=== PATIENT | female | born 1990 ===

== ENCOUNTER 2020-07-20 16:01 | Emergency (ER) | payer MEDICAID, SELFPAY ==
--- NOTE | 2020-07-20 | US_ITS ---
EXAMINATION: US PELVIS, COMPLETE CLINICAL INFORMATION: PCOS and ectopic and pain. COMPARISON: None TECHNIQUE: Transabdominal and endovaginal imaging was performed. FINDINGS: The anteverted uterus is of normal size and echogenicity measuring 7.7 x 3.5 x 3.1 cm. A regular homogeneous endometrium is identified measuring 0.7 cm. cm. Nabothian cysts are present. Both ovaries are of normal size and echogenicity. The right measures 1.7 x 1.4 x 1.8 cm for volume of 2 mL and appears normal. . The left measures 2.4 x 2.5 x 2.0 cm for a volume of 6 mL and contains a 1.5 x 1.6 x 1.7 cm cyst. There is no pelvic free fluid. IMPRESSION: Negative study with the exception of a benign-appearing left ovarian cyst which should need no further follow-up.
[2020-07-20] MEDS: Acetaminophen 325 MG TABLET 650 MG PO (18:19)
--- NOTE | 2020-07-20 19:21 | ED_ITS ---
HPI - Abdominal Pain General Chief Complaint: Abdominal Pain <Ryan Ortega MD - Last Filed: 07/21/20 08:47> Stated Complaint: abd pain <Ryan Ortega MD - Last Filed: 07/21/20 08:47> Time Seen by Provider: 07/20/20 19:21 <Ryan Ortega MD - Last Filed: 07/21/20 08:47> Source: patient <Ryan Ortega MD - Last Filed: 07/21/20 08:47> Mode of arrival: ambulatory <Ryan Ortega MD - Last Filed: 07/21/20 08:47> History of Present Illness HPI narrative: patient states that she has a history of polycystic ovarian syndrom and e ctopic <Ryan Ortega MD - Last Filed: 07/21/20 08:47> MD elicited complaint: abdominal pain <Ryan Ortega MD - Last Filed: 07/21/20 08:47> Pertinent past history: other (POCS, ectopic ) <Ryan Ortega MD - Last Filed: 07/21/20 08:47> Onset (ago): hour(s) (48) <Ryan Ortega MD - Last Filed: 07/21/20 08:47> Pain Consistency: intermittent <Ryan Ortega MD - Last Filed: 07/21/20 08:47> Location: diffuse <Ryan Ortega MD - Last Filed: 07/21/20 08:47> Severity: moderate <Ryan Ortega MD - Last Filed: 07/21/20 08:47> Quality: stabbing <Ryan Otrega MD - Last Filed: 07/21/20 08:47> Radiation: none <Ryan Ortega MD - Last Filed: 07/21/20 08:47> Associated symptoms: vomiting <Ryan Ortega MD - Last Filed: 07/21/20 08:47> Related Data Date of Last Menstrual Period: 07/08/20 <Ryan Ortega MD - Last Filed: 07/21/20 08:47> Home Medications: Previous Rx's Medication Instructions Recorded oxycodone-acetaminophen 1 tab PO Q6H PRN 3 Days #12 tab 07/20/20 <Ryan Ortega MD - Last Filed: 07/21/20 08:47> Allergies/Adverse Reactions: Allergies Allergy/AdvReac Type Severity Reaction Status Date / Time No Known Allergies Allergy Verified 07/20/20 18:14 <Ryan Ortega MD - Last Filed: 07/21/20 08:47> Review of Systems Constitutional: Reports no additional constitutional complaints <Ryan Ortega MD - Last Filed: 07/21/20 08:47> Eyes: Reports no additional eye complaints <Ryan Ortega MD - Last Filed: 07/21/20 08:47> Denies dizziness <Ryan Ortega MD - Last Filed: 07/21/20 08:47> Cardiovascular: Reports no additional cardiovascular complaints <Ryan Ortega MD - Last Filed: 07/21/20 08:47> Respiratory: Reports as per HPI <Ryan Ortega MD - Last Filed: 07/21/20 08:47> Comments: lower abdominal pain and pelvic pain <Ryan Ortega MD - Last Filed: 07/21/20 08:47> Genitourinary: Reports no additional female genitourinary complaints <Ryan Ortega MD - Last Filed: 07/21/20 08:47> Musculoskeletal: Reports no additional musculoskeletal complaints <Ryan Ortega MD - Last Filed: 07/21/20 08:47> Skin/Breast: Denies rash <Ryan Ortega MD - Last Filed: 07/21/20 08:47> Reports system reviewed and no additional complaints, except as documented, Denies dizziness and Denies Sensory deficit (Neuro) <Ryan Ortega MD - Last Filed: 07/21/20 08:47> Denies Sensory deficit (Neuro) <Sharif Ortiz MD - Last Filed: 07/20/20 23:18> Psychiatric: Denies anxiety <Ryan Ortega MD - Last Filed: 07/21/20 08:47> Physical Exam Vital Signs and I&O and Narrative: Vital Signs and I&O: Vital Signs Temp 98.6 F 07/20/20 20:19 Pulse 85 07/20/20 23:06 Resp 16 07/20/20 23:06 BP 146/103 H 07/20/20 23:06 Pulse Ox 99 07/20/20 20:19 Intake & Output 07/20/20 07/21/20 07/21/20 18:59 06:59 18:59 Weight 117.48 kg Body Mass Index 40.5 <Ryan Ortega MD - Last Filed: 07/21/20 08:47> Vital Signs and I&O: Vital Signs Temp 98.6 F 07/20/20 20:19 Pulse 85 07/20/20 23:06 Resp 16 07/20/20 23:06 BP 146/103 H 07/20/20 23:06 Pulse Ox 99 07/20/20 20:19 Intake & Output 07/20/20 07/21/20 07/21/20 18:59 06:59 18:59 Weight 117.48 kg Body Mass Index 40.5 <Sharif Ortiz MD - Last Filed: 07/20/20 23:18> Const: General: cooperative <Ryan Ortega MD - Last Filed: 07/21/20 08:47> General: cooperative <Sharif Ortiz MD - Last Filed: 07/20/20 23:18> Nutritional Appearance: obese <Ryan Ortega MD - Last Filed: 07/21/20 08:47> Nutritional Appearance: obese <Sharif Ortiz MD - Last Filed: 07/20/20 23:18> Orientation/consciousness: oriented to person <Ryan Ortega MD - Last Filed: 07/21/20 08:47> Orientation/consciousness: oriented to person <Sharif Ortiz MD - Last Filed: 07/20/20 23:18> HENMT: Head: Yes normal to inspection <Ryan Ortega MD - Last Filed: 07/21/20 08:47> Head: Yes normal to inspection <Sharif Ortiz MD - Last Filed: 07/20/20 23:18> Ears: hearing grossly normal bilaterally <Ryan Ortega MD - Last Filed: 07/21/20 08:47> Ears: hearing grossly normal bilaterally <Sharif Ortiz MD - Last Filed: 07/20/20 23:18> Mouth: Normal oral and palatal mucosa present <Ryan Ortega MD - Last Filed: 07/21/20 08:47> Mouth: Normal oral and palatal mucosa present <Sharif Ortiz MD - Last Filed: 07/20/20 23:18> Throat: Yes posterior oropharynx normal <Ryan Ortega MD - Last Filed: 07/21/20 08:47> Throat: Yes posterior oropharynx normal <Sharif Ortiz MD - Last Filed: 07/20/20 23:18> Eyes: General: appearance normal, both eyes and all related structures <Ryan Ortega MD - Last Filed: 07/21/20 08:47> General: appearance normal, both eyes and all related structures <Sharif Ortiz MD - Last Filed: 07/20/20 23:18> Neck: Neck: Yes normal visual inspection <Ryan Ortega MD - Last Filed: 07/21/20 08:47> Neck: Yes normal visual inspection <Sharif Ortzi MD - Last Filed: 07/20/20 23:18> Chest: Chest palpation & inspection: normal inspection of the chest <Ryan Ortega MD - Last Filed: 07/21/20 08:47> Chest palpation & inspection: normal inspection of the chest <Sharif Ortiz MD - Last Filed: 07/20/20 23:18> Resp: Effort & Inspection: normal respiratory effort <Ryan Ortega MD - Last Filed: 07/21/20 08:47> Effort & Inspection: normal respiratory effort <Sharif Ortiz MD - Last Filed: 07/20/20 23:18> Auscultation: clear to auscultation bilaterally <Ryan Ortega MD - Last Filed: 07/21/20 08:47> Auscultation: clear to auscultation bilaterally <Sharif Ortiz MD - Last Filed: 07/20/20 23:18> Cardio: Rate: regular rate <Ryan Ortega MD - Last Filed: 07/21/20 08:47> Rate: regular rate <Sharif Ortiz MD - Last Filed: 07/20/20 23:18> Rhythm: regular rhythm <MD Jagdeep Krishna Last Filed: 07/21/20 08:47> Rhythm: regular rhythm <Sharif Ortiz MD - Last Filed: 07/20/20 23:18> Heart sounds: S1 normal heart sound present and S2 normal heart sound present <Ryan Ortega MD - Last Filed: 07/21/20 08:47> Heart sounds: S1 normal heart sound present and S2 normal heart sound present <Sharif Ortiz MD - Last Filed: 07/20/20 23:18> GI: Other: obese, soft abdomen, diffusely tender <Ryan Ortega MD - Last Filed: 07/21/20 08:47> Other: obese, soft abdomen, diffusely tender <Sharif Ortiz MD - Last Filed: 07/20/20 23:18> : General: Yes no CVA tenderness <Ryan Ortega MD - Last Filed: 07/21/20 08:47> General: Yes no CVA tenderness <Sharif Ortiz MD - Last Filed: 07/20/20 23:18> Back/Spine/Pelvis: Back: no CVA tenderness <Ryan Ortega MD - Last Filed: 07/21/20 08:47> Back: no CVA tenderness <Sharif Ortiz MD - Last Filed: 07/20/20 23:18> Skin: General skin exam: no rashes or lesions noted <Ryan Ortega MD - Last Filed: 07/21/20 08:47> General skin exam: no rashes or lesions noted <Sharif Ortiz MD - Last Filed: 07/20/20 23:18> Neuro: General: oriented to person <Ryan Ortega MD - Last Filed: 12/09 08:47> General: oriented to person <Sharif Ortiz MD - Last Filed: 07/20/20 23:18> Motor exam (neuro): 5/5 motor strength present throughout <Ryan Ortega MD - Last Filed: 07/21/20 08:47> Motor exam (neuro): 5/5 motor strength present throughout <Sharif Ortiz MD - Last Filed: 07/20/20 23:18> Sensory Exam: No Sensory deficit (Neuro) <Ryan Ortega MD - Last Filed: 07/21/20 08:47> Sensory Exam: No Sensory deficit (Neuro) <Sharif Ortiz MD - Last Filed: 07/20/20 23:18> Extrem: General: Yes normal to inspection <Ryan Ortega MD - Last Filed: 07/21/20 08:47> General: Yes normal to inspection <Sharif Ortiz MD - Last Filed: 07/20/20 23:18> Psych: Appearance: grossly normal <Ryan Ortega MD - Last Filed: 07/21/20 08:47> Appearance: grossly normal <Sharif Ortiz MD - Last Filed: 07/20/20 23:18> Course Reevaluation(s) Reevaluation #1: signed out to Dr. Ortiz expect work up to be negative and patient to go home <Ryan Ortega MD - Last Filed: 07/21/20 08:47> Time: 21:03 <Ryan Ortega MD - Last Filed: 07/21/20 08:47> 21:00 <Sharif Ortiz MD - Last Filed: 07/20/20 23:18> Reevaluation #2: I received signout from Dr. Ortega. <Sharif Ortiz MD - Last Filed: 07/20/20 23:18> Time: 23:00 <Sharif Ortiz MD - Last Filed: 07/20/20 23:18> Reevaluation #3: I had previously met with patient, and she received some Toradol with moderate relief of her symptoms. I reviewed her ultrasound as well as lab work. Lab work were remarkable for a mild elevation in her white blood cell count. , transvaginal ultrasound demonstrated a 1.5 x 1.6 x 1 point cm ovarian cyst. The patient tells me that she does not have a crap game box person in this area yet. She was provided with discharge instructions, return precautions which were acknowledged. She was provided with a crap game box person in the area to see for follow-up. she was made aware of the lab work as well as ultrasound findings. <Sharif Ortiz MD - Last Filed: 07/20/20 23:18> MDM - Abdominal Pain Lab Data Result diagrams: : 07/20/20 20:03 07/20/20 20:03 <Ryan Ortega MD - Last Filed: 07/21/20 08:47> Labs: Lab Results 10/01/20 10/01/20 10/01/20 Range/Units 20:03 20:03 20:09 WBC 13.7 H (4.8-10.8) X10*3/uL RBC 5.23 (4.20-5.50) X10*6/uL Hgb 14.8 (12.0-16.0) g/dl Hct 45.2 (37-47) % MCV 86.4 (80-98) fL MCH 28.3 (27.0-33.0) pg MCHC 32.7 (31.0-35.0) g/dl RDW 12.1 (11.0-16.0) % Plt Count 240 (160-400) X10*3/uL MPV 12.5 H (9.4-12.3) fL Immature Gran % (Auto) 0.3 (0.0-0.4) % Neut % (Auto) 67.2 (45-73) % Lymph % (Auto) 25.9 (20-40) % [place] % (Auto) 5.0 (2-11) % Eos % (Auto) 0.9 (0-4) % Baso % (Auto) 0.7 (0-2) % Neut # (Auto) 9.2 H (2.0-8.3) X10*3/uL Lymph # (Auto) 3.6 (1.2-4.9) X10*3/uL [place] # (Auto) 0.7 (0.1-1.2) X10*3/uL Eos # (Auto) 0.1 (0.0-0.4) X10*3/uL Baso # (Auto) 0.1 (0.0-0.2) X10*3/uL Abs Immat Gran (auto) 0.04 H (0.00-0.03) X10*3/uL Absolute Nucleated RBC 0.000 (0.0-0.012) X10*3/uL Nucleated RBC % (auto) 0.0 (0.0-0.2) /100WBC Sodium 139 (135-145) mmol/L Potassium 4.0 (3.3-5.1) mmol/l Chloride 105 (96-108) mmol/L Carbon Dioxide 24 (22-29) mmol/L Anion Gap 14 (12-20) BUN 10 (9-16) mg/dL Creatinine 0.81 (0.5-1.4) mg/dL Estim Creat Clear Calc 134.6 Estimated GFR > 60 POC Glucose 90 (60-115) mg/dL Random Glucose 97 (60-115) mg/dL Calcium 9.5 (8.4-10.2) mg/dL Beta HCG, Quant < 2 mIU/mL Urine Color Urine Appearance Urine pH (5.0-8.0) Ur Specific [place] (1.005-1.025) Urine Protein (NEG-TRACE) MG/DL Urine Glucose (UA) (NEG) MG/DL Urine Ketones (NEG) MG/DL Urine Blood (NEG) Urine Nitrite (NEG) Ur Leukocyte Esterase (NEG) Urine RBC (0) /HPF Urine WBC (0-4) /HPF Ur Squamous Epith Cells /LPF Urine Bacteria /LPF Urine Mucus /LPF 07/20/20 Range/Units 21:39 WBC (4.8-10.8) X10*3/uL RBC (4.20-5.50) X10*6/uL Hgb (12.0-16.0) g/dl Hct (37-47) % MCV (80-98) fL MCH (27.0-33.0) pg MCHC (31.0-35.0) g/dl RDW (11.0-16.0) % Plt Count (160-400) X10*3/uL MPV (9.4-12.3) fL Immature Gran % (Auto) (0.0-0.4) % Neut % (Auto) (45-73) % Lymph % (Auto) (20-40) % [place] % (Auto) (2-11) % Eos % (Auto) (0-4) % Baso % (Auto) (0-2) % Neut # (Auto) (2.0-8.3) X10*3/uL Lymph # (Auto) (1.2-4.9) X10*3/uL [place] # (Auto) (0.1-1.2) X10*3/uL Eos # (Auto) (0.0-0.4) X10*3/uL Baso # (Auto) (0.0-0.2) X10*3/uL Abs Immat Gran (auto) (0.00-0.03) X10*3/uL Absolute Nucleated RBC (0.0-0.012) X10*3/uL Nucleated RBC % (auto) (0.0-0.2) /100WBC Sodium (135-145) mmol/L Potassium (3.3-5.1) mmol/l Chloride (96-108) mmol/L Carbon Dioxide (22-29) mmol/L Anion Gap (12-20) BUN (9-16) mg/dL Creatinine (0.5-1.4) mg/dL Estim Creat Clear Calc Estimated GFR POC Glucose (60-115) mg/dL Random Glucose (60-115) mg/dL Calcium (8.4-10.2) mg/dL Beta HCG, Quant mIU/mL Urine Color YELLOW Urine Appearance CLEAR Urine pH 6.0 (5.0-8.0) Ur Specific [place] 1.025 (1.005-1.025) Urine Protein NEG (NEG-TRACE) MG/DL Urine Glucose (UA) NEG (NEG) MG/DL Urine Ketones NEG (NEG) MG/DL Urine Blood NEG (NEG) Urine Nitrite POS H (NEG) Ur Leukocyte Esterase NEG (NEG) Urine RBC 1-4 (0) /HPF Urine WBC 5-9 H (0-4) /HPF Ur Squamous Epith Cells 2+ /LPF Urine Bacteria 3+ /LPF Urine Mucus 2+ /LPF <Ryan Ortega MD - Last Filed: 07/21/20 08:47> Lab Results 07/20/20 07/20/20 07/20/20 Range/Units 20:03 20:03 20:09 WBC 13.7 H (4.8-10.8) X10*3/uL RBC 5.23 (4.20-5.50) X10*6/uL Hgb 14.8 (12.0-16.0) g/dl Hct 45.2 (37-47) % MCV 86.4 (80-98) fL MCH 28.3 (27.0-33.0) pg MCHC 32.7 (31.0-35.0) g/dl RDW 12.1 (11.0-16.0) % Plt Count 240 (160-400) X10*3/uL MPV 12.5 H (9.4-12.3) fL Immature Gran % (Auto) 0.3 (0.0-0.4) % Neut % (Auto) 67.2 (45-73) % Lymph % (Auto) 25.9 (20-40) % [place] % (Auto) 5.0 (2-11) % Eos % (Auto) 0.9 (0-4) % Baso % (Auto) 0.7 (0-2) % Neut # (Auto) 9.2 H (2.0-8.3) X10*3/uL Lymph # (Auto) 3.6 (1.2-4.9) X10*3/uL [place] # (Auto) 0.7 (0.1-1.2) X10*3/uL Eos # (Auto) 0.1 (0.0-0.4) X10*3/uL Baso # (Auto) 0.1 (0.0-0.2) X10*3/uL Abs Immat Gran (auto) 0.04 H (0.00-0.03) X10*3/uL Absolute Nucleated RBC 0.000 (0.0-0.012) X10*3/uL Nucleated RBC % (auto) 0.0 (0.0-0.2) /100WBC Sodium 139 (135-145) mmol/L Potassium 4.0 (3.3-5.1) mmol/l Chloride 105 (96-108) mmol/L Carbon Dioxide 24 (22-29) mmol/L Anion Gap 14 (12-20) BUN 10 (9-16) mg/dL Creatinine 0.81 (0.5-1.4) mg/dL Estim Creat Clear Calc 134.6 Estimated GFR > 60 POC Glucose 90 (60-115) mg/dL Random Glucose 97 (60-115) mg/dL Calcium 9.5 (8.4-10.2) mg/dL Beta HCG, Quant < 2 mIU/mL Urine Color Urine Appearance Urine pH (5.0-8.0) Ur Specific [place] (1.005-1.025) Urine Protein (NEG-TRACE) MG/DL Urine Glucose (UA) (NEG) MG/DL Urine Ketones (NEG) MG/DL Urine Blood (NEG) Urine Nitrite (NEG) Ur Leukocyte Esterase (NEG) Urine RBC (0) /HPF Urine WBC (0-4) /HPF Ur Squamous Epith Cells /LPF Urine Bacteria /LPF Urine Mucus /LPF 07/20/20 Range/Units 21:39 WBC (4.8-10.8) X10*3/uL RBC (4.20-5.50) X10*6/uL Hgb (12.0-16.0) g/dl Hct (37-47) % MCV (80-98) fL MCH (27.0-33.0) pg MCHC (31.0-35.0) g/dl RDW (11.0-16.0) % Plt Count (160-400) X10*3/uL MPV (9.4-12.3) fL Immature Gran % (Auto) (0.0-0.4) % Neut % (Auto) (45-73) % Lymph % (Auto) (20-40) % [place] % (Auto) (2-11) % Eos % (Auto) (0-4) % Baso % (Auto) (0-2) % Neut # (Auto) (2.0-8.3) X10*3/uL Lymph # (Auto) (1.2-4.9) X10*3/uL [place] # (Auto) (0.1-1.2) X10*3/uL Eos # (Auto) (0.0-0.4) X10*3/uL Baso # (Auto) (0.0-0.2) X10*3/uL Abs Immat Gran (auto) (0.00-0.03) X10*3/uL Absolute Nucleated RBC (0.0-0.012) X10*3/uL Nucleated RBC % (auto) (0.0-0.2) /100WBC Sodium (135-145) mmol/L Potassium (3.3-5.1) mmol/l Chloride (96-108) mmol/L Carbon Dioxide (22-29) mmol/L Anion Gap (12-20) BUN (9-16) mg/dL Creatinine (0.5-1.4) mg/dL Estim Creat Clear Calc Estimated GFR POC Glucose (60-115) mg/dL Random Glucose (60-115) mg/dL Calcium (8.4-10.2) mg/dL Beta HCG, Quant mIU/mL Urine Color YELLOW Urine Appearance CLEAR Urine pH 6.0 (5.0-8.0) Ur Specific [place] 1.025 (1.005-1.025) Urine Protein NEG (NEG-TRACE) MG/DL Urine Glucose (UA) NEG (NEG) MG/DL Urine Ketones NEG (NEG) MG/DL Urine Blood NEG (NEG) Urine Nitrite POS H (NEG) Ur Leukocyte Esterase NEG (NEG) Urine RBC 1-4 (0) /HPF Urine WBC 5-9 H (0-4) /HPF Ur Squamous Epith Cells 2+ /LPF Urine Bacteria 3+ /LPF Urine Mucus 2+ /LPF <Sharif Ortiz MD - Last Filed: 07/20/20 23:18> Imaging Data US - abdomen: Radiologist's impression: US PELVIS, COMPLETE IMPRESSION: Negative study with the exception of a benign-appearing left ovarian cyst which should need no further follow-up. <Sharif Ortiz MD - Last Filed: 07/20/20 23:18> Discharge Plan Discharge Clinical Impression: Left lower quadrant abdominal pain, Ovarian cyst <Ryan Ortega MD - Last Filed: 07/21/20 08:47> Patient Disposition: Home, Self-Care <Ryan Ortega MD - Last Filed: 07/21/20 08:47> Instructions: Ovarian Cyst (ED) <Ryan Ortega MD - Last Filed: 07/21/20 08:47> Additional Instructions: Your lab work was reassuring. Your have a 1.5x1.6.1.7 cm ovarain cyst on the left. Please use 600 mg of ibuprofen every 8 hours for your pain and the oxycodone-acetaminophen for breakthrough pain. Do not drive if taking the oxycodone-acetaminophen. Please call the crap game box person provided tomorrow for the next available appointment. If you develop any new or concerning symptoms please return to the emergency department. <Ryan Ortega MD - Last Filed: 07/21/20 08:47> Prescriptions: New oxycodone-acetaminophen 5-325 mg tablet 1 tab PO Q6H PRN (Reason: pain) 3 Days Qty: 12 RF: 0 <Ryan Ortega MD - Last Filed: 07/21/20 08:47> Referrals: Dante Taveras MD [Physician] - 2 days <Ryan Ortega MD - Last Filed: 07/21/20 08:47> Interventions: ED Discharge Assessment Last Done: 07/20/20 23:20 <Ryan Ortega MD - Last Filed: 07/21/20 08:47> Discharge Date/Time: 07/20/20 23:40 <Ryan Ortega MD - Last Filed: 07/21/20 08:47> [facility] Past Medical History Medical History: Medical History (Updated 07/21/20 @ 00:01 by Background Jonnathan) Asthma Diabetes mellitus, type 2 Hypercholesteremia Hypertension Ovarian cyst <Ryan Ortega MD - Last Filed: 07/21/20 08:47> Date of Last Menstrual Period: 07/08/20 <Ryan Ortega MD - Last Filed: 07/21/20 08:47> Social History Social History: Social History Alcohol intake: never Smoking Status: Current every day smoker Use of substances other than those prescribed or required for medical reasons: No Advance Directives: No Advance Directives Information Provided: Yes <Ryan Ortega MD - Last Filed: 07/21/20 08:47>
[2020-07-20 20:07] LABS: MANUAL DIFF FLAG NO
[2020-07-20 20:10] LABS: Basophils Absolute Auto 0.1 X10*3/uL (0.0-0.2); Basophils Percent Auto 0.7 % (0-2); Eosinophils Absolute Auto 0.1 X10*3/uL (0.0-0.4); Eosinophils Percent Auto 0.9 % (0-4); Hematocrit 45.2 % (37-47); Hemoglobin 14.8 g/dl (12.0-16.0); Imm Gran Abs Auto 0.04 X10*3/uL (0.00-0.03); Imm Gran Pct Auto 0.3 % (0.0-0.4); Lymphocytes Absolute Auto 3.6 X10*3/uL (1.2-4.9); Lymphocytes Percent Auto 25.9 % (20-40); Mean Corpuscular HGB Conc 32.7 g/dl (31.0-35.0); Mean Corpuscular Hemoglobin 28.3 pg (27.0-33.0); Mean Corpuscular Volume 86.4 fL (80-98); Mean Platelet Volume 12.5 fL (9.4-12.3); Monocytes Absolute Auto 0.7 X10*3/uL (0.1-1.2); Neutrophils Absolute Auto 9.2 X10*3/uL (2.0-8.3); Neutrophils Percent Auto 67.2 % (45-73); Platelet Count 240 X10*3/uL (160-400); Red Blood Count 5.23 X10*6/uL (4.20-5.50); Red Cell Distribution Width 12.1 % (11.0-16.0); White Blood Count 13.7 X10*3/uL (4.8-10.8)
[2020-07-20 20:12] LABS: Glucose, Whole Blood 90 mg/dL (60-115)
[2020-07-20 20:19] VITALS: BP 125/72; PULSE 66; PULSE 75; RESP 16; TEMP 37; O2SAT 98; O2SAT 99; BMI 40.5
[2020-07-20 20:36] LABS: Anion Gap 14 (12-20); Blood Urea Nitrogen 10 mg/dL (9-16); Calcium 9.5 mg/dL (8.4-10.2); Carbon Dioxide 24 mmol/L (22-29); Chloride 105 mmol/L (96-108); Creatinine Clr Calc Pharmacy 134.6; Estimated Glomerular Filt Rate > 60; Glucose Random 97 mg/dL (60-115); Sodium 139 mmol/L (135-145)
[2020-07-20 20:43] LABS: HCG Quantitative < 2 mIU/mL
[2020-07-20] MEDS: Ketorolac Tromethamine 15 MG/ML VIAL IV (21:52)
[2020-07-20 21:58] LABS: Glucose Urine UA NEG (NEG); Leukocyte Esterase Urine NEG (NEG); Nitrite Urine POS (NEG); Specific Gravity - Urine 1.025 (1.005-1.025); Urine Blood NEG (NEG); Urine Ketones NEG (NEG); Urine Protein NEG (NEG-TRACE)
--- NOTE | 2020-07-20 22:01 | PC.NURSE ---
Pt worried about her poc of 90, requesting juice. Pt given apple juice. pt also requested pain medication, IV established and pt administered 15 mg toradol IV.
[2020-07-20 22:09] LABS: Appearance Urine CLEAR; Color Urine YELLOW
[2020-07-20 22:17] LABS: Bacteria Urine 3+ /LPF; Mucus Urine 2+ /LPF; Squamous Epithelial Cell Urine 2+ /LPF
[2020-07-20 23:06] VITALS: BP 146/103; PULSE 85; RESP 16
[2020-07-20] MEDS: oxyCODONE HCl Immed Release 5 MG TABLET PO (23:08)
--- NOTE | 2020-07-20 23:17 | PC.NURSE ---
pT ON PHONE, SEATED UPRIGHT AND REPORTS IMPROVED PAIN IN LLQ. PAIN NOW /10.
== END 2020-07-20 23:40 | disposition home or self-care (01) ==
PROVIDERS: Emergency Medicine; Emergency Provider Emergency Medicine
DX: R10.32 Left lower quadrant pain (principal); N83.202 Unspecified ovarian cyst, left side; E11.9 Type 2 diabetes mellitus without complications
CPT/HCPCS: 36415; 76830; 76856; 80048; 81001; 81003; 82947; 84702; 85025; 87086; 87088; 87186; 99284; J1885

== ENCOUNTER 2020-09-26 12:25 | Outpatient (REF) | payer MEDICAID, SELFPAY | END 2020-09-26 12:26 | disposition home or self-care (01) | LOC: HO.LAB 12:25 | PROVIDERS: PCP Registered Nurse; Visit Provider Registered Nurse | DX: Z20.828 Contact with and (suspected) exposure to other viral communicable diseases (principal) | CPT/HCPCS: C9803; U0003 ==

== ENCOUNTER → 2020-11-07 13:10 | Outpatient (BNVA) | payer MEDICAID, SELFPAY | PROVIDERS: PCP Registered Nurse; Visit Provider Obstetrics & Gynecology | DX: Z31.69 Encounter for other general counseling and advice on procreation (principal); R10.2 Pelvic and perineal pain | CPT/HCPCS: 99202 ==

== ENCOUNTER 2020-12-28 15:31 | Outpatient (REF) | payer MEDICAID, SELFPAY ==
--- NOTE | ~2020-12-28 | US_ITS ---
EXAMINATION: US PELVIS, COMPLETE CLINICAL INFORMATION: Pelvic and perineal pain; history of left ovarian cyst. COMPARISON: Pelvic ultrasound dated 07/20/2020. TECHNIQUE: Transabdominal and transvaginal imaging was performed. FINDINGS: The uterus is of normal size and echogenicity measuring 8.3 x 3.7 x 4.4 cm. The uterus is anteverted and anteflexed. A regular homogeneous endometrium is identified measuring 0.6 cm. Nabothian cysts are seen within the cervix Both ovaries are of normal size and echogenicity. The right ovary measures 2.8 x 2.9 x 2.1 cm for a volume of 8.9 mL. The right ovary contains 2.1 cm and 2.4 cm in maximal diameter simple cyst. The left ovary measures 6.5 x 1.5 x 2.0 cm for a volume of 6.3 mL. The left ovary contains a 1.5 cm in maximal diameter simple cyst. As well, the left ovary contains a 2.6 x 2.1 x 1.6 cm heterogeneous echotexture corpus luteum cyst. There is no pelvic free fluid. No adnexal mass is seen. US/US transvaginal IMPRESSION: 1. There are bilateral ovarian simple cysts incidentally noted, with dimensions as detailed above. As well, a left ovary corpus luteum cyst is seen. 2. Nabothian cysts are seen within the cervix.
--- NOTE | ~2020-12-28 | US_ITS ---
EXAMINATION: US PELVIS, COMPLETE CLINICAL INFORMATION: Pelvic and perineal pain; history of left ovarian cyst. COMPARISON: Pelvic ultrasound dated 07/20/2020. TECHNIQUE: Transabdominal and transvaginal imaging was performed. FINDINGS: The uterus is of normal size and echogenicity measuring 8.3 x 3.7 x 4.4 cm. The uterus is anteverted and anteflexed. A regular homogeneous endometrium is identified measuring 0.6 cm. Nabothian cysts are seen within the cervix Both ovaries are of normal size and echogenicity. The right ovary measures 2.8 x 2.9 x 2.1 cm for a volume of 8.9 mL. The right ovary contains 2.1 cm and 2.4 cm in maximal diameter simple cyst. The left ovary measures 6.5 x 1.5 x 2.0 cm for a volume of 6.3 mL. The left ovary contains a 1.5 cm in maximal diameter simple cyst. As well, the left ovary contains a 2.6 x 2.1 x 1.6 cm heterogeneous echotexture corpus luteum cyst. There is no pelvic free fluid. No adnexal mass is seen. US/US pelvic complete IMPRESSION: 1. There are bilateral ovarian simple cysts incidentally noted, with dimensions as detailed above. As well, a left ovary corpus luteum cyst is seen. 2. Nabothian cysts are seen within the cervix.
== END 2020-12-28 15:32 | disposition home or self-care (01) ==
LOC: HO.US 15:31
PROVIDERS: Visit Provider Obstetrics & Gynecology
DX: R10.2 Pelvic and perineal pain (principal)
CPT/HCPCS: 76830; 76856

== ENCOUNTER 2022-01-17 16:39 | Emergency (ER) | payer MEDICAID, SELFPAY ==
--- NOTE | ~2022-01-17 | CT_ITS ---
EXAMINATION: CT ABDOMEN AND PELVIS WITHOUT AND WITH CONTRAST CLINICAL INFORMATION: Lower abdominal pain radiating to the back and right lower quadrant pain. COMPARISON: Pelvic ultrasound dated from 12/28/2020. TECHNIQUE: Multidetector volumetric imaging was performed of the abdomen and pelvis before and after the IV administration of 85 mL of Omnipaque 350 intravenous contrast. Sagittal and coronal reformatted images were obtained on the technologist's workstation. This CT examination was performed using dose optimization techniques as appropriate, variously including the following: *Automated exposure control *Adjustment of mA and/or kV according to patient size (this includes techniques or standardized protocols for targeted exams where dose is matched to indication/reason for exam; i.e. extremities or head) *Use of iterative reconstruction technique DLP: 1123 mGy-cm FINDINGS: LUNG BASES: The visualized lung bases are unremarkable. LIVER, GALLBLADDER, AND BILIARY TREE: The liver is enlarged measuring 26.6 cm craniocaudally with decreased parenchymal attenuation most consistent with hepatic steatosis. Otherwise, the liver is normal in shape without discrete focal abnormalities. Prior cholecystectomy. No biliary ductal dilatation. PANCREAS: Unremarkable SPLEEN: Unremarkable ADRENAL GLANDS: Unremarkable KIDNEYS AND URETERS: The kidneys are normal in size, shape, and attenuation. There is a small approximately 0.8 cm peripheral angiomyolipoma in the left kidney (8:40). No hydronephrosis, hydroureter, or calculi seen. No perinephric stranding. BLADDER: Unremarkable GASTROINTESTINAL TRACT: The stomach and the small bowel are nondilated. Normal appendix. Mild diverticulosis. No pericolonic inflammatory changes or evidence of bowel obstruction. ABDOMINAL WALL: No significant hernia is appreciated. LYMPH NODES: No lymphadenopathy by size criteria. VASCULAR: Unremarkable PELVIC VISCERA: The uterus and adnexa are unremarkable. Trace amount of free fluid is likely physiologic. OSSEOUS STRUCTURES: No acute or aggressive appearing osseous abnormalities. CT/CT abdomen pelvis wo/w con IMPRESSION: Hepatomegaly and hepatic steatosis. Mild diverticulosis but no evidence of acute diverticulitis. Small left renal angiomyolipoma.
[2022-01-17 17:36] VITALS: BP 138/92; PULSE 100; RESP 18; TEMP 36.8; O2SAT 98; BMI 43.9
[2022-01-17 17:47] LABS: Glucose, Whole Blood 302 mg/dL (60-115)
--- NOTE | 2022-01-17 20:13 | ED.ABDPAIN ---
HPI - Abdominal Pain General Chief Complaint: Abdominal Pain Stated Complaint: Abd pain Time Seen by Provider: 01/17/22 19:34 Source: patient Mode of arrival: ambulatory Limitations: no limitations History of Present Illness HPI narrative: 31-year-old female past medical history significant for diabetes mellitus type 2, high triglycerides presenting to the emergency department with multiple complaints including abnormal labs, abdominal pain, nausea, vomiting, diarrhea X2 days. According to patient she decided to come in today he she was seen by her primary care provider that tells her that her pancreatic enzymes were elevated and she had very high triglycerides. Patient tells me that she has had about 6 episodes of vomiting and she feels extremely nauseous at this time. She also reports multiple episodes of loose stool. She tells me there has not been any blood in her stool or vomit. She reports lower abdominal pain that radiates the back she tells me that the abdominal pain is worse in the right lower quadrant intermittent severe in nature and stabbing. Patient tells me none of the symptoms of ever happened to her before. She has a newly diagnosed type 2 diabetic she is currently taking Lantus and Trulicity. She does started insulin on Friday. She denies chest pain, shortness of breath, fevers, chills, weakness, leg swelling, pain, increased urination, increased thirst. MD elicited complaint: abdominal pain Onset (ago): day(s) (2) Pain Consistency: constant Location: RLQ and LLQ Severity: moderate Quality: stabbing Radiation: none Migration to: no migration Exacerbating factors: nothing Relieving factors: nothing Associated symptoms: denies other symptoms Related Data Previous Rx's Medication Instructions Recorded oxycodone-acetaminophen 5 mg-325 1 tab PO Q6H PRN 3 Days #12 tab 07/20/20 mg tablet cefuroxime axetil 250 mg tablet 250 mg PO BID 7 Days #14 tab 01/17/22 ondansetron 4 mg disintegrating 4 mg PO ONCE PRN #10 tab 01/17/22 tablet Allergies Allergy/AdvReac Type Severity Reaction Status Date / Time ciprofloxacin [From Cipro] Allergy Intermediate Hives Verified 01/17/22 17:36 sulfamethoxazole Allergy Intermediate Hives Verified 01/17/22 17:36 [From Septra] trimethoprim [From Septra] Allergy Intermediate Hives Verified 01/17/22 17:36 Review of Systems Review of Systems Constitutional : No Weight loss, No Fever, No Chills, No Fatigue, + Malaise ENT/Mouth : No sore throat, No Rhinorrhea Eyes: No Eye Pain, No Swelling, No Redness Cardiovascular : No Chest Pain, No SOB, No Dyspnea on Exertion, No Orthopnea, No Edema, No Palpitations Respiratory : No Cough, No Sputum, No Wheezing Gastrointestinal : + Nausea, + Vomiting, + Diarrhea, No Constipation, + abdominal Pain, No Hematochezia, No Melena Genitourinary : No Dysuria, No Urinary Frequency, No Hematuria, Musculoskeletal : No joint pain, No Myalgias, No Joint Swelling Skin : No Skin Lesions, No rash Neuro : No Weakness, No Numbness, No Dizziness, No Headache Psych : No Anxiety/Panic, No Depression All other systems reviewed and are negative Yes all other systems are reviewed and are negative [facility]LY [facility] Past Medical History Attestation statement: The following information was validated with the patient. Source: old records reviewed and nursing notes reviewed Medical History Asthma Diabetes mellitus, type 2 History of ectopic Hypercholesteremia Hypertension Ovarian cyst Surgical History History of ovarian cystectomy Social History Social History Alcohol intake: never Patient Tobacco Use Status: Never used Tobacco Use of substances other than those prescribed or required for medical reasons: Yes Substance Use Type: Marijuana Substance Use Frequency: Chronic Longstanding Advance Directives: No Advance Directives Information Provided: No Patient : No Sexual orientation: Straight/Heterosexual Gender identity: Female Physical Exam ED Vital Signs: Vital Signs - 24 hr 01/17/22 17:36 01/17/22 20:21 01/17/22 22:00 Temperature 98.3 F 98.3 F Pulse Rate 100 93 96 Respiratory Rate 18 15 18 Blood Pressure 138/92 H 145/99 H 108/69 Pulse Oximetry 98 99 99 BMI result Body Mass Index 43.9 Vital signs stable Appearance: Alert.? Oriented X3.? No acute distress.? Head: Normocephalic, atraumatic, no step-offs or deformities Eyes: Pupils equal, round and reactive to light.? ENT: Pharynx normal.? Neck: Normal inspection.? Neck supple.? CVS: Normal heart rate and rhythm.? Pulses normal.? Respiratory: No respiratory distress.? Breath sounds normal.? Abdomen: Soft and + pain to palpation to lower quadrant right greater than left. Negative psoas and obturator. Skin: Skin warm and dry.? Normal skin color.? Normal skin turgor.? Extremities: No lower extremity edema.? No calf ttp. 5/5 strength to bilateral upper and lower extremities Back: No midline tenderness, no C-spine tenderness, full range of motion, no CVA tenderness bilaterally Neuro: Oriented X 3.? No motor deficit.? No sensory deficit. CN 2-12 intact Course Reevaluation(s) Reevaluation #1: Patient's sugar was noted to be elevated therefore she was given 5 units of insulin. Patient noted to have a slight leukocytosis. No anemia. Chemistry with no acute electrolyte abnormalities. Transaminases slightly elevated. Lipase within normal limits. Beta-hCG negative. UA positive for nitrates. Will treat patient for UTI Ceftin 250 mg p.o. b.i.d. x7 days. Acetone negative, no anion gap, grossly normal VBG. Unlikely that this is DKA. CT of the abdomen and pelvis with hepatomegaly and hepatic steatosis mild diverticulosis but no evidence of diverticulitis. Small left renal angiomyolipoma. Lipase WNL unlikley pancreatitis. Patient tells me she is feeling much better after Toradol and Zofran. No longer having abdominal pain or nausea. Repeated my abdominal exam patient does not have pain with palpation anywhere. Normoactive bowel sounds. She now tells me that she is having a little bit of burning with urination. No concerns for STDs/STIs. Patient tolerating p.o. fluids, has not vomited since. Patient's sugar improved after insulin. One hundred eighty-eight. At this time patient will be discharged home. Discussed laboratory studies and imaging with her. Will discharge her with PCP follow-up. Outlined worrisome signs and symptoms advised her to return if any of these arise. Comfortable discharge home Time: 23:09 MDM - Abdominal Pain MDM Narrative Medical decision making narrative: 2010 31 yo f pmhx DM, high triglycerides presents to the ED w/ abnormal labs from PCP ( increased pancreatic enzymes), nausea, vomiting, diarrhea and abdominal pain times 2-3 days. Newly diagnosed type better ache. Recently started insulin on Friday. Physical exam significant for pain with palpation to lower abdomen, right worse than left. Negative psoas and obturator. Negative Valenzuela sign. Lungs clear. Regular rate and rhythm. Negative CVA tenderness. Negative Dalton sign bilaterally. Plan at this time is to obtain basic labs, VBG, acetone, urine, point of care, lipase, and CT of the abdomen and pelvis with and without contrast to rule out appendicitis, kidney stones. Will also rule out DKA. Medical Records Attestation: I reviewed the patient's medical records. Lab Data Attestation: I reviewed the patient's lab results. Result diagrams: 01/17/22 20:02 01/17/22 20:02 Labs: Lab Results 01/17/22 01/17/22 01/17/22 Range/Units 17:42 20:02 20:02 WBC 12.2 H (4.8-10.8) X10*3/uL RBC 4.91 (4.20-5.50) X10*6/uL Hgb 14.0 (12.0-16.0) g/dl Hct 41.6 (37.0-47.0) % MCV 84.7 (80.0-98.0) fL MCH 28.5 (27.0-33.0) pg MCHC 33.7 (31.0-35.0) g/dl RDW 12.1 (11.0-16.0) % Plt Count Not Reportable MPV Not Reportable Immature Gran % (Auto) Cancelled Neut % (Auto) Cancelled Lymph % (Auto) Cancelled [place] % (Auto) Cancelled Eos % (Auto) Cancelled Baso % (Auto) Cancelled Lymph # (Auto) Cancelled [place] # (Auto) Cancelled Eos # (Auto) Cancelled Baso # (Auto) Cancelled Abs Immat Gran (auto) Cancelled Absolute Neuts (auto) Cancelled Absolute Nucleated RBC 0.000 (0.0-0.012) X10*3/uL Nucleated RBC % (auto) 0.0 (0.0-0.2) /100WBC Neutrophils % (Manual) 68 (45-73) % Band Neutrophils % 0 L (3-5) % Lymphocytes % (Manual) 26 (20-40) % Monocytes % (Manual) 4 (2-11) % Basophils % (Manual) 2 (0-2) % Abs Neuts (Manual) 8.3 (2.0-8.3) X10*3/uL Lymphocytes # (Manual) 3.2 (1.2-4.9) X10*3/uL Monocytes # (Manual) 0.5 (0.1-1.2) X10*3/uL Basophils # (Manual) 0.2 (0.0-0.2) X10*3/uL Platelet Estimate NORMAL (NORMAL) Plt Morphology Comment NORMAL RBC Morphology NORMAL Tear Drop Cells 1+ (0-2) /OIF VBG pH (7.32-7.43) VBG pCO2 mmHg VBG pO2 mmHg VBG HCO3 (22-26) mmol/L VBG O2 Saturation % VBG Base Excess mmol/L Sodium 134 L (135-145) mmol/L Potassium 4.3 (3.3-5.1) mmol/L Chloride 101 (96-108) mmol/L Carbon Dioxide 22 (22-29) mmol/L Anion Gap 15 (12-20) BUN 10 (9-16) mg/dL Creatinine 0.92 (0.5-1.4) mg/dL Estim Creat Clear Calc 121.8 Estimated GFR > 60 POC Glucose 302 H (60-115) mg/dL Random Glucose 260 H (60-115) mg/dL Calcium 9.6 (8.4-10.2) mg/dL Total Bilirubin 0.3 (0.0-1.0) mg/dL AST 37 H (5-31) U/L ALT 48 H (0-31) U/L Alkaline Phosphatase 80 (39-117) U/L Total Protein 6.9 (6.5-8.0) g/dL Albumin 4.0 (3.5-5.0) g/dL Lipase 38 (8-78) U/L Beta HCG, Quant < 2 mIU/mL Urine Color Urine Appearance Urine pH (5.0-8.0) Ur Specific [place] (1.005-1.025) Urine Protein (NEG-TRACE) MG/DL Urine Glucose (UA) (NEG) MG/DL Urine Ketones (NEG) MG/DL Urine Blood (NEG) Urine Nitrite (NEG) Ur Leukocyte Esterase (NEG) Urine RBC (0) /HPF Urine WBC (0-4) /HPF Ur Squamous Epith Cells /LPF Urine Bacteria /LPF Acetone, Qual (Negative) 01/17/22 01/17/22 01/17/22 Range/Units 20:02 20:02 20:13 WBC (4.8-10.8) X10*3/uL RBC (4.20-5.50) X10*6/uL Hgb (12.0-16.0) g/dl Hct (37.0-47.0) % MCV (80.0-98.0) fL MCH (27.0-33.0) pg MCHC (31.0-35.0) g/dl RDW (11.0-16.0) % Plt Count MPV Immature Gran % (Auto) Neut % (Auto) Lymph % (Auto) [place] % (Auto) Eos % (Auto) Baso % (Auto) Lymph # (Auto) [place] # (Auto) Eos # (Auto) Baso # (Auto) Abs Immat Gran (auto) Absolute Neuts (auto) Absolute Nucleated RBC (0.0-0.012) X10*3/uL Nucleated RBC % (auto) (0.0-0.2) /100WBC Neutrophils % (Manual) (45-73) % Band Neutrophils % (3-5) % Lymphocytes % (Manual) (20-40) % Monocytes % (Manual) (2-11) % Basophils % (Manual) (0-2) % Abs Neuts (Manual) (2.0-8.3) X10*3/uL Lymphocytes # (Manual) (1.2-4.9) X10*3/uL Monocytes # (Manual) (0.1-1.2) X10*3/uL Basophils # (Manual) (0.0-0.2) X10*3/uL Platelet Estimate (NORMAL) Plt Morphology Comment RBC Morphology Tear Drop Cells /OIF VBG pH 7.45 H (7.32-7.43) VBG pCO2 32 mmHg VBG pO2 87 mmHg VBG HCO3 22 (22-26) mmol/L VBG O2 Saturation 98.0 % VBG Base Excess -0.1 mmol/L Sodium (135-145) mmol/L Potassium (3.3-5.1) mmol/L Chloride (96-108) mmol/L Carbon Dioxide (22-29) mmol/L Anion Gap (12-20) BUN (9-16) mg/dL Creatinine (0.5-1.4) mg/dL Estim Creat Clear Calc Estimated GFR POC Glucose (60-115) mg/dL Random Glucose (60-115) mg/dL Calcium (8.4-10.2) mg/dL Total Bilirubin (0.0-1.0) mg/dL AST (5-31) U/L ALT (0-31) U/L Alkaline Phosphatase (39-117) U/L Total Protein (6.5-8.0) g/dL Albumin (3.5-5.0) g/dL Lipase (8-78) U/L Beta HCG, Quant Cancelled mIU/mL Urine Color YELLOW Urine Appearance CLEAR Urine pH 6.0 (5.0-8.0) Ur Specific [place] 1.020 (1.005-1.025) Urine Protein NEG (NEG-TRACE) MG/DL Urine Glucose (UA) 100 H (NEG) MG/DL Urine Ketones NEG (NEG) MG/DL Urine Blood NEG (NEG) Urine Nitrite POS H (NEG) Ur Leukocyte Esterase NEG (NEG) Urine RBC 0 (0) /HPF Urine WBC 0 (0-4) /HPF Ur Squamous Epith Cells NONE /LPF Urine Bacteria NONE /LPF Acetone, Qual Negative (Negative) 01/17/22 01/17/22 Range/Units 20:18 22:06 WBC (4.8-10.8) X10*3/uL RBC (4.20-5.50) X10*6/uL Hgb (12.0-16.0) g/dl Hct (37.0-47.0) % MCV (80.0-98.0) fL MCH (27.0-33.0) pg MCHC (31.0-35.0) g/dl RDW (11.0-16.0) % Plt Count MPV Immature Gran % (Auto) Neut % (Auto) Lymph % (Auto) [place] % (Auto) Eos % (Auto) Baso % (Auto) Lymph # (Auto) [place] # (Auto) Eos # (Auto) Baso # (Auto) Abs Immat Gran (auto) Absolute Neuts (auto) Absolute Nucleated RBC (0.0-0.012) X10*3/uL Nucleated RBC % (auto) (0.0-0.2) /100WBC Neutrophils % (Manual) (45-73) % Band Neutrophils % (3-5) % Lymphocytes % (Manual) (20-40) % Monocytes % (Manual) (2-11) % Basophils % (Manual) (0-2) % Abs Neuts (Manual) (2.0-8.3) X10*3/uL Lymphocytes # (Manual) (1.2-4.9) X10*3/uL Monocytes # (Manual) (0.1-1.2) X10*3/uL Basophils # (Manual) (0.0-0.2) X10*3/uL Platelet Estimate (NORMAL) Plt Morphology Comment RBC Morphology Tear Drop Cells /OIF VBG pH (7.32-7.43) VBG pCO2 mmHg VBG pO2 mmHg VBG HCO3 (22-26) mmol/L VBG O2 Saturation % VBG Base Excess mmol/L Sodium (135-145) mmol/L Potassium (3.3-5.1) mmol/L Chloride (96-108) mmol/L Carbon Dioxide (22-29) mmol/L Anion Gap (12-20) BUN (9-16) mg/dL Creatinine (0.5-1.4) mg/dL Estim Creat Clear Calc Estimated GFR POC Glucose 312 H 188 H (60-115) mg/dL Random Glucose (60-115) mg/dL Calcium (8.4-10.2) mg/dL Total Bilirubin (0.0-1.0) mg/dL AST (5-31) U/L ALT (0-31) U/L Alkaline Phosphatase (39-117) U/L Total Protein (6.5-8.0) g/dL Albumin (3.5-5.0) g/dL Lipase (8-78) U/L Beta HCG, Quant mIU/mL Urine Color Urine Appearance Urine pH (5.0-8.0) Ur Specific [place] (1.005-1.025) Urine Protein (NEG-TRACE) MG/DL Urine Glucose (UA) (NEG) MG/DL Urine Ketones (NEG) MG/DL Urine Blood (NEG) Urine Nitrite (NEG) Ur Leukocyte Esterase (NEG) Urine RBC (0) /HPF Urine WBC (0-4) /HPF Ur Squamous Epith Cells /LPF Urine Bacteria /LPF Acetone, Qual (Negative) Critical Care Time Critical Care Time Critical Care Time: No Discharge Plan Discharge Clinical Impression: UTI (urinary tract infection), Diverticulosis, Hepatomegaly Patient Disposition: Home, Self-Care Instructions: Diverticulosis (ED), Urinary Tract Infection in Women (DC) Additional Instructions: Take your medications as prescribed. If you were prescribed antibiotics today, it is important that you take your medication to their entirety, do not skip any doses, do not finish them early. Follow-up with your primary care provider this week. Return to the emergency department with new or worsening symptoms. Such as fevers, chills, chest pain, shortness of breath, nausea, vomiting, dizziness, headache, vision changes, lethargy In case of emergency call 911 Prescriptions: New cefuroxime axetil 250 mg tablet 250 mg PO BID 7 Days Qty: 14 0RF ondansetron 4 mg tablet,disintegrating 4 mg PO ONCE PRN (Reason: nausea and vomiting) Qty: 10 0RF No Action oxycodone-acetaminophen 5-325 mg tablet 1 tab PO Q6H PRN (Reason: pain) 3 Days Qty: 12 0RF Referrals: Stephanie Layton FNP [Primary Care Provider] - 2 days Stand Alone Forms: Work/School Release
[2022-01-17 20:18] LABS: Venous Blood Gas Refer to POC result
[2022-01-17 20:19] LABS: VBG Base Excess -0.1 mmol/L; VBG HCO3 22 mmol/L (22-26); VBG pCO2 32 mmHg; VBG pH 7.45 (7.32-7.43); VBG pO2 87 mmHg
[2022-01-17 20:21] VITALS: BP 145/99; PULSE 93; RESP 15; O2SAT 99
[2022-01-17 20:22] LABS: Glucose, Whole Blood 312 mg/dL (60-115)
[2022-01-17 20:23] LABS: Appearance Urine CLEAR; Color Urine YELLOW; Glucose Urine UA 100 MG/DL (NEG); Leukocyte Esterase Urine NEG (NEG); Nitrite Urine POS (NEG); UACC Culture Trigger YES; Urine Blood NEG (NEG); Urine Ketones NEG (NEG); Urine Protein NEG (NEG-TRACE)
[2022-01-17 20:27] LABS: PLT CLUMP 1
[2022-01-17 20:29] LABS: Hematocrit 41.6 % (37.0-47.0); Mean Corpuscular HGB Conc 33.7 g/dl (31.0-35.0); Mean Corpuscular Hemoglobin 28.5 pg (27.0-33.0); Mean Corpuscular Volume 84.7 fL (80.0-98.0); PLT ABN DIST 1; Red Blood Count 4.91 X10*6/uL (4.20-5.50); Red Cell Distribution Width 12.1 % (11.0-16.0); WBC ABN SCTR FOR CBC 1
[2022-01-17 20:30] LABS: White Blood Count 12.2 X10*3/uL (4.8-10.8)
[2022-01-17 20:34] LABS: Acetone, serum QL Negative (Negative)
[2022-01-17 20:36] LABS: RBC Urine 0 /HPF (0); WBC Urine 0 /HPF (0-4)
[2022-01-17] MEDS: 0.9 % Sodium Chloride 1,000 ML 999 ML IV (20:40)
[2022-01-17 20:44] LABS: Band Neutrophils Percent 0 % (3-5); Basophils Abs Manual 0.2 X10*3/uL (0.0-0.2); Basophils Percent Manual 2 % (0-2); Lymphocytes Absolute Manual 3.2 X10*3/uL (1.2-4.9); Lymphocytes Percent Manual 26 % (20-40); Monocytes Absolute Manual 0.5 X10*3/uL (0.1-1.2); Monocytes Percent Manual 4 % (2-11); Neutrophils Absolute Manual 8.3 X10*3/uL (2.0-8.3); Neutrophils Percent Manual 68 % (45-73)
[2022-01-17 20:45] LABS: Platelet Estimate NORMAL (NORMAL); Platelet Morphology Comment NORMAL; RBC Morphology NORMAL; Tear Drop Cells 1+ (0-2) /OIF
[2022-01-17 20:53] LABS: Alanine Aminotransferase 48 U/L (0-31); Alkaline Phosphatase 80 U/L (39-117); Anion Gap 15 (12-20); Aspartate Amino Transferase 37 U/L (5-31); Bilirubin Total 0.3 mg/dL (0.0-1.0); Blood Urea Nitrogen 10 mg/dL (9-16); Calcium 9.6 mg/dL (8.4-10.2); Carbon Dioxide 22 mmol/L (22-29); Chloride 101 mmol/L (96-108); Creatinine Clr Calc Pharmacy 121.8; Estimated Glomerular Filt Rate > 60; Glucose Random 260 mg/dL (60-115); Lipase 38 U/L (8-78); Potassium 4.3 mmol/L (3.3-5.1); Sodium 134 mmol/L (135-145); Total Protein 6.9 g/dL (6.5-8.0)
[2022-01-17] MEDS: Ketorolac Tromethamine 15 MG/ML VIAL IVPUSH (20:57)
[2022-01-17] MEDS: ondansetron HCL 4 MG/2 ML VIAL IVPUSH (20:57)
[2022-01-17 21:26] LABS: HCG Quantitative < 2 mIU/mL
[2022-01-17] MEDS: Insulin Lispro 100 UNIT/ML 3 ML VIAL SUBCUT (21:38)
[2022-01-17 22:00] VITALS: BP 108/69; PULSE 96; RESP 18; TEMP 36.8; O2SAT 99
[2022-01-17] MEDS: iohexoL 350 MG/ML 100 ML INFUS..BTL IV (22:01)
[2022-01-17 22:10] LABS: Glucose, Whole Blood 188 mg/dL (60-115)
== END 2022-01-17 23:56 | disposition home or self-care (01) ==
PROVIDERS: Physician Assistant; Emergency Provider Internal Medicine; PCP Registered Nurse
DX: N39.0 Urinary tract infection, site not specified (principal); K57.90 Diverticulosis of intestine, part unspecified, without perforation or abscess without bleeding; R16.0 Hepatomegaly, not elsewhere classified; R11.2 Nausea with vomiting, unspecified; E11.9 Type 2 diabetes mellitus without complications; I10 Essential (primary) hypertension; E78.00 Pure hypercholesterolemia, unspecified; F12.90 Cannabis use, unspecified, uncomplicated
CPT/HCPCS: 36415; 74178; 80053; 81001; 82009; 82803; 82947; 83690; 84702; 85007; 85027; 87086; 87088; 87186; 96361; 96374; 96375; 99285; J1885; J2405; Q9967

== ENCOUNTER 2022-01-31 08:35 | Outpatient (REF) | payer MEDICAID, SELFPAY ==
--- NOTE | ~2022-01-31 | CT_ITS ---
EXAMINATION: CT ABDOMEN WITH CONTRAST CLINICAL INFORMATION: Pancreatitis COMPARISON: Previous CT scans most recent December 2021 TECHNIQUE: Contiguous axial thin section helical images of the abdomen were performed following the administration of oral contrast and 85 mL of Omnipaque 350 intravenous contrast. The data set was reformatted in the coronal and sagittal planes and reviewed on an independent workstation. This CT examination was performed using dose optimization techniques as appropriate, variously including the following: *Automated exposure control *Adjustment of mA and/or kV according to patient size (this includes techniques or standardized protocols for targeted exams where dose is matched to indication/reason for exam; i.e. extremities or head) *Use of iterative reconstruction technique DLP: 582 mGy-cm FINDINGS: LUNG BASES: The lung bases are clear. LIVER, GALLBLADDER, AND BILIARY TREE: The liver is low in attenuation suggestive of fatty infiltration. The liver is enlarged. No focal liver lesion or biliary ductal dilatation is seen. The gallbladder is been removed. PANCREAS: Normal SPLEEN: Normal ADRENAL GLANDS AND KIDNEYS: The adrenal glands are normal. There is a 4 x 8 mm low-attenuation fatty lesion in the posterior upper pole of the left kidney probably representing an angiomyolipoma that is stable. BOWEL LOOPS: Normal LYMPH NODES: Normal. VASCULAR: Unremarkable. BONES: Unremarkable. CT/CT abdomen w con IMPRESSION: Enlarged fatty liver. Normal-appearing pancreas. Stable fatty lesion in the left kidney probably representing a benign angiomyolipoma. Fleischner guidelines were followed.
[2022-01-31] MEDS: iohexoL 350 MG/ML 100 ML INFUS..BTL 85 ML IV (10:08)
== END 2022-01-31 08:36 | disposition home or self-care (01) ==
LOC: HO.CT 08:35
PROVIDERS: Visit Provider Registered Nurse
DX: K85.90 Acute pancreatitis without necrosis or infection, unspecified (principal)
CPT/HCPCS: 74160; Q9967

== ENCOUNTER → 2022-02-14 08:54 | Outpatient (BNVA) | payer MEDICAID, SELFPAY | PROVIDERS: PCP Registered Nurse; Visit Provider Physician Assistant Surgical | DX: Z13.89 Encounter for screening for other disorder (principal) ==

== ENCOUNTER → 2022-02-15 08:05 | Outpatient (BNVA) | payer MEDICAID, SELFPAY | PROVIDERS: PCP Registered Nurse; Visit Provider Physician Assistant Surgical | DX: Z13.89 Encounter for screening for other disorder (principal) ==

== ENCOUNTER → 2022-02-21 08:21 | Outpatient (BNVA) | payer MEDICAID, SELFPAY | PROVIDERS: PCP Registered Nurse; Referring Provider Registered Nurse; Visit Provider Physician Assistant | DX: Z13.89 Encounter for screening for other disorder (principal) ==

== ENCOUNTER 2022-02-26 13:19 | Outpatient (REF) | payer MEDICAID, SELFPAY ==
[2022-02-27 12:42] LABS: H Pylori Breath Test Positive (Negative)
== END 2022-02-26 13:20 | disposition home or self-care (01) ==
LOC: HO.LNP 13:19
PROVIDERS: PCP Registered Nurse; Referring Provider Registered Nurse; Visit Provider Physician Assistant Surgical
DX: E66.01 Morbid (severe) obesity due to excess calories (principal); Z11.0 Encounter for screening for intestinal infectious diseases
CPT/HCPCS: 83013; 99211

== ENCOUNTER → 2022-02-28 13:35 | Outpatient (BNVA) | payer OTHER, SELFPAY | PROVIDERS: PCP Registered Nurse; Visit Provider Counselor Mental Health | DX: F31.30 Bipolar disorder, current episode depressed, mild or moderate severity, unspecified (principal); E66.01 Morbid (severe) obesity due to excess calories | CPT/HCPCS: 90791 ==

== ENCOUNTER 2022-03-01 10:22 | Outpatient (REF) | payer MEDICAID, SELFPAY ==
--- NOTE | ~2022-03-01 | XR_ITS ---
EXAMINATION: XR CHEST CLINICAL INFORMATION: Obesity COMPARISON: None TECHNIQUE: 2 views of the chest were obtained. FINDINGS: No significant abnormality is noted involving the heart, lungs, mediastinum, bony thorax or soft tissues. XR/XR chest 2V IMPRESSION: Unremarkable examination.
--- NOTE | 2022-03-01 10:29 | ECG_ITS ---
Test Reason : E66.01 Blood Pressure : / mmHG Vent. Rate : 074 BPM Atrial Rate : 074 BPM P-R Int : 154 ms QRS Dur : 092 ms QT Int : 368 ms P-R-T Axes : 049 054 034 degrees QTc Int : 408 ms Normal sinus rhythm Normal ECG No previous ECGs available Referred By: Mainor Faarh Electronically Signed By:LUCERO STORM MD
[2022-03-01 11:00] LABS: MANUAL DIFF FLAG NO
[2022-03-01 11:15] LABS: Basophils Absolute Auto 0.1 X10*3/uL (0.0-0.2); Basophils Percent Auto 0.7 % (0-2); Eosinophils Absolute Auto 0.1 X10*3/uL (0.0-0.4); Eosinophils Percent Auto 0.8 % (0-4); Hematocrit 39.7 % (37.0-47.0); Hemoglobin 13.3 g/dl (12.0-16.0); Imm Gran Abs Auto 0.02 X10*3/uL (0.00-0.03); Imm Gran Pct Auto 0.2 % (0.0-0.4); Lymphocytes Absolute Auto 2.5 X10*3/uL (1.2-4.9); Lymphocytes Percent Auto 27.9 % (20-40); Mean Corpuscular HGB Conc 33.5 g/dl (31.0-35.0); Mean Corpuscular Hemoglobin 27.8 pg (27.0-33.0); Mean Corpuscular Volume 82.9 fL (80.0-98.0); Mean Platelet Volume 12.5 fL (9.4-12.3); Monocytes Absolute Auto 0.6 X10*3/uL (0.1-1.2); Monocytes Percent Auto 6.7 % (2-11); Neutrophils Absolute Auto 5.6 x10*3/uL (2.0-8.3); Neutrophils Percent Auto 63.7 % (45-73); Platelet Count 215 X10*3/uL (160-400); Red Blood Count 4.79 X10*6/uL (4.20-5.50); Red Cell Distribution Width 12.1 % (11.0-16.0); White Blood Count 8.8 X10*3/uL (4.8-10.8)
[2022-03-01 11:31] LABS: Estimated Average Glucose 212 mg/dL
[2022-03-01 11:58] LABS: Anion Gap 13 (12-20); Blood Urea Nitrogen 10 mg/dL (9-16); C Reactive Protein 0.75 mg/dL (< or = 0.50); Calcium 9.6 mg/dL (8.4-10.2); Carbon Dioxide 20 mmol/L (22-29); Chloride 109 mmol/L (96-108); Cholesterol 113 mg/dL; Estimated Glomerular Filt Rate > 60; Glucose Random 166 mg/dL (60-115); HDL Cholesterol 25 mg/dL; Iron 62 mcg/dL (30-160); LDL Cholesterol Calculated 66 mg/dl; Percent Iron Saturation 16 % (15-50); Sodium 138 mmol/L (135-145); Total Iron Binding Capacity 379 mcg/dL (228-428); Triglycerides 110 mg/dL; Unsaturated Iron Binding 317 ug/dL
[2022-03-01 12:04] LABS: Ferritin 73 ng/mL (10-122); Insulin 26 uU/mL (2-29); TSH reflex Free T4 0.92 uIU/mL (0.32-4.0); Vitamin D 25-OH Total 16.5 ng/mL (>30)
[2022-03-01 12:18] LABS: Folate 15.9 ng/mL (> or = 4.0); Vitamin B12 422 pg/mL (200-900)
[2022-03-05 18:01] LABS: Calcium (PTHI) 9.5 mg/dL (8.6-10.2); PTHI 41 pg/mL (16-77)
[2022-03-06 00:36] LABS: Zinc 83 mcg/dL (60-130)
[2022-03-06 19:35] LABS: Vitamin A 47 mcg/dL (38-98)
[2022-03-07 12:45] LABS: Vitamin B1 <6 nmol/L (8-30)
== END 2022-03-01 10:23 | disposition home or self-care (01) ==
LOC: HO.XRAY 10:22
PROVIDERS: PCP Registered Nurse; Visit Provider Physician Assistant Surgical
DX: Z01.818 Encounter for other preprocedural examination (principal); E66.01 Morbid (severe) obesity due to excess calories
CPT/HCPCS: 36415; 71046; 80048; 80061; 82306; 82607; 82728; 82746; 83036; 83525; 83540; 83970; 84425; 84443; 84590; 84630; 85025; 86140; 93005

== ENCOUNTER → 2022-03-14 10:48 | Outpatient (BNVA) | payer MEDICAID, SELFPAY | PROVIDERS: PCP Registered Nurse; Visit Provider Dietitian, Registered | DX: E66.01 Morbid (severe) obesity due to excess calories (principal); E11.9 Type 2 diabetes mellitus without complications; Z71.3 Dietary counseling and surveillance | CPT/HCPCS: 97802 ==

== ENCOUNTER → 2022-03-15 08:23 | Outpatient (BNVA) | payer MEDICAID, SELFPAY | PROVIDERS: PCP Registered Nurse; Visit Provider Surgery | DX: Z13.89 Encounter for screening for other disorder (principal) ==

== ENCOUNTER → 2022-03-20 12:30 | Outpatient (BNVA) | payer MEDICAID, SELFPAY | PROVIDERS: PCP Registered Nurse; Visit Provider Counselor Mental Health | DX: F31.30 Bipolar disorder, current episode depressed, mild or moderate severity, unspecified (principal); E66.01 Morbid (severe) obesity due to excess calories | CPT/HCPCS: 90832 ==

== ENCOUNTER → 2022-03-29 09:03 | Outpatient (BNVA) | payer MEDICAID, SELFPAY | PROVIDERS: PCP Registered Nurse; Visit Provider Physician Assistant Surgical | DX: Z11.0 Encounter for screening for intestinal infectious diseases (principal) | CPT/HCPCS: 99211 ==

== ENCOUNTER 2022-03-29 09:36 | Outpatient (REF) | payer MEDICAID, SELFPAY ==
[2022-03-29 10:49] LABS: Alanine Aminotransferase 28 U/L (0-31); Aspartate Amino Transferase 15 U/L (5-31); Blood Urea Nitrogen 9 mg/dL (9-16); Estimated Glomerular Filt Rate > 60
[2022-03-30 13:55] LABS: H Pylori Breath Test Negative (Negative)
== END 2022-03-29 09:37 | disposition home or self-care (01) ==
LOC: HO.LAB 09:36
PROVIDERS: Physician Assistant Surgical; PCP Registered Nurse; Visit Provider Surgery
DX: Z01.818 Encounter for other preprocedural examination (principal); E66.01 Morbid (severe) obesity due to excess calories
CPT/HCPCS: 36415; 82565; 83013; 84450; 84460; 84520

== ENCOUNTER 2022-04-03 09:10 | Outpatient (REF) | payer MEDICAID, SELFPAY ==
--- NOTE | ~2022-04-03 | US_ITS ---
EXAMINATION: US COMPLETE ABDOMEN WITH LIVER ELASTOGRAPHY CLINICAL INFORMATION: Morbid/severe obesity due to excess calories. COMPARISON: None. TECHNIQUE: Real-time imaging of the abdominal viscera. Noninvasive ultrasound liver fibrosis assessment is performed using Dee ElastPQ point quantification shear wave elastography (2D-SWE) with a C5-2 MHz transducer. Multiple elastography samples are obtained. FINDINGS: PANCREAS: The visualized pancreatic head and body are normal in appearance. The tail of the pancreas is obscured from visualization by the overlying bowel gas. ABDOMINAL AORTA: The proximal, middle, and distal aortic segments are normal in caliber. INFERIOR VENA CAVA: Visualized portions are normal. LIVER: Normal. The liver demonstrates normal size, contour and diffuse increased echogenicity. No focal lesion or intrahepatic biliary duct dilatation. The right lobe measures 19.3 cm in length. The left lobe measures 10.5 cm in length. Portal flow is hepatopedal Shear wave liver elastography median stiffness is 7.21 m/s (reference: normal median stiffness is 1.3 m/s or less). IQR/median stiffness to assess sampling precision is 0.07 (reference: good quality data set is IQR/median stiffness of 0.15 or less). GALLBLADDER: Normal. The gallbladder is physiologically distended without evidence of stones, sludge, polyps, wall thickening or pericholecystic fluid. COMMON BILE DUCT: Normal in caliber measuring 0.2 cm in diameter. RIGHT KIDNEY: Normal. No hydronephrosis. No renal calculi or focal parenchymal lesions. The kidney measures 12.0 cm in maximum dimension. LEFT KIDNEY: There is an echogenic mass measuring 1.3 x 0.8 x 1.5 cm interpolar region, question angiomyolipoma versus calcification. This was visualized on previous CT abdomen exam 02/04/2022. There is suspicion for a second echogenic foci upper midpole. There is no evidence of hydronephrosis. No renal calculi or focal parenchymal lesions. The kidney measures 11.5 cm in maximum dimension. SPLEEN: Normal. The spleen measures 11.6 cm in maximum dimension. FREE FLUID: None. US/US abdomen comp w elastography IMPRESSION: 1. Echogenic lesion upper midpole left kidney likely angiomyolipoma. This was seen on previous CT exam. A second similar lesion is suspected on ultrasound but not seen on CT. 2. Hepatic steatosis without focal lesion. 3. Liver elastography: Median liver stiffness measures 1.21 m/s suggestive of high probability normal. REFERENCE: Society of Radiologists in Ultrasound Liver Stiffness Thresholds (2020): LIVER STIFFNESS THRESHOLDS: *Liver Stiffness equal or less than 1.3 m/s: High probability of being normal. *Liver Stiffness less than 1.7 m/s: In the absence of other known clinical signs, rules out compensated advanced chronic liver disease. *Liver Stiffness 1.7-2.1 m/s: Suggestive of compensated advanced chronic liver disease but need further test for confirmation. *Liver Stiffness over 2.1 m/s: Rules in compensated advanced chronic liver disease. *Liver Stiffness over 2.4 m/s: Suggestive of clinically significant portal hypertension. QUALITY OF DATA SET: *IQR/Median value equal or less than 0.15 implies a quality data set. *IQR/Median value over 0.15 implies a poor quality data set. SIGNIFICANT CHANGE FROM PRIOR EXAM: Significant change if liver stiffness measurement is 10% or greater from prior exam. OTHER CONSIDERATIONS: The stage of liver fibrosis may be overestimated in the setting of acute hepatitis, liver inflammation, elevated liver function tests, hepatic vascular congestion, obstructive cholestasis, non-fasting state, and infiltrative diseases such as amyloidosis and lymphoma. In some patients with NAFLD, the liver stiffness thresholds for compensated advanced chronic liver disease may be lower. In causes other than viral hepatitis and NAFLD, liver stiffness thresholds are not well established.
--- NOTE | ~2022-04-03 | FL_ITS ---
EXAMINATION: XR FL UPPER GI WITH AIR CLINICAL INFORMATION: Morbid/severe obesity due to excess calories. COMPARISON: None TECHNIQUE: Routine upper GI air-contrast study was performed. FINDINGS: Following oral administration of thick barium and effervescent granules, there is normal propagation bolus from the oral cavity through the pharynx, from esophagus into stomach without any evidence of obstruction, narrowing or stricture. On placing patient supine and prone, there is moderate gastroesophageal reflux without hiatal hernia. The course, caliber and peristalsis of stomach and the duodenum is normal. There is a small diverticulum in the second segment of the duodenum. The mucosal pattern of the stomach and duodenum is normal. FLUOROSCOPY TIME: 2.4 minutes. DOSE AREA PRODUCT: 55 uGy-m2 (microgray-meter squared). FL/FL upper GI w air IMPRESSION: 1. Moderate gastroesophageal reflux without hiatal hernia. 2. Small duodenal diverticulum. Otherwise, the rest of the upper GI exam appears unremarkable.
== END 2022-04-03 09:11 | disposition home or self-care (01) ==
LOC: HO.US 09:10
PROVIDERS: PCP Registered Nurse; Visit Provider Surgery
DX: E66.01 Morbid (severe) obesity due to excess calories (principal)
CPT/HCPCS: 74246; 76705; 76981

== ENCOUNTER 2022-06-25 16:19 | Inpatient (IN) | payer MEDICAID, SELFPAY ==
[2022-06-18 10:43] LABS: Basophils Absolute Auto 0.1 X10*3/uL (0.0-0.2); Basophils Percent Auto 0.9 % (0-2); Eosinophils Absolute Auto 0.1 X10*3/uL (0.0-0.4); Eosinophils Percent Auto 1.3 % (0-4); Hematocrit 42.3 % (37.0-47.0); Hemoglobin 13.7 g/dl (12.0-16.0); Imm Gran Abs Auto 0.03 X10*3/uL (0.00-0.03); Imm Gran Pct Auto 0.3 % (0.0-0.4); Lymphocytes Absolute Auto 2.7 X10*3/uL (1.2-4.9); Lymphocytes Percent Auto 28.9 % (20-40); MANUAL DIFF FLAG SCAN; Mean Corpuscular HGB Conc 32.4 g/dl (31.0-35.0); Mean Corpuscular Hemoglobin 27.4 pg (27.0-33.0); Mean Corpuscular Volume 84.6 fL (80.0-98.0); Monocytes Absolute Auto 0.6 X10*3/uL (0.1-1.2); Monocytes Percent Auto 6.6 % (2-11); Neutrophils Absolute Auto 5.8 x10*3/uL (2.0-8.3); PLT CLUMP 1; Red Cell Distribution Width 12.8 % (11.0-16.0); SCAN SMEAR FLAG 1
[2022-06-18 10:44] LABS: Prothrombin Time 11.2 SEC (10.0-13.1)
[2022-06-18 11:09] LABS: Platelet Count 206 X10*3/uL (160-400); White Blood Count 9.3 X10*3/uL (4.8-10.8)
[2022-06-18 11:10] LABS: SLIDE REVIEW VERIFIED
[2022-06-18 13:28] LABS: Alanine Aminotransferase 25 U/L (0-31); Alkaline Phosphatase 66 U/L (39-117); Anion Gap 15 (12-20); Aspartate Amino Transferase 16 U/L (5-31); Bilirubin Total 0.4 mg/dL (0.0-1.0); Blood Urea Nitrogen 7 mg/dL (9-16); Calcium 9.5 mg/dL (8.4-10.2); Carbon Dioxide 26 mmol/L (22-29); Chloride 105 mmol/L (96-108); Cholesterol 169 mg/dL; Estimated Average Glucose 163 mg/dL; Estimated Glomerular Filt Rate > 60; Glucose Random 177 mg/dL (60-115); HDL Cholesterol 31 mg/dL; Hemoglobin A1c % 7.3 %; LDL Cholesterol Calculated 89 mg/dl; Potassium 4.2 mmol/L (3.3-5.1); Sodium 142 mmol/L (135-145); Total Protein 6.3 g/dL (6.5-8.0); Triglycerides 246 mg/dL
[2022-06-18 13:48] LABS: Insulin 8 uU/mL (2-29); TSH reflex Free T4 1.57 uIU/mL (0.32-4.0)
[2022-06-20 10:34] VITALS: BMI 38.9
--- NOTE | 2022-06-21 09:28 | P.CONAN_ITS ---
Documented by User: Meka Balbuena NP 06/21/22 09:29 HPI - Anesthesia Eval Consult details Narrative: 31yo F for Gastrectomy Sleeve,EGD,poss diaphragmatic hernia,poss ventral hernia,poss open, PMFSH Active Problems Active Problems: All Active Problems (Updated 06/20/22 @ 10:34 by Jessica De La Torre RN) Morbid obesity (Acute) Vitamin B1 deficiency (Acute) Vitamin D deficiency (Acute) Vitamin B12 deficiency (Acute) Bipolar disorder current episode depressed (Acute) Obesity (BMI 30-39.9) (Acute) BMI 38.0-38.9,adult (Acute) GERD (gastroesophageal reflux disease) (Acute) Neuropathy (Acute) Bipolar 1 disorder (Acute) Depression (Acute) Anxiety (Acute) Asthma (Acute) Hypertension (Acute) Insulin dependent type 1 diabetes mellitus (Acute) Hypercholesteremia (Acute) Past Medical History Medical History (Updated 06/20/22 @ 10:34 by Jessica De La Torre RN) Anxiety Asthma Bipolar 1 disorder COVID-19 vaccination declined Depression Family history of anesthesia complication History of ectopic Hypercholesteremia Hypertension Insulin dependent type 1 diabetes mellitus Neuropathy Ovarian cyst Seizures Family History Family History Mother Hypertension Father Diabetes Hypertension Heart problem Depression Brother No problems noted. Sister Hypertension High cholesterol Mental health disorder Sister Hypertension Bipolar 1 disorder Mental health disorder Surgical History Surgical History (Updated 06/20/22 @ 10:33 by Jessica De La Torre RN) H/O unilateral salpingectomy History of laparoscopic cholecystectomy History of oophorectomy, unilateral History of ovarian cystectomy Hx of tonsillectomy Social History Social History Are you a primary patient care director to a significant other at home: No Do you presently have visiting nurse or other home services: No Alcohol intake: never Patient Tobacco Use Status: Former Tobacco user Quit Date: 2019 Tobacco use type: Cigarette Substance Use Type: Marijuana Sexual orientation: Straight/Heterosexual Gender identity: Female Meds Allergies Allergy/AdvReac Type Severity Reaction Status Date / Time ciprofloxacin [From Cipro] Allergy Intermediate Hives Verified 03/15/22 09:43 latex Allergy Intermediate Hives Verified 03/15/22 09:43 sulfamethoxazole Allergy Intermediate Hives Verified 03/15/22 09:43 [From Septra] trimethoprim [From ] Allergy Intermediate Hives Verified 03/15/22 09:43 Home Medications Medication Instructions Recorded Confirmed Last Taken Type bupropion HCl 150 mg tablet,12 hr 150 mg PO BID 02/14/22 06/20/22 06/23/22 History sustained-release gabapentin 100 mg capsule 100 mg PO TID 02/14/22 06/20/22 06/11/22 History lorazepam 1 mg tablet 0.5 - 1 mg PO DAILY PRN Anxiety 02/14/22 06/20/22 06/23/22 History zolpidem 10 mg tablet 10 mg PO BEDTIME 02/14/22 06/20/22 06/23/22 History insulin glargine 100 unit/mL (3 15 unit subcut QPM 05/06/22 06/25/22 06/24/22 History mL) subcutaneous pen (Lantus Solostar U-100 Insulin) atorvastatin 40 mg tablet 40 mg PO DAILY 06/20/22 06/20/22 06/23/22 History budesonide-formoterol HFA 80 2 puff inhalation DAILY PRN 06/20/22 06/20/22 06/25/22 History mcg-4.5 mcg/actuation aerosol Wheezing inhaler (Symbicort) empagliflozin 10 mg tablet 1 tab PO QAM 06/20/22 06/20/22 06/23/22 History (Jardiance) Exam Exam Date and Time: June 21, 2022927 Height,Weight and Vital Signs: Height 5 ft 6.5 in Weight 111.13 kg Pertinent Lab Results Pertinent Lab Results: Laboratory Tests 06/18/22 06/18/22 06/18/22 09:41 09:41 09:52 WBC 9.3 RBC 5.00 Hgb 13.7 Hct 42.3 MCV 84.6 MCH 27.4 MCHC 32.4 RDW 12.8 Plt Count 206 Immature Gran % (Auto) 0.3 Neut % (Auto) 62.0 Lymph % (Auto) 28.9 Callahan % (Auto) 6.6 Eos % (Auto) 1.3 Baso % (Auto) 0.9 Lymph # (Auto) 2.7 Callahan # (Auto) 0.6 Eos # (Auto) 0.1 Baso # (Auto) 0.1 Abs Immat Gran (auto) 0.03 Absolute Neuts (auto) 5.8 Absolute Nucleated RBC 0.000 Nucleated RBC % (auto) 0.0 Smear Tech's Comments VERIFIED PT 11.2 INR 1.0 APTT 33.0 Sodium Potassium Chloride Carbon Dioxide Anion Gap BUN Creatinine Estim Creat Clear Calc Estimated GFR Random Glucose Estimat Average Glucose Hemoglobin A1c % Insulin Level Calcium Total Bilirubin AST ALT Alkaline Phosphatase C-Reactive Protein Total Protein Albumin Triglycerides Cholesterol LDL Cholesterol, Calc HDL Cholesterol TSH Blood Type O Positive Antibody Screen NEGATIVE 06/18/22 06/18/22 Unknown Unknown WBC RBC Hgb Hct MCV MCH MCHC RDW Plt Count Immature Gran % (Auto) Neut % (Auto) Lymph % (Auto) Callahan % (Auto) Eos % (Auto) Baso % (Auto) Lymph # (Auto) Callahan # (Auto) Eos # (Auto) Baso # (Auto) Abs Immat Gran (auto) Absolute Neuts (auto) Absolute Nucleated RBC Nucleated RBC % (auto) Smear Tech's Comments PT INR APTT Sodium 142 Potassium 4.2 Chloride 105 Carbon Dioxide 26 Anion Gap 15 BUN 7 L Creatinine 0.92 Estim Creat Clear Calc TNP Estimated GFR > 60 Random Glucose 177 H Estimat Average Glucose 163 Hemoglobin A1c % 7.3 Insulin Level 8 Calcium 9.5 Total Bilirubin 0.4 AST 16 ALT 25 Alkaline Phosphatase 66 C-Reactive Protein 0.50 Total Protein 6.3 L Albumin 4.0 Triglycerides 246 Cholesterol 169 D LDL Cholesterol, Calc 89 HDL Cholesterol 31 D TSH 1.57 Blood Type Antibody Screen Narrative Narrative: EKG 02/2022 Vent. Rate : 074 BPM ? ? Atrial Rate : 074 BPM ?? P-R Int : 154 ms? QRS Dur : 092 ms ? ? QT Int : 368 ms ? ? ? P-R-T Axes : 049 054 034 degrees ?? QTc Int : 408 ms ? Normal sinus rhythm Normal ECG No previous ECGs available Assessment and Plan Assessment Anesthesia Assessment: Chart Reviewed Documented by User: Rosalia Armstrong MD 06/25/22 13:28 PMFSH Active Problems Active Problems: All Active Problems (Updated 06/20/22 @ 10:34 by Jessica De La Torre RN) Morbid obesity (Acute) Vitamin B1 deficiency (Acute) Vitamin D deficiency (Acute) Vitamin B12 deficiency (Acute) Bipolar disorder current episode depressed (Acute) Obesity (BMI 30-39.9) (Acute) BMI 38.0-38.9,adult (Acute) GERD (gastroesophageal reflux disease) (Acute) Neuropathy (Acute) Bipolar 1 disorder (Acute) Depression (Acute) Anxiety (Acute) Asthma (Acute) Hypertension (Acute) Insulin dependent type 1 diabetes mellitus (Acute) Hypercholesteremia (Acute) Denies NICOLE Past Medical History Medical History (Updated 06/20/22 @ 10:34 by Jessica De La Torre RN) Anxiety Asthma Bipolar 1 disorder COVID-19 vaccination declined Depression Family history of anesthesia complication History of ectopic Hypercholesteremia Hypertension Insulin dependent type 1 diabetes mellitus Neuropathy Ovarian cyst Seizures Family History Family History Mother Hypertension Father Diabetes Hypertension Heart problem Depression Brother No problems noted. Sister Hypertension High cholesterol Mental health disorder Sister Hypertension Bipolar 1 disorder Mental health disorder Family history of problems with anesthesia: Yes (Sister- slow awakening with GA) Surgical History Surgical History (Updated 06/20/22 @ 10:33 by Jessica De La Torre RN) H/O unilateral salpingectomy History of laparoscopic cholecystectomy History of oophorectomy, unilateral History of ovarian cystectomy Hx of tonsillectomy History of Problems with Anesthesia: No Social History Social History Are you a primary patient care director to a significant other at home: No Do you presently have visiting nurse or other home services: No Alcohol intake: never Patient Tobacco Use Status: Former Tobacco user Quit Date: 2019 Tobacco use type: Cigarette Substance Use Type: Marijuana Sexual orientation: Straight/Heterosexual Gender identity: Female Meds Allergies Allergy/AdvReac Type Severity Reaction Status Date / Time ciprofloxacin [From Cipro] Allergy Intermediate Hives Verified 03/15/22 09:43 latex Allergy Intermediate Hives Verified 03/15/22 09:43 sulfamethoxazole Allergy Intermediate Hives Verified 03/15/22 09:43 [From Septra] trimethoprim [From Septra] Allergy Intermediate Hives Verified 03/15/22 09:43 Home Medications Medication Instructions Recorded Confirmed Last Taken Type bupropion HCl 150 mg tablet,12 hr 150 mg PO BID 02/14/22 06/20/22 06/23/22 History sustained-release gabapentin 100 mg capsule 100 mg PO TID 02/14/22 06/20/22 06/11/22 History lorazepam 1 mg tablet 0.5 - 1 mg PO DAILY PRN Anxiety 02/14/22 06/20/22 06/23/22 History zolpidem 10 mg tablet 10 mg PO BEDTIME 02/14/22 06/20/22 06/23/22 History insulin glargine 100 unit/mL (3 15 unit subcut QPM 05/06/22 06/25/22 06/24/22 History mL) subcutaneous pen (Lantus Solostar U-100 Insulin) atorvastatin 40 mg tablet 40 mg PO DAILY 06/20/22 06/20/22 06/23/22 History budesonide-formoterol HFA 80 2 puff inhalation DAILY PRN 06/20/22 06/20/22 06/25/22 History mcg-4.5 mcg/actuation aerosol Wheezing inhaler (Symbicort) empagliflozin 10 mg tablet 1 tab PO QAM 06/20/22 06/20/22 06/23/22 History (Jardiance) Exam Height,Weight and Vital Signs: Height 5 ft 6.5 in Weight 111.13 kg Vital Signs Temp Pulse Resp BP Pulse Ox O2 Del Method 06/25/22 12:58 97 F 68 18 153/78 H 98 Room Air Pertinent Lab Results Pertinent Lab Results: Laboratory Tests 06/18/22 06/18/22 06/18/22 09:41 09:41 09:52 WBC 9.3 RBC 5.00 Hgb 13.7 Hct 42.3 MCV 84.6 MCH 27.4 MCHC 32.4 RDW 12.8 Plt Count 206 Immature Gran % (Auto) 0.3 Neut % (Auto) 62.0 Lymph % (Auto) 28.9 Callahan % (Auto) 6.6 Eos % (Auto) 1.3 Baso % (Auto) 0.9 Lymph # (Auto) 2.7 Callahan # (Auto) 0.6 Eos # (Auto) 0.1 Baso # (Auto) 0.1 Abs Immat Gran (auto) 0.03 Absolute Neuts (auto) 5.8 Absolute Nucleated RBC 0.000 Nucleated RBC % (auto) 0.0 Smear Tech's Comments VERIFIED PT 11.2 INR 1.0 APTT 33.0 Sodium Potassium Chloride Carbon Dioxide Anion Gap BUN Creatinine Estim Creat Clear Calc Estimated GFR Random Glucose Estimat Average Glucose Hemoglobin A1c % Insulin Level Calcium Total Bilirubin AST ALT Alkaline Phosphatase C-Reactive Protein Total Protein Albumin Triglycerides Cholesterol LDL Cholesterol, Calc HDL Cholesterol TSH Blood Type O Positive Antibody Screen NEGATIVE 06/18/22 06/18/22 Unknown Unknown WBC RBC Hgb Hct MCV MCH MCHC RDW Plt Count Immature Gran % (Auto) Neut % (Auto) Lymph % (Auto) Callahan % (Auto) Eos % (Auto) Baso % (Auto) Lymph # (Auto) Callahan # (Auto) Eos # (Auto) Baso # (Auto) Abs Immat Gran (auto) Absolute Neuts (auto) Absolute Nucleated RBC Nucleated RBC % (auto) Smear Tech's Comments PT INR APTT Sodium 142 Potassium 4.2 Chloride 105 Carbon Dioxide 26 Anion Gap 15 BUN 7 L Creatinine 0.92 Estim Creat Clear Calc TNP Estimated GFR > 60 Random Glucose 177 H Estimat Average Glucose 163 Hemoglobin A1c % 7.3 Insulin Level 8 Calcium 9.5 Total Bilirubin 0.4 AST 16 ALT 25 Alkaline Phosphatase 66 C-Reactive Protein 0.50 Total Protein 6.3 L Albumin 4.0 Triglycerides 246 Cholesterol 169 D LDL Cholesterol, Calc 89 HDL Cholesterol 31 D TSH 1.57 Blood Type Antibody Screen Laboratory Results - last 24 hr 06/25/22 06/25/22 12:17 12:17 Urine Test NEGATIVE COVID-19 (ERNESTO) Negative COVID-19 Clin Com See Note Airway Mallampati Class: II TM Dist: >3cm Neck ROM: Full Loose/Missing/Broken Teeth: No (Denies loose,missing or broken teeth) Heart: RRR Lungs: CTAB Assessment and Plan Final Anesthetic Review Family History of Problems with Anesthesia: Yes (Sister- slow awakening with GA) History of Problems with Anesthesia: No NPO: Yes ASA Class: III Final Preanesthetic Review: No Changes in Pt Med Stat, Meds/Allgs Chart Reviewed, Consent Obtained/Reviewed and Anes Risks/Benef Reviewed Patient Risk: Intermediate Procedure Risk: Intermediate Assessment/Block/Sedation in : Assess/Block/Sedation- Anesthetic Plan Anesthetic Plan: GA Disposition: Standard PACU and Inp. Admit - Standard Bed
--- NOTE | 2022-06-21 22:36 | MHC.SHP ---
Pre-Procedural Eval Section A Date of Service: 06/21/22 The patient is an INPATIENT: Yes The History & Physical has been completed within 30 days and I have reviewed it.: Yes Section B Chief Complaint: obesity Relevant Family History (Specify if Yes): No Relevant Social History: None Present Medications: None Medical History: No relevant PMH History of Previous Operations: No relevant previous surgery Allergies: Allergies Allergy/AdvReac Type Severity Reaction Status Date / Time ciprofloxacin [From Cipro] Allergy Intermediate Hives Verified 03/15/22 09:43 latex Allergy Intermediate Hives Verified 03/15/22 09:43 sulfamethoxazole Allergy Intermediate Hives Verified 03/15/22 09:43 [From Septra] trimethoprim [From Septra] Allergy Intermediate Hives Verified 03/15/22 09:43 Review of Systems Sugical H&P ROS: Negative: Constitution, Cardiovascular, Respiratory, Neurological, Psychiatric, Hem-Onc, Allergic/Immunologic, Gastrointestinal, Genitourinary, Musculoskeletal, Integumentary, Endocrine and Eyes/Ears/Nose/Throat Exam Surgical H&P Exam: Normal: HEENT, Normal: Heart, Normal: Lungs, Normal: Extremities, Normal: Abdomen, Normal: Skin and Normal: Neurological Plan Diagnosis/Plan: Unchanged I have reviewed the history and physical and performed a pertinent physical examination on my patient. No changes have occurred unless specified.
[2022-06-25] VITALS (16 sets, daily range): BP systolic 111–178; BP diastolic 56–104; PULSE 68–100; RESP 15–18; TEMP 36.1–36.6; O2SAT 95–100
[2022-06-25 13:12] LABS: UPreg QC Valid YES
[2022-06-25 13:13] LABS: Urine Pregnancy NEGATIVE (NEGATIVE)
[2022-06-25 13:24] LABS: COVID-19 Test Negative (Negative); IDNOW Serial# 16C4AD1C
--- NOTE | 2022-06-25 13:29 | P.BOP_ITS ---
Brief Operative Note Date of Service: 06/25/22 Pre-op diagnosis: Severe obesity with comorbidities (see below) Post-op diagnosis: same Procedure: INITIAL PATIENT BMI ON PRESENTATION AT OUR OFFICE: 42.5 kg/m2 LAST BMI BEFORE SURGERY: 37.8 kg/m2 COMORBIDITIES: GERD, liver steatosis ?The patient presented to the Weight Management Program with significant obesity that was negatively impacting the patient's comorbidities as listed above.? The program is a phased program with a special focus on preoperative medical weight management to promote substantial weight loss and prepare the patients for the second phase of the program: bariatric surgery. The patient participated in an intensive weekly lifestyle ?intervention and exercise program during which the patient ?has lost between the initial office visit and the last preoperative visit 45lbs, or 15.73% of initial actual body weight. It was deemed appropriate for the patient to now have bariatric surgery. In light of the current Covid-19 pandemic and the well documented strong association of obesity and increased risk of worse outcomes if infected with Covid-19 (REFERENCES: https://pubmed.ncbi.nlm.nih.gov/60657744/ ,? https://pubmed.ncbi.nlm.nih. gov/13802000/ ), any delay in undergoing bariatric surgery may lead to the patient's worsening health condition and increased?risk of more severe Covid-19 disease if infected. In addition a recent?study from [facility] published in [facility] on 10/15/2021 ([email or web address]) found that, among patients with obesity, substantial weight loss achieved with surgery was associated with improved outcomes of COVID-19 infection. The findings suggest that obesity can be a modifiable risk factor for the severity of COVID-19 infection. In addition, the patient met the BMI-criteria for bariatric surgery based on the BMI on initial presentation. The patient should not be penalized for achieving such weight loss because ?it is not sustainable long-term without surgical intervention and it was achieved in preparation for bariatric surgery ?under my direction and based on my published research ([email or web address]).[email or web address] and? https://www.soard.org/article/S3629-4010(01)83547-X/pdf ) ?that a 10% preoperative weight loss improves long-term weight loss after surgery and reduces perioperative complications.? Insurance carriers such as [facility] have endorsed my recommendations ?and have included in their policies criteria to include a 10% preoperative weight loss requirement. PROCEDURE: Esophago-gastroscopy, laparoscopic sleeve gastrectomy and laparoscopic gastropexy INDICATIONS: This is a 31 year-old female who was electively scheduled for laparoscopic, possibly open sleeve gastrectomy. The risks and complications of the procedure were discussed with the patient in advance, particularly the possibility of ; pulmonary embolism; staple line leak; bleeding; GERD; cardiac, pulmonary, or renal complications; as well as long-term problems such as insufficient weight loss, vitamin deficiency, strictures, or ulcers. The patient understood all the risks, and was in agreement to proceed with surgery. DESCRIPTION OF PROCEDURE: After informed consent was obtained from the patient, the patient was given preoperative antibiotics, and was transferred to the operating room. After successful induction of general anesthesia, pneumatic compression devices were placed on both lower extremities. An upper endoscopy was performed next. The oropharynx and esophagus appeared to be within normal limits. There was no diaphragmatic hernia present consistent with the findings of the preoperative upper GI. The stomach was entered. Then after all fluid and air were suctioned and the stomach was fully decompressed, the scope was withdrawn and secured in the mid esophagus. The patient was then prepped and draped in the usual sterile manner, and abdomi nal access was established at the right upper quadrant with the Juan R technique. A 12 mm blunt port was inserted, and the abdomen was insufflated with CO2 to a pressure of 15 mmHg. Under direct visualization, additional ports were placed, specifically two 5 mm Versi-step ports to the left upper quadrant, and a 5 mm Versi-Step port to the right upper quadrant. 1% lidocaine plain was used to infiltrate all port sites as well as all fascia defects. There were adhesions in the abdomen from previous [employer] procedures involving the omentum and the anterior abdominal wall. Those were lysed completely with the ultrasonic device. Following that, the patient was placed in a steep reverse Trendelenburg position. An additional 5 mm port was placed to the right flank for the Mediflex retractor that was used to retract the left lobe of the liver. The gastro-esophageal fat pad was opened with the ultrasonic device (Thunderbeat, Olympus) and the anterior esophagus and hiatus were exposed. The angle of His was opened with the ultrasonic device the fundus of the stomach from any diaphragmatic and splenic attachments. I then opened the gastrocolic ligament between the transverse colon and the greater curvature of the stomach with the ultrasonic device to enter the lesser sac and facilitate the ligation of the short gastric vessels. I started at a mid-point along the greater curvature and using the Thunderbeat, all short gastric vessels were divided all the way to the angle of His until the left yared was completely dissected at its entirety. I then divided the gastro-colic ligament distally to a distance of about 3-4 cm proximal to the pylorus. The stomach was then divided transversely with one Endo AAKASH-45 purple, one AAKASH- 45 orange loads and four AAKASH-60 articulating orange loads using the AEON stapler and loads. Every effort was made that the gastric sleeve had a tubular shape and an even caliber throughout. Once the sleeve resection was completed, the staple line of the gastric sleeve was reinforced with Hemoclips. The resected stomach was retrieved without difficulty from the Juan R port. A gastropexy was then performed in order to prevent postoperative GERD and p artial gastric volvulus. Several interrupted 2.0 Surgidac sutures were placed between the sleeve's staple line and the previously divided greater omentum and gastro-colic ligament using the Endo-Stitch device. ?An upper endoscopy was performed. There was no narrowing at the GE junction. The scope was easily advanced all the way to the pylorus which was clearly visualized. There was no narrowing anywhere and the sleeve's caliber was even throughout. The sleeve's staple line was inspected and there was no evidence of ischemia, bleeding or dehiscence. At that point the gastroscope was withdrawn from the patient?s mouth while we were decompressing the bowel and the stomach from any remaining air. I looked into the lesser sac to see how the sleeve was situating and it was situating well. There was no bleeding from the staple line, spleen, or short gastric vessels. The Mediflex retractor was removed, and the undersurface of the liver was inspected and there was no bleeding. The patient was placed in supine position. I closed the fascial defect of the 12 mm port site with a figure of eight #1 Polysorb suture. Then 30cc Ropivacaine plain with 10 mg of Dexamethasone were used to infiltrate the fascial closure as well as all skin incisions. A total of 7ml of Zynrelef was applied in the Juan R wound. At this point, the abdomen was deflated, all ports were removed under direct vision, and no bleeding was noted from any of the port sites. The skin incisions were irrigated with saline and were closed with 4-0 absorbable monofilament sutures. Steri-Strips and OpSites were used to cover all incisions. The patient was extubated and was transferred in stable condition to the recovery room for further care. I was present and performed all frias parts of the procedure. Ms. Macias was the kindergarten instructional assistant. There were no residents to assist with this case. Aleksey Lozada MD, PhD, FACS Surgeon: Nithin Lozada MD Anesthesia: GETA, local and other (TAP block and 7ml Zynrelef) Was an Bulb Filler used for this Procedure?: No Bulb Filler: Jessica Macias Estimated blood loss (mL): 10 IV fluids (mL): 2,000 Urine output (mL): 0 (No Mathias to record) Pathology: other (Stomach) Condition: stable Disposition: PACU
--- NOTE | 2022-06-25 13:32 | PM.PNGS ---
Subjective Subjective Date of Service: 06/26/22 Interval history: Feels well. Mild incisional pain. She is tolerating phase 1 bariatric diet Physical Exam Vital Signs: Vital Signs: Last Vital Signs Temp 97 F 06/25/22 12:58 Pulse 68 06/25/22 12:58 Resp 18 06/25/22 12:58 BP 153/78 H 06/25/22 12:58 Pulse Ox 98 06/25/22 12:58 O2 Del Method 06/25/22 12:58 BMI result Body Mass Index 38.9 GI: Inspection: Yes normal to inspection and Yes incision (clen, dry and intact) Extrem: Right lower extremity: normal to inspection (no calf tenderness) Left lower extremity: normal to inspection (no calf tenderness) Objective Data Active Medications Albuterol Sulfate (Albuterol Sulfate (0.083%) 2.5 Mg/3 Ml Vial.Neb) 2.5 mg INHALE ONCE PRN PRN Reason: Shortness of Breath/Wheezing Lactated Ringer's (Lr) 1,000 mls @ 100 mls/hr IVCONT .Q10H MARICRUZ Labs CBC & Chem 7: 06/26/22 05:41 06/26/22 05:41 Labs: Laboratory Results - last 24 hr 06/25/22 06/25/22 12:17 12:17 Urine Test NEGATIVE COVID-19 ([facility]) Negative COVID-19 Clin Com See Note Procedures Date of Service Date of Service: 06/26/22 Progress Note: A&P Assessment and plan (1) Obesity (BMI 30-39.9): Status: Acute Assessment and Plan: s/p laparoscopic sleeve gastrectomy, lysis of adhesions and gastropexy Doing well Will check am labs and if OK the patient will be discharged home (2) BMI 37.0-37.9, adult: Status: Acute (3) GERD (gastroesophageal reflux disease): Status: Acute (4) Steatosis, liver: Status: Acute (5) S/P laparoscopic sleeve gastrectomy: Status: Acute Time Spent With Patient Time: Total time spent is greater than 50% in coordination of care (as documented) at patient's floor/unit and/or counseling patient: Quality Stroke Does the patient have a stroke diagnosis?: No VTE Prior VTE?: No VTE Risk Level:: Surgical - moderate VTE Device Contraindication: N/A - Device Ordered VTE Drug Contraindication: Treatment Not Indicated
[2022-06-25] MEDS: Lactated Ringers 1,000 ML 100 ML IVCONT ×2 (13:35→20:07)
--- NOTE | 2022-06-25 16:21 | PM.DS ---
DS: Providers Provider Date of Service: 06/26/22 Date of admission: 06/25/22 16:19 Primary care physician: MADHU Mata DS: Diagnosis Discharge Diagnosis (1) Obesity (BMI 30-39.9): Status: Acute (2) BMI 37.0-37.9, adult: Status: Acute (3) GERD (gastroesophageal reflux disease): Status: Acute (4) Steatosis, liver: Status: Acute DS: Summary Hospital Course Hospital Course: ADMITTING DIAGNOSIS: morbid obesity, IDDM, GERD, hyperlipidemia, HTN DISCHARGE DIAGNOSIS: same, s/p laparoscopic sleeve gastrectomy PAST SURGICAL HISTORY: cholecystectomy, salpingo oophorectomy PROCEDURE: upper endoscopy, laparoscopic sleeve gastrectomy DISCHARGE SUMMARY: History of Present Illness: The patient is a 31year-old woman with a BMI of 42.5 kg/m2 and associated co-morbidities as described above. The patient had extensive work-up,lost 40.6 lbs preoperatively and was electively scheduled for laparoscopic, possible open sleeve gastrectomy and gastropexy. Risks and complications of the surgery were discussed with the patient in advance, particularly the possibility of , pulmonary embolism, anastomotic leak, bleeding, bowel injury, GERD, cardiac, renal or pulmonary complications. The patient understood all the risks and was in agreement with the surgical plan. Hospital Course: The patient underwent an uneventful laparoscopic sleeve gastrectomy on the day of admission. Postoperatively, the patient was transferred to the surgical floor. The patient received IV Acetaminophen and IV dilaudid for pain control. Patient was started on bariatric phase 1 diet POD #0. On postoperative day one, the patient was feeling well without nausea, vomiting, fevers, or tachycardia. The patient had some mild incisional pain and the abdomen was soft. On the morning of postoperative day one, the patient was continued on 1 ounce of water or ice every half hour. During the day, the patient did fairly well, having some incisional pain, but able to ambulate adequately and to tolerate liquids well. Since the patient is doing well, we decided that the patient was ready to be discharged. The patient was given instructions to follow-up with me next week and to call my office for any fever over 101, persistent abdominal pain, nausea, vomiting, GERD, symptoms of DVT such as calf tenderness, or leg swelling, or pulmonary embolism such as chest pain or shortness of breath. The patient was also instructed to drink 40-60 ounces of liquids per day using the 1-ounce cups. The patient had been given prescriptions for Tylenol for pain, Zofran prn for nausea, and pantoprazole and carafate previously. The patient was encouraged to ambulate and use the incentive spirometer. The patient was allowed to shower, but no baths, and encouraged to stay active at home. All of these instructions were given to the patient personally. All questions were answered and the patient understood all instructions, the instructions were also given to the patient in print. Time Spent with Patient Time attestation: Total time spent providing and/or coordinating discharge services: Discharge coordination time: Less than 30 minutes Quality: Safe Use of Opioids Does Pt have an Active Cancer Diagnosis on the Problem List?: No Quality: Stroke Does the patient have a stroke diagnosis?: No Physical Exam Vital Signs: Vital Signs: Last Vital Signs Temp 97.6 F 06/25/22 16:14 Pulse 89 06/25/22 16:14 Resp 16 06/25/22 16:14 BP 176/103 H 06/25/22 16:14 Pulse Ox 99 06/25/22 16:14 O2 Del Method 06/25/22 16:14 O2 Flow Rate 8 06/25/22 16:14 BMI result Body Mass Index 38.9 DS: Data Data Completed and Pending Pending studies at discharge: Pending at discharge 06/25/22 15:43 Surgical [PTH] Routine Labs on day of discharge: Laboratory Results - last 24 hr 06/25/22 06/25/22 12:17 12:17 Urine Test NEGATIVE COVID-19 ([facility]) Negative COVID-19 Clin Com See Note Discharge Plan Discharge Anticipated Discharge Date/Time: 06/26/22 10:19 Patient Disposition: Home, Self-Care Discharge Diagnosis: s/p sleeve gastrectomy Referrals: Stephanie Layton, BEHAVIORIST [Primary Care Provider] - 1 Week Discharge Medications: Continued atorvastatin 40 mg tablet 40 mg PO BEDTIME budesonide-formoterol [Symbicort] 80-4.5 mcg/actuation HFA aerosol inhaler 2 puff INHALATION DAILY PRN (Reason: Wheezing) perphenazine 4 mg tablet 1 tab PO BID norethindrone (contraceptive) 0.35 mg tablet 1 tab PO DAILY gabapentin 100 mg capsule 100 mg PO TID zolpidem 10 mg tablet 10 mg PO BEDTIME lorazepam 1 mg tablet 1 mg PO BID PRN (Reason: Anxiety) bupropion HCl 150 mg tablet sustained-release 12 hr 150 mg PO BID pantoprazole 40 mg tablet,delayed release (DR/EC) 40 mg PO DAILY Qty: 30 2RF sucralfate 100 mg/mL suspension 10 ml PO BID Qty: 400 2RF Rx Instructions: post op meds ondansetron HCl 4 mg tablet 4 mg PO Q12H Qty: 20 0RF Rx Instructions: post op meds Held insulin glargine [Lantus Solostar U-100 Insulin] 100 unit/mL (3 mL) insulin pen 15 unit subcut BEDTIME Hold Instructions: Resume on 06/27/22. Check your blood sugars 4 times per day and send them to Dr. Lozada every evening. Do not take Lantus before he gets back to you. Don't take any Lantus if blood sugars are below 150. Rx Instructions: 10 units on 06/24 Discontinued Jardiance 10 mg tablet 1 tab PO QAM cetirizine 10 mg tablet 1 tab PO DAILY PRN (Reason: congestion) thiamine HCl (vitamin B1) 100 mg tablet 1 tab PO DAILY Discharge Orders: Discharge Order (Routine); Ordered 06/26/22 Ordered By: Nithin Lozada Activity on Discharge: No heavy lifting Stand Alone Forms: Patient Portal Discharge page Care Plan Goals: weight loss Health Concerns: morbid obesity Plan of Treatment: No tub baths, sex or returning to work until discussed at first post op appointment. No exercise, alcohol, tobacco or illegal drug use. Continue to use incentive spirometer hourly while awake. Walk in home for 5- 10 minutes every 2 hours during the first week. Continue phase 1 diet today and start phase 2 diet tomorrow morning. Follow all instructions in the bariatric handbook and call with any questions. 1. Please call your doctor or come back to the emergency room should any new symptoms arise. 2. You will receive a courtesy call from [facility] 24-48 hours after discharge. 3. Activity: abstain from alcohol, practice limited stair climbing, no bending, no driving, no exercise, no illicit substances, no lifting, no sex, no tub bath, no work. 4. Diet: continue as discussed with bariatric team.. 5. Dressing Change/Wound Care: Do not change or remove surgical dressings unless they are wet or soiled. 6. Call your doctor if: - Your temperature exceeds 101.5 F - You experience excessive pain or swelling - You have an unexpected reaction to medication - You have excessive bleeding - You experience continued vomiting/nausea - Your incision begins to separate - Your incision shows signs of infection such as increased redness, swelling, excessive pain, heat, or drainage (light blood or clear fluid is normal) 7. General instructions: No lifting greater than 5 lbs for the next 4 weeks[address] driving within 24 hours of taking narcotic pain medications. If you do not move your bowels in the next 2 days, please take milk of magnesia over the counter. Please follow the post op diet and do not advance your diet until you are seen in the office in about 2 weeks. Please walk around your home every hour or two to prevent blood clots from forming in your legs. You do not need to wake from sleeping to walk. Please sleep in a bed or couch to prevent kinking at the hips and knees. Please take your incentive spirometer (your lung ship yard electrical person) home with you and use it for the next few days to prevent pneumonias. You may shower, no hot tubs, baths or swimming pools. Please call the office with any questions or concerns such as increasing abdominal pain, fever, chills, shortness of breath, chest pain, leg pain or swelling, or redness or drainage from your incisions. Do not hesitate to contact the office with any questions at . The patient's medical history has been reviewed and they are considered low risk for post op DVT and therefore DVT prophylaxis is not considered necessary. Travel after surgery was reviewed. The patient has not disclosed any travel plans during the first 30 days after surgery and they have been advised that within the first 30 days after surgery any bus, plane, train or car travel over 2 hours in duration is contraindicated due to the possibility of developing blood clots from immobility. Any travel, needs to include periods of ambulation of 10 minutes in duration every 2 hours. The patient was instructed to discuss any plans for travel during this period with their bariatric surgeon. Assessment: stable, post op sleeve gastrectomy Discharge Date/Time: 06/26/22 09:40
[2022-06-25] MEDS: Metoclopramide HCl 10 MG/2 ML VIAL IVPUSH ×2 (16:33→21:47)
[2022-06-25] MEDS: Famotidine/PF 20 MG/2 ML VIAL IVPUSH ×2 (16:45→20:15)
[2022-06-25] MEDS: Insulin Lispro 100 UNIT/ML 3 ML VIAL SUBCUT ×2 (17:57→23:57)
[2022-06-25 18:01] LABS: Glucose, Whole Blood 245 mg/dL (60-115)
[2022-06-25] MEDS: ceFAZolin Sodium/Dextrose,Iso 2 GM/50 ML PIGGYBACK IV (19:14)
[2022-06-25 19:28] LABS: Hematocrit 48.7 % (37.0-47.0); Hemoglobin 15.6 g/dl (12.0-16.0)
[2022-06-25 19:45] LABS: Anion Gap 23 (12-20); Blood Urea Nitrogen 7 mg/dL (9-16); Calcium 9.4 mg/dL (8.4-10.2); Carbon Dioxide 18 mmol/L (22-29); Chloride 101 mmol/L (96-108); Estimated Glomerular Filt Rate > 60; Glucose Random 241 mg/dL (60-115); Potassium 3.8 mmol/L (3.3-5.1); Sodium 138 mmol/L (135-145)
[2022-06-25] MEDS: 0.9 % Sodium Chloride Flush 3 ML SYRINGE IVFLUSH (20:07)
[2022-06-25 20:30] LABS: Glucose, Whole Blood 222 mg/dL (60-115)
--- NOTE | 2022-06-25 20:37 | PHA.MEDREC ---
Pharmacy Consult ? Medication Reconciliation Pharmacy has completed the medication reconciliation. Spoke with patient in [phone] post op. patient knew all medications she was taking. med rec updated
[2022-06-25] MEDS: Zolpidem Tartrate 5 MG TABLET PO (21:31)
[2022-06-25 23:45] LABS: Glucose, Whole Blood 195 mg/dL (60-115)
[2022-06-25] MEDS: ondansetron HCL 4 MG/2 ML VIAL IVPUSH (23:56)
[2022-06-26] MEDS: LORazepam 1 MG TABLET PO (02:54)
[2022-06-26 03:29] VITALS: PULSE 73; RESP 18; TEMP 36.3; O2SAT 100
[2022-06-26] MEDS: Metoclopramide HCl 10 MG/2 ML VIAL IVPUSH (03:30)
[2022-06-26 05:19] LABS: Glucose, Whole Blood 181 mg/dL (60-115)
[2022-06-26] MEDS: Insulin Lispro 100 UNIT/ML 3 ML VIAL SUBCUT (05:30)
[2022-06-26] MEDS: Lactated Ringers 1,000 ML 100 ML IVCONT (05:30)
[2022-06-26 06:21] LABS: MANUAL DIFF FLAG NO
[2022-06-26] MEDS: ondansetron HCL 4 MG/2 ML VIAL IVPUSH (06:29)
[2022-06-26 06:35] LABS: Basophils Percent Auto 0.1 % (0-2); Hematocrit 43.3 % (37.0-47.0); Hemoglobin 14.3 g/dl (12.0-16.0); Imm Gran Abs Auto 0.09 X10*3/uL (0.00-0.03); Imm Gran Pct Auto 0.6 % (0.0-0.4); Lymphocytes Percent Auto 7.2 % (20-40); Mean Corpuscular Hemoglobin 27.4 pg (27.0-33.0); Mean Platelet Volume 12.9 fL (9.4-12.3); Monocytes Absolute Auto 0.7 X10*3/uL (0.1-1.2); Monocytes Percent Auto 4.8 % (2-11); Neutrophils Absolute Auto 12.7 x10*3/uL (2.0-8.3); Neutrophils Percent Auto 87.3 % (45-73); Platelet Count 272 X10*3/uL (160-400); Red Blood Count 5.22 X10*6/uL (4.20-5.50); Red Cell Distribution Width 12.4 % (11.0-16.0); White Blood Count 14.5 X10*3/uL (4.8-10.8)
[2022-06-26 07:07] LABS: Anion Gap 19 (12-20); Blood Urea Nitrogen 6 mg/dL (9-16); Calcium 9.3 mg/dL (8.4-10.2); Carbon Dioxide 20 mmol/L (22-29); Chloride 103 mmol/L (96-108); Creatinine Clr Calc Pharmacy 129.1; Estimated Glomerular Filt Rate > 60; Glucose Random 168 mg/dL (60-115); Potassium 4.5 mmol/L (3.3-5.1); Sodium 137 mmol/L (135-145)
[2022-06-26 07:21] VITALS: BP 145/82; PULSE 72; RESP 18; TEMP 37.1; O2SAT 100
[2022-06-26] MEDS: Fluticasone/Vilanterol 100/25 BLST.W.DEV 1 PUFF INHALE (07:37)
[2022-06-26 07:39] VITALS: PULSE 86; RESP 16; O2SAT 92
[2022-06-26] MEDS: buPROPion HCl XL 300 MG TAB.ER.24H PO (07:39)
[2022-06-26] MEDS: Famotidine/PF 20 MG/2 ML VIAL IVPUSH (07:39)
[2022-06-26 07:47] LABS: Glucose, Whole Blood 166 mg/dL (60-115)
--- NOTE | 2022-06-26 08:19 | HO.POSTANES ---
Post Anesthesia Evaluation Post Anesthesia Evaluation Vital Signs: Vital Signs Temp Pulse Resp BP Pulse Ox O2 Del Method O2 Flow Rate 06/26/22 07:39 86 16 06/26/22 07:21 98.7 F 72 18 145/82 H 100 Nasal Cannula 2 06/26/22 03:29 97.4 F 73 18 100 Room Air 06/25/22 23:37 97.8 F 80 18 155/76 H 98 Nasal Cannula 2 Anesthesia: General Endotracheal-GETA Mental Status: Awake Pain Control: Satisfactory Nausea/Vomiting: None Hydration: Adequate Anesthesia-Related Issues: No Anes. Related Issues
--- NOTE | 2022-06-26 09:14 | MHC.CM.PN ---
PATIENT IS FULLY INDEPENDENT WITH HER ADLS. NO DME OR VNA SERVICES. SHE IS NOT VACCINATED AGAINST COVID-19. HCP IS AT HOME AND LISTS MOM PRIMARY AGENT. FAMILY IS IN ROOM TO TRANSPORT PATIENT HOME NO SERVICES NEEDED. RN AWARE OF PLAN
[2022-06-26 11:51] LABS: Glucose, Whole Blood 134 mg/dL (60-115)
== END 2022-06-26 09:40 | disposition home or self-care (01) | DRG 403 ==
LOC: HO.SSSA 16:21 → HO.S3 17:44
PROVIDERS: Nurse Practitioner; Physician Assistant; Admitting Provider Surgery; PCP Registered Nurse; Visit Provider Surgery
PROC: 0DB64Z3 Excision of Stomach, Percutaneous Endoscopic Approach, Vertical (ICD-10-PCS; CPT 43845; principal; 2022-06-25 14:20)
DX: E66.01 Morbid (severe) obesity due to excess calories (principal); E10.40 Type 1 diabetes mellitus with diabetic neuropathy, unspecified; K76.0 Fatty (change of) liver, not elsewhere classified; F32.A Depression, unspecified; I10 Essential (primary) hypertension; J45.909 Unspecified asthma, uncomplicated; Z28.310 Unvaccinated for COVID-19; Z68.37 Body mass index [BMI] 37.0-37.9, adult; K66.0 Peritoneal adhesions (postprocedural) (postinfection); K21.9 Gastro-esophageal reflux disease without esophagitis; Z90.49 Acquired absence of other specified parts of digestive tract; Z91.040 Latex allergy status; Z88.1 Allergy status to other antibiotic agents; Z88.2 Allergy status to sulfonamides; Z79.3 Long term (current) use of hormonal contraceptives; Z79.899 Other long term (current) drug therapy
CPT/HCPCS: 36415; 80048; 80053; 80061; 81025; 82947; 83036; 83525; 84443; 85014; 85018; 85025; 85610; 85730; 86140; 86850; 86900; 86901; 87635; 88307; 88342; 94640; A4649; C9088; J0131; J0690; J1100; J1170; J1790; J2250; J2405; J2550; J2765; J2795; J3010

== ENCOUNTER → 2022-09-30 08:24 | Outpatient (BNVA) | payer MEDICAID, SELFPAY | PROVIDERS: PCP Registered Nurse; Visit Provider Physician Assistant Surgical | DX: Z98.84 Bariatric surgery status (principal) | CPT/HCPCS: 99212 ==

== ENCOUNTER 2022-10-11 12:51 | Emergency (ER) | payer MEDICAID, SELFPAY ==
[2022-10-11 13:07] VITALS: BP 112/75; PULSE 83; RESP 18; TEMP 36.8; O2SAT 95; BMI 31.1
--- NOTE | 2022-10-11 13:08 | ED.GENADULT ---
HPI - General Adult General Chief complaint: Nausea/Vomiting/Diarrhea <HANK Quijano - Last Filed: 10/11/22 13:11> Stated complaint: vomiting x3 days <HANK Quijano - Last Filed: 10/11/22 13:11> Time Seen by Provider: 10/11/22 14:41 <HANK Quijano - Last Filed: 10/11/22 13:11> Source: patient <Estela Sifuentes MD - Last Filed: 10/11/22 17:23> Mode of arrival: ambulatory <Estela Sifuentes MD - Last Filed: 10/11/22 17:23> History of Present Illness HPI narrative: 31-year-old female who is status post gastric sleeve presents with 3 days of nausea and vomiting without fever, chills, sore throat, cough and states that she is continued to have bowel movements and is passing flatus. She denies any urinary symptoms. <Estela Sifuentes MD - Last Filed: 10/11/22 17:23> Related Data Home medications: Home Medications Medication Instructions Recorded Confirmed bupropion HCl 150 mg tablet,12 hr 150 mg PO BID 02/14/22 09/30/22 sustained-release lorazepam 1 mg tablet 1 mg PO BID PRN Anxiety 02/14/22 09/30/22 zolpidem 10 mg tablet 10 mg PO BEDTIME 02/14/22 09/30/22 atorvastatin 40 mg tablet 40 mg PO BEDTIME 06/20/22 09/30/22 budesonide-formoterol HFA 80 2 puff inhalation DAILY PRN 06/20/22 09/30/22 mcg-4.5 mcg/actuation aerosol Wheezing inhaler (Symbicort) fluoxetine 20 mg capsule (Prozac) 20 mg PO DAILY 08/06/22 09/30/22 perphenazine 4 mg tablet 8 mg PO BEDTIME 08/06/22 09/30/22 amitriptyline 25 mg tablet 25 mg PO BEDTIME 09/30/22 09/30/22 melatonin 3 mg tablet 3 mg PO BEDTIME PRN 09/30/22 09/30/22 Previous Rx's Medication Instructions Recorded pantoprazole 40 mg tablet,delayed 40 mg PO DAILY #30 tabs 06/10/22 release sucralfate 100 mg/mL oral 10 ml PO BID #400 mL 06/10/22 suspension sennosides 8.6 mg-docusate sodium 2 tab-cap PO BEDTIME #60 caps 07/15/22 50 mg capsule (Senna Plus) <HANK Quijano - Last Filed: 10/11/22 13:11> Allergies/adverse reactions: Allergies Allergy/AdvReac Type Severity Reaction Status Date / Time ciprofloxacin [From Cipro] Allergy Intermediate Hives Verified 09/30/22 08:35 latex Allergy Intermediate Hives Verified 09/30/22 08:35 sulfamethoxazole Allergy Intermediate Hives Verified 09/30/22 08:35 [From Septra] trimethoprim [From Septra] Allergy Intermediate Hives Verified 09/30/22 08:35 <HANK Quijano - Last Filed: 10/11/22 13:11> Review of Systems Review of Systems: Pertinent positives and negatives as stated in HPI 10 point review of systems is otherwise negative. <Estela Sifuentes MD - Last Filed: 10/11/22 17:23> [facility] Past Medical History Source: nursing notes reviewed <Estela Sifuentes MD - Last Filed: 10/11/22 17:23> Medical History: Medical History Anxiety Asthma Bipolar 1 disorder Bipolar disorder current episode depressed BMI 37.0-37.9, adult BMI 38.0-38.9,adult COVID-19 vaccination declined Depression Family history of anesthesia complication History of ectopic Hypercholesteremia Hypertension Insulin dependent type 1 diabetes mellitus Neuropathy Obesity (BMI 30-39.9) Ovarian cyst Seizures Vitamin B1 deficiency Vitamin B12 deficiency Vitamin D deficiency <HANK Quijano - Last Filed: 10/11/22 13:11> Surgical History: Surgical History H/O unilateral salpingectomy History of laparoscopic cholecystectomy History of oophorectomy, unilateral History of ovarian cystectomy Hx of tonsillectomy <HANK Quijano - Last Filed: 10/11/22 13:11> Family History Family History: Family History Mother Hypertension Father Diabetes Hypertension Heart problem Depression Brother No problems noted. Sister Hypertension High cholesterol Mental health disorder Sister Hypertension Bipolar 1 disorder Mental health disorder <HANK Quijano - Last Filed: 10/11/22 13:11> Social History Social History: Social History Are you a primary career transition specialist to a significant other at home: No Do you presently have visiting nurse or other home services: No Alcohol intake: never Patient Tobacco Use Status: Former Tobacco user Quit Date: 2019 Tobacco use type: Cigarette Substance Use Type: Marijuana Advance Directives: No Advance Directives Information Provided: No service: No Current occupational status: employed Sexual orientation: Straight/Heterosexual Gender identity: Female <HANK Quijano - Last Filed: 10/11/22 13:11> Physical Exam ED Vital Signs: Vital Signs - 24 hr 10/11/22 13:07 10/11/22 16:55 Temperature 98.3 F 98.6 F Pulse Rate 83 85 Respiratory Rate 18 16 Blood Pressure 112/75 123/78 Pulse Oximetry 95 100 Oxygen Delivery Method Room Air Room Air BMI result Body Mass Index 31.1 <HANK Quijano - Last Filed: 10/11/22 13:11> Vital Signs - 24 hr 10/11/22 13:07 10/11/22 16:55 Temperature 98.3 F 98.6 F Pulse Rate 83 85 Respiratory Rate 18 16 Blood Pressure 112/75 123/78 Pulse Oximetry 95 100 Oxygen Delivery Method Room Air Room Air BMI result Body Mass Index 31.1 VITAL SIGNS: Reviewed. GENERAL: Well developed, well nourished, in no acute distress. HEAD: Normocephalic/atraumatic EYES: PERRLA, EOMI EARS: Ext canals without abnormality OROPHARYNX: no oral lesions noted, posterior pharynx clear LUNGS: Normal breath sounds. No adventitious sounds or accessory muscle use. SpO2<95> CARDIOVASCULAR: Regular rate and rhythm without noted murmurs ABDOMEN: Soft, non-tender, non-distended with bowel sounds. MUSCULOSKELETAL: No tenderness, deformities, or effusions noted on gross inspection. EXTREMITIES: No cyanosis, clubbing or edema. SKIN: Inspection of the skin reveals no rashes NEUROLOGIC: Alert and oriented x 4. Strength and sensation to light touch were grossly intact x 4. <Estela Sifuentes MD - Last Filed: 10/11/22 17:23> Course Course Course Narrative: RME - 31 y/o female with history of morbid obesity s/p gastric sleeve by Dr. Hutchinson who presents to the ER with 3 days of bilious vomiting and inability to tolerate PO. She started solids 3 weeks ago and was intermittently having N/V but it has significantly worsened in the last 3 days. Also has a cough and sore throat. Called bariatric office who told her to come to the ER and the MALINI Zenia from the office could come see her in the ED. Will get basic labs. Stable to go back to the waiting room until able to be seen in the main ER. <HANK Quijano - Last Filed: 10/11/22 13:11> RME - 31 y/o female with history of morbid obesity s/p gastric sleeve by Dr. Hutchinson who presents to the ER with 3 days of bilious vomiting and inability to tolerate PO. She started solids 3 weeks ago and was intermittently having N/V but it has significantly worsened in the last 3 days. Also has a cough and sore throat. Called bariatric office who told her to come to the ER and the MALINI Zenia from the office could come see her in the ED. Will get basic labs. Stable to go back to the waiting room until able to be seen in the main ER. I reviewed all laboratory investigations to include urinalysis and there is no evidence to suggest viral infection, UTI and based on clinical exam and symptoms reported by the patient there is no evidence of SBO or infection. Patient is noted to be a cannabis smoker when she was cautioned regarding the use of this substance as that you may lead to higher incidence of nausea and vomiting. Patient received IV fluids, Zofran and then was p.o. challenged. <Estela Sifuentes MD - Last Filed: 10/11/22 17:23> Reevaluation(s) Reevaluation #1: Patient is tolerating p.o. and otherwise hemodynamically stable for discharge. <Estela Sifuentes MD - Last Filed: 10/11/22 17:23> Time: 17:18 <Estela Sifuentes MD - Last Filed: 10/11/22 17:23> Medications Administered Discontinued Medications Generic Name Dose Route Start Last Admin Trade Name Freq PRN Reason Stop Dose Admin Sodium Chloride 1,000 mls @ 999 mls/hr 10/11/22 15:30 10/11/22 17:05 Ns IV 10/11/22 16:30 Infused .Q1H1M MARICRUZ Infusion Ondansetron HCl 4 mg 10/11/22 15:20 10/11/22 16:07 Ondansetron Hcl 4 Mg/2 Ml Vial IVPUSH 10/11/22 15:21 4 mg ONCE ONE Administration <HANK Quijano - Last Filed: 10/11/22 13:11> Medications Administered Discontinued Medications Generic Name Dose Route Start Last Admin Trade Name Freq PRN Reason Stop Dose Admin Sodium Chloride 1,000 mls @ 999 mls/hr 10/11/22 15:30 10/11/22 17:05 Ns IV 10/11/22 16:30 Infused .Q1H1M MARICRUZ Infusion Ondansetron HCl 4 mg 10/11/22 15:20 10/11/22 16:07 Ondansetron Hcl 4 Mg/2 Ml Vial IVPUSH 10/11/22 15:21 4 mg ONCE ONE Administration <Estela Sifuentes MD - Last Filed: 10/11/22 17:23> Medical Decision Making Medical Decision Making MDM Narrative: 31-year-old female with history and clinical presentation suggestive of nausea and vomiting without diarrhea and patient continues to pass flatus and there is no evidence of fever or chills. <Estela Sifuentes MD - Last Filed: 10/11/22 17:23> Differential Diagnosis Differential Diagnoses: The differential diagnosis associated with the presentation includes <Estela Sifuentes MD - Last Filed: 10/11/22 17:23> Marijuana use, gastroenteritis, viral infection and lower clinical suspicion for SBO. <Estela Sifuentes MD - Last Filed: 10/11/22 17:23> Lab Data MDM Lab Attestation statement: I reviewed the patient's lab results. <Estela Sifuentes MD - Last Filed: 10/11/22 17:23> Leukocytosis is reactive/stress and response as there is no fever. <Estela Sifuentes MD - Last Filed: 10/11/22 17:23> Result Diagrams: : 10/11/22 13:23 10/11/22 13:23 <HANK Quijano - Last Filed: 10/11/22 13:11> Labs: Lab Results 10/11/22 10/11/22 10/11/22 Range/Units 13:23 13:23 13:23 WBC 14.6 H (4.8-10.8) X10*3/uL RBC 5.26 (4.20-5.50) X10*6/uL Hgb 14.8 (12.0-16.0) g/dl Hct 44.6 (37.0-47.0) % MCV 84.8 (80.0-98.0) fL MCH 28.1 (27.0-33.0) pg MCHC 33.2 (31.0-35.0) g/dl RDW 12.4 (11.0-16.0) % Plt Count 234 (160-400) X10*3/uL MPV 12.3 (9.4-12.3) fL Immature Gran % (Auto) 0.4 (0.0-0.4) % Neut % (Auto) 83.5 H (45-73) % Lymph % (Auto) 8.5 L (20-40) % [place] % (Auto) 6.7 (2-11) % Eos % (Auto) 0.5 (0-4) % Baso % (Auto) 0.4 (0-2) % Lymph # (Auto) 1.2 (1.2-4.9) X10*3/uL [place] # (Auto) 1.0 (0.1-1.2) X10*3/uL Eos # (Auto) 0.1 (0.0-0.4) X10*3/uL Baso # (Auto) 0.1 (0.0-0.2) X10*3/uL Abs Immat Gran (auto) 0.06 H (0.00-0.03) X10*3/uL Absolute Neuts (auto) 12.2 H (2.0-8.3) x10*3/uL Absolute Nucleated RBC 0.000 (0.0-0.012) X10*3/uL Nucleated RBC % (auto) 0.0 (0.0-0.2) /100WBC Sodium 139 (135-145) mmol/L Potassium 4.0 (3.3-5.1) mmol/L Chloride 104 (96-108) mmol/L Carbon Dioxide 24 (22-29) mmol/L Anion Gap 15 (12-20) BUN 14 (9-16) mg/dL Creatinine 0.78 (0.5-1.4) mg/dL Estim Creat Clear Calc 119.4 Estimated GFR > 60 Random Glucose 149 H (60-115) mg/dL Calcium 9.7 (8.4-10.2) mg/dL Magnesium 1.9 (1.6-2.6) mg/dL Total Bilirubin 0.8 (0.0-1.0) mg/dL Direct Bilirubin 0.3 (0.0-0.5) mg/dL AST 15 (5-31) U/L ALT 16 (0-31) U/L Alkaline Phosphatase 106 (39-117) U/L Total Protein 6.9 (6.5-8.0) g/dL Albumin 4.4 (3.5-5.0) g/dL Urine Color Urine Appearance Urine pH (5.0-9.0) Ur Specific [place] (1.005-1.025) Urine Protein (Neg-Trace) mg/dL Urine Glucose (UA) (Negative) mg/dL Urine Ketones (Negative) mg/dL Urine Blood (Negative) Urine Nitrite (Negative) Ur Leukocyte Esterase (Negative) Urine Test (NEGATIVE) Influenza Type A (PCR) NEGATIVE (Negative) Influenza Type B (PCR) NEGATIVE (Negative) RSV RNA Qual (PCR) NEGATIVE (Negative) SARS-CoV-2 RNA (RT-PCR) NEGATIVE (Negative) 10/11/22 10/11/22 Range/Units 13:28 13:28 WBC (4.8-10.8) X10*3/uL RBC (4.20-5.50) X10*6/uL Hgb (12.0-16.0) g/dl Hct (37.0-47.0) % MCV (80.0-98.0) fL MCH (27.0-33.0) pg MCHC (31.0-35.0) g/dl RDW (11.0-16.0) % Plt Count (160-400) X10*3/uL MPV (9.4-12.3) fL Immature Gran % (Auto) (0.0-0.4) % Neut % (Auto) (45-73) % Lymph % (Auto) (20-40) % [place] % (Auto) (2-11) % Eos % (Auto) (0-4) % Baso % (Auto) (0-2) % Lymph # (Auto) (1.2-4.9) X10*3/uL [place] # (Auto) (0.1-1.2) X10*3/uL Eos # (Auto) (0.0-0.4) X10*3/uL Baso # (Auto) (0.0-0.2) X10*3/uL Abs Immat Gran (auto) (0.00-0.03) X10*3/uL Absolute Neuts (auto) (2.0-8.3) x10*3/uL Absolute Nucleated RBC (0.0-0.012) X10*3/uL Nucleated RBC % (auto) (0.0-0.2) /100WBC Sodium (135-145) mmol/L Potassium (3.3-5.1) mmol/L Chloride (96-108) mmol/L Carbon Dioxide (22-29) mmol/L Anion Gap (12-20) BUN (9-16) mg/dL Creatinine (0.5-1.4) mg/dL Estim Creat Clear Calc Estimated GFR Random Glucose (60-115) mg/dL Calcium (8.4-10.2) mg/dL Magnesium (1.6-2.6) mg/dL Total Bilirubin (0.0-1.0) mg/dL Direct Bilirubin (0.0-0.5) mg/dL AST (5-31) U/L ALT (0-31) U/L Alkaline Phosphatase (39-117) U/L Total Protein (6.5-8.0) g/dL Albumin (3.5-5.0) g/dL Urine Color Dark Yellow Urine Appearance Cloudy Urine pH 5.5 (5.0-9.0) Ur Specific [place] >= 1.030 H (1.005-1.025) Urine Protein Trace (Neg-Trace) mg/dL Urine Glucose (UA) Negative (Negative) mg/dL Urine Ketones 15 (Negative) mg/dL Urine Blood Negative (Negative) Urine Nitrite Negative (Negative) Ur Leukocyte Esterase Negative (Negative) Urine Test NEGATIVE (NEGATIVE) Influenza Type A (PCR) (Negative) Influenza Type B (PCR) (Negative) RSV RNA Qual (PCR) (Negative) SARS-CoV-2 RNA (RT-PCR) (Negative) <HANK Quijano - Last Filed: 10/11/22 13:11> Lab Results 10/11/22 10/11/22 10/11/22 Range/Units 13:23 13:23 13:23 WBC 14.6 H (4.8-10.8) X10*3/uL RBC 5.26 (4.20-5.50) X10*6/uL Hgb 14.8 (12.0-16.0) g/dl Hct 44.6 (37.0-47.0) % MCV 84.8 (80.0-98.0) fL MCH 28.1 (27.0-33.0) pg MCHC 33.2 (31.0-35.0) g/dl RDW 12.4 (11.0-16.0) % Plt Count 234 (160-400) X10*3/uL MPV 12.3 (9.4-12.3) fL Immature Gran % (Auto) 0.4 (0.0-0.4) % Neut % (Auto) 83.5 H (45-73) % Lymph % (Auto) 8.5 L (20-40) % [place] % (Auto) 6.7 (2-11) % Eos % (Auto) 0.5 (0-4) % Baso % (Auto) 0.4 (0-2) % Lymph # (Auto) 1.2 (1.2-4.9) X10*3/uL [place] # (Auto) 1.0 (0.1-1.2) X10*3/uL Eos # (Auto) 0.1 (0.0-0.4) X10*3/uL Baso # (Auto) 0.1 (0.0-0.2) X10*3/uL Abs Immat Gran (auto) 0.06 H (0.00-0.03) X10*3/uL Absolute Neuts (auto) 12.2 H (2.0-8.3) x10*3/uL Absolute Nucleated RBC 0.000 (0.0-0.012) X10*3/uL Nucleated RBC % (auto) 0.0 (0.0-0.2) /100WBC Sodium 139 (135-145) mmol/L Potassium 4.0 (3.3-5.1) mmol/L Chloride 104 (96-108) mmol/L Carbon Dioxide 24 (22-29) mmol/L Anion Gap 15 (12-20) BUN 14 (9-16) mg/dL Creatinine 0.78 (0.5-1.4) mg/dL Estim Creat Clear Calc 119.4 Estimated GFR > 60 Random Glucose 149 H (60-115) mg/dL Calcium 9.7 (8.4-10.2) mg/dL Magnesium 1.9 (1.6-2.6) mg/dL Total Bilirubin 0.8 (0.0-1.0) mg/dL Direct Bilirubin 0.3 (0.0-0.5) mg/dL AST 15 (5-31) U/L ALT 16 (0-31) U/L Alkaline Phosphatase 106 (39-117) U/L Total Protein 6.9 (6.5-8.0) g/dL Albumin 4.4 (3.5-5.0) g/dL Urine Color Urine Appearance Urine pH (5.0-9.0) Ur Specific [place] (1.005-1.025) Urine Protein (Neg-Trace) mg/dL Urine Glucose (UA) (Negative) mg/dL Urine Ketones (Negative) mg/dL Urine Blood (Negative) Urine Nitrite (Negative) Ur Leukocyte Esterase (Negative) Urine Test (NEGATIVE) Influenza Type A (PCR) NEGATIVE (Negative) Influenza Type B (PCR) NEGATIVE (Negative) RSV RNA Qual (PCR) NEGATIVE (Negative) SARS-CoV-2 RNA (RT-PCR) NEGATIVE (Negative) 10/11/22 10/11/22 Range/Units 13:28 13:28 WBC (4.8-10.8) X10*3/uL RBC (4.20-5.50) X10*6/uL Hgb (12.0-16.0) g/dl Hct (37.0-47.0) % MCV (80.0-98.0) fL MCH (27.0-33.0) pg MCHC (31.0-35.0) g/dl RDW (11.0-16.0) % Plt Count (160-400) X10*3/uL MPV (9.4-12.3) fL Immature Gran % (Auto) (0.0-0.4) % Neut % (Auto) (45-73) % Lymph % (Auto) (20-40) % [place] % (Auto) (2-11) % Eos % (Auto) (0-4) % Baso % (Auto) (0-2) % Lymph # (Auto) (1.2-4.9) X10*3/uL [place] # (Auto) (0.1-1.2) X10*3/uL Eos # (Auto) (0.0-0.4) X10*3/uL Baso # (Auto) (0.0-0.2) X10*3/uL Abs Immat Gran (auto) (0.00-0.03) X10*3/uL Absolute Neuts (auto) (2.0-8.3) x10*3/uL Absolute Nucleated RBC (0.0-0.012) X10*3/uL Nucleated RBC % (auto) (0.0-0.2) /100WBC Sodium (135-145) mmol/L Potassium (3.3-5.1) mmol/L Chloride (96-108) mmol/L Carbon Dioxide (22-29) mmol/L Anion Gap (12-20) BUN (9-16) mg/dL Creatinine (0.5-1.4) mg/dL Estim Creat Clear Calc Estimated GFR Random Glucose (60-115) mg/dL Calcium (8.4-10.2) mg/dL Magnesium (1.6-2.6) mg/dL Total Bilirubin (0.0-1.0) mg/dL Direct Bilirubin (0.0-0.5) mg/dL AST (5-31) U/L ALT (0-31) U/L Alkaline Phosphatase (39-117) U/L Total Protein (6.5-8.0) g/dL Albumin (3.5-5.0) g/dL Urine Color Dark Yellow Urine Appearance Cloudy Urine pH 5.5 (5.0-9.0) Ur Specific [place] >= 1.030 H (1.005-1.025) Urine Protein Trace (Neg-Trace) mg/dL Urine Glucose (UA) Negative (Negative) mg/dL Urine Ketones 15 (Negative) mg/dL Urine Blood Negative (Negative) Urine Nitrite Negative (Negative) Ur Leukocyte Esterase Negative (Negative) Urine Test NEGATIVE (NEGATIVE) Influenza Type A (PCR) (Negative) Influenza Type B (PCR) (Negative) RSV RNA Qual (PCR) (Negative) SARS-CoV-2 RNA (RT-PCR) (Negative) <Estela Sifuentes MD - Last Filed: 10/11/22 17:23> External Record Review External record reviewed: Outpatient record and Prior outpatient labs <Estela Sifuentes MD - Last Filed: 10/11/22 17:23> Chronic Conditions Patient?s care impacted by: Other <Estela Sifuentes MD - Last Filed: 10/11/22 17:23> Discharge Plan Discharge Clinical Impression: Nausea and vomiting, Cannabis use disorder <HANK Quijano - Last Filed: 10/11/22 13:11> Patient Disposition: Home, Self-Care <HANK Quijano - Last Filed: 10/11/22 13:11> Instructions: Acute Nausea and Vomiting (ED) <HANK Quijano - Last Filed: 10/11/22 13:11> Additional Instructions: 1. Increase your hydration for the next 3-4 days. 2. Please decreasing amount of cannabis use at this time as it could increase the nausea and vomiting that you are experiencing. Return to the ER for any worsening of your symptoms. <HANK Quijano - Last Filed: 10/11/22 13:11> Prescriptions: No Action Senna Plus 8.6-50 mg capsule 2 tab-cap PO BEDTIME Qty: 60 0RF atorvastatin 40 mg tablet 40 mg PO BEDTIME budesonide-formoterol [Symbicort] 80-4.5 mcg/actuation HFA aerosol inhaler 2 puff INHALATION DAILY PRN (Reason: Wheezing) perphenazine 4 mg tablet 8 mg PO BEDTIME fluoxetine [Prozac] 20 mg capsule 20 mg PO DAILY amitriptyline 25 mg tablet 25 mg PO BEDTIME melatonin 3 mg tablet 3 mg PO BEDTIME PRN zolpidem 10 mg tablet 10 mg PO BEDTIME lorazepam 1 mg tablet 1 mg PO BID PRN (Reason: Anxiety) bupropion HCl 150 mg tablet sustained-release 12 hr 150 mg PO BID pantoprazole 40 mg tablet,delayed release (DR/EC) 40 mg PO DAILY Qty: 30 2RF sucralfate 100 mg/mL suspension 10 ml PO BID Qty: 400 2RF Rx Instructions: post op meds <HANK Quijano - Last Filed: 10/11/22 13:11> Referrals: Stephanie Layton, ASSOCIATE PROFESSOR OF COUNSELING [Primary Care Provider] - <HANK Quijano - Last Filed: 10/11/22 13:11>
[2022-10-11 13:33] LABS: MANUAL DIFF FLAG NO
[2022-10-11 13:36] LABS: Basophils Absolute Auto 0.1 X10*3/uL (0.0-0.2); Basophils Percent Auto 0.4 % (0-2); Eosinophils Absolute Auto 0.1 X10*3/uL (0.0-0.4); Eosinophils Percent Auto 0.5 % (0-4); Hematocrit 44.6 % (37.0-47.0); Hemoglobin 14.8 g/dl (12.0-16.0); Imm Gran Abs Auto 0.06 X10*3/uL (0.00-0.03); Imm Gran Pct Auto 0.4 % (0.0-0.4); Lymphocytes Absolute Auto 1.2 X10*3/uL (1.2-4.9); Lymphocytes Percent Auto 8.5 % (20-40); Mean Corpuscular HGB Conc 33.2 g/dl (31.0-35.0); Mean Corpuscular Hemoglobin 28.1 pg (27.0-33.0); Mean Corpuscular Volume 84.8 fL (80.0-98.0); Mean Platelet Volume 12.3 fL (9.4-12.3); Monocytes Percent Auto 6.7 % (2-11); Neutrophils Absolute Auto 12.2 x10*3/uL (2.0-8.3); Neutrophils Percent Auto 83.5 % (45-73); Platelet Count 234 X10*3/uL (160-400); Red Blood Count 5.26 X10*6/uL (4.20-5.50); Red Cell Distribution Width 12.4 % (11.0-16.0); White Blood Count 14.6 X10*3/uL (4.8-10.8)
[2022-10-11 13:36] LABS: Appearance Urine Cloudy; Color Urine Dark Yellow; Glucose Urine UA Negative (Negative); Leukocyte Esterase Urine Negative (Negative); Nitrite Urine Negative (Negative); PH 5.5 (5.0-9.0); Specific Gravity - Urine >= 1.030 (1.005-1.025); Urine Blood Negative (Negative); Urine Ketones 15 mg/dL (Negative); Urine Protein Trace mg/dL (Neg-Trace)
[2022-10-11 13:38] LABS: UPreg QC Valid YES; Urine Pregnancy NEGATIVE (NEGATIVE)
[2022-10-11 13:58] LABS: Alanine Aminotransferase 16 U/L (0-31); Albumin Level 4.4 g/dL (3.5-5.0); Alkaline Phosphatase 106 U/L (39-117); Anion Gap 15 (12-20); Aspartate Amino Transferase 15 U/L (5-31); Bilirubin Direct 0.3 mg/dL (0.0-0.5); Bilirubin Total 0.8 mg/dL (0.0-1.0); Blood Urea Nitrogen 14 mg/dL (9-16); Calcium 9.7 mg/dL (8.4-10.2); Carbon Dioxide 24 mmol/L (22-29); Chloride 104 mmol/L (96-108); Creatinine Clr Calc Pharmacy 119.4; Estimated Glomerular Filt Rate > 60; Glucose Random 149 mg/dL (60-115); Magnesium 1.9 mg/dL (1.6-2.6); Sodium 139 mmol/L (135-145); Total Protein 6.9 g/dL (6.5-8.0)
[2022-10-11 14:19] LABS: Influenza A PCR NEGATIVE (Negative); Influenza B PCR NEGATIVE (Negative); Resp Syncy Virus RNA Qual PCR NEGATIVE (Negative); SARS COV2 PCR INHOUSE NEGATIVE (Negative)
[2022-10-11] MEDS: ondansetron HCL 4 MG/2 ML VIAL IVPUSH (16:07)
[2022-10-11] MEDS: 0.9 % Sodium Chloride 1,000 ML 999 ML IV (16:08)
[2022-10-11 16:55] VITALS: BP 123/78; PULSE 85; RESP 16; TEMP 37; O2SAT 100
== END 2022-10-11 18:06 | disposition home or self-care (01) ==
PROVIDERS: Physician Assistant; Emergency Provider Student in an Organized Health Care Education/Training Program; PCP Registered Nurse
DX: F12.188 Cannabis abuse with other cannabis-induced disorder (principal); R11.2 Nausea with vomiting, unspecified; Z20.822 Contact with and (suspected) exposure to COVID-19; Z98.84 Bariatric surgery status; Z79.899 Other long term (current) drug therapy; Z87.891 Personal history of nicotine dependence
CPT/HCPCS: 0241U; 36415; 80048; 80076; 81003; 81025; 83735; 85025; 96361; 96374; 99283; 99284; J2405

== ENCOUNTER → 2022-11-11 10:03 | Outpatient (BNVA) | payer MEDICAID, SELFPAY | PROVIDERS: PCP Registered Nurse; Visit Provider Physician Assistant Surgical | DX: Z13.89 Encounter for screening for other disorder (principal) ==

== ENCOUNTER 2023-02-04 16:23 | Inpatient (IN) | payer OTHER, SELFPAY ==
[2023-02-04 16:36] VITALS: BP 119/86; BP 132/80; PULSE 72; PULSE 80; RESP 18; TEMP 36.4; O2SAT 97; O2SAT 98; BMI 29.0
[2023-02-04] MEDS: LORazepam 1 MG TABLET 2 MG PO (17:00)
--- NOTE | 2023-02-04 17:07 | ED_ITS ---
HPI - General Adult General Chief complaint: Psychiatric Symptoms Stated complaint: DEPRESSION, ANXIETY Time Seen by Provider: 02/04/23 16:45 Source: patient, RN notes reviewed and old records reviewed Mode of arrival: EMS Limitations: no limitations History of Present Illness HPI narrative: 32-year-old female with past medical history significant for bipolar 1 disorder, depression, diabetes, hypertension, presents for evaluation of increasing depression Patient states that she has been off her psych meds which include Wellbutrin, amitriptyline, Prozac lorazepam, Ambien for least the last 5 days because ?I ran out of them. ? She does state that she has been trying to wean herself off of amitriptyline for the last 2 weeks She denies any inciting incident but states that she has had worsening depression with suicidal thoughts over the last 5 days She reports a previous suicide attempt about 10 years ago Denies any somatic complaints at this time. Patient's boyfriend called EMS due to the patient's increasing depression Related Data Home Medications Medication Instructions Recorded Confirmed bupropion HCl 150 mg tablet,12 hr 150 mg PO BID 02/14/22 02/04/23 sustained-release lorazepam 1 mg tablet 1 mg PO BID PRN Anxiety 02/14/22 02/04/23 zolpidem 10 mg tablet 10 mg PO BEDTIME 02/14/22 02/04/23 atorvastatin 40 mg tablet 40 mg PO BEDTIME 06/20/22 02/04/23 budesonide-formoterol HFA 80 2 puff inhalation DAILY PRN 06/20/22 02/04/23 mcg-4.5 mcg/actuation aerosol Wheezing inhaler (Symbicort) fluoxetine 20 mg capsule (Prozac) 20 mg PO DAILY 08/06/22 02/04/23 perphenazine 4 mg tablet 8 mg PO BEDTIME 08/06/22 02/04/23 amitriptyline 25 mg tablet 25 mg PO BEDTIME 09/30/22 02/04/23 melatonin 3 mg tablet 3 mg PO BEDTIME PRN Sleep 09/30/22 02/04/23 Previous Rx's Medication Instructions Recorded sennosides 8.6 mg-docusate sodium 2 tab-cap PO BEDTIME #60 caps 07/15/22 50 mg capsule (Senna Plus) pantoprazole 40 mg tablet,delayed 40 mg PO QAM #90 tabs 11/11/22 release Allergies Allergy/AdvReac Type Severity Reaction Status Date / Time ciprofloxacin [From Cipro] Allergy Intermediate Hives Verified 02/04/23 17:58 latex Allergy Intermediate Hives Verified 02/04/23 17:58 sulfamethoxazole Allergy Intermediate Hives Verified 02/04/23 17:58 [From Septra] trimethoprim [From Septra] Allergy Intermediate Hives Verified 02/04/23 17:58 Review of Systems Constitutional: Constitutional: Reports as per HPI, Denies chills, Denies fatigue, Denies fever(s) and Denies headache(s) ENT: Denies headache(s) Cardiovascular: Cardiovascular: Denies chest pain and Denies dyspnea Respiratory: Respiratory: Denies cough and Denies dyspnea Gastrointestinal: Gastrointestinal: Denies abdominal pain, Denies constipation and Denies vomiting Genitourinary: Genitourinary: Denies dysuria Neurologic: Denies headache(s) and Denies focal weakness Psychiatric: Psychiatric: Reports depression and Reports suicidal ideation Endocrine: Endocrine: Denies fatigue PMF Past Medical History Medical History Anxiety Asthma Bipolar 1 disorder Bipolar disorder current episode depressed BMI 37.0-37.9, adult BMI 38.0-38.9,adult COVID-19 vaccination declined Depression Family history of anesthesia complication History of ectopic Hypercholesteremia Hypertension Insulin dependent type 1 diabetes mellitus Neuropathy Obesity (BMI 30-39.9) Ovarian cyst Seizures Vitamin B1 deficiency Vitamin B12 deficiency Vitamin D deficiency Surgical History H/O unilateral salpingectomy History of laparoscopic cholecystectomy History of oophorectomy, unilateral History of ovarian cystectomy Hx of tonsillectomy Family History Family History Mother Hypertension Father Diabetes Hypertension Heart problem Depression Brother No problems noted. Sister Hypertension High cholesterol Mental health disorder Sister Hypertension Bipolar 1 disorder Mental health disorder Social History Social History Are you a primary home health care worker to a significant other at home: No Do you presently have visiting nurse or other home services: No Alcohol intake: never Patient Tobacco Use Status: Former Tobacco user Quit Date: 2019 Tobacco use type: Cigarette Substance Use Type: Marijuana Advance Directives: No Advance Directives Information Provided: No service: No Current occupational status: employed Sexual orientation: Straight/Heterosexual Gender identity: Female Physical Exam ED Vital Signs: Vital Signs - 24 hr 02/04/23 16:36 Temperature 97.5 F Pulse Rate 80 Respiratory Rate 18 Blood Pressure 119/86 Pulse Oximetry 97 Oxygen Delivery Method Room Air BMI result Body Mass Index 29.0 Const General: healthy appearing, comfortable, no acute distress, alert and awake Nutritional Appearance: well nourished Orientation/consciousness: patient oriented x3 HENMT Head: Yes normocephalic and Yes atraumatic Throat: Yes posterior oropharynx normal Eyes Eyelids: Yes eyelids normal Conjunctivae: conjunctivae normal Sclerae: sclerae normal Corneas: corneas normal Pupils: Equal, round and reactive pupils present EOM: EOMs intact bilaterally Neck Neck: Yes full ROM Resp Effort & Inspection: normal respiratory effort, able to speak in complete sentences, no audible wheezes and not labored Auscultation: clear to auscultation bilaterally Cardio Rate: regular rate Rhythm: regular rhythm GI Inspection: No distended Palpation (GI): Soft to palpation, not firm, nontender, no guarding and not rigid Auscultation: normoactive bowel sounds Skin General skin exam: no rashes or lesions noted and elasticity normal Neuro General: patient oriented x3 Cranial nerves: Yes CN's II-XII intact bilaterally, Yes Equal, round and reactiv e pupils present and Yes Bilaterally intact EOM present Cognition (Neuro): normal cognition Extrem Other: Moving all extremities well without any obvious deformities Psych Appearance: grossly normal Mental Status: mental status grossly normal Speech and movement: Normal speech and movement present Affect: Sad affect present Attitude: cooperative Thought content: Suicidality present Insight: Good insight present (Psych) Judgement: Good judgement present (Psych) Course Reevaluation(s) Reevaluation #1: Patient seen with the care team and will be a voluntary bed search for inpatient psychiatric care. She is not a section 12 Time: 20:35 Medications Administered Discontinued Medications Generic Name Dose Route Start Last Admin Trade Name Freq PRN Reason Stop Dose Admin Acetaminophen 975 mg 02/04/23 18:12 02/04/23 18:19 Acetaminophen 325 Mg Tablet PO 02/04/23 18:13 975 mg ONCE ONE Administration Lorazepam 2 mg 02/04/23 16:55 04/18/23 17:00 Lorazepam 1 Mg Tablet PO 02/04/23 16:56 2 mg ONCE ONE Administration Medical Decision Making Medical Decision Making [facility] Narrative: 32-year-old female past medical history significant for bipolar disorder with depression presents for evaluation of suicidal ideation. She reports that she has been off of her meds for the last 5 days but finally get refills today. She has not yet taken her medications. We will get the patient medically cleared and evaluated by the care team as she is endorsing suicidal ideation Differential Diagnosis Bipolar disorder Major depressive episode Suicidal ideation Medication noncompliance Lab Data 02/04/23 18:16 02/04/23 18:16 Labs: Lab Results 02/04/23 02/04/23 02/04/23 Range/Units 17:26 17:26 18:16 WBC 6.5 (4.8-10.8) X10*3/uL RBC 4.94 (4.20-5.50) X10*6/uL Hgb 14.1 (12.0-16.0) g/dl Hct 43.7 (37.0-47.0) % MCV 88.5 (80.0-98.0) fL MCH 28.5 (27.0-33.0) pg MCHC 32.3 (31.0-35.0) g/dl RDW 12.3 (11.0-16.0) % Plt Count 183 (160-400) X10*3/uL MPV 13.2 H (9.4-12.3) fL Immature Gran % (Auto) 0.2 (0.0-0.4) % Neut % (Auto) 58.8 (45-73) % Lymph % (Auto) 25.8 (20-40) % [place] % (Auto) 13.3 H (2-11) % Eos % (Auto) 0.8 (0-4) % Baso % (Auto) 1.1 (0-2) % Lymph # (Auto) 1.7 (1.2-4.9) X10*3/uL [place] # (Auto) 0.9 (0.1-1.2) X10*3/uL Eos # (Auto) 0.1 (0.0-0.4) X10*3/uL Baso # (Auto) 0.1 (0.0-0.2) X10*3/uL Abs Immat Gran (auto) 0.01 (0.00-0.03) X10*3/uL Absolute Neuts (auto) 3.8 (2.0-8.3) x10*3/uL Absolute Nucleated RBC 0.000 (0.0-0.012) X10*3/uL Nucleated RBC % (auto) 0.0 (0.0-0.2) /100WBC Sodium (135-145) mmol/L Potassium (3.3-5.1) mmol/L Chloride (96-108) mmol/L Carbon Dioxide (22-29) mmol/L Anion Gap (12-20) BUN (9-16) mg/dL Creatinine (0.5-1.4) mg/dL Estim Creat Clear Calc Estimated GFR Random Glucose (60-115) mg/dL Calcium (8.4-10.2) mg/dL Total Bilirubin (0.0-1.0) mg/dL AST (5-31) U/L ALT (0-31) U/L Alkaline Phosphatase (39-117) U/L Total Protein (6.5-8.0) g/dL Albumin (3.5-5.0) g/dL Urine Test NEGATIVE (NEGATIVE) Salicylates (15-30) mg/dL Urine Opiates Screen Not Detected (Not Detect) Urine Fentanyl Screen Not Detected (Not Detect) Acetaminophen (<30) mcg/mL Ur Barbiturates Screen Not Detected (Not Detect) Ur Phencyclidine Scrn Not Detected (Not Detect) Ur Amphetamines Screen Not Detected (Not Detect) U Benzodiazepines Scrn Not Detected (Not Detect) Urine Cocaine Screen Not Detected (Not Detect) U Marijuana (THC) Screen POSITIVE H (Not Detect) Ethyl Alcohol mg/dL COVID-19 ([facility]NESTO) (Negative) COVID-19 Clin Com 02/04/23 02/04/23 Range/Units 18:16 18:39 WBC (4.8-10.8) X10*3/uL RBC (4.20-5.50) X10*6/uL Hgb (12.0-16.0) g/dl Hct (37.0-47.0) % MCV (80.0-98.0) fL MCH (27.0-33.0) pg MCHC (31.0-35.0) g/dl RDW (11.0-16.0) % Plt Count (160-400) X10*3/uL MPV (9.4-12.3) fL Immature Gran % (Auto) (0.0-0.4) % Neut % (Auto) (45-73) % Lymph % (Auto) (20-40) % [place] % (Auto) (2-11) % Eos % (Auto) (0-4) % Baso % (Auto) (0-2) % Lymph # (Auto) (1.2-4.9) X10*3/uL [place] # (Auto) (0.1-1.2) X10*3/uL Eos # (Auto) (0.0-0.4) X10*3/uL Baso # (Auto) (0.0-0.2) X10*3/uL Abs Immat Gran (auto) (0.00-0.03) X10*3/uL Absolute Neuts (auto) (2.0-8.3) x10*3/uL Absolute Nucleated RBC (0.0-0.012) X10*3/uL Nucleated RBC % (auto) (0.0-0.2) /100WBC Sodium 142 (135-145) mmol/L Potassium 4.4 (3.3-5.1) mmol/L Chloride 107 (96-108) mmol/L Carbon Dioxide 26 (22-29) mmol/L Anion Gap 13 (12-20) BUN 8 L (9-16) mg/dL Creatinine 0.77 (0.5-1.4) mg/dL Estim Creat Clear Calc 115.7 Estimated GFR > 60 Random Glucose 108 (60-115) mg/dL Calcium 9.5 (8.4-10.2) mg/dL Total Bilirubin 0.5 (0.0-1.0) mg/dL AST 16 (5-31) U/L ALT 23 (0-31) U/L Alkaline Phosphatase 70 (39-117) U/L Total Protein 6.5 (6.5-8.0) g/dL Albumin 4.3 (3.5-5.0) g/dL Urine Test (NEGATIVE) Salicylates < 5.0 L (15-30) mg/dL Urine Opiates Screen (Not Detect) Urine Fentanyl Screen (Not Detect) Acetaminophen < 17 (<30) mcg/mL Ur Barbiturates Screen (Not Detect) Ur Phencyclidine Scrn (Not Detect) Ur Amphetamines Screen (Not Detect) U Benzodiazepines Scrn (Not Detect) Urine Cocaine Screen (Not Detect) U Marijuana (THC) Screen (Not Detect) Ethyl Alcohol < 10 mg/dL COVID-19 (ERNESTO) Negative (Negative) COVID-19 Clin Com See Note Discharge Plan Discharge Clinical Impression: Depression with suicidal ideation Patient Disposition: Admitted As Inpatient Prescriptions: No Action Senna Plus 8.6-50 mg capsule 2 tab-cap PO BEDTIME Qty: 60 0RF atorvastatin 40 mg tablet 40 mg PO BEDTIME budesonide-formoterol [Symbicort] 80-4.5 mcg/actuation HFA aerosol inhaler 2 puff INHALATION DAILY PRN (Reason: Wheezing) perphenazine 4 mg tablet 8 mg PO BEDTIME fluoxetine [Prozac] 20 mg capsule 20 mg PO DAILY amitriptyline 25 mg tablet 25 mg PO BEDTIME melatonin 3 mg tablet 3 mg PO BEDTIME PRN (Reason: Sleep) pantoprazole 40 mg tablet,delayed release (DR/EC) 40 mg PO QAM Qty: 90 2RF zolpidem 10 mg tablet 10 mg PO BEDTIME lorazepam 1 mg tablet 1 mg PO BID PRN (Reason: Anxiety) bupropion HCl 150 mg tablet sustained-release 12 hr 150 mg PO BID Interventions: [place]-Suicide Risk Severity Scale Last Done: 02/04/23 17:59
[2023-02-04 17:58] LABS: UPreg QC Valid YES; Urine Pregnancy NEGATIVE (NEGATIVE)
[2023-02-04 18:05] LABS: Amphetamine Screen Urine Not Detected (Not Detect); Barbiturates, Urine Not Detected (Not Detect); Benzodiazepines Screen Urine Not Detected (Not Detect); Cannabinoid Screen Urine POSITIVE (Not Detect); Cocaine Screen Urine Not Detected (Not Detect); Fentanyl, urine Not Detected (Not Detect); Opiate Screen Urine Not Detected (Not Detect); Phencyclidine Screen Urine Not Detected (Not Detect)
[2023-02-04] MEDS: Acetaminophen 325 MG TABLET 975 MG PO (18:19)
--- NOTE | 2023-02-04 18:40 | PC.NURSE ---
Pt on the phone in room. Tearful. Medicated for NAVARRO.
[2023-02-04 18:46] LABS: Imm Gran Abs Auto 0.01 X10*3/uL (0.00-0.03); Imm Gran Pct Auto 0.2 % (0.0-0.4); MANUAL DIFF FLAG SCAN; Red Cell Distribution Width 12.3 % (11.0-16.0); SCAN SMEAR FLAG 1
[2023-02-04 18:48] LABS: Basophils Absolute Auto 0.1 X10*3/uL (0.0-0.2); Basophils Percent Auto 1.1 % (0-2); Eosinophils Absolute Auto 0.1 X10*3/uL (0.0-0.4); Eosinophils Percent Auto 0.8 % (0-4); Hematocrit 43.7 % (37.0-47.0); Hemoglobin 14.1 g/dl (12.0-16.0); Lymphocytes Absolute Auto 1.7 X10*3/uL (1.2-4.9); Lymphocytes Percent Auto 25.8 % (20-40); Mean Corpuscular HGB Conc 32.3 g/dl (31.0-35.0); Mean Corpuscular Hemoglobin 28.5 pg (27.0-33.0); Mean Corpuscular Volume 88.5 fL (80.0-98.0); Mean Platelet Volume 13.2 fL (9.4-12.3); Monocytes Absolute Auto 0.9 X10*3/uL (0.1-1.2); Monocytes Percent Auto 13.3 % (2-11); Neutrophils Absolute Auto 3.8 x10*3/uL (2.0-8.3); Neutrophils Percent Auto 58.8 % (45-73); Platelet Count 183 X10*3/uL (160-400); Red Blood Count 4.94 X10*6/uL (4.20-5.50); White Blood Count 6.5 X10*3/uL (4.8-10.8)
[2023-02-04 18:51] LABS: Acetaminophen LAB < 17 mcg/mL (<30); Alanine Aminotransferase 23 U/L (0-31); Albumin Level 4.3 g/dL (3.5-5.0); Alkaline Phosphatase 70 U/L (39-117); Anion Gap 13 (12-20); Aspartate Amino Transferase 16 U/L (5-31); Bilirubin Total 0.5 mg/dL (0.0-1.0); Blood Urea Nitrogen 8 mg/dL (9-16); Calcium 9.5 mg/dL (8.4-10.2); Carbon Dioxide 26 mmol/L (22-29); Chloride 107 mmol/L (96-108); Creatinine Clr Calc Pharmacy 115.7; Estimated Glomerular Filt Rate > 60; Ethanol < 10 mg/dL; Glucose Random 108 mg/dL (60-115); Potassium 4.4 mmol/L (3.3-5.1); Salicylate < 5.0 mg/dL (15-30); Sodium 142 mmol/L (135-145); Total Protein 6.5 g/dL (6.5-8.0)
[2023-02-04 19:03] LABS: PLT ABN DIST 1
[2023-02-04 19:06] LABS: COVID-19 Test Negative (Negative); IDNOW Serial# 08D9AD1C
[2023-02-04 21:15] LABS: SLIDE REVIEW VERIFIED
[2023-02-04] MEDS: Melatonin 3 MG TABLET PO (22:17)
[2023-02-04] MEDS: Perphenazine 8 MG TABLET PO (22:17)
[2023-02-04] MEDS: buPROPion HCl XL 300 MG TAB.ER.24H PO (22:17)
[2023-02-04] MEDS: Zolpidem Tartrate 5 MG TABLET PO (22:17)
[2023-02-04 23:02] VITALS: BP 122/78; PULSE 62; TEMP 36.3; O2SAT 99
--- NOTE | 2023-02-05 02:36 | PC.ADMIT ---
Pt is a 32yoF admitted to [facility] on a CV from [facility] for SI w/plan to overdose on medications. Pt was BIBA to [facility], her boyfriend called 911 after pt endorsed SI with plan to overdose and increased depression. Pt has two prior suicide attempts by overdosing on medication. Pt reported she has been off her psychiatric medication for 5 days due to tapering off to prepare to try and get but has decompensated significantly since then. Pt endorsed poor ADLs, low energy, inability to sleep, overeating, and depressed mood with high anxiety. Pt reported at baseline she is able to balance her job, household, and personal relationships but this has been difficult lately and is fearful of losing her job or housing. Pt has trauma hx significant for loss of her son 10 years ago and loss of her father the same year. She moved to [place] from [place] 3 years ago and currently lives with her boyfriend. She is allergic to latex; no known medical hx. All information obtained from crisis assessment, pt arrived on previous shift and was sleeping at the time of this note.
[2023-02-05 07:45] VITALS: BP 119/82; PULSE 60; RESP 16; TEMP 36.8; O2SAT 99
[2023-02-05] MEDS: buPROPion HCl XL 300 MG TAB.ER.24H PO (07:58)
[2023-02-05] MEDS: FLUoxetine HCl 20 MG CAPSULE PO (07:58)
[2023-02-05] MEDS: Omeprazole 20 MG CAPSULE.DR PO (07:58)
[2023-02-05] MEDS: LORazepam 1 MG TABLET PO ×2 (08:29→20:39)
[2023-02-05 09:29] LABS: Estimated Average Glucose 114 mg/dL; Hemoglobin A1c % 5.6 %
[2023-02-05 09:52] LABS: Cholesterol 175 mg/dL; HDL Cholesterol 29 mg/dL; LDL Cholesterol Calculated 116 mg/dl; Triglycerides 153 mg/dL
[2023-02-05 13:04] LABS: Glucose, Whole Blood 128 mg/dL (60-115)
[2023-02-05] MEDS: Fluticasone/Vilanterol 100/25 BLST.W.DEV 2 PUFF INHALE (13:13)
--- NOTE | 2023-02-05 15:09 | HO.PSYADMNOT ---
HPI Date of Service: 02/05/23 Chief Complaint: depression Sources of Information: patient interviewed, chart reviewed and crisis/core team assessment reviewed HPI Subjective Notes: Natarajan Warning and Conditional Voluntary Healthcare Proxy: No Guardianship: No Medical Problems Affecting Mental Status: No Narrative: 32 yo female, history of PTSD, Bipolar Disorder. Pt to ER after partner called for help-pt expressed SI with plan and increased depressive sx. Pt had been off her medication regime +5 days due to an intense work schedule- working double shifts to help her team with coverage and her pharmacy not being open to miner pick prescriptions. Pt was able to get her prescriptions on day 6, however reports exploding at her boyfriend, crying, pulling her hair, scratching herself which is out of character she reports- I usually am the peacemaker. Pt reports thoughts of self-harm and felt that in pt would help her not to act on her thoughts. She is considering a three day notice. Reports several stressors including being the main financial support for the family-boyfriend has been out of work for four months and she states she needs him to step up and help out. Boyfriends aunt and her eight year old son are staying with the couple-scheduled to leave this week. They are staying in the couples living room and pt's routine has been altered as a result. Reports boyfriend is not too supportive, however, he, like pt has a PTSD history and is not reciprocating as he is learning how to manage feelings and emotions. Identifies feeling like the [place] . Pt reports not liking to act on impulse, making permanent decisions based on temporary feelings, however she is currently reconsidering the relationship and needed to get meds back on track, and time away to recalibrate herself. She describes being alone in [place] with boyfriend, leaving [place] three years ago. Describes no support system, stating both she and boyfriend are in individual and couples therapy-couples treatment she describes as like opening [place] each session. After several bad days, I just popped . Describes having done extensive therapy work and is distressed that this is her second admission, the first being 10 years ago. Past Psychiatric History: IP: Age 22 and currently OP: CC- Maciej for medications, therapist to re-assign as pt had not been attending appointments, couples with [facility] who has covered pt for one to one if needed. Hx of OP in childhood as mom was ordered by [facility]. Med Trials- Since age 9. Currently- Bupropion-dose recently changed to daily from bid, Prozac, Trilafon, Ambien, Amitriptyline recently stopped due to sedation. SI/SA: Hx of gestures Medical Evaluation Reviewed: Yes [facility] Medical History (Updated 02/05/23 @ 20:16 by Serene Dennis, ABBEY) Anxiety Asthma Bipolar 1 disorder Bipolar disorder current episode depressed BMI 37.0-37.9, adult BMI 38.0-38.9,adult COVID-19 vaccination declined Depression Family history of anesthesia complication History of ectopic Hypercholesteremia Hypertension Insulin dependent type 1 diabetes mellitus Neuropathy Obesity (BMI 30-39.9) Ovarian cyst PTSD (post-traumatic stress disorder) Seizures Vitamin B1 deficiency Vitamin B12 deficiency Vitamin D deficiency Surgical History H/O unilateral salpingectomy History of laparoscopic cholecystectomy History of oophorectomy, unilateral History of ovarian cystectomy Hx of tonsillectomy Narrative: s/p gastric sleeve Family History: Paternal grandmother- MDD, opiate use, lives in her room grandfather-addiction father-PTSD, Depressed, addiction Maternal grandfather-paranoid schizophrenia, PTSD (), grandmother-dementia uncle-suicide via hanging-schizophrenia mother-depression, anxiety, PTSD sisters-PTSD Social History: Born and raised in [place]. One half brother, two half sisters Childhood was traumatic High school graduate, some college for teaching, Nigerian major, culinary arts degree from [employer] Works in [employer], [employer], care provider. Enjoys giving back to her community. Feels her work honors her grandmother who has dementia. Substance History: History- cannabis, cocaine addiction-clean 5 years Trauma History: affirms Diagnostics Vital Signs (24Hr): Vital Signs - 24 hr 02/04/23 16:36 02/04/23 23:02 02/05/23 07:45 Temperature 97.5 F 97.3 F 98.2 F Pulse Rate 80 62 60 Respiratory Rate 18 16 Blood Pressure 119/86 122/78 119/82 Pulse Oximetry 97 99 99 Oxygen Delivery Method Room Air Room Air Room Air BMI result Body Mass Index 29.0 Labs 02/04/23 18:16 02/04/23 18:16 Labs: Laboratory Results - last 48 hr 02/04/23 02/04/23 02/04/23 17:26 17:26 18:16 WBC 6.5 RBC 4.94 Hgb 14.1 Hct 43.7 MCV 88.5 MCH 28.5 MCHC 32.3 RDW 12.3 Plt Count 183 MPV 13.2 H Immature Gran % (Auto) 0.2 Neut % (Auto) 58.8 Lymph % (Auto) 25.8 [place] % (Auto) 13.3 H Eos % (Auto) 0.8 Baso % (Auto) 1.1 Lymph # (Auto) 1.7 [place] # (Auto) 0.9 Eos # (Auto) 0.1 Baso # (Auto) 0.1 Abs Immat Gran (auto) 0.01 Absolute Neuts (auto) 3.8 Absolute Nucleated RBC 0.000 Nucleated RBC % (auto) 0.0 Smear Tech's Comments VERIFIED Sodium Potassium Chloride Carbon Dioxide Anion Gap BUN Creatinine Estim Creat Clear Calc Estimated GFR POC Glucose Random Glucose Estimat Average Glucose Hemoglobin A1c % Calcium Total Bilirubin AST ALT Alkaline Phosphatase Total Protein Albumin Triglycerides Cholesterol LDL Cholesterol, Calc HDL Cholesterol Urine Test NEGATIVE Salicylates Urine Opiates Screen Not Detected Urine Fentanyl Screen Not Detected Acetaminophen Ur Barbiturates Screen Not Detected Ur Phencyclidine Scrn Not Detected Ur Amphetamines Screen Not Detected U Benzodiazepines Scrn Not Detected Urine Cocaine Screen Not Detected U Marijuana (THC) Screen POSITIVE H Ethyl Alcohol COVID-19 ([facility]) COVID-19 Clin Com 02/04/23 02/04/23 02/05/23 18:16 18:39 08:34 WBC RBC Hgb Hct MCV MCH MCHC RDW Plt Count MPV Immature Gran % (Auto) Neut % (Auto) Lymph % (Auto) [place] % (Auto) Eos % (Auto) Baso % (Auto) Lymph # (Auto) [place] # (Auto) Eos # (Auto) Baso # (Auto) Abs Immat Gran (auto) Absolute Neuts (auto) Absolute Nucleated RBC Nucleated RBC % (auto) Smear Tech's Comments Sodium 142 Potassium 4.4 Chloride 107 Carbon Dioxide 26 Anion Gap 13 BUN 8 L Creatinine 0.77 Estim Creat Clear Calc 115.7 Estimated GFR > 60 POC Glucose Random Glucose 108 Estimat Average Glucose 114 Hemoglobin A1c % 5.6 Calcium 9.5 Total Bilirubin 0.5 AST 16 ALT 23 Alkaline Phosphatase 70 Total Protein 6.5 Albumin 4.3 Triglycerides Cholesterol LDL Cholesterol, Calc HDL Cholesterol Urine Test Salicylates < 5.0 L Urine Opiates Screen Urine Fentanyl Screen Acetaminophen < 17 Ur Barbiturates Screen Ur Phencyclidine Scrn Ur Amphetamines Screen U Benzodiazepines Scrn Urine Cocaine Screen U Marijuana (THC) Screen Ethyl Alcohol < 10 COVID-19 ([facility]O) Negative COVID-19 Clin Com See Note 02/05/23 02/05/23 08:34 12:55 WBC RBC Hgb Hct MCV MCH MCHC RDW Plt Count MPV Immature Gran % (Auto) Neut % (Auto) Lymph % (Auto) [place] % (Auto) Eos % (Auto) Baso % (Auto) Lymph # (Auto) [place] # (Auto) Eos # (Auto) Baso # (Auto) Abs Immat Gran (auto) Absolute Neuts (auto) Absolute Nucleated RBC Nucleated RBC % (auto) Smear Tech's Comments Sodium Potassium Chloride Carbon Dioxide Anion Gap BUN Creatinine Estim Creat Clear Calc Estimated GFR POC Glucose 128 H Random Glucose Estimat Average Glucose Hemoglobin A1c % Calcium Total Bilirubin AST ALT Alkaline Phosphatase Total Protein Albumin Triglycerides 153 Cholesterol 175 LDL Cholesterol, Calc 116 HDL Cholesterol 29 Urine Test Salicylates Urine Opiates Screen Urine Fentanyl Screen Acetaminophen Ur Barbiturates Screen Ur Phencyclidine Scrn Ur Amphetamines Screen U Benzodiazepines Scrn Urine Cocaine Screen U Marijuana (THC) Screen Ethyl Alcohol COVID-19 ([facility]) COVID-19 Clin Com EKG EKG Comment: ordered Meds/Allergies Meds Home Medications Medication Instructions Recorded Confirmed Type bupropion HCl 150 mg tablet,12 hr 150 mg PO BID 02/14/22 02/04/23 History sustained-release lorazepam 1 mg tablet 1 mg PO BID PRN Anxiety 02/14/22 02/04/23 History zolpidem 10 mg tablet 10 mg PO BEDTIME 02/14/22 02/04/23 History atorvastatin 40 mg tablet 40 mg PO BEDTIME 06/20/22 02/04/23 History budesonide-formoterol HFA 80 2 puff inhalation DAILY PRN 06/20/22 02/04/23 History mcg-4.5 mcg/actuation aerosol Wheezing inhaler (Symbicort) fluoxetine 20 mg capsule (Prozac) 20 mg PO DAILY 08/06/22 02/04/23 History perphenazine 4 mg tablet 8 mg PO BEDTIME 08/06/22 02/04/23 History amitriptyline 25 mg tablet 25 mg PO BEDTIME 09/30/22 02/04/23 History melatonin 3 mg tablet 3 mg PO BEDTIME PRN Sleep 09/30/22 02/04/23 History Allergies Allergies Allergy/AdvReac Type Severity Reaction Status Date / Time ciprofloxacin [From Cipro] Allergy Intermediate Hives Verified 02/04/23 17:58 latex Allergy Intermediate Hives Verified 02/04/23 17:58 sulfamethoxazole Allergy Intermediate Hives Verified 02/04/23 17:58 [From Septra] trimethoprim [From Septra] Allergy Intermediate Hives Verified 02/04/23 17:58 Mental Status Exam Mental Status Exam Patient Appearance: Appropriate Patient Orientation: Person, Place, Time and Situation Level of Consciousness: Alert Patient Behavior: Appropriate, Talkative, Anxious, Distractible and Good Eye Contact Mood Description: Depressed and Anxious Affect Description: Constricted Patient Cognition Impaired: No Ability to Follow Directions: Good Speech Pattern: Spontaneous Speech Memory Description: Intact Hallucinations: None Delusions: Not Present Perceptual Disturbances: Depersonalization and Derealization Thought Process: Rumination Thought Content: positive for Circumstantial, positive for Perseveration, positive for Logical and positive for Suicidal Ideation Depressive Symptoms: Increased Anxiety, Increased Irritability, Unhappiness, Increased Fatigue, Thoughts of /Suicide and Difficulty Concentrating Judgement: Good Assessment & Plan Assessment & Plan (1) Bipolar 1 disorder: Status: Acute Code(s): F31.9 - Bipolar disorder, unspecified (2) PTSD (post-traumatic stress disorder): Status: Acute Code(s): F43.10 - Post-traumatic stress disorder, unspecified Plan 32 yo female, history of bipolar disorder, PTSD, to [facility] with SI. Pt had been off meds for 5 days prior to admission due to a work schedule and pharmacy not being open to miner pick meds. Plan: Continue current med regime-pt reports efficacy and recent changes by OP team. Collateral contact as needed. EKG, TSH Debrox drops for earwax buildup Milieu involvement Aftercare planning. Patient educated on: therapeutic strategies Informed Consent: understands Reason for continued inpatient stay Substantial Risk for: harm to self, inability to function and rapid decompensation Statement Statement: I have reviewed the history and physical and performed a pertinent examination on my patient. No changes have occurred unless specified. If the History and Physical was not performed prior to admission, the Hospitalist's service will be consulted for completing the admission physical. Time Spent With Patient Time: Total time managing care of this patient today ____ minutes.
--- NOTE | 2023-02-05 16:04 | PC.NURSE ---
pt signed a 3 day notice 02/05/23. MD ERLINDA, & UR notified
[2023-02-05 18:00] VITALS: BP 140/86; PULSE 100; RESP 20; TEMP 36.6; O2SAT 99
[2023-02-05] MEDS: Zolpidem Tartrate 5 MG TABLET PO (20:38)
[2023-02-05] MEDS: Perphenazine 8 MG TABLET PO (20:39)
[2023-02-05] MEDS: traZODone HCL 50 MG TABLET PO (20:39)
[2023-02-05] MEDS: Melatonin 3 MG TABLET PO (20:39)
[2023-02-05] MEDS: Carbamide Peroxide 6.5% Otic 15 ML DRPBTL 5 DROP EAR-BOTH (20:42)
[2023-02-06] MEDS: Omeprazole 20 MG CAPSULE.DR PO (06:33)
[2023-02-06] MEDS: Fluticasone/Vilanterol 100/25 BLST.W.DEV 2 PUFF INHALE (06:34)
[2023-02-06 07:00] VITALS: BMI 30.4
[2023-02-06 08:21] VITALS: BP 136/70; PULSE 67; TEMP 36.2; O2SAT 98
[2023-02-06] MEDS: buPROPion HCl XL 300 MG TAB.ER.24H PO (08:25)
[2023-02-06] MEDS: FLUoxetine HCl 20 MG CAPSULE PO (08:25)
[2023-02-06 08:27] LABS: Glucose, Whole Blood 132 mg/dL (60-115)
--- NOTE | 2023-02-06 09:00 | ECG_ITS ---
Test Reason : qtc check Blood Pressure : / mmHG Vent. Rate : 000 BPM Atrial Rate : 000 BPM P-R Int : 000 ms QRS Dur : 000 ms QT Int : 000 ms P-R-T Axes : 000 000 000 degrees QTc Int : 000 ms No QRS complexes found, no ECG analysis possible When compared with ECG of 01-MAR-2022 10:30, Current undetermined rhythm precludes rhythm comparison, needs review Referred By: Serene Dennis Electronically Signed By:
[2023-02-06] MEDS: Carbamide Peroxide 6.5% Otic 15 ML DRPBTL 5 DROP EAR-BOTH ×2 (09:23→19:55)
--- NOTE | 2023-02-06 09:29 | PC.NURSE ---
pt received carbamide peroxide 5 drops per ear 02/06/23 0923am
[2023-02-06 09:41] LABS: Folate 7.8 ng/mL (> or = 4.0); Thyroid Stimulating Hormone 2.64 uIU/mL (0.32-4.0); Vitamin B12 431 pg/mL (200-900)
[2023-02-06 11:26] LABS: Glucose, Whole Blood 114 mg/dL (60-115)
[2023-02-06 16:04] LABS: Glucose, Whole Blood 112 mg/dL (60-115)
[2023-02-06] MEDS: LORazepam 1 MG TABLET PO (16:23)
[2023-02-06] MEDS: Acetaminophen 325 MG TABLET 650 MG PO (16:23)
--- NOTE | 2023-02-06 17:04 | HO.PSYCHPN ---
Subjective Subjective Date of Service: 02/06/23 Reason For Visit: depression Subjective Notes: Conditional Voluntary and 3 Day (02/10/23) Healthcare Proxy: No Guardianship: No Medical Problems Affecting Mental Status: No Interim History: Three day notice expires 02/10. Pt having improved communication with her boyfriend. Discussed her relationships with him and with her family, the difficulties and benefits of living away from family, cultural differences and thinking about how to move forward. Discussed her relationhsip with her mother. Environmental stress is lessened, as a result pt is reviewing her responses to stress and starting to identify things to work on. Medication re-introduction is without adverse effects. Medication Compliance: Yes Side effects from medications: No Attending Groups: Intermittent Review of Systems Acute medical concerns: No Medical Review of Systems: unchanged Mental Status Exam Mental Status Exam Patient Appearance: Appropriate Patient Orientation: Person, Place, Time and Situation Level of Consciousness: Alert Patient Behavior: Appropriate, Talkative, Anxious and Good Eye Contact Mood Description: Depressed and Anxious Affect Description: Constricted Patient Cognition Impaired: No Ability to Follow Directions: Good Speech Pattern: Spontaneous Speech Memory Description: Intact Hallucinations: None Delusions: Not Present Perceptual Disturbances: Depersonalization and Derealization Thought Process: Rumination Thought Content: positive for Circumstantial, positive for Perseveration and positive for Logical Depressive Symptoms: Increased Anxiety, Increased Irritability, Unhappiness, Increased Fatigue and Difficulty Concentrating Judgement: Good Diagnostics Vital Signs (24Hr): Vital Signs - 24 hr 02/05/23 18:00 02/06/23 08:21 Temperature 98 F 97.1 F Pulse Rate 100 67 Respiratory Rate 20 Blood Pressure 140/86 H 136/70 Pulse Oximetry 99 98 Oxygen Delivery Method Room Air Room Air BMI result Body Mass Index 30.4 Labs 02/04/23 18:16 02/04/23 18:16 Labs: Laboratory Results - last 48 hr 02/04/23 02/04/23 02/04/23 17:26 17:26 18:16 WBC 6.5 RBC 4.94 Hgb 14.1 Hct 43.7 MCV 88.5 MCH 28.5 MCHC 32.3 RDW 12.3 Plt Count 183 MPV 13.2 H Immature Gran % (Auto) 0.2 Neut % (Auto) 58.8 Lymph % (Auto) 25.8 [place] % (Auto) 13.3 H Eos % (Auto) 0.8 Baso % (Auto) 1.1 Lymph # (Auto) 1.7 [place] # (Auto) 0.9 Eos # (Auto) 0.1 Baso # (Auto) 0.1 Abs Immat Gran (auto) 0.01 Absolute Neuts (auto) 3.8 Absolute Nucleated RBC 0.000 Nucleated RBC % (auto) 0.0 Smear Tech's Comments VERIFIED Sodium Potassium Chloride Carbon Dioxide Anion Gap BUN Creatinine Estim Creat Clear Calc Estimated GFR POC Glucose Random Glucose Estimat Average Glucose Hemoglobin A1c % Calcium Total Bilirubin AST ALT Alkaline Phosphatase Total Protein Albumin Triglycerides Cholesterol LDL Cholesterol, Calc HDL Cholesterol Vitamin B12 Folate TSH Urine Test NEGATIVE Salicylates Urine Opiates Screen Not Detected Urine Fentanyl Screen Not Detected Acetaminophen Ur Barbiturates Screen Not Detected Ur Phencyclidine Scrn Not Detected Ur Amphetamines Screen Not Detected U Benzodiazepines Scrn Not Detected Urine Cocaine Screen Not Detected U Marijuana (THC) Screen POSITIVE H Ethyl Alcohol COVID-19 ([facility]O) COVID-19 [facility] 02/04/23 02/04/23 02/05/23 18:16 18:39 08:34 WBC RBC Hgb Hct MCV MCH MCHC RDW Plt Count MPV Immature Gran % (Auto) Neut % (Auto) Lymph % (Auto) [place] % (Auto) Eos % (Auto) Baso % (Auto) Lymph # (Auto) [place] # (Auto) Eos # (Auto) Baso # (Auto) Abs Immat Gran (auto) Absolute Neuts (auto) Absolute Nucleated RBC Nucleated RBC % (auto) Smear Tech's Comments Sodium 142 Potassium 4.4 Chloride 107 Carbon Dioxide 26 Anion Gap 13 BUN 8 L Creatinine 0.77 Estim Creat Clear Calc 115.7 Estimated GFR > 60 POC Glucose Random Glucose 108 Estimat Average Glucose 114 Hemoglobin A1c % 5.6 Calcium 9.5 Total Bilirubin 0.5 AST 16 ALT 23 Alkaline Phosphatase 70 Total Protein 6.5 Albumin 4.3 Triglycerides Cholesterol LDL Cholesterol, Calc HDL Cholesterol Vitamin B12 Folate TSH Urine Test Salicylates < 5.0 L Urine Opiates Screen Urine Fentanyl Screen Acetaminophen < 17 Ur Barbiturates Screen Ur Phencyclidine Scrn Ur Amphetamines Screen U Benzodiazepines Scrn Urine Cocaine Screen U Marijuana (THC) Screen Ethyl Alcohol < 10 COVID-19 ([facility]STO) Negative COVID-19 [facility] See Note 02/05/23 02/05/23 02/06/23 08:34 12:55 08:07 WBC RBC Hgb Hct MCV MCH MCHC RDW Plt Count MPV Immature Gran % (Auto) Neut % (Auto) Lymph % (Auto) [place] % (Auto) Eos % (Auto) Baso % (Auto) Lymph # (Auto) [place] # (Auto) Eos # (Auto) Baso # (Auto) Abs Immat Gran (auto) Absolute Neuts (auto) Absolute Nucleated RBC Nucleated RBC % (auto) Smear Tech's Comments Sodium Potassium Chloride Carbon Dioxide Anion Gap BUN Creatinine Estim Creat Clear Calc Estimated GFR POC Glucose 128 H Random Glucose Estimat Average Glucose Hemoglobin A1c % Calcium Total Bilirubin AST ALT Alkaline Phosphatase Total Protein Albumin Triglycerides 153 Cholesterol 175 LDL Cholesterol, Calc 116 HDL Cholesterol 29 Vitamin B12 431 Folate 7.8 TSH 2.64 Urine Test Salicylates Urine Opiates Screen Urine Fentanyl Screen Acetaminophen Ur Barbiturates Screen Ur Phencyclidine Scrn Ur Amphetamines Screen U Benzodiazepines Scrn Urine Cocaine Screen U Marijuana (THC) Screen Ethyl Alcohol COVID-19 ([facility]NESTO) COVIDCompareAway 02/06/23 02/06/23 02/06/23 08:24 11:21 15:58 WBC RBC Hgb Hct MCV MCH MCHC RDW Plt Count MPV Immature Gran % (Auto) Neut % (Auto) Lymph % (Auto) [place] % (Auto) Eos % (Auto) Baso % (Auto) Lymph # (Auto) [place] # (Auto) Eos # (Auto) Baso # (Auto) Abs Immat Gran (auto) Absolute Neuts (auto) Absolute Nucleated RBC Nucleated RBC % (auto) Smear Tech's Comments Sodium Potassium Chloride Carbon Dioxide Anion Gap BUN Creatinine Estim Creat Clear Calc Estimated GFR POC Glucose 132 H 114 112 Random Glucose Estimat Average Glucose Hemoglobin A1c % Calcium Total Bilirubin AST ALT Alkaline Phosphatase Total Protein Albumin Triglycerides Cholesterol LDL Cholesterol, Calc HDL Cholesterol Vitamin B12 Folate TSH Urine Test Salicylates Urine Opiates Screen Urine Fentanyl Screen Acetaminophen Ur Barbiturates Screen Ur Phencyclidine Scrn Ur Amphetamines Screen U Benzodiazepines Scrn Urine Cocaine Screen U Marijuana (THC) Screen Ethyl Alcohol COVID-19 ([facility]STO) COVIDCompareAway Medications Medications Current Medications Acetaminophen (Acetaminophen 325 Mg Tablet) 650 mg PO Q6H PRN PRN Reason: Headache/Pain Mild Scale (1-3) Last Admin: 02/06/23 16:23 Dose: 650 mg Al Hydroxide/Mg Hydroxide (Magnesium Hydrox/Alum Hydrox 30 Ml Oral.Susp) 30 ml PO Q6H PRN PRN Reason: Heartburn/Nausea Albuterol Sulfate (Albuterol Sulfate 90 Mcg 8 Gm Inhaler) 2 puff INHALE RQ4H PRN PRN Reason: wheeze Bupropion HCl (Bupropion Hcl Xl 300 Mg Tab.Er.24h) 300 mg PO DAILY [facility] Last Admin: 02/06/23 08:25 Dose: 300 mg Carbamide Peroxide (Carbamide Peroxide 6.5% Otic 15 Ml Drpbtl) 5 drop EAR-BOTH BID [facility] Stop: 02/09/23 19:39 Last Admin: 02/06/23 09:23 Dose: 5 drop Fluoxetine HCl (Fluoxetine Hcl 20 Mg Capsule) 20 mg PO DAILY [facility] Last Admin: 02/06/23 08:25 Dose: 20 mg Fluticasone/Vilanterol (Fluticasone/Vilanterol 100/25 Blst.W.Dev) 2 puff INHALE RDAILY [facility] Last Admin: 02/06/23 06:34 Dose: 2 puff Guaifenesin/Dextromethorphan (Guaifenesin Dm 100/10/5 Ml 5 Ml Syrup) 5 ml PO Q6H PRN PRN Reason: cough Hydroxyzine HCl (Hydroxyzine Hcl 25 Mg Tablet) 25 mg PO Q6H PRN PRN Reason: Anxiety Lorazepam (Lorazepam 1 Mg Tablet) 1 mg PO BID PRN PRN Reason: Anxiety Last Admin: 02/06/23 16:23 Dose: 1 mg Magnesium Hydroxide (Milk Of Magnesia 30 Ml Oral.Susp) 30 ml PO DAILY PRN PRN Reason: Constipation Melatonin (Melatonin 3 Mg Tablet) 3 mg PO BEDTIME PRN PRN Reason: Sleep Last Admin: 02/05/23 20:39 Dose: 3 mg Nicotine Polacrilex (Nicotine Polacrilex 2 Mg Gum) 4 mg BUCCAL Q2H PRN PRN Reason: Nicotine Cravings Olanzapine (Olanzapine 5 Mg Tablet) 5 mg PO TID PRN PRN Reason: agitation Omeprazole (Omeprazole 20 Mg Capsule.Dr) 20 mg PO DAILY@0630 [facility] Last Admin: 02/06/23 06:33 Dose: 20 mg Perphenazine (Perphenazine 8 Mg Tablet) 8 mg PO BEDTIME [facility] Last Admin: 02/05/23 20:39 Dose: 8 mg Senna/Docusate Sodium (Sennosides/Docusate Sodium Tablet) 2 tab PO BEDTIME [facility] Last Admin: 02/05/23 20:46 Dose: Not Given Trazodone HCl (Trazodone Hcl 50 Mg Tablet) 50 mg PO BEDTIME MRX1 PRN PRN Reason: Insomnia Last Admin: 02/05/23 20:39 Dose: 50 mg Zolpidem Tartrate (Zolpidem Tartrate 5 Mg Tablet) 5 mg PO BEDTIME [facility] Last Admin: 02/05/23 20:38 Dose: 5 mg Allergies Allergies Allergy/AdvReac Type Severity Reaction Status Date / Time ciprofloxacin [From Cipro] Allergy Intermediate Hives Verified 02/04/23 17:58 latex Allergy Intermediate Hives Verified 02/04/23 17:58 sulfamethoxazole Allergy Intermediate Hives Verified 02/04/23 17:58 [From Septra] trimethoprim [From Septra] Allergy Intermediate Hives Verified 02/04/23 17:58 Assessment & Plan Assessment & Plan (1) Bipolar 1 disorder: Status: Acute Code(s): F31.9 - Bipolar disorder, unspecified (2) PTSD (post-traumatic stress disorder): Status: Acute Code(s): F43.10 - Post-traumatic stress disorder, unspecified Plan 32 yo female, history of bipolar disorder, PTSD, to [facility] [place]. 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 Plan: Continue current med regime-pt reports efficacy and recent changes by OP team. Collateral contact as needed. EKG, TSH Debrox drops for earwax buildup Milieu involvement Aftercare planning. 02/06/23- Three day notice to 02/10. Discharge planning. Pt declines PHP referral at this time. Continue current plan. Patient educated on: therapeutic strategies Informed Consent: understands Reason for continued inpatient stay Substantial Risk for: rapid decompensation Time Spent With Patient Time: Total time managing care of this patient today ____ minutes.
[2023-02-06] MEDS: Albuterol Sulfate 90 MCG 8 GM INHALER 2 PUFF INHALE ×2 (17:12→19:55)
[2023-02-06] MEDS: guaiFENesin DM 100/10/5 ML 5 ML SYRUP PO ×2 (17:13→20:48)
[2023-02-06 18:00] VITALS: BP 124/68; PULSE 68; RESP 16; TEMP 36.6; O2SAT 97
[2023-02-06] MEDS: Sennosides/Docusate Sodium TABLET 2 TAB PO (19:47)
[2023-02-06] MEDS: Perphenazine 8 MG TABLET PO (19:47)
[2023-02-06] MEDS: Zolpidem Tartrate 5 MG TABLET PO (19:47)
[2023-02-06] MEDS: traZODone HCL 50 MG TABLET PO (20:03)
[2023-02-06] MEDS: Melatonin 3 MG TABLET PO (20:03)
[2023-02-06 21:06] LABS: Glucose, Whole Blood 124 mg/dL (60-115)
[2023-02-07 08:13] VITALS: BP 138/91; PULSE 68; RESP 16; TEMP 36.2; O2SAT 99
[2023-02-07 08:15] LABS: Glucose, Whole Blood 118 mg/dL (60-115)
[2023-02-07] MEDS: buPROPion HCl XL 300 MG TAB.ER.24H PO (08:19)
[2023-02-07] MEDS: Fluticasone/Vilanterol 100/25 BLST.W.DEV 2 PUFF INHALE (08:19)
[2023-02-07] MEDS: Albuterol Sulfate 90 MCG 8 GM INHALER 2 PUFF INHALE ×2 (08:19→14:33)
[2023-02-07] MEDS: Carbamide Peroxide 6.5% Otic 15 ML DRPBTL 5 DROP EAR-BOTH ×2 (08:19→20:27)
[2023-02-07] MEDS: FLUoxetine HCl 20 MG CAPSULE PO (08:19)
[2023-02-07] MEDS: Omeprazole 20 MG CAPSULE.DR PO (08:21)
[2023-02-07] MEDS: Acetaminophen 325 MG TABLET 650 MG PO ×2 (08:22→21:03)
[2023-02-07] MEDS: guaiFENesin DM 100/10/5 ML 5 ML SYRUP PO ×3 (08:22→21:04)
[2023-02-07 12:05] LABS: Glucose, Whole Blood 136 mg/dL (60-115)
[2023-02-07] MEDS: LORazepam 1 MG TABLET PO ×2 (14:51→22:36)
[2023-02-07 17:02] VITALS: BP 131/75; PULSE 88; RESP 16; TEMP 36.3; O2SAT 97
[2023-02-07 17:02] LABS: Glucose, Whole Blood 201 mg/dL (60-115)
--- NOTE | 2023-02-07 17:15 | HO.PSYCHPN ---
Subjective Subjective Date of Service: 02/07/23 Reason For Visit: depression Subjective Notes: 3 Day Healthcare Proxy: No Guardianship: No Medical Problems Affecting Mental Status: No Interim History: Reports feeling much improved, she believes a contributing factor to this is significantly improved rest due to Trazodone. Medication education completed. Pt discussed her previous experience with Amitriptyline. Discussed conflict with pharmacy hours prior to admission.Will change pharmacy to [facility] as it has a 24 hour benefit. Continues to report improved communication with boyfriend. Attending some milieu activities and working on setting goals for her future. Medication Compliance: Yes Side effects from medications: No Attending Groups: Intermittent Review of Systems Acute medical concerns: No Medical Review of Systems: unchanged Mental Status Exam Mental Status Exam Patient Appearance: Appropriate Patient Orientation: Person, Place, Time and Situation Level of Consciousness: Alert Patient Behavior: Appropriate, Talkative and Good Eye Contact Mood Description: Appropriate Affect Description: Appropriate Patient Cognition Impaired: No Ability to Follow Directions: Good Speech Pattern: Spontaneous Speech Memory Description: Intact Hallucinations: None Delusions: Not Present Thought Process: Intact and Goal Oriented Thought Content: positive for Intact, positive for Circumstantial, positive for Goal Oriented and positive for Logical Depressive Symptoms: Muscle Tension Judgement: Good Diagnostics Vital Signs (24Hr): Vital Signs - 24 hr 02/06/23 18:00 02/07/23 08:13 02/07/23 17:02 Temperature 97.8 F 97.2 F 97.3 F Pulse Rate 68 68 88 Respiratory Rate 16 16 16 Blood Pressure 124/68 138/91 H 131/75 Pulse Oximetry 97 99 97 Oxygen Delivery Method Room Air Room Air Room Air BMI result Body Mass Index 30.4 Labs 02/04/23 18:16 02/04/23 18:16 Labs: Laboratory Results - last 48 hr 02/06/23 02/06/23 02/06/23 08:07 08:24 11:21 POC Glucose 132 H 114 Vitamin B12 431 Folate 7.8 TSH 2.64 02/06/23 02/06/23 02/07/23 15:58 21:02 08:11 POC Glucose 112 124 H 118 H Vitamin B12 Folate TSH 02/07/23 02/07/23 11:59 16:59 POC Glucose 136 H 201 H Vitamin B12 Folate TSH Medications Medications Current Medications Acetaminophen (Acetaminophen 325 Mg Tablet) 650 mg PO Q6H PRN PRN Reason: Headache/Pain Mild Scale (1-3) Last Admin: 02/07/23 08:22 Dose: 650 mg Al Hydroxide/Mg Hydroxide (Magnesium Hydrox/Alum Hydrox 30 Ml Oral.Susp) 30 ml PO Q6H PRN PRN Reason: Heartburn/Nausea Albuterol Sulfate (Albuterol Sulfate 90 Mcg 8 Gm Inhaler) 2 puff INHALE RQ4H PRN PRN Reason: wheeze Last Admin: 02/07/23 14:33 Dose: 2 puff Bupropion HCl (Bupropion Hcl Xl 300 Mg Tab.Er.24h) 300 mg PO DAILY [facility] Last Admin: 02/07/23 08:19 Dose: 300 mg Carbamide Peroxide (Carbamide Peroxide 6.5% Otic 15 Ml Drpbtl) 5 drop EAR-BOTH BID [facility] Stop: 02/09/23 19:39 Last Admin: 02/07/23 08:19 Dose: 5 drop Fluoxetine HCl (Fluoxetine Hcl 20 Mg Capsule) 20 mg PO DAILY [facility] Last Admin: 02/07/23 08:19 Dose: 20 mg Fluticasone/Vilanterol (Fluticasone/Vilanterol 100/25 Blst.W.Dev) 2 puff INHALE RDAILY [facility] Last Admin: 02/07/23 08:19 Dose: 2 puff Guaifenesin/Dextromethorphan (Guaifenesin Dm 100/10/5 Ml 5 Ml Syrup) 5 ml PO Q6H PRN PRN Reason: cough Last Admin: 02/07/23 14:33 Dose: 5 ml Hydroxyzine HCl (Hydroxyzine Hcl 25 Mg Tablet) 25 mg PO Q6H PRN PRN Reason: Anxiety Lorazepam (Lorazepam 1 Mg Tablet) 1 mg PO BID PRN PRN Reason: Anxiety Last Admin: 02/07/23 14:51 Dose: 1 mg Magnesium Hydroxide (Milk Of Magnesia 30 Ml Oral.Susp) 30 ml PO DAILY PRN PRN Reason: Constipation Melatonin (Melatonin 3 Mg Tablet) 3 mg PO BEDTIME PRN PRN Reason: Sleep Last Admin: 02/06/23 20:03 Dose: 3 mg Nicotine Polacrilex (Nicotine Polacrilex 2 Mg Gum) 4 mg BUCCAL Q2H PRN PRN Reason: Nicotine Cravings Olanzapine (Olanzapine 5 Mg Tablet) 5 mg PO TID PRN PRN Reason: agitation Omeprazole (Omeprazole 20 Mg Capsule.Dr) 20 mg PO DAILY@0630 [facility] Last Admin: 02/07/23 08:21 Dose: 20 mg Perphenazine (Perphenazine 8 Mg Tablet) 8 mg PO BEDTIME [facility] Last Admin: 02/06/23 19:47 Dose: 8 mg Senna/Docusate Sodium (Sennosides/Docusate Sodium Tablet) 2 tab PO BEDTIME [facility] Last Admin: 02/06/23 19:47 Dose: 2 tab Trazodone HCl (Trazodone Hcl 50 Mg Tablet) 50 mg PO BEDTIME MRX1 PRN PRN Reason: Insomnia Last Admin: 02/06/23 20:03 Dose: 50 mg Zolpidem Tartrate (Zolpidem Tartrate 5 Mg Tablet) 5 mg PO BEDTIME [facility] Last Admin: 02/06/23 19:47 Dose: 5 mg Allergies Allergies Allergy/AdvReac Type Severity Reaction Status Date / Time ciprofloxacin [From Cipro] Allergy Intermediate Hives Verified 02/04/23 17:58 latex Allergy Intermediate Hives Verified 02/04/23 17:58 sulfamethoxazole Allergy Intermediate Hives Verified 02/04/23 17:58 [From Septra] trimethoprim [From Septra] Allergy Intermediate Hives Verified 02/04/23 17:58 Assessment & Plan Assessment & Plan (1) Bipolar 1 disorder: Status: Acute Code(s): F31.9 - Bipolar disorder, unspecified (2) PTSD (post-traumatic stress disorder): Status: Acute Code(s): F43.10 - Post-traumatic stress disorder, unspecified Plan 32 yo female, history of bipolar disorder, PTSD, to [facility] [place]. 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 Plan: Continue current med regime-pt reports efficacy and recent changes by OP team. Collateral contact as needed. EKG, TSH Debrox drops for earwax buildup Milieu involvement Aftercare planning. 02/07/23- Three day notice to 02/10/23. Patient educated on: medication risk/benefits and therapeutic strategies Informed Consent: understands Reason for continued inpatient stay Substantial Risk for: rapid decompensation Time Spent With Patient Time: Total time managing care of this patient today ____ minutes.
[2023-02-07] MEDS: traZODone HCL 50 MG TABLET PO (20:25)
[2023-02-07] MEDS: Melatonin 3 MG TABLET PO (20:25)
[2023-02-07] MEDS: Perphenazine 8 MG TABLET PO (20:25)
[2023-02-07] MEDS: Zolpidem Tartrate 5 MG TABLET PO (20:25)
[2023-02-07 21:56] LABS: Glucose, Whole Blood 160 mg/dL (60-115)
[2023-02-08] MEDS: Albuterol Sulfate 90 MCG 8 GM INHALER 2 PUFF INHALE ×2 (08:17→15:55)
[2023-02-08] MEDS: Fluticasone/Vilanterol 100/25 BLST.W.DEV 2 PUFF INHALE (08:17)
[2023-02-08] MEDS: buPROPion HCl XL 300 MG TAB.ER.24H PO (08:19)
[2023-02-08] MEDS: Omeprazole 20 MG CAPSULE.DR PO (08:19)
[2023-02-08] MEDS: FLUoxetine HCl 20 MG CAPSULE PO (08:19)
[2023-02-08] MEDS: guaiFENesin DM 100/10/5 ML 5 ML SYRUP PO ×2 (08:19→15:55)
[2023-02-08 08:36] VITALS: BP 122/68; PULSE 70; RESP 18; TEMP 36.1; O2SAT 98
[2023-02-08] MEDS: Carbamide Peroxide 6.5% Otic 15 ML DRPBTL 5 DROP EAR-BOTH ×2 (08:36→21:14)
[2023-02-08 08:37] LABS: Glucose, Whole Blood 142 mg/dL (60-115)
--- NOTE | 2023-02-08 10:21 | P.PNPSI_ITS ---
Subjective Subjective Date of Service: 02/08/23 Reason For Visit: depression Subjective Notes: Conditional Voluntary Healthcare Proxy: No Guardianship: No Medical Problems Affecting Mental Status: No Interim History: Patient was seen and discussed in rounds today. Records and plans were revi ewed. She has been stable and is doing better and is looking towards discharged early next week. She is engaged and involved in the milieu. Her anxiety and depression have improved. She is requesting some Fioricet for her migraine headaches which she uses at home and I will order that. No other changes were made. Medication Compliance: Yes Side effects from medications: No Review of Systems Review of Systems Migraine headaches Yes all other systems are reviewed and are negative Mental Status Exam Mental Status Exam Narrative: In today's visit she is alert, oriented and pleasant. Normal speech. Good eye contact. Affect is appropriate and varied. No acute signs observed. No suicidal ideations. Cognitively intact. Judgment is intact Diagnostics Vital Signs (24Hr): Vital Signs - 24 hr 02/07/23 17:02 02/08/23 08:36 Temperature 97.3 F 96.9 F Pulse Rate 88 70 Respiratory Rate 16 18 Blood Pressure 131/75 122/68 Pulse Oximetry 97 98 Oxygen Delivery Method Room Air Room Air BMI result Body Mass Index 30.4 Labs 02/04/23 18:16 02/04/23 18:16 Labs: Laboratory Results - last 48 hr 02/06/23 02/06/23 02/06/23 11:21 15:58 21:02 POC Glucose 114 112 124 H 02/07/23 02/07/23 02/07/23 08:11 11:59 16:59 POC Glucose 118 H 136 H 201 H 02/07/23 02/08/23 21:52 08:32 POC Glucose 160 H 142 H Medications Medications Current Medications Acetaminophen (Acetaminophen 325 Mg Tablet) 650 mg PO Q6H PRN PRN Reason: Headache/Pain Mild Scale (1-3) Last Admin: 02/07/23 21:03 Dose: 650 mg Al Hydroxide/Mg Hydroxide (Magnesium Hydrox/Alum Hydrox 30 Ml Oral.Susp) 30 ml PO Q6H PRN PRN Reason: Heartburn/Nausea Albuterol Sulfate (Albuterol Sulfate 90 Mcg 8 Gm Inhaler) 2 puff INHALE RQ4H PRN PRN Reason: wheeze Last Admin: 02/08/23 08:17 Dose: 2 puff Bupropion HCl (Bupropion Hcl Xl 300 Mg Tab.Er.24h) 300 mg PO DAILY [facility] Last Admin: 02/08/23 08:19 Dose: 300 mg Carbamide Peroxide (Carbamide Peroxide 6.5% Otic 15 Ml Drpbtl) 5 drop EAR-BOTH BID [facility] Stop: 02/09/23 19:39 Last Admin: 02/08/23 08:36 Dose: 5 drop Fluoxetine HCl (Fluoxetine Hcl 20 Mg Capsule) 20 mg PO DAILY [facility] Last Admin: 02/08/23 08:19 Dose: 20 mg Fluticasone Propionate (Fluticasone Propionate Nasal 16 Gm [place]) 1 spray NOSTRIL-B BID [facility] Fluticasone/Vilanterol (Fluticasone/Vilanterol 100/25 Blst.W.Dev) 2 puff INHALE RDAILY [facility] Last Admin: 02/08/23 08:17 Dose: 2 puff Guaifenesin/Dextromethorphan (Guaifenesin Dm 100/10/5 Ml 5 Ml Syrup) 5 ml PO Q6H PRN PRN Reason: cough Last Admin: 02/08/23 08:19 Dose: 5 ml Hydroxyzine HCl (Hydroxyzine Hcl 25 Mg Tablet) 25 mg PO Q6H PRN PRN Reason: Anxiety Loratadine (Loratadine 10 Mg Tablet) 10 mg PO DAILY [facility] Lorazepam (Lorazepam 1 Mg Tablet) 1 mg PO BID PRN PRN Reason: Anxiety Last Admin: 02/07/23 22:36 Dose: 1 mg Magnesium Hydroxide (Milk Of Magnesia 30 Ml Oral.Susp) 30 ml PO DAILY PRN PRN Reason: Constipation Melatonin (Melatonin 3 Mg Tablet) 3 mg PO BEDTIME PRN PRN Reason: Sleep Last Admin: 02/07/23 20:25 Dose: 3 mg Nicotine Polacrilex (Nicotine Polacrilex 2 Mg Gum) 4 mg BUCCAL Q2H PRN PRN Reason: Nicotine Cravings Olanzapine (Olanzapine 5 Mg Tablet) 5 mg PO TID PRN PRN Reason: agitation Omeprazole (Omeprazole 20 Mg Capsule.Dr) 20 mg PO DAILY@0630 [facility] Last Admin: 02/08/23 08:19 Dose: 20 mg Perphenazine (Perphenazine 8 Mg Tablet) 8 mg PO BEDTIME [facility] Last Admin: 02/07/23 20:25 Dose: 8 mg Senna/Docusate Sodium (Sennosides/Docusate Sodium Tablet) 2 tab PO BEDTIME [facility] Last Admin: 02/07/23 20:26 Dose: Not Given Trazodone HCl (Trazodone Hcl 50 Mg Tablet) 50 mg PO BEDTIME MRX1 PRN PRN Reason: Insomnia Last Admin: 02/07/23 20:25 Dose: 50 mg Zolpidem Tartrate (Zolpidem Tartrate 5 Mg Tablet) 5 mg PO BEDTIME [facility] Last Admin: 02/07/23 20:25 Dose: 5 mg Allergies Allergies Allergy/AdvReac Type Severity Reaction Status Date / Time ciprofloxacin [From Cipro] Allergy Intermediate Hives Verified 02/04/23 17:58 latex Allergy Intermediate Hives Verified 02/04/23 17:58 sulfamethoxazole Allergy Intermediate Hives Verified 02/04/23 17:58 [From Septra] trimethoprim [From Septra] Allergy Intermediate Hives Verified 02/04/23 17:58 Assessment & Plan Assessment & Plan (1) Bipolar 1 disorder: Status: Acute Code(s): F31.9 - Bipolar disorder, unspecified (2) PTSD (post-traumatic stress disorder): Status: Acute Code(s): F43.10 - Post-traumatic stress disorder, unspecified Plan 32 yo female, history of bipolar disorder, PTSD, to [facility] with SI. 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 Plan: Continue current med regime-pt reports efficacy and recent changes by OP team. Collateral contact as needed. EKG, TSH Debrox drops for earwax buildup Milieu involvement Aftercare planning. 02/07/23- Three day notice to 02/10/23. 02/08: Continue current regimen and plans. Fioricet ordered for her headaches. Patient educated on: medication risk/benefits Reason for continued inpatient stay Substantial Risk for: med/psych decompensation Time Spent With Patient Time: Total time managing care of this patient today ____ minutes.
[2023-02-08] MEDS: hydrOXYzine HCL 25 MG TABLET PO (10:50)
[2023-02-08] MEDS: Butalb/Acetamin/Caff 50/325/40 TABLET 1 TAB PO (10:50)
[2023-02-08] MEDS: Loratadine 10 MG TABLET PO (10:54)
[2023-02-08 12:56] LABS: Glucose, Whole Blood 137 mg/dL (60-115)
[2023-02-08] MEDS: Fluticasone Propionate Nasal 16 GM SPRAY 1 SPRAY NOSTRIL-B ×2 (14:37→21:11)
[2023-02-08] MEDS: LORazepam 1 MG TABLET PO ×2 (15:55→21:12)
[2023-02-08] MEDS: Acetaminophen 325 MG TABLET 650 MG PO (15:58)
[2023-02-08 17:12] LABS: Glucose, Whole Blood 186 mg/dL (60-115)
[2023-02-08 18:00] VITALS: BP 126/66; PULSE 88; RESP 18; TEMP 36.6; O2SAT 98
[2023-02-08] MEDS: Perphenazine 8 MG TABLET PO (21:11)
[2023-02-08] MEDS: Zolpidem Tartrate 5 MG TABLET PO (21:11)
[2023-02-08] MEDS: traZODone HCL 50 MG TABLET PO (21:11)
[2023-02-08] MEDS: Melatonin 3 MG TABLET PO (21:12)
[2023-02-09 08:21] LABS: Glucose, Whole Blood 112 mg/dL (60-115)
[2023-02-09] MEDS: Fluticasone/Vilanterol 100/25 BLST.W.DEV 2 PUFF INHALE ×2 (08:54→22:02)
[2023-02-09] MEDS: FLUoxetine HCl 20 MG CAPSULE PO (08:54)
[2023-02-09] MEDS: Omeprazole 20 MG CAPSULE.DR PO (08:54)
[2023-02-09] MEDS: Loratadine 10 MG TABLET PO (08:54)
[2023-02-09] MEDS: Fluticasone Propionate Nasal 16 GM SPRAY 1 SPRAY NOSTRIL-B (08:54)
[2023-02-09] MEDS: buPROPion HCl XL 300 MG TAB.ER.24H PO (08:54)
[2023-02-09] MEDS: Albuterol Sulfate 90 MCG 8 GM INHALER 2 PUFF INHALE ×3 (08:54→22:01)
[2023-02-09] MEDS: hydrOXYzine HCL 25 MG TABLET PO ×3 (09:00→22:20)
[2023-02-09] MEDS: guaiFENesin DM 100/10/5 ML 5 ML SYRUP PO ×3 (09:00→23:47)
[2023-02-09 09:09] VITALS: BP 129/80; PULSE 84; RESP 18; TEMP 36.8; O2SAT 99
--- NOTE | 2023-02-09 09:30 | HO.PSYCHPN ---
Subjective Subjective Date of Service: 02/09/23 Reason For Visit: depression Subjective Notes: Conditional Voluntary Healthcare Proxy: No Guardianship: No Medical Problems Affecting Mental Status: No Interim History: Patient was seen and discussed in rounds today. Records and plans were reviewed. She has been doing better. She is more visible but continues to get anxious at nights. She is medication compliant. She is eating and sleeping adequately. No SI. No complaints. No changes were made today Medication Compliance: Yes Side effects from medications: No Review of Systems Review of Systems Migraine headaches Yes all other systems are reviewed and are negative Mental Status Exam Mental Status Exam Narrative: In today's visit she is alert, oriented and pleasant. Normal speech. Good eye contact. Affect is appropriate and varied. No acute signs observed. No suicidal ideations. Cognitively intact. Judgment is intact Diagnostics Vital Signs (24Hr): Vital Signs - 24 hr 02/08/23 18:00 02/09/23 09:09 Temperature 97.8 F 98.2 F Pulse Rate 88 84 Respiratory Rate 18 18 Blood Pressure 126/66 129/80 Pulse Oximetry 98 99 Oxygen Delivery Method Room Air Room Air BMI result Body Mass Index 30.4 Labs 02/04/23 18:16 02/04/23 18:16 Labs: Laboratory Results - last 48 hr 02/07/23 02/07/23 02/07/23 11:59 16:59 21:52 POC Glucose 136 H 201 H 160 H 02/08/23 02/08/23 02/08/23 08:32 12:53 17:08 POC Glucose 142 H 137 H 186 H 02/09/23 08:17 POC Glucose 112 Medications Medications Current Medications Acetaminophen (Acetaminophen 325 Mg Tablet) 650 mg PO Q6H PRN PRN Reason: Headache/Pain Mild Scale (1-3) Last Admin: 02/08/23 15:58 Dose: 650 mg Acetaminophen/Butalbital/Caffeine (Butalb/Acetamin/Caff 50/325/40 Tablet) 1 tab PO Q4H PRN PRN Reason: Headache Last Admin: 02/08/23 10:50 Dose: 1 tab Al Hydroxide/Mg Hydroxide (Magnesium Hydrox/Alum Hydrox 30 Ml Oral.Susp) 30 ml PO Q6H PRN PRN Reason: Heartburn/Nausea Albuterol Sulfate (Albuterol Sulfate 90 Mcg 8 Gm Inhaler) 2 puff INHALE RQ4H PRN PRN Reason: wheeze Last Admin: 02/09/23 08:54 Dose: 2 puff Bupropion HCl (Bupropion Hcl Xl 300 Mg Tab.Er.24h) 300 mg PO DAILY [facility] Last Admin: 02/09/23 08:54 Dose: 300 mg Carbamide Peroxide (Carbamide Peroxide 6.5% Otic 15 Ml Drpbtl) 5 drop EAR-BOTH BID [facility] Stop: 02/09/23 19:39 Last Admin: 02/08/23 21:14 Dose: 5 drop Fluoxetine HCl (Fluoxetine Hcl 20 Mg Capsule) 20 mg PO DAILY [facility] Last Admin: 02/09/23 08:54 Dose: 20 mg Fluticasone Propionate (Fluticasone Propionate Nasal 16 Gm [place]) 1 spray NOSTRIL-B BID [facility] Last Admin: 02/09/23 08:54 Dose: 1 spray Fluticasone/Vilanterol (Fluticasone/Vilanterol 100/25 Blst.W.Dev) 2 puff INHALE RDAILY [facility] Last Admin: 02/09/23 08:54 Dose: 2 puff Guaifenesin/Dextromethorphan (Guaifenesin Dm 100/10/5 Ml 5 Ml Syrup) 5 ml PO Q6H PRN PRN Reason: cough Last Admin: 02/09/23 09:00 Dose: 5 ml Hydroxyzine HCl (Hydroxyzine Hcl 25 Mg Tablet) 25 mg PO Q6H PRN PRN Reason: Anxiety Last Admin: 02/09/23 09:00 Dose: 25 mg Loratadine (Loratadine 10 Mg Tablet) 10 mg PO DAILY [facility] Last Admin: 02/09/23 08:54 Dose: 10 mg Lorazepam (Lorazepam 1 Mg Tablet) 1 mg PO BID PRN PRN Reason: Anxiety Last Admin: 02/08/23 21:12 Dose: 1 mg Magnesium Hydroxide (Milk Of Magnesia 30 Ml Oral.Susp) 30 ml PO DAILY PRN PRN Reason: Constipation Melatonin (Melatonin 3 Mg Tablet) 3 mg PO BEDTIME PRN PRN Reason: Sleep Last Admin: 02/08/23 21:12 Dose: 3 mg Nicotine Polacrilex (Nicotine Polacrilex 2 Mg Gum) 4 mg BUCCAL Q2H PRN PRN Reason: Nicotine Cravings Olanzapine (Olanzapine 5 Mg Tablet) 5 mg PO TID PRN PRN Reason: agitation Omeprazole (Omeprazole 20 Mg Capsule.) 20 mg PO DAILY@0630 [facility] Last Admin: 02/09/23 08:54 Dose: 20 mg Perphenazine (Perphenazine 8 Mg Tablet) 8 mg PO BEDTIME [facility] Last Admin: 02/08/23 21:11 Dose: 8 mg Senna/Docusate Sodium (Sennosides/Docusate Sodium Tablet) 2 tab PO BEDTIME [facility] Last Admin: 02/08/23 21:11 Dose: Not Given Trazodone HCl (Trazodone Hcl 50 Mg Tablet) 50 mg PO BEDTIME MRX1 PRN PRN Reason: Insomnia Last Admin: 02/08/23 21:11 Dose: 50 mg Zolpidem Tartrate (Zolpidem Tartrate 5 Mg Tablet) 5 mg PO BEDTIME [facility] Last Admin: 02/08/23 21:11 Dose: 5 mg Allergies Allergies Allergy/AdvReac Type Severity Reaction Status Date / Time ciprofloxacin [From Cipro] Allergy Intermediate Hives Verified 02/04/23 17:58 latex Allergy Intermediate Hives Verified 02/04/23 17:58 sulfamethoxazole Allergy Intermediate Hives Verified 02/04/23 17:58 [From Septra] trimethoprim [From Septra] Allergy Intermediate Hives Verified 02/04/23 17:58 Assessment & Plan Assessment & Plan (1) Bipolar 1 disorder: Status: Acute Code(s): F31.9 - Bipolar disorder, unspecified (2) PTSD (post-traumatic stress disorder): Status: Acute Code(s): F43.10 - Post-traumatic stress disorder, unspecified Plan 32 yo female, history of bipolar disorder, PTSD, to [facility] with SI. 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 Plan: Continue current med regime-pt reports efficacy and recent changes by OP team. Collateral contact as needed. EKG, TSH Debrox drops for earwax buildup Milieu involvement Aftercare planning. 02/07/23- Three day notice to 02/10/23. 02/08: Continue current regimen and plans. Fioricet ordered for her headaches. 02/09: Continue current regimen and plans. No changes were made today Reason for continued inpatient stay Substantial Risk for: med/psych decompensation Time Spent With Patient Time: Total time managing care of this patient today ____ minutes.
[2023-02-09 12:28] LABS: Glucose, Whole Blood 103 mg/dL (60-115)
[2023-02-09] MEDS: LORazepam 1 MG TABLET PO (16:11)
[2023-02-09 17:47] LABS: Glucose, Whole Blood 117 mg/dL (60-115)
[2023-02-09 18:00] VITALS: BP 129/73; PULSE 86; RESP 18; TEMP 36.2; O2SAT 100
[2023-02-09] MEDS: Butalb/Acetamin/Caff 50/325/40 TABLET 1 TAB PO (19:10)
[2023-02-09] MEDS: Zolpidem Tartrate 5 MG TABLET PO (22:01)
[2023-02-09] MEDS: Perphenazine 8 MG TABLET PO (22:01)
[2023-02-09] MEDS: traZODone HCL 50 MG TABLET PO ×2 (22:04→23:50)
[2023-02-09] MEDS: Melatonin 3 MG TABLET PO (22:04)
[2023-02-09] MEDS: OLANZapine 5 MG TABLET PO (23:50)
[2023-02-10] MEDS: Omeprazole 20 MG CAPSULE.DR PO (06:49)
[2023-02-10 08:14] VITALS: BP 100/57; PULSE 62; RESP 16; TEMP 36.9; O2SAT 98
[2023-02-10] MEDS: buPROPion HCl XL 300 MG TAB.ER.24H PO (08:20)
[2023-02-10] MEDS: Fluticasone/Vilanterol 100/25 BLST.W.DEV 2 PUFF INHALE (08:20)
[2023-02-10] MEDS: Loratadine 10 MG TABLET PO (08:20)
[2023-02-10] MEDS: Butalb/Acetamin/Caff 50/325/40 TABLET 1 TAB PO (08:28)
[2023-02-10] MEDS: guaiFENesin DM 100/10/5 ML 5 ML SYRUP PO (08:28)
[2023-02-10] MEDS: FLUoxetine HCl 20 MG CAPSULE PO (08:29)
[2023-02-10] MEDS: Albuterol Sulfate 90 MCG 8 GM INHALER 2 PUFF INHALE (08:29)
[2023-02-10 08:48] LABS: Glucose, Whole Blood 110 mg/dL (60-115)
[2023-02-10] MEDS: hydrOXYzine HCL 25 MG TABLET PO (09:49)
--- NOTE | 2023-02-13 16:01 | PC.NURSE ---
Late entry. On 02/09 Pt was administered 1mg Ativan oral and 1 unit [id number] [id number] oral at approximately 12:10 and medications were inadvertently not scanned into the MAR.
--- NOTE | 2023-02-22 15:32 | P.DS_ITS ---
DS: Providers Provider Date of Service: 02/10/23 Date of admission: 02/04/23 22:15 Date of discharge: 02/10/23 Primary care physician: Unknown Physician Admitting clinician: Serene Dennis Attending physician on admission: Jeremiah Umana Attending physician on discharge: Jeremiah Umana Discharging clinician: Serene Dennis DS: Diagnosis Discharge Diagnosis (1) Bipolar 1 disorder: Status: Acute (2) PTSD (post-traumatic stress disorder): Status: Acute DS: Medications Discharge Medications Home Medications: Home Medications Medication Instructions Recorded Confirmed bupropion HCl 150 mg tablet,12 hr 150 mg PO BID 02/14/22 02/04/23 sustained-release lorazepam 1 mg tablet 1 mg PO BID PRN Anxiety 02/14/22 02/04/23 zolpidem 10 mg tablet 10 mg PO BEDTIME 02/14/22 02/04/23 atorvastatin 40 mg tablet 40 mg PO BEDTIME 06/20/22 02/04/23 budesonide-formoterol HFA 80 2 puff inhalation DAILY PRN 06/20/22 02/04/23 mcg-4.5 mcg/actuation aerosol Wheezing inhaler (Symbicort) fluoxetine 20 mg capsule (Prozac) 20 mg PO DAILY 08/06/22 02/04/23 perphenazine 4 mg tablet 8 mg PO BEDTIME 08/06/22 02/04/23 melatonin 3 mg tablet 3 mg PO BEDTIME PRN Sleep 09/30/22 02/04/23 Previous Rx's Medication Instructions Recorded sennosides 8.6 mg-docusate sodium 2 tab-cap PO BEDTIME #60 caps 07/15/22 50 mg capsule (Senna Plus) pantoprazole 40 mg tablet,delayed 40 mg PO QAM #90 tabs 11/11/22 release sgbdimutsi-hyhicelltfhlm-gxarspsm 1 tab PO Q4H PRN Headache #10 tabs 02/09/23 50 mg-325 mg-40 mg tablet nicotine (polacrilex) 2 mg gum 4 mg buccal Q2H PRN Nicotine 02/09/23 Cravings #60 ea trazodone 50 mg tablet 50 mg PO BEDTIME MRX1 PRN Insomnia 02/09/23 #30 tabs Mental Status Exam Mental Status Exam Patient Appearance: Appropriate Patient Orientation: Person, Place, Time and Situation Level of Consciousness: Alert Patient Behavior: Appropriate, Talkative and Good Eye Contact Mood Description: Appropriate Affect Description: Appropriate Patient Cognition Impaired: No Ability to Follow Directions: Good Speech Pattern: Spontaneous Speech Memory Description: Intact Hallucinations: None Delusions: Not Present Thought Process: Intact and Goal Oriented Thought Content: positive for Intact, positive for Circumstantial, positive for Goal Oriented and positive for Logical Depressive Symptoms: Muscle Tension Judgement: Good DS: Summary Hospital Course Hospital Course: Admission to adult psychiatry for exacerbation of PTSD and Bipolar Disorder. Pt became suicidal she reported after being off of her meds for five days due to her work schedule increasing and her pharmacy not being open on times when she was not working. Pt and her out patient team had made regime changes prior to her admission which she had not had a chance to implement. Several stressors at her home and with finances. Regime was continued. Amitriptyline was stopped, Trazodone was added, other meds were kept intact. 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 We did change her pharmacy to offer her increased flexibility in obtaining her prescriptions. Time spent discussing smoking cessation with patient: 3 to 10 minutes Status at Discharge Functional status at discharge: independent ambulation Overall status at discharge: patient is back to baseline Time Spent with Patient Time attestation: Total time managing care of this patient today ____ minutes. Time spent: Greater than 30 minutes Discharge Plan Discharge Anticipated Discharge Date/Time: 02/10/23 12:21 Patient Disposition: Home, Self-Care Discharge Diagnosis: PTSD Bipolar Disorder Referrals: [facility]: Delmi Knox [Other] - 03/14/23 8:00 am (Follow-up discharge appointment with psychiatric provider. Appointment is by tele-health.) [facility]:Kirk Montgomery [Other] - 1 Week (Follow-up discharge appointment for therapy Therapist did not provide appointment prior to discharge. Patient will have to contact therapist after discharge to schedule appointment for individual therapy.) Stephanie Layton FNP [Nurse Practitioner] - 02/27/23 10:30 am (IN OFFICE) Discharge Medications: New trazodone 50 mg Tablet 50 mg PO BEDTIME MRX1 PRN (Reason: Insomnia) Qty: 30 0RF nicotine (polacrilex) 2 mg Gum 4 mg buccal Q2H PRN (Reason: Nicotine Cravings) Qty: 60 0RF wetgpxdiif-qaxxcabfkpauj-hlgs 50-325-40 mg Tablet 1 tab PO Q4H PRN (Reason: Headache) Qty: 10 0RF Continued Senna Plus 8.6-50 mg capsule 2 tab-cap PO BEDTIME Qty: 60 0RF atorvastatin 40 mg tablet 40 mg PO BEDTIME budesonide-formoterol [Symbicort] 80-4.5 mcg/actuation HFA aerosol inhaler 2 puff INHALATION DAILY PRN (Reason: Wheezing) perphenazine 4 mg tablet 8 mg PO BEDTIME fluoxetine [Prozac] 20 mg capsule 20 mg PO DAILY melatonin 3 mg tablet 3 mg PO BEDTIME PRN (Reason: Sleep) pantoprazole 40 mg tablet,delayed release (DR/EC) 40 mg PO QAM Qty: 90 2RF zolpidem 10 mg tablet 10 mg PO BEDTIME lorazepam 1 mg tablet 1 mg PO BID PRN (Reason: Anxiety) bupropion HCl 150 mg tablet sustained-release 12 hr 150 mg PO BID Discontinued amitriptyline 25 mg tablet 25 mg PO BEDTIME Discharge Orders: Discharge Order (Routine); Ordered 02/10/23 Ordered By: Arturo Spenec Diet: Advance to usual diet Activity on Discharge: As tolerated Stand Alone Forms: Patient Portal Discharge page, Community Support Care Plan Goals: Mood and Behavioral Stabilization Health Concerns: Mood and Behavioral Stabilization Plan of Treatment: Follow up with providers Take medications as directed Call/Return as needed Assessment: Risk assessment at time of discharge:? Patient was interviewed prior to discharge and found to be fully oriented and without any SI or HI. Patient has insight and demonstrates good judgment in terms of wanting to pursue treatment. Patient is not in imminent risk of harm to self or others and has a safety plan that includes presenting to the closest ER or calling 911 if feeling unsafe.? Patient has been observed closely by nursing and unit staff throughout admission; patient has not engaged in any behaviors that suggest dangerousness to self or others and has demonstrated appropriate behaviors and impulse control Discharge Date/Time: 02/10/23 11:59
== END 2023-02-10 11:59 | disposition home or self-care (01) | DRG 753 ==
LOC: HO.ED 20:37 → HO.PM5 22:18
PROVIDERS: Physician Assistant; Admitting Provider Psychiatry & Neurology Psychiatry; Emergency Provider Emergency Medicine; Visit Provider Clinical Nurse Specialist Psychiatric/Mental Health, Adult
DX: F31.9 Bipolar disorder, unspecified (principal); R45.851 Suicidal ideations; Z91.148 Patient's other noncompliance with medication regimen for other reason; Z20.822 Contact with and (suspected) exposure to COVID-19; F43.10 Post-traumatic stress disorder, unspecified; Z91.040 Latex allergy status; Z91.51 Personal history of suicidal behavior; Z88.1 Allergy status to other antibiotic agents; Z88.2 Allergy status to sulfonamides; Z79.899 Other long term (current) drug therapy
CPT/HCPCS: 36415; 80053; 80061; 80143; 80179; 80307; 81025; 82077; 82607; 82746; 82947; 83036; 84443; 85025; 87635; 93005; 99285; S9485

== ENCOUNTER 2023-05-20 19:34 | Outpatient (REF) | payer MEDICAID, SELFPAY ==
[2023-05-22 14:06] LABS: CT PCR NOT DETECTED (Not Detect.); NG PCR NOT DETECTED (Not Detect.)
== END 2023-05-20 19:35 | disposition home or self-care (01) ==
LOC: HO.HHCL 19:34
PROVIDERS: Visit Provider Registered Nurse
DX: R30.0 Dysuria (principal)
CPT/HCPCS: 0353U; 87086; 87088; 87186

== ENCOUNTER 2023-06-30 09:30 | Outpatient (AMB) | payer MEDICAID, SELFPAY ==
[2023-06-30 09:18] VITALS: BMI 32.8
--- NOTE | 2023-06-30 09:18 | A.OFFVIS_ITS ---
Intake VS Expanded 06/30/23 09:18 Height 5 ft 7 in Weight 209 lb 6.4 oz BMI 32.8 Body Fat 84.3 Body Fat Percentage 40.3 Free Fat Mass 125 Muscle Mass 117.6 Visceral Mass 15 Water Mass 85.6 BMR 1,595 Intake Visit Reasons: VIDEO PO LSG 06/25/22 [employer] Required: No Allergies ciprofloxacin [From Cipro] Allergy (Intermediate, Verified 02/04/23 17:58) Hives latex Allergy (Intermediate, Verified 02/04/23 17:58) Hives sulfamethoxazole [From Septra] Allergy (Intermediate, Verified 02/04/23 17:58) Hives trimethoprim [From Septra] Allergy (Intermediate, Verified 02/04/23 17:58) Hives Medication List - Last Reconciled 06/30/23 by HANK Diaz budesonide-formoterol 80-4.5 mcg/actuation (Symbicort) 2 puffs inhalation DAILY PRN bupropion HCl 150 mg PO BID fluoxetine (Prozac) 20 mg PO DAILY hydroxyzine HCl 25 mg PO BID PRN lorazepam 1 mg PO BID PRN pantoprazole 40 mg PO QAM perphenazine 8 mg PO BEDTIME trazodone 50 mg PO BEDTIME MRX1 PRN zolpidem 10 mg PO BEDTIME HPI HPI Comments History of Present Illness Details This?a?32?yo female who is s/p LSG without hiatal hernia repair on?06/25/22. Presents for 1 year post op visit. Weight today is 209.4 pounds, with a BMI of 32.8.? There has been a 57.6 pound weight loss,(initial weight 267 pounds) since starting the program on 02/15/22 reflecting a 21.5% total body weight loss and a weight loss of 35.6 pounds since surgery (operative weight 245 pounds) reflecting a 14.5% TBWL since surgery. Reports infrequent but normal bowel movements every 2 days and uses stool softeners regularly. awakens at 8 am, bed at 10 pm.? Obtained Vitafusion bariatric MVI.? She states she had struggles w depression w SI. She had inpt psych admission and had medication adjustments. She was discharged about 1 month ago after a 2 weeks inpt stay. 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 She reports lots of ups/downs. Meal plan: 3 meals per day (meat/veg/carbs) 8 prote in/8 veg/4 carbs ( previously using equate shakes) 64 oz water Exercise plan: walking outside (250-275 carli) 3.2 miles 3-5 x per week Any post op complications: none NICOLE: never DM: resolved HTN: resolved Hyperlipidemia: improved GERD:?0-5 scale ??0 = no symptoms ??1 = symptoms noticeable but not bothersome 2 =symptoms bothersome but not daily ? 3 = symptoms bothersome and daily 4 = symptoms affect daily activities 5 = symptoms are incapacitating, unable to do daily activities ? How bad is the heartburn: 0, if taking PPI ? Heartburn while lying down: 0 ? Heartburn when standing up: 0 ? Heartburn after meals: 0 ? Does heartburn change your diet: 0 ? Does heartburn wake you up from sleep: 0 ? Do you have difficulty swallowin ? Do you have pain with swallowin ? If you take medicine for your reflux, does this affect your daily life: 0 Satisfaction with present condition - satisfied or not satisfied: not satisfied [facility] Medical History PTSD (post-traumatic stress disorder) BMI 37.0-37.9, adult Family history of anesthesia complication COVID-19 vaccination declined Seizures BMI 38.0-38.9,adult Obesity (BMI 30-39.9) Bipolar disorder current episode depressed Neuropathy Bipolar 1 disorder Depression Anxiety Insulin dependent type 1 diabetes mellitus Vitamin B12 deficiency Vitamin D deficiency Vitamin B1 deficiency History of ectopic Ovarian cyst Hypertension Hypercholesteremia Asthma Surgical History Hx of tonsillectomy History of oophorectomy, unilateral H/O unilateral salpingectomy History of laparoscopic cholecystectomy History of ovarian cystectomy Family History Mother Hypertension Father Diabetes Hypertension Heart problem Depression Brother No problems noted. Sister Hypertension High cholesterol Mental health disorder Sister Hypertension Bipolar 1 disorder Mental health disorder Social History Household Members: Significant Other Housing: Unknown / Unable to assess Are you a primary direct care provider to a significant other at home: No Do you presently have visiting nurse or other home services: No Unable to assess alcohol history related to: Unknown Alcohol intake: never Patient Tobacco Use Status: Former Tobacco user Quit Date: 2019 Tobacco use type: Cigarette e-Cigarette/Vaping Use: Never Used Substance Use Type: Marijuana service: No Current occupational status: employed Sexual orientation: Straight/Heterosexual Gender identity: Female Review of Systems Const All systems reviewed & are unremarkable except as noted in HPI and below Assessment & Plan Assessment & Plan (1) S/P laparoscopic sleeve gastrectomy: Code(s): Z98.84 - Bariatric surgery status Plan: check yearly labs change meal plan to : Equate 2 scoops am 1 scoop noon meal 7 forks protein and 7 forks veg, avoid carbs increase walking to daily rtc 6 weeks Orders: Orders Lipid Panel Today E10.9 - Type 1 diabetes mellitus without complications, E66.9 - Obesity, unspecified, E78.00 - Pure hypercholesterolemia, unspecified, I10 - Essential (primary) hypertension, Z98.84 - Bariatric surgery status IRON PROFILE Today E10.9 - Type 1 diabetes mellitus without complications, E66.9 - Obesity, unspecified, E78.00 - Pure hypercholesterolemia, unspecified, I10 - Essential (primary) hypertension, Z98.84 - Bariatric surgery status Vitamin B12 and Folate Today E10.9 - Type 1 diabetes mellitus without complications, E66.9 - Obesity, unspecified, E78.00 - Pure hypercholesterolemia, unspecified, I10 - Essential (primary) hypertension, Z98.84 - Bariatric surgery status Zinc Today E10.9 - Type 1 diabetes mellitus without complications, E66.9 - Obesity, unspecified, E78.00 - Pure hypercholesterolemia, unspecified, I10 - Essential (primary) hypertension, Z98.84 - Bariatric surgery status Vitamin B1 Today E10.9 - Type 1 diabetes mellitus without complications, E66.9 - Obesity, unspecified, E78.00 - Pure hypercholesterolemia, unspecified, I10 - Essential (primary) hypertension, Z98.84 - Bariatric surgery status Vitamin A Today E10.9 - Type 1 diabetes mellitus without complications, E66.9 - Obesity, unspecified, E78.00 - Pure hypercholesterolemia, unspecified, I10 - Essential (primary) hypertension, Z98.84 - Bariatric surgery status C Reactive Protein Today E10.9 - Type 1 diabetes mellitus without complications, E66.9 - Obesity, unspecified, E78.00 - Pure hypercholesterolemia, unspecified, I10 - Essential (primary) hypertension, Z98.84 - Bariatric surgery status Ferritin Today E10.9 - Type 1 diabetes mellitus without complications, E66.9 - Obesity, unspecified, E78.00 - Pure hypercholesterolemia, unspecified, I10 - Essential (primary) hypertension, Z98.84 - Bariatric surgery status PTHI Today E10.9 - Type 1 diabetes mellitus without complications, E66.9 - Obesity, unspecified, E78.00 - Pure hypercholesterolemia, unspecified, I10 - Essential (primary) hypertension, Z98.84 - Bariatric surgery status Vitamin D 25-OH Total Today E10.9 - Type 1 diabetes mellitus without complications, E66.9 - Obesity, unspecified, E78.00 - Pure hypercholesterolemia, unspecified, I10 - Essential (primary) hypertension, Z98.84 - Bariatric surgery status Hemoglobin A1c Today E10.9 - Type 1 diabetes mellitus without complications, E66.9 - Obesity, unspecified, E78.00 - Pure hypercholesterolemia, unspecified, I10 - Essential (primary) hypertension, Z98.84 - Bariatric surgery status Basic Metabolic Panel Today E10.9 - Type 1 diabetes mellitus without complications, E66.9 - Obesity, unspecified, E78.00 - Pure hypercholesterolemia, unspecified, I10 - Essential (primary) hypertension, Z98.84 - Bariatric surgery status Insulin Today E10.9 - Type 1 diabetes mellitus without complications, E66.9 - Obesity, unspecified, E78.00 - Pure hypercholesterolemia, unspecified, I10 - Essential (primary) hypertension, Z98.84 - Bariatric surgery status Complete Blood Count Auto Diff Today E10.9 - Type 1 diabetes mellitus without complications, E66.9 - Obesity, unspecified, E78.00 - Pure hypercholesterolemia, unspecified, I10 - Essential (primary) hypertension, Z98.84 - Bariatric surgery status TSH reflex Free T4 Today E10.9 - Type 1 diabetes mellitus without complications, E66.9 - Obesity, unspecified, E78.00 - Pure hypercholesterolemia, unspecified, I10 - Essential (primary) hypertension, Z98.84 - Bariatric surgery status Telehealth Telehealth Location of provider rendering services: practice address Location of patient: address on file Patient Identification confirmed using: Name, : Yes Telehealth method: video Patient verbally consented to treatment: Yes Patient verbally consented to billing insurance company: Yes Patient informed of any privacy concerns related to visit: Yes Minutes spent on Phone/Video with Pt.: 25 Coding Level of Care Code Tele Est Pt Level 4 (17661) Diagnoses S/P laparoscopic sleeve gastrectomy Z98.84 Time Spent (min) 35
== END 2023-06-30 09:48 | disposition home or self-care (01) ==
LOC: HO.HBS 09:43
PROVIDERS: Visit Provider Physician Assistant Surgical
DX: E66.09 Other obesity due to excess calories (principal); Z68.32 Body mass index [BMI] 32.0-32.9, adult; Z90.3 Acquired absence of stomach [part of]; Z98.84 Bariatric surgery status
CPT/HCPCS: 99214

== ENCOUNTER → 2023-06-30 09:30 | Outpatient (BNVA) | payer MEDICAID, SELFPAY | PROVIDERS: Visit Provider Physician Assistant Surgical ==

== ENCOUNTER 2023-08-11 11:33 | Emergency (ER) | payer MEDICAID, SELFPAY ==
[2023-08-11 11:56] VITALS: BP 140/90; PULSE 66; RESP 18; TEMP 36.5; O2SAT 100; BMI 33.7
--- NOTE | 2023-08-11 11:57 | ED_ITS ---
HPI - General Adult General Chief complaint: Abdominal Pain Stated complaint: lower abd pain Time Seen by Provider: 08/11/23 20:09 Source: patient Mode of arrival: ambulatory Limitations: no limitations History of Present Illness HPI narrative: Patient is a 32 year old assigned female at with a history of PTSD, HTN, and asthma presenting to the emergency department today with abdominal pain. Patient states that right lower quadrant abdominal pain over the last 2 days. Patient states that she is also having pain with urination. Patient denies any dizziness, lightheadedness, nausea, vomiting, fever, chills, blurry vision, double vision, loss of vision, chest pain, difficulty breathing, shortness of breath, back pain, night sweats, increased urinary frequency, increased urinary urgency, blood in her urine or stool, syncope or a near syncopal episode, recent trauma or falls, bowel incontinence, bladder incontinence, bowel retention, bladder retention, or any other complaints at this time. Onset (ago): day(s) (2) Location: abdomen Radiation: non-radiation Severity: mild Severity scale (1-10): 3 Quality: aching and dull Pain Consistency: constant Relieving factors: none Exacerbating factors: none Associated symptoms: denies other symptoms Treatments prior to arrival: none Related Data Home Medications Medication Instructions Recorded Confirmed bupropion HCl 150 mg tablet,12 hr 150 mg PO BID 02/14/22 06/30/23 sustained-release lorazepam 1 mg tablet 1 mg PO BID PRN Anxiety 02/14/22 06/30/23 zolpidem 10 mg tablet 10 mg PO BEDTIME 02/14/22 06/30/23 budesonide-formoterol HFA 80 2 puff inhalation DAILY PRN 06/20/22 06/30/23 mcg-4.5 mcg/actuation aerosol Wheezing inhaler (Symbicort) fluoxetine 20 mg capsule (Prozac) 20 mg PO DAILY 08/06/22 06/30/23 perphenazine 4 mg tablet 8 mg PO BEDTIME 08/06/22 06/30/23 hydroxyzine HCl 25 mg tablet 25 mg PO BID PRN 06/30/23 06/30/23 Previous Rx's Medication Instructions Recorded pantoprazole 40 mg tablet,delayed 40 mg PO QAM #90 tabs 11/11/22 release trazodone 50 mg tablet 50 mg PO BEDTIME MRX1 PRN Insomnia 02/09/23 #30 tabs Allergies Allergy/AdvReac Type Severity Reaction Status Date / Time ciprofloxacin [From Cipro] Allergy Intermediate Hives Verified 02/04/23 17:58 latex Allergy Intermediate Hives Verified 02/04/23 17:58 sulfamethoxazole Allergy Intermediate Hives Verified 02/04/23 17:58 [From Septra] trimethoprim [From Septra] Allergy Intermediate Hives Verified 02/04/23 17:58 Review of Systems 2 Constitutional: Constitutional: Reports no additional constitutional complaints, Denies chills, Denies fever(s) and Denies night sweats Eyes: Eyes: Reports no additional eye complaints, Denies blurry vision, Denies change in vision, Denies diplopia, Denies eye discharge, Denies loss of vision and Denies eye pain ENT: Denies dizziness Cardiovascular: Cardiovascular: Reports no additional cardiovascular complaints, Denies chest pain, Denies lightheadedness, Denies Loss of Consciousness and Denies dyspnea Respiratory: Respiratory: Reports no additional respiratory complaints and Denies dyspnea Gastrointestinal: Gastrointestinal: Reports no additional gastrointestinal complaints, Reports abdominal pain, Denies melena, Denies hematochezia, Denies change in bowel habits and Denies change in stool character Genitourinary: Genitourinary: Denies hematuria, Denies urinary frequency, Reports dysuria, Denies urinary incontinence, Denies urinary hesitancy and Denies urinary urgency Musculoskeletal: Musculoskeletal: Reports no additional musculoskeletal complaints, Denies numbness and Denies tingling Neurologic: Denies dizziness, Denies loss of vision, Denies numbness and Denies tingling Psychiatric: Psychiatric: Reports no additional psychiatric complaints Endocrine: Endocrine: Reports no additional endocrine complaints Hematologic/Lymphatic: Hematologic/Lymphatic: Reports no additional hematologic/lymphatic complaints Allergic/Immunologic: Allergic/Immunologic: Reports no additional allergic/immunologic complaints PMFSH Past Medical History Attestation statement: The following information was validated with the patient. Source: old records reviewed and nursing notes reviewed Medical History PTSD (post-traumatic stress disorder) BMI 37.0-37.9, adult Family history of anesthesia complication COVID-19 vaccination declined Seizures BMI 38.0-38.9,adult Obesity (BMI 30-39.9) Bipolar disorder current episode depressed Neuropathy Bipolar 1 disorder Depression Anxiety Insulin dependent type 1 diabetes mellitus Vitamin B12 deficiency Vitamin D deficiency Vitamin B1 deficiency History of ectopic Ovarian cyst Hypertension Hypercholesteremia Asthma Surgical History Hx of tonsillectomy History of oophorectomy, unilateral H/O unilateral salpingectomy History of laparoscopic cholecystectomy History of ovarian cystectomy Family History Family History Mother Hypertension Father Diabetes Hypertension Heart problem Depression Brother No problems noted. Sister Hypertension High cholesterol Mental health disorder Sister Hypertension Bipolar 1 disorder Mental health disorder Social History Social History Household Members: Significant Other Housing: Unknown / Unable to assess Are you a primary care nurse rn to a significant other at home: No Do you presently have visiting nurse or other home services: No Unable to assess alcohol history related to: Unknown Alcohol intake: never Patient Tobacco Use Status: Former Tobacco user Quit Date: 2019 Tobacco use type: Cigarette e-Cigarette/Vaping Use: Never Used Substance Use Type: Marijuana service: No Current occupational status: employed Sexual orientation: Straight/Heterosexual Gender identity: Female Physical Exam ED Vital Signs: Vital Signs - 24 hr 08/11/23 11:56 Temperature 97.7 F Pulse Rate 66 Respiratory Rate 18 Blood Pressure 140/90 H Pulse Oximetry 100 Oxygen Delivery Method Room Air BMI result Body Mass Index 33.7 Const General: cooperative, no acute distress, alert and awake Nutritional Appearance: well nourished Orientation/consciousness: patient oriented x3 Limitations: no limitations HENMT Head: Yes normal to inspection and Yes atraumatic Ears: hearing grossly normal bilaterally and external ears normal General nose exam: Normal external nose present, no nasal discharge noted and no epistaxis Face and sinus: Yes normal facial exam, No abrasion and No laceration Mouth: Normal oral and palatal mucosa present, no drooling and no muffled voice Eyes General: appearance normal, both eyes and all related structures Periorbital: periorbital findings normal Eyelids: Yes eyelids normal Conjunctivae: conjunctivae normal Pupils: Equal, round and reactive pupils present EOM: EOMs intact bilaterally Neck Neck: Yes normal visual inspection, Yes full ROM and Yes no lymphadenopathy Chest Chest palpation & inspection: normal inspection of the chest Resp Effort & Inspection: normal respiratory effort and able to speak in complete sentences GI Inspection: Yes normal to inspection Neuro General: patient oriented x3 and moves all extremities Cranial nerves: Yes Equal, round and reactive pupils present Cognition (Neuro): normal cognition Motor exam (neuro): 5/5 motor strength present throughout Sensory Exam: Normal double simultaneous stimulation for sensation Coordination: [id number] test normal Extrem General: Yes normal to inspection, Yes full ROM and Yes capillary refill normal Psych Appearance: grossly normal Mental Status: mental status grossly normal Affect: normal affect Attitude: cooperative Thought process: Normal thought process present Thought content: Normal thought content present Insight: Good insight present (Psych) Course Course Course Narrative: RME performed by Roxanne Early PA-C. Patient is a 32 year old assigned female at presenting to the emergency department with right lower quadrant abdominal pain and pain with urination. Labs ordered. Patient placed back in the waiting room pending room availability and results. Medical Decision Making Medical Decision Making [facility] Narrative: Patient is a 32 year old assigned male at with a history of PTSD, asthma, HTN, and DM presenting to the emergency department today with abdominal pain and pain with urination. Patient's limited physical exam performed in triage was unremarkable. Patient's blood work was unremarkable. Patient's urine showed no acute process. Patient left the department without completing treatment. Patient left before myself or any of the other emergency department clinicians could explain physical exam findings, test results, need or lack there of for further testing, treatment plan or treatment options. Differential Diagnosis Differential Diagnoses: The differential diagnosis associated with the presentation includes Abdominal pain UTI Admission/Observation Consideration of admission/observation: Escalation of care including admission/observation considered Patient would have been admitted to the hospital had her work up had any findings where hospital admission was appropriate, her clinical presentation warranted hospital admission, and she hadn't left before completing treatment. Lab Data MDM Lab Attestation statement: I reviewed the patient's lab results. My interpretation of these studies and their corresponding values is that they are grossly normal. 08/11/23 12:14 08/11/23 12:14 Labs: Lab Results 08/11/23 Range/Units 12:14 WBC 7.7 (4.8-10.8) X10*3/uL RBC 5.01 (4.20-5.50) X10*6/uL Hgb 14.3 (12.0-16.0) g/dl Hct 43.2 (37.0-47.0) % MCV 86.2 (80.0-98.0) fL MCH 28.5 (27.0-33.0) pg MCHC 33.1 (31.0-35.0) g/dl RDW 12.3 (11.0-16.0) % Plt Count 208 (160-400) X10*3/uL MPV 12.6 H (9.4-12.3) fL Immature Gran % (Auto) 0.3 (0.0-0.4) % Neut % (Auto) 56.3 (45-73) % Lymph % (Auto) 32.9 (20-40) % Coffey % (Auto) 6.8 (2-11) % Eos % (Auto) 2.1 (0-4) % Baso % (Auto) 1.6 (0-2) % Lymph # (Auto) 2.5 (1.2-4.9) X10*3/uL Coffey # (Auto) 0.5 (0.1-1.2) X10*3/uL Eos # (Auto) 0.2 (0.0-0.4) X10*3/uL Baso # (Auto) 0.1 (0.0-0.2) X10*3/uL Abs Immat Gran (auto) 0.02 (0.00-0.03) X10*3/uL Absolute Neuts (auto) 4.3 (2.0-8.3) x10*3/uL Absolute Nucleated RBC 0.000 (0.0-0.012) X10*3/uL Nucleated RBC % (auto) 0.0 (0.0-0.2) /100WBC Sodium 145 (135-145) mmol/L Potassium 3.8 (3.3-5.1) mmol/L Chloride 110 H (96-108) mmol/L Carbon Dioxide 28 (22-29) mmol/L Anion Gap 11 L (12-20) BUN 12 (9-16) mg/dL Creatinine 0.85 (0.5-1.4) mg/dL Estim Creat Clear Calc 112.9 Estimated GFR > 60 Random Glucose 125 H (60-115) mg/dL Calcium 9.7 (8.4-10.2) mg/dL Magnesium 1.8 (1.6-2.6) mg/dL Total Bilirubin 0.4 (0.0-1.0) mg/dL AST 13 (5-31) U/L ALT 21 (0-31) U/L Alkaline Phosphatase 77 (39-117) U/L Total Protein 6.6 (6.5-8.0) g/dL Albumin 4.0 (3.5-5.0) g/dL Beta HCG, Quant < 2 mIU/mL Urine Color Yellow Urine Appearance Clear Urine pH 5.5 (5.0-9.0) Ur Specific Piffard 1.025 (1.005-1.025) Urine Protein Negative (Neg-Trace) mg/dL Urine Glucose (UA) Negative (Negative) mg/dL Urine Ketones Negative (Negative) mg/dL Urine Blood Negative (Negative) Urine Nitrite Negative (Negative) Ur Leukocyte Esterase Negative (Negative) Chlam trachomat DNA PCR NOT DETECTED (Not Detect.) Influenza Type A (PCR) NEGATIVE (Negative) Influenza Type B (PCR) NEGATIVE (Negative) N.gonorrhoeae DNA (PCR) NOT DETECTED (Not Detect.) RSV RNA Qual (PCR) NEGATIVE (Negative) SARS-CoV-2 RNA (RT-PCR) NEGATIVE (Negative) Discharge Plan Discharge Clinical Impression: Abdominal pain Patient Disposition: Left W/O Completing Treatment Prescriptions: No Action budesonide-formoterol [Symbicort] 80-4.5 mcg/actuation HFA aerosol inhaler 2 puff INHALATION DAILY PRN (Reason: Wheezing) perphenazine 4 mg tablet 8 mg PO BEDTIME trazodone 50 mg Tablet 50 mg PO BEDTIME MRX1 PRN (Reason: Insomnia) Qty: 30 0RF fluoxetine [Prozac] 20 mg capsule 20 mg PO DAILY pantoprazole 40 mg tablet,delayed release (DR/EC) 40 mg PO QAM Qty: 90 2RF zolpidem 10 mg tablet 10 mg PO BEDTIME lorazepam 1 mg tablet 1 mg PO BID PRN (Reason: Anxiety) bupropion HCl 150 mg tablet sustained-release 12 hr 150 mg PO BID hydroxyzine HCl 25 mg tablet 25 mg PO BID PRN Discharge Date/Time: 08/11/23 22:13
[2023-08-11 12:21] LABS: MANUAL DIFF FLAG NO
[2023-08-11 12:27] LABS: Appearance Urine Clear; Basophils Absolute Auto 0.1 X10*3/uL (0.0-0.2); Basophils Percent Auto 1.6 % (0-2); Color Urine Yellow; Eosinophils Absolute Auto 0.2 X10*3/uL (0.0-0.4); Eosinophils Percent Auto 2.1 % (0-4); Glucose Urine UA Negative (Negative); Hematocrit 43.2 % (37.0-47.0); Hemoglobin 14.3 g/dl (12.0-16.0); Imm Gran Abs Auto 0.02 X10*3/uL (0.00-0.03); Imm Gran Pct Auto 0.3 % (0.0-0.4); Leukocyte Esterase Urine Negative (Negative); Lymphocytes Absolute Auto 2.5 X10*3/uL (1.2-4.9); Lymphocytes Percent Auto 32.9 % (20-40); Mean Corpuscular HGB Conc 33.1 g/dl (31.0-35.0); Mean Corpuscular Hemoglobin 28.5 pg (27.0-33.0); Mean Corpuscular Volume 86.2 fL (80.0-98.0); Mean Platelet Volume 12.6 fL (9.4-12.3); Monocytes Absolute Auto 0.5 X10*3/uL (0.1-1.2); Monocytes Percent Auto 6.8 % (2-11); Neutrophils Absolute Auto 4.3 x10*3/uL (2.0-8.3); Neutrophils Percent Auto 56.3 % (45-73); Nitrite Urine Negative (Negative); PH 5.5 (5.0-9.0); Platelet Count 208 X10*3/uL (160-400); Red Blood Count 5.01 X10*6/uL (4.20-5.50); Red Cell Distribution Width 12.3 % (11.0-16.0); Specific Gravity - Urine 1.025 (1.005-1.025); Urine Blood Negative (Negative); Urine Ketones Negative (Negative); Urine Protein Negative (Neg-Trace); White Blood Count 7.7 X10*3/uL (4.8-10.8)
[2023-08-11 12:49] LABS: Alanine Aminotransferase 21 U/L (0-31); Alkaline Phosphatase 77 U/L (39-117); Anion Gap 11 (12-20); Aspartate Amino Transferase 13 U/L (5-31); Bilirubin Total 0.4 mg/dL (0.0-1.0); Blood Urea Nitrogen 12 mg/dL (9-16); Calcium 9.7 mg/dL (8.4-10.2); Carbon Dioxide 28 mmol/L (22-29); Chloride 110 mmol/L (96-108); Creatinine Clr Calc Pharmacy 112.9; Estimated Glomerular Filt Rate > 60; Glucose Random 125 mg/dL (60-115); Magnesium 1.8 mg/dL (1.6-2.6); Potassium 3.8 mmol/L (3.3-5.1); Sodium 145 mmol/L (135-145); Total Protein 6.6 g/dL (6.5-8.0)
[2023-08-11 12:58] LABS: HCG Quantitative < 2 mIU/mL
[2023-08-11 13:03] LABS: Influenza A PCR NEGATIVE (Negative); Influenza B PCR NEGATIVE (Negative); Resp Syncy Virus RNA Qual PCR NEGATIVE (Negative); SARS COV2 PCR INHOUSE NEGATIVE (Negative)
[2023-08-11 14:18] LABS: CT PCR NOT DETECTED (Not Detect.); NG PCR NOT DETECTED (Not Detect.)
== END 2023-08-11 22:13 | disposition left against medical advice (07) ==
PROVIDERS: Physician Assistant Medical; Emergency Provider Emergency Medicine
DX: R10.31 Right lower quadrant pain (principal); R30.0 Dysuria; I10 Essential (primary) hypertension; Z20.822 Contact with and (suspected) exposure to COVID-19; Z20.828 Contact with and (suspected) exposure to other viral communicable diseases; Z79.899 Other long term (current) drug therapy; Z87.891 Personal history of nicotine dependence
CPT/HCPCS: 0241U; 0353U; 80053; 81003; 83735; 84702; 85025; 99282; 99283

== ENCOUNTER 2023-08-12 15:03 | Outpatient (REF) | payer MEDICAID, SELFPAY ==
[2023-08-12 16:41] LABS: Alanine Aminotransferase 21 U/L (0-31); Albumin Level 4.1 g/dL (3.5-5.0); Alkaline Phosphatase 63 U/L (39-117); Anion Gap 11 (12-20); Aspartate Amino Transferase 15 U/L (5-31); Bilirubin Total 0.3 mg/dL (0.0-1.0); Blood Urea Nitrogen 13 mg/dL (9-16); Calcium 9.7 mg/dL (8.4-10.2); Carbon Dioxide 27 mmol/L (22-29); Chloride 108 mmol/L (96-108); Estimated Glomerular Filt Rate > 60; Glucose Random 116 mg/dL (60-115); Potassium 4.3 mmol/L (3.3-5.1); Sodium 142 mmol/L (135-145); Total Protein 6.6 g/dL (6.5-8.0)
[2023-08-13 08:29] LABS: Syphilis Screen Nonreactive (Nonreactive)
== END 2023-08-12 15:04 | disposition home or self-care (01) ==
LOC: HO.HHCL 15:03
PROVIDERS: Visit Provider Nurse Practitioner Family
DX: R10.2 Pelvic and perineal pain (principal)
CPT/HCPCS: 36415; 80053; 86780; 87086

== ENCOUNTER 2024-01-28 14:01 | Outpatient (AMB) | payer MEDICAID, SELFPAY ==
[2024-01-28 10:19] VITALS: BMI 33.5
--- NOTE | 2024-01-28 10:19 | MHC.OFFVISWM ---
Intake VS Expanded 01/28/24 10:19 Height 5 ft 7 in Weight 213 lb 12.8 oz BMI 33.5 Body Fat % 41.4 Body Fat Mass 88.5 Fat Free Mass 125.2 Visceral Fat Rating 15 Body Water % 40.2 Body Water Mass 85.9 Muscle Mass/Score 117.8 Basal Metabolic Rate/Score 1,597 Intake Visit Reasons: (tv )PO LSG 06/25/22 Allergies ciprofloxacin [From Cipro] Allergy (Intermediate, Verified 02/04/23 17:58) Hives latex Allergy (Intermediate, Verified 02/04/23 17:58) Hives sulfamethoxazole [From Septra] Allergy (Intermediate, Verified 02/04/23 17:58) Hives trimethoprim [From Septra] Allergy (Intermediate, Verified 02/04/23 17:58) Hives HPI HPI Comments History of Present Illness Details This?a?33?yo female who is s/p LSG without hiatal hernia repair on?06/25/22. Presents for 1 year 7 month post op visit. She did not show up for her appointment in November. Last seen in June 2023. . Weight today is 213.8 pounds, with a BMI of 33.5.? There has been a 53.2 pound weight loss,(initial weight 267 pounds) since starting the program on 02/15/22 reflecting a 19.9% total body weight loss and a weight loss of 31.2 pounds since surgery (operative weight 245 pounds) reflecting a 12.7% TBWL since surgery. Reports infrequent but normal bowel movements every 2 days and uses stool softeners regularly. awakens at 8 am, bed at 10 pm.? Obtained Vitafusion bariatric MVI.? She states she has been having more than 4 migraines a month and has one now. She has had increase in her psych meds. She recently got fired from her job and has had increased depression. She has not been exercising. She has also been dealing with her mom's cancer in [place]. Meal plan: 3 meals per day (meat/veg/carbs) 8 protein/8 veg/4 carbs (previously using equate shakes) 64 oz water Exercise plan: walking outside (250-275 carli) 3.2 miles 3-5 x per week Any post op complications: none NICOLE: never DM: resolved HTN: resolved Hyperlipidemia: improved GERD:?0-5 scale ??0 = no symptoms ??1 = symptoms noticeable but not bothersome 2 =symptoms bothersome but not daily ? 3 = symptoms bothersome and daily 4 = symptoms affect daily activities 5 = symptoms are incapacitating, unable to do daily activities ? How bad is the heartburn: 0, if taking PPI ? Heartburn while lying down: 0 ? Heartburn when standing up: 0 ? Heartburn after meals: 0 ? Does heartburn change your diet: 0 ? Does heartburn wake you up from sleep: 0 ? Do you have difficulty swallowin ? Do you have pain with swallowin ? If you take medicine for your reflux, does this affect your daily life: 0 Satisfaction with present condition - satisfied or not satisfied: not satisfied [facility] Medical History PTSD (post-traumatic stress disorder) BMI 37.0-37.9, adult Family history of anesthesia complication COVID-19 vaccination declined Seizures BMI 38.0-38.9,adult Obesity (BMI 30-39.9) Bipolar disorder current episode depressed Neuropathy Bipolar 1 disorder Depression Anxiety Insulin dependent type 1 diabetes mellitus Vitamin B12 deficiency Vitamin D deficiency Vitamin B1 deficiency History of ectopic Ovarian cyst Hypertension Hypercholesteremia Asthma Surgical History Hx of tonsillectomy History of oophorectomy, unilateral H/O unilateral salpingectomy History of laparoscopic cholecystectomy History of ovarian cystectomy Family History Mother Hypertension Father Diabetes Hypertension Heart problem Depression Brother No problems noted. Sister Hypertension High cholesterol Mental health disorder Sister Hypertension Bipolar 1 disorder Mental health disorder Social History Household Members: Significant Other Housing: Unknown / Unable to assess Are you a primary manager medicare marketing to a significant other at home: No Do you presently have visiting nurse or other home services: No Unable to assess alcohol history related to: Unknown Alcohol intake: never Patient Tobacco Use Status: Former Tobacco user Quit Date: 2019 Tobacco use type: Cigarette e-Cigarette/Vaping Use: Never Used Substance Use Type: Marijuana service: No Current occupational status: employed Sexual orientation: Straight/Heterosexual Gender identity: Female Assessment & Plan Assessment & Plan (1) S/P laparoscopic sleeve gastrectomy: Code(s): Z98.84 - Bariatric surgery status Plan: Patient has been dealing with increased depressive symptoms due to ongoing medical issues with her mother. She additionally has been having increased migraines. She has not been exercising. She states that she has been mostly sticking with the meal plan however we will change it accordingly: Equate shake (30 g protein per 1 scoop) 1 scoop in 12 oz of unsweetened almond milk over 2 hours Meal x 2, 6 forks of protein and 6 forks of salad or vegetables. Fresh fruit including apple, pear, kiwi, berries. Encouraged to get outside and walk on a daily basis, tracking calories with [employer] club and goal of 250-300 per day. Return to clinic 1 month. Reminded to get 1 year postoperative labs ordered in June. Telehealth Telehealth Location of provider rendering services: practice address Location of patient: address on file Patient Identification confirmed using: Name, : Yes Telehealth method: voice only Patient verbally consented to treatment: Yes Patient verbally consented to billing insurance company: Yes Patient informed of any privacy concerns related to visit: Yes Minutes spent on Phone/Video with Pt.: 12 Coding Level of Care Code Tele Est Pt Level 3 (49495) Diagnoses S/P laparoscopic sleeve gastrectomy Z98.84 Time Spent (min) 20
== END 2024-01-28 14:09 | disposition home or self-care (01) ==
LOC: HO.HBS 14:01
PROVIDERS: PCP Registered Nurse; Visit Provider Physician Assistant Surgical
DX: E66.09 Other obesity due to excess calories (principal); Z68.33 Body mass index [BMI] 33.0-33.9, adult; Z90.3 Acquired absence of stomach [part of]; Z98.84 Bariatric surgery status
CPT/HCPCS: 99213

== ENCOUNTER → 2024-01-28 14:01 | Outpatient (BNVA) | payer MEDICAID, SELFPAY | PROVIDERS: PCP Registered Nurse; Visit Provider Physician Assistant Surgical | DX: Z98.84 Bariatric surgery status (principal) ==

== ENCOUNTER 2024-04-30 08:16 | Emergency (ER) | payer MEDICAID, SELFPAY ==
--- NOTE | ~2024-04-30 | CT_ITS ---
EXAMINATION: CT ABDOMEN AND PELVIS WITH CONTRAST CLINICAL INFORMATION: Abdominal pain. COMPARISON: Abdominal ultrasound 04/03/2022. CT abdomen 01/31/2022. TECHNIQUE: Multidetector volumetric images were obtained from the superior aspect of the liver through the pubic symphysis following administration 85 mL of Omnipaque 350 intravenous contrast. Sagittal and coronal reformatted images were obtained on the technologist's workstation. Oral contrast: No This CT examination was performed using dose optimization techniques as appropriate, variously including the following: *Automated exposure control *Adjustment of mA and/or kV according to patient size (this includes techniques or standardized protocols for targeted exams where dose is matched to indication/reason for exam; i.e. extremities or head) *Use of iterative reconstruction technique DLP: 837 mGy-cm FINDINGS: LUNG BASES: No focal consolidation or pleural effusion. Partially seen 0.4 cm nodule in the right breast (3:1). LIVER, GALLBLADDER, AND BILIARY TREE: The liver is enlarged measuring 22.5 cm craniocaudally but otherwise normal in morphology and density. No focal liver lesion. Cholecystectomy. No biliary ductal dilatation. PANCREAS: No significant peripancreatic fat stranding/free fluid. No main ductal dilatation. No discrete focal parenchymal lesion. SPLEEN: Unremarkable. ADRENAL GLANDS: Unremarkable. KIDNEYS AND URETERS: The kidneys are normal in size, shape, and attenuation. No hydronephrosis, hydroureter, or calculi seen. No perinephric stranding. 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 BLADDER: Unremarkable. GASTROINTESTINAL TRACT: Small hiatal hernia. Postoperative changes from gastric sleeve. The stomach and the small bowel are nondilated. Normal appendix. Equivocal pancolonic wall thickening more noticeable in the sigmoid and rectum overall suboptimally assessed due to luminal underdistention. No significant pericolonic inflammatory changes. No evidence of pneumatosis or free air. No organized extraluminal collections. ABDOMINAL WALL: No significant hernia is appreciated. LYMPH NODES: No lymphadenopathy. VASCULAR: Normal caliber of the abdominal aorta. The main portal vein and SMV are patent. PELVIC VISCERA: Peripheral hyperemic observation in the left ovary measuring 1.3 cm most suggestive of a corpus luteal cyst. No significant abnormality. OSSEOUS STRUCTURES: Unremarkable. CT/CT abdomen pelvis w IV con IMPRESSION: 1. Equivocal pancolonic wall thickening which could be related with underdistention or mild colitis in the appropriate clinical context. 2. Hepatomegaly. 3. Postoperative changes from gastric sleeve with a small hiatal hernia. 4. Partially seen small nodularity in the right breast, recommend correlation with physical examination and if indicated outpatient breast ultrasound.
[2024-04-30 08:17] VITALS: BP 128/86; PULSE 85; RESP 18; TEMP 36.1; O2SAT 98; BMI 34.4
[2024-04-30 08:55] LABS: MANUAL DIFF FLAG NO
[2024-04-30 08:56] LABS: Basophils Absolute Auto 0.1 X10*3/uL (0.0-0.2); Basophils Percent Auto 1.2 % (0-2); Eosinophils Absolute Auto 0.3 X10*3/uL (0.0-0.4); Eosinophils Percent Auto 2.4 % (0-4); Hematocrit 43.1 % (37.0-47.0); Hemoglobin 14.8 g/dl (12.0-16.0); Imm Gran Abs Auto 0.05 X10*3/uL (0.00-0.03); Imm Gran Pct Auto 0.4 % (0.0-0.4); Lymphocytes Absolute Auto 2.9 X10*3/uL (1.2-4.9); Mean Corpuscular HGB Conc 34.3 g/dl (31.0-35.0); Mean Corpuscular Hemoglobin 28.6 pg (27.0-33.0); Mean Corpuscular Volume 83.2 fL (80.0-98.0); Mean Platelet Volume 11.9 fL (9.4-12.3); Monocytes Absolute Auto 0.7 X10*3/uL (0.1-1.2); Neutrophils Absolute Auto 7.4 x10*3/uL (2.0-8.3); Platelet Count 251 X10*3/uL (160-400); Red Blood Count 5.18 X10*6/uL (4.20-5.50); White Blood Count 11.4 X10*3/uL (4.8-10.8)
[2024-04-30 08:57] LABS: Appearance Urine Cloudy; Color Urine Dark Yellow; Glucose Urine UA Negative (Negative); Leukocyte Esterase Urine Small (1+) (Negative); Nitrite Urine Negative (Negative); PH 5.5 (5.0-9.0); Specific Gravity - Urine 1.025 (1.005-1.025); UMIC TRIGGER UACC YES; Urine Blood Negative (Negative); Urine Ketones Trace mg/dL (Negative); Urine Protein Negative (Neg-Trace)
[2024-04-30] MEDS: ondansetron HCL 4 MG/2 ML VIAL IVPUSH (08:59)
[2024-04-30 09:08] LABS: Bacteria Urine 4+ (None Seen); Hyaline Casts Urine 0-2 /LPF (0-2); RBC Urine 0-2 /HPF (0-2); UACC Culture Trigger YES; WBC Urine 0-5 /HPF (0-5)
[2024-04-30 09:17] LABS: Alanine Aminotransferase 13 U/L (0-31); Albumin Level 4.1 g/dL (3.5-5.0); Alkaline Phosphatase 80 U/L (39-117); Anion Gap 12 (12-20); Aspartate Amino Transferase 10 U/L (5-31); Bilirubin Total 0.5 mg/dL (0.0-1.0); Blood Urea Nitrogen 12 mg/dL (9-16); Calcium 9.3 mg/dL (8.4-10.2); Carbon Dioxide 22 mmol/L (22-29); Chloride 108 mmol/L (96-108); Creatinine Clr Calc Pharmacy 106.7; Estimated Glomerular Filt Rate > 60; Glucose Random 231 mg/dL (60-115); Lipase 14 U/L (8-78); Potassium 3.8 mmol/L (3.3-5.1); Sodium 138 mmol/L (135-145); Total Protein 6.9 g/dL (6.5-8.0)
[2024-04-30 09:18] LABS: HCG Quantitative < 2 mIU/mL
[2024-04-30] MEDS: LORazepam 1 MG TABLET PO (09:19)
--- NOTE | 2024-04-30 09:23 | ED_ITS ---
HPI - Abdominal Pain General Chief Complaint: Abdominal Pain Stated Complaint: Abdominal pain/Vomiting Source: patient Mode of arrival: ambulatory Limitations: no limitations History of Present Illness ED Provider: Ida LEWIS HPI narrative: This is a 33 year old female with history of PTSD, bipolar 1 disorder, obesity, GERD, hypertension, type 1 DM, ovarian cysts presenting with abdominal pain, nausea, vomiting, dizziness x 1 week. She recently received a refill of psychiatric medications that did not include her antipsychotic or lorazepam, so she has not been taking those medications for the past couple of weeks. She reports intermittent SI, visual and auditory hallucinations, worsening since she has not been taking her medications . She reports dizzy episodes where it feels like the room is spinning, worse when going from sitting to standing. Reports mild epigastric abdominal pain, denies fevers, chills, chest pain, sob. Related Data Home Medications ?Medication ?Instructions ?Recorded ?Confirmed bupropion HCl 150 mg tablet,12 hr 150 mg PO BID 02/14/22 06/30/23 sustained-release lorazepam 1 mg tablet 1 mg PO BID PRN Anxiety 02/14/22 06/30/23 zolpidem 10 mg tablet 10 mg PO BEDTIME 02/14/22 06/30/23 budesonide-formoterol HFA 80 2 puff inhalation DAILY PRN 06/20/22 06/30/23 mcg-4.5 mcg/actuation aerosol Wheezing inhaler (Symbicort) fluoxetine 20 mg capsule (Prozac) 20 mg PO DAILY 08/06/22 06/30/23 perphenazine 4 mg tablet 8 mg PO BEDTIME 08/06/22 06/30/23 hydroxyzine HCl 25 mg tablet 25 mg PO BID PRN 06/30/23 06/30/23 Previous Rx's ?Medication ?Instructions ?Recorded pantoprazole 40 mg tablet,delayed 40 mg PO QAM #90 tabs 11/11/22 release trazodone 50 mg tablet 50 mg PO BEDTIME MRX1 PRN Insomnia 02/09/23 #30 tabs cefuroxime axetil 250 mg tablet 250 mg PO BID 7 days #14 tabs 04/30/24 ondansetron 4 mg disintegrating 4 mg PO Q6H PRN nausea and 04/30/24 tablet vomiting #14 tabs Allergies Allergy/AdvReac Type Severity Reaction Status Date / Time [facility] Allergy Intermediate Hives Verified 04/30/24 08:20 latex Allergy Intermediate Hives Verified 04/30/24 08:20 sulfamethoxazole Allergy Intermediate Hives Verified 04/30/24 08:20 [From Septra] trimethoprim [From Septra] Allergy Intermediate Hives Verified 04/30/24 08:20 Review of Systems Review of Systems Yes all other systems are reviewed and are negative PMFSH Past Medical History Attestation statement: The following information was validated with the patient. Source: old records reviewed and nursing notes reviewed Medical History PTSD (post-traumatic stress disorder) BMI 37.0-37.9, adult Family history of anesthesia complication COVID-19 vaccination declined Seizures BMI 38.0-38.9,adult Obesity (BMI 30-39.9) Bipolar disorder current episode depressed Neuropathy Bipolar 1 disorder Depression Anxiety Insulin dependent type 1 diabetes mellitus Vitamin B12 deficiency Vitamin D deficiency Vitamin B1 deficiency History of ectopic Ovarian cyst Hypertension Hypercholesteremia Asthma Surgical History Hx of tonsillectomy History of oophorectomy, unilateral H/O unilateral salpingectomy History of laparoscopic cholecystectomy History of ovarian cystectomy Family History Family History Mother Hypertension Father Diabetes Hypertension Heart problem Depression Brother No problems noted. Sister Hypertension High cholesterol Mental health disorder Sister Hypertension Bipolar 1 disorder Mental health disorder Social History Social History Household Members: Significant Other Housing: Unknown / Unable to assess Are you a primary inpatient care manager rn to a significant other at home: No Do you presently have visiting nurse or other home services: No Unable to assess alcohol history related to: Unknown Alcohol intake: never Patient Tobacco Use Status: Former Tobacco user Tobacco use type: Cigarette e-Cigarette/Vaping Use: Never Used Substance Use Type: Marijuana Advance Directives: No Advance Directives Information Provided: Yes Do you have a plan to hurt others: No Plan service: No Current occupational status: employed Sexual orientation: Straight/Heterosexual Gender identity: Female Physical Exam ED Vital Signs: Vital Signs - 24 hr 04/30/24 08:17 04/30/24 10:17 04/30/24 10:29 Temperature 96.9 F 98.4 F Pulse Rate 85 73 76 Respiratory Rate 18 17 Blood Pressure 128/86 127/69 126/78 Pulse Oximetry 98 97 Oxygen Delivery Method Room Air Room Air 04/30/24 10:29 04/30/24 10:30 Temperature Pulse Rate 76 84 Respiratory Rate Blood Pressure 122/79 129/77 Pulse Oximetry Oxygen Delivery Method BMI result Body Mass Index 34.4 vss Appearance: Alert.? Oriented X3.? No acute distress.? Head: Normocephalic, atraumatic, no step-offs or deformities Eyes: Pupils equal, round and reactive to light.? Neck: Normal inspection.? Neck supple.? CVS: Normal heart rate and rhythm.? Pulses normal.? Respiratory: No respiratory distress.? Breath sounds normal.? Abdomen: Soft and nontender.?No peritoneal signs. Skin: Skin warm and dry.? Normal skin color.? Normal skin turgor.? Extremities: No lower extremity edema.? No calf ttp. 5/5 strength to bilateral upper and lower extremities Neuro: Oriented X 3.? No motor deficit.? No sensory deficit. CN 2-12 intact Course Reevaluation(s) Reevaluation #1: Spoke to [employer] [place] patients psych provider who will send all of patients meds to her pharmacy, he knows her well and states she has ups and downs and cant go without her meds. Will inform patient of this. Time: 09:37 Reevaluation #2: CBC with slight leukocytosis 11.4. Chemistry no acute findings requiring intervention. Patient's blood sugar was noted to be elevated 231 will give fluids. Normal hCG, normal lipase. CT abdomen pending Time: 09:41 Reevaluation #3: UA with infection, 4+ bacteria and small leukocyte esterases. CT abdomen pelvis equivocal pancolonic wall thickening which could be related to underdistention or mild colitis likely secondary to underdistention, I do not suspect colitis at this time. Hepatomegaly present. Postoperative changes from gastric sleeve. Small hiatal hernia. Partially seen small nodularity in the right breast recommend outpatient ultrasound to patient and OBGYN follow-up. Will discharge patient home on Ceftin. Will have her follow-up with her PCP. Patient is feeling better. She was cleared by the behavioral health team. Will follow-up with TUCKER [place], I did call the [facility] pharmacy all of her psych meds have been filled there. Educated patient on diagnosis and treatment plan, answered all question, patient verbalizes understanding. At this time patient will be discharged home, advised to return with new or worsening symptoms. Educated on worrisome signs and symptoms and when to return. At this time I feel comfortable discharge home. Time: 11:27 Medical Decision Making Medical Decision Making MDM Narrative: 33 year old female with history of anxiety, PTSD, bipolar 1, depression, ovarian cysts presenting with 1 week of nausea, vomiting, abdominal pain, and dizziness. She has not been able to refill her antipsychotic medication and lorazepam for the past couple of weeks. PE benign Hx and PE concerning for medication withdrawal versus orthostatic hypotension versus gastroenteritis. Unlikely metabolic derangement, appendicitis, cholecystitis, pancreatitis, gastritis, peritonitis, ruptures ovarian cysts, torsion, ectopic, acute abdomen Plan - labs, imaging, urine Differential Diagnosis Differential Diagnoses: The differential diagnosis associated with the presentation includes Hx and PE concerning for medication withdrawal versus orthostatic hypotension versus gastroenteritis. Unlikely metabolic derangement, appendicitis, cholecystitis, pancreatitis, gastritis, peritonitis, ruptures ovarian cysts, torsion, ectopic , acute abdomen Admission/Observation Consideration of admission/observation: Escalation of care including admission/observation considered Consult Healthcare Provider Management of the patient was discussed with: Business Analytics Manager Lab Data [facility] Lab Attestation statement: I reviewed the patient's lab results. 04/30/24 08:48 04/30/24 08:48 Labs: Lab Results 04/30/24 Range/Units 08:48 WBC 11.4 H (4.8-10.8) X10*3/uL RBC 5.18 (4.20-5.50) X10*6/uL Hgb 14.8 (12.0-16.0) g/dl Hct 43.1 (37.0-47.0) % MCV 83.2 (80.0-98.0) fL MCH 28.6 (27.0-33.0) pg MCHC 34.3 (31.0-35.0) g/dl RDW 12.0 (11.0-16.0) % Plt Count 251 (160-400) X10*3/uL MPV 11.9 (9.4-12.3) fL Immature Gran % (Auto) 0.4 (0.0-0.4) % Neut % (Auto) 65.0 (45-73) % Lymph % (Auto) 25.0 (20-40) % [place] % (Auto) 6.0 (2-11) % Eos % (Auto) 2.4 (0-4) % Baso % (Auto) 1.2 (0-2) % Lymph # (Auto) 2.9 (1.2-4.9) X10*3/uL [place] # (Auto) 0.7 (0.1-1.2) X10*3/uL Eos # (Auto) 0.3 (0.0-0.4) X10*3/uL Baso # (Auto) 0.1 (0.0-0.2) X10*3/uL Abs Immat Gran (auto) 0.05 H (0.00-0.03) X10*3/uL Absolute Neuts (auto) 7.4 (2.0-8.3) x10*3/uL Absolute Nucleated RBC 0.000 (0.0-0.012) X10*3/uL Nucleated RBC % (auto) 0.0 (0.0-0.2) /100WBC Sodium 138 (135-145) mmol/L Potassium 3.8 (3.3-5.1) mmol/L Chloride 108 (96-108) mmol/L Carbon Dioxide 22 (22-29) mmol/L Anion Gap 12 (12-20) BUN 12 (9-16) mg/dL Creatinine 0.90 (0.5-1.4) mg/dL Estim Creat Clear Calc 106.7 Estimated GFR > 60 Random Glucose 231 H (60-115) mg/dL Calcium 9.3 (8.4-10.2) mg/dL Total Bilirubin 0.5 (0.0-1.0) mg/dL AST 10 (5-31) U/L ALT 13 (0-31) U/L Alkaline Phosphatase 80 (39-117) U/L Total Protein 6.9 (6.5-8.0) g/dL Albumin 4.1 (3.5-5.0) g/dL Lipase 14 (8-78) U/L Beta HCG, Quant < 2 mIU/mL Urine Color Dark Yellow Urine Appearance Cloudy Urine pH 5.5 (5.0-9.0) Ur Specific [place] 1.025 (1.005-1.025) Urine Protein Negative (Neg-Trace) mg/dL Urine Glucose (UA) Negative (Negative) mg/dL Urine Ketones Trace (Negative) mg/dL Urine Blood Negative (Negative) Urine Nitrite Negative (Negative) Ur Leukocyte Esterase Small (1+) H (Negative) Urine RBC 0-2 (0-2) /HPF Urine WBC 0-5 (0-5) /HPF Ur Squamous Epith Cells 11-20 (0-2) /HPF Urine Bacteria 4+ (None Seen) Hyaline Casts 0-2 (0-2) /LPF Independent Interpretation I performed an independent interpretation of an: CT Scan Radiology Impression Discussion of test interpretation with radiology: I have reviewed the radiologist's reading. Chronic Conditions Patient?s care impacted by: Diabetes and Other (obesity, gerd, bipolar, depression, axiety, ) Medications Administered Discontinued Medications Generic Name Dose Route Start Last Admin Trade Name Freq PRN Reason Stop Dose Admin Sodium Chloride 1,000 mls @ 999 mls/hr 04/30/24 10:15 04/30/24 10:44 Ns IV 04/30/24 11:15 999 mls/hr .Q1H1M MARICRUZ Administration Iohexol 100 ml 04/30/24 10:03 04/30/24 10:04 Iohexol 350 Mg/Ml 100 Ml Infus..Btl IV 04/30/24 10:04 85 ml ONCE ONE Administration Lorazepam 1 mg 04/30/24 09:10 04/30/24 09:19 Lorazepam 1 Mg Tablet PO 04/30/24 09:11 1 mg ONCE ONE Administration Ondansetron HCl 4 mg 04/30/24 08:54 04/30/24 08:59 Ondansetron Hcl 4 Mg/2 Ml Vial IVPUSH 04/30/24 08:55 4 mg ONCE ONE Administration Critical Care Time Critical Care Time Critical Care Time: Yes Total Critical Care Time: 35 Attestation: I attest to this time spent taking care of the patient, obtaining history, physical, reviewing labs, imaging, speaking to my attending, specialist or hospitalist. Discharge Plan Discharge Clinical Impression: Abdominal pain, UTI (urinary tract infection), Breast nodule, Anxiety Patient Disposition: Home, Self-Care Instructions: Breast Self Exam for Women (ED), Urinary Tract Infection in Women (ED), Abdominal Pain (ED), Breast Mass (ED) Additional Instructions: Take your medications as prescribed. If you were prescribed antibiotics today, it is important that you take your medication to their entirety, do not skip any doses, do not finish them early. Follow-up with your primary care provider this week. Return to the emergency department with new or worsening symptoms. Such as fevers, chills, chest pain, shortness of breath, nausea, vomiting, dizziness, headache, vision changes, lethargy In case of emergency call 911 Please follow-up with your PCP or OBGYN for a breast ultrasound, a small nodule was noted in the right breast. Your psych med prescriber has sent all your meds to [facility] and I personally have called to confirm this. Follow up with PCP,psychiatrist and therapist CT results below CT/CT abdomen pelvis w IV con IMPRESSION: 1. Equivocal pancolonic wall thickening which could be related with underdistention or mild colitis in the appropriate clinical context. 2. Hepatomegaly. 3. Postoperative changes from gastric sleeve with a small hiatal hernia. 4. Partially seen small nodularity in the right breast, recommend correlation with physical examination and if indicated outpatient breast ultrasound. Prescriptions: New cefuroxime axetil 250 mg tablet 250 mg PO BID 7 Days Qty: 14 0RF ondansetron 4 mg tablet,disintegrating 4 mg PO Q6H PRN (Reason: nausea and vomiting) Qty: 14 0RF No Action budesonide-formoterol [Symbicort] 80-4.5 mcg/actuation HFA aerosol inhaler 2 puff INHALATION DAILY PRN (Reason: Wheezing) perphenazine 4 mg tablet 8 mg PO BEDTIME trazodone 50 mg Tablet 50 mg PO BEDTIME MRX1 PRN (Reason: Insomnia) Qty: 30 0RF fluoxetine [Prozac] 20 mg capsule 20 mg PO DAILY pantoprazole 40 mg tablet,delayed release (DR/EC) 40 mg PO QAM Qty: 90 2RF zolpidem 10 mg tablet 10 mg PO BEDTIME lorazepam 1 mg tablet 1 mg PO BID PRN (Reason: Anxiety) bupropion HCl 150 mg tablet sustained-release 12 hr 150 mg PO BID hydroxyzine HCl 25 mg tablet 25 mg PO BID PRN Referrals: Stephanie Layton FNP [Primary Care Provider] - 2 days [facility] [Provider Group] - 1 day Stand Alone Forms: Work/School Release Print Language: Burkinan
--- NOTE | 2024-04-30 09:48 | MHC.CARE ---
T/w met with patient for a risk assessment / consult. Her significant other is with her. She reports a hx of suicide attempts, years ago via OD on pills. She reports she experiences SI intermittently, but not currently. Confirms that this time of year is difficult for her as she lost a child the month of April. She reports she has a hx of psychosis however is not currently experiencing any. Her appetite varies and sleep is medication managed. She reports she has a therapist named Kirk whom she meets with on Wednesdays typically and confirms that she did miss this most recent appointment but has a scheduled one for this coming Friday05/05/24. She has been inpatient at this hospital in the past however is not currently requesting an admission. She reports feeling safe at home and reports that she will feel better once she gets her medication. No current needs / requests and is aware of the crisis line/ area crisis.
[2024-04-30] MEDS: iohexoL 350 MG/ML 100 ML INFUS..BTL IV (10:04)
[2024-04-30 10:17] VITALS: BP 127/69; PULSE 73; RESP 17; TEMP 36.9; O2SAT 97
[2024-04-30 10:29] VITALS: BP 122/79; BP 126/78; PULSE 76
[2024-04-30 10:30] VITALS: BP 129/77; PULSE 84
[2024-04-30] MEDS: 0.9 % Sodium Chloride 1,000 ML 999 ML IV (10:44)
[2024-04-30 12:06] VITALS: BP 134/76; PULSE 71; RESP 16; TEMP 36.6; O2SAT 98
== END 2024-04-30 12:07 | disposition home or self-care (01) ==
PROVIDERS: Physician Assistant; Emergency Provider Emergency Medicine; PCP Registered Nurse
DX: N39.0 Urinary tract infection, site not specified (principal); R10.9 Unspecified abdominal pain; F41.9 Anxiety disorder, unspecified; N63.10 Unspecified lump in the right breast, unspecified quadrant; R11.2 Nausea with vomiting, unspecified; R45.851 Suicidal ideations; R44.0 Auditory hallucinations; R44.1 Visual hallucinations; Z91.148 Patient's other noncompliance with medication regimen for other reason; F43.10 Post-traumatic stress disorder, unspecified; F31.9 Bipolar disorder, unspecified; I10 Essential (primary) hypertension; E10.9 Type 1 diabetes mellitus without complications; E78.00 Pure hypercholesterolemia, unspecified; K21.9 Gastro-esophageal reflux disease without esophagitis; Z87.891 Personal history of nicotine dependence
CPT/HCPCS: 36415; 74177; 80053; 81001; 83690; 84702; 85025; 87086; 87088; 87186; 96374; 99284; J2405; Q9967

== ENCOUNTER 2024-05-27 09:16 | Outpatient (AMB) | payer MEDICAID, SELFPAY ==
--- NOTE | 2024-05-27 09:01 | A.OFFVIS_ITS ---
VS Expanded 05/27/24 09:17 Height 5 ft 7 in Weight 220 lb BMI 34.5 Intake Visit Reasons: (TV) PO LSG 06/25/22 Allergies ciprofloxacin [From Cipro] Allergy (Intermediate, Verified 04/30/24 08:20) Hives latex Allergy (Intermediate, Verified 04/30/24 08:20) Hives sulfamethoxazole [From Septra] Allergy (Intermediate, Verified 04/30/24 08:20) Hives trimethoprim [From Septra] Allergy (Intermediate, Verified 04/30/24 08:20) Hives HPI Comments Details: This?a?33?yo female who is s/p LSG without hiatal hernia repair on?06/25/22. Presents for 1 year 7 month post op visit. She was last seen in the office in January, had no showed to other appointments. She additionally has not been following any meal plan, she was admitted to the hospital for psychiatric crisis due to withdrawal of medications. She was having lower abdominal pain and CT scan showed mild sigmoid colitis possibly versus underdistention. She reports she has been ?eating her feelings?. She reports reflux and weight gain. She reports her last weight checked approximately a week ago was 220 lb although she states that her scale batteries need to be replaced so it is unclear exactly the accuracy of the data. She states that she does now wish to resume a more structured meal plan.? Obtained Vitafusion bariatric MVI.? Meal plan: 3 meals per day (meat/veg/carbs) 8 protein/8 veg/4 carbs (previously using equate shakes) 64 oz water Exercise plan: walking outside (250-275 carli) 3.2 miles 3-5 x per week [facility] Medical History PTSD (post-traumatic stress disorder) BMI 37.0-37.9, adult Family history of anesthesia complication COVID-19 vaccination declined Seizures BMI 38.0-38.9,adult Obesity (BMI 30-39.9) Bipolar disorder current episode depressed Neuropathy Bipolar 1 disorder Depression Anxiety Insulin dependent type 1 diabetes mellitus Vitamin B12 deficiency Vitamin D deficiency Vitamin B1 deficiency History of ectopic Ovarian cyst Hypertension Hypercholesteremia Asthma Surgical History Hx of tonsillectomy History of oophorectomy, unilateral H/O unilateral salpingectomy History of laparoscopic cholecystectomy History of ovarian cystectomy Family History Mother Hypertension Father Diabetes Hypertension Heart problem Depression Brother No problems noted. Sister Hypertension High cholesterol Mental health disorder Sister Hypertension Bipolar 1 disorder Mental health disorder Social History Household Members: Significant Other Housing: Unknown / Unable to assess Are you a primary managed care liaison to a significant other at home: No Do you presently have visiting nurse or other home services: No Unable to assess alcohol history related to: Unknown Alcohol intake: never Patient Tobacco Use Status: Former Tobacco user Tobacco use type: Cigarette e-Cigarette/Vaping Use: Never Used Substance Use Type: Marijuana service: No Current occupational status: employed Sexual orientation: Straight/Heterosexual Gender identity: Female Telehealth Telehealth Telehealth Platform: Telephone Location of provider rendering services: practice address Location of patient: address on file Patient Identification confirmed using: Name, : Yes Telehealth method: voice only Patient verbally consented to treatment: Yes Patient verbally consented to billing insurance company: Yes Patient informed of any privacy concerns related to visit: Yes Minutes spent on Phone/Video with Pt.: 20 Assessment & Plan Assessment & Plan (1) Obesity (BMI 30-39.9): Code(s): E66.9 - Obesity, unspecified Category: Medical Plan: Resume a more structured meal plan at this time: Equate shake, 1 scoop in 10 oz of unsweetened almond milk, x2, Meal with 6 forks protein and 6 forks veggies Patient states that she can join a gym, encouraged to do so with a goal of utilizing cardiovascular equipment including treadmill, elliptical, stationary bike with a goal of burning 300 calories per day. Return to clinic 1 month. Encouraged to text weekly with her weight, replace the batteries in her scale and text with any questions or concerns
[2024-05-27 09:17] VITALS: BMI 34.5
== END 2024-05-27 09:20 | disposition home or self-care (01) ==
LOC: HO.HBS 09:16
PROVIDERS: PCP Registered Nurse; Visit Provider Physician Assistant Surgical
DX: E66.9 Obesity, unspecified (principal)
CPT/HCPCS: 99213

== ENCOUNTER → 2024-05-27 09:16 | Outpatient (BNVA) | payer MEDICAID, SELFPAY | PROVIDERS: PCP Registered Nurse; Visit Provider Physician Assistant Surgical ==

== ENCOUNTER 2024-07-06 05:05 | Emergency (ER) | payer MEDICAID, SELFPAY ==
--- NOTE | ~2024-07-06 | XR_ITS ---
EXAMINATION: XR CHEST CLINICAL INFORMATION: Cough and fever COMPARISON: March 01, 2022 TECHNIQUE: Frontal view of the chest was obtained. FINDINGS: No significant abnormality is noted involving the heart, lungs, mediastinum, bony thorax or soft tissues. XR/XR chest 1V IMPRESSION: Unremarkable examination. Electronically signed by: Dragan Lei MD 07/06/2024 06:15 AM EDT RP
[2024-07-06 05:10] VITALS: BP 120/68; PULSE 114; O2SAT 96; BMI 33.8
[2024-07-06 05:22] VITALS: PULSE 104; RESP 18; O2SAT 97
[2024-07-06] MEDS: Albuterol Sulfate 5 MG, Albuterol/Iprat 2.5/0.5MG 3 ML 3 ML INHALE (05:22)
[2024-07-06] MEDS: methylPREDNISolone Sod Succ 125 MG/2 ML VIAL IVPUSH (05:23)
[2024-07-06] MEDS: ondansetron HCL 4 MG/2 ML VIAL IVPUSH (05:25)
--- NOTE | 2024-07-06 05:33 | ED_ITS ---
HPI - URI/Sore Throat General Chief Complaint: Upper Respiratory Symptoms Stated Complaint: DIFFICULTY BREATHING Time Seen by Provider: 07/06/24 05:11 Source: patient and EMS Mode of arrival: EMS Limitations: no limitations History of Present Illness ED Provider: Dr. Ortega HPI Narrative: Patient presents with wheezing and rhonci via EMS. According to EMS she was speaking in 1 word sentences, was tight. She has had fever and productive cough. EMS gave duoneb, albuterol, and magnesium with improvement. MD elicited complaint: fever and cough Pertinent past history: asthma Onset (ago): hour(s) Consistency: constant Severity: severe Related Data Home Medications ?Medication ?Instructions ?Recorded ?Confirmed bupropion HCl 150 mg tablet,12 hr 150 mg PO BID 02/14/22 06/30/23 sustained-release lorazepam 1 mg tablet 1 mg PO BID PRN Anxiety 02/14/22 06/30/23 zolpidem 10 mg tablet 10 mg PO BEDTIME 02/14/22 06/30/23 budesonide-formoterol HFA 80 2 puff inhalation DAILY PRN 06/20/22 06/30/23 mcg-4.5 mcg/actuation aerosol Wheezing inhaler (Symbicort) fluoxetine 20 mg capsule (Prozac) 20 mg PO DAILY 08/06/22 06/30/23 perphenazine 4 mg tablet 8 mg PO BEDTIME 08/06/22 06/30/23 hydroxyzine HCl 25 mg tablet 25 mg PO BID PRN 06/30/23 06/30/23 Previous Rx's ?Medication ?Instructions ?Recorded pantoprazole 40 mg tablet,delayed 40 mg PO QAM #90 tabs 11/11/22 release trazodone 50 mg tablet 50 mg PO BEDTIME MRX1 PRN Insomnia 02/09/23 #30 tabs cefuroxime axetil 250 mg tablet 250 mg PO BID 7 days #14 tabs 04/30/24 ondansetron 4 mg disintegrating 4 mg PO Q6H PRN nausea and 04/30/24 tablet vomiting #14 tabs albuterol sulfate 0.63 mg/3 mL 0.63 mg (3 mL) inhalation Q6-8H 07/06/24 solution for nebulization PRN shortness of breath or wheezing #90 mL albuterol sulfate 90 mcg/actuation 2 puff inhalation Q6H PRN 07/06/24 aerosol inhaler shortness of breath or wheezing #8.5 grams Allergies Allergy/AdvReac Type Severity Reaction Status Date / Time ciprofloxacin [From Cipro] Allergy Intermediate Hives Verified 07/06/24 05:21 latex Allergy Intermediate Hives Verified 04/30/24 08:20 sulfamethoxazole Allergy Intermediate Hives Verified 04/30/24 08:20 [From Septra] trimethoprim [From Septra] Allergy Intermediate Hives Verified 04/30/24 08:20 Review of Systems 2 Review of Systems: Yes all other systems are reviewed and are negative Neurologic: Denies Sensory deficit (Neuro) [facility] Past Medical History Medical History PTSD (post-traumatic stress disorder) BMI 37.0-37.9, adult Family history of anesthesia complication COVID-19 vaccination declined Seizures BMI 38.0-38.9,adult Obesity (BMI 30-39.9) Bipolar disorder current episode depressed Neuropathy Bipolar 1 disorder Depression Anxiety Insulin dependent type 1 diabetes mellitus Vitamin B12 deficiency Vitamin D deficiency Vitamin B1 deficiency History of ectopic Ovarian cyst Hypertension Hypercholesteremia Asthma Surgical History Hx of tonsillectomy History of oophorectomy, unilateral H/O unilateral salpingectomy History of laparoscopic cholecystectomy History of ovarian cystectomy Family History Family History Mother Hypertension Father Diabetes Hypertension Heart problem Depression Brother No problems noted. Sister Hypertension High cholesterol Mental health disorder Sister Hypertension Bipolar 1 disorder Mental health disorder Social History Social History Household Members: Significant Other Housing: Unknown / Unable to assess Are you a primary resident care aide to a significant other at home: No Do you presently have visiting nurse or other home services: No Unable to assess alcohol history related to: Unknown Alcohol intake: never Patient Tobacco Use Status: Former Tobacco user Tobacco use type: Cigarette Smoked in Last 30 Days: No e-Cigarette/Vaping Use: Never Used Use of substances other than those prescribed or required for medical reasons: No Substance Use Type: Marijuana Advance Directives: No Advance Directives Information Provided: Yes Do you have a plan to hurt others: No Plan Patient : No service: No Current occupational status: employed Sexual orientation: Straight/Heterosexual Gender identity: Female Physical Exam 2 Vital Signs: Vital Signs: Last Vital Signs Temp 98.0 F 07/06/24 07:17 Pulse 94 07/06/24 07:17 Resp 19 07/06/24 07:17 BP 135/74 07/06/24 07:17 Pulse Ox 98 07/06/24 07:17 O2 Del Method Room Air 07/06/24 07:17 BMI result Body Mass Index 33.8 Const: Other: anxious, obese, coughing Nutritional Appearance: obese Orientation/consciousness: oriented to person and patient oriented x3 Limitations: no limitations HEENT: Head: Yes normal to inspection Ears: external ears normal General nose exam: Normal external nose present Mouth: Normal oral and palatal mucosa present and oropharynx normal Throat: Yes posterior oropharynx normal Eyes: General: appearance normal, both eyes and all related structures Neck: Other: supple Neck: Yes normal visual inspection Chest: Chest palpation & inspection: normal inspection of the chest Resp: Other: diffuse rhonchi and wheezing and coughing Cardio: Jugular venous distension: no JVD Rate: regular rate Rhythm: r egular rhythm Heart sounds: S1 normal heart sound present and S2 normal heart sound present GI: Inspection: Yes normal to inspection Palpation (GI): Soft to palpation, nontender and No hepatosplenomegaly present Auscultation: normal bowel sounds : General: Yes no CVA tenderness Back/Spine/Pelvis: Back: no CVA tenderness Skin: General skin exam: no rashes or lesions noted Neuro: General: oriented to person and patient oriented x3 Cranial nerves: Yes CN's II-XII intact bilaterally Motor exam (neuro): 5/5 motor strength present throughout Sensory Exam: No Sensory deficit (Neuro) Extrem: General: Yes normal to inspection Psych: Appearance: grossly normal Course Reevaluation(s) Reevaluation #1: breathing better will dc home on prednisone and albuterol Time: 07:06 Medications Administered Discontinued Medications Generic Name Dose Route Start Last Admin Trade Name Freq PRN Reason Stop Dose Admin Albuterol Sulfate 5 mg/ 0 mg 07/06/24 05:17 07/06/24 05:22 Albuterol/Ipratropium 3 ml INHALE 07/06/24 05:18 7.5 each ONCE ONE Administration Methylprednisolone Sodium Succinate 125 mg 07/06/24 05:11 07/06/24 05:23 Methylprednisolone Sod Succ 125 Mg/2 Ml Vial IVPUSH 07/06/24 05:12 125 mg ONCE ONE Administration Ondansetron HCl 4 mg 07/06/24 05:19 07/06/24 05:25 Ondansetron Hcl 4 Mg/2 Ml Vial IVPUSH 07/06/24 05:20 4 mg ONCE ONE Administration Medical Decision Making Differential Diagnosis Differential Diagnoses: The differential diagnosis associated with the presentation includes (pneumonia, flu, covid, asthma exacerbation, respiratory failure) Admission/Observation Consideration of admission/observation: Escalation of care including admission/observation considered (upon arrival patient considered for admission) Lab Data 07/06/24 05:49 07/06/24 05:49 Labs: Lab Results 07/06/24 Range/Units 05:49 WBC 17.2 H (4.8-10.8) X10*3/uL RBC 4.60 (4.20-5.50) X10*6/uL Hgb 13.0 (12.0-16.0) g/dl Hct 38.1 (37.0-47.0) % MCV 82.8 (80.0-98.0) fL MCH 28.3 (27.0-33.0) pg MCHC 34.1 (31.0-35.0) g/dl RDW 12.8 (11.0-16.0) % Plt Count 204 (160-400) X10*3/uL MPV 12.0 (9.4-12.3) fL Immature Gran % (Auto) 0.4 (0.0-0.4) % Neut % (Auto) 72.3 (45-73) % Lymph % (Auto) 17.7 L (20-40) % Garrett % (Auto) 8.2 (2-11) % Eos % (Auto) 0.7 (0-4) % Baso % (Auto) 0.7 (0-2) % Lymph # (Auto) 3.0 (1.2-4.9) X10*3/uL Garrett # (Auto) 1.4 H (0.1-1.2) X10*3/uL Eos # (Auto) 0.1 (0.0-0.4) X10*3/uL Baso # (Auto) 0.1 (0.0-0.2) X10*3/uL Abs Immat Gran (auto) 0.07 H (0.00-0.03) X10*3/uL Absolute Neuts (auto) 12.4 H (2.0-8.3) x10*3/uL Absolute Nucleated RBC 0.000 (0.0-0.012) X10*3/uL Nucleated RBC % (auto) 0.0 (0.0-0.2) /100WBC Sodium 139 (135-145) mmol/L Potassium 3.4 (3.3-5.1) mmol/L Chloride 106 (96-108) mmol/L Carbon Dioxide 21 L (22-29) mmol/L Anion Gap 15 (12-20) BUN 7 L (9-16) mg/dL Creatinine 0.81 (0.5-1.4) mg/dL Estim Creat Clear Calc 117.6 Estimated GFR > 60 Random Glucose 232 H (60-115) mg/dL Calcium 8.9 (8.4-10.2) mg/dL Influenza Type A (PCR) NEGATIVE (Negative) Influenza Type B (PCR) NEGATIVE (Negative) RSV RNA Qual (PCR) NEGATIVE (Negative) SARS-CoV-2 RNA (RT-PCR) NEGATIVE (Negative) Independent Interpretation I performed an independent interpretation of an: Plain X-Ray (cxr: no infiltrate) Independent Historian Clinical information obtained from an independent historian. History obtained from or confirmed by: EMS Prescription Management I considered prescription management with: Antibiotic (no infiltrate on CXR) Discharge Plan Discharge Clinical Impression: Upper respiratory infection, Viral infection, Asthma Patient Disposition: Home, Self-Care Instructions: Upper Respiratory Infection (ED), Viral Syndrome (ED) Prescriptions: New albuterol sulfate 90 mcg/actuation HFA aerosol inhaler 2 puff inhalation Q6H PRN (Reason: shortness of breath or wheezing) Qty: 8.5 0RF albuterol sulfate 0.63 mg/3 mL solution for nebulization 0.63 mg inhalation Q6-8H PRN (Reason: shortness of breath or wheezing) Qty: 90 0RF No Action budesonide-formoterol [Symbicort] 80-4.5 mcg/actuation HFA aerosol inhaler 2 puff INHALATION DAILY PRN (Reason: Wheezing) perphenazine 4 mg tablet 8 mg PO BEDTIME trazodone 50 mg Tablet 50 mg PO BEDTIME MRX1 PRN (Reason: Insomnia) Qty: 30 0RF cefuroxime axetil 250 mg tablet 250 mg PO BID 7 Days Qty: 14 0RF ondansetron 4 mg tablet,disintegrating 4 mg PO Q6H PRN (Reason: nausea and vomiting) Qty: 14 0RF fluoxetine [Prozac] 20 mg capsule 20 mg PO DAILY pantoprazole 40 mg tablet,delayed release (DR/EC) 40 mg PO QAM Qty: 90 2RF zolpidem 10 mg tablet 10 mg PO BEDTIME lorazepam 1 mg tablet 1 mg PO BID PRN (Reason: Anxiety) bupropion HCl 150 mg tablet sustained-release 12 hr 150 mg PO BID hydroxyzine HCl 25 mg tablet 25 mg PO BID PRN Referrals: [place],[facility] [Primary Care Provider] - 5 days Interventions: ED Discharge Assessment Last Done: 07/06/24 07:17 Discharge Date/Time: 07/06/24 07:22 Print Language: Nepali
[2024-07-06 05:40] VITALS: BP 137/74; PULSE 110; RESP 16; TEMP 36.9; O2SAT 96
--- NOTE | 2024-07-06 05:43 | PC.NURSE ---
Pt is awake and alert, appropriate with staff. Pt repeatedly endorses wanted to be done and go to [place] to be with her mother and sister, no articulated plan, reports that this world sucks . Provider aware. Denies any needs at this time.
--- NOTE | 2024-07-06 05:53 | MHC.EDTECH ---
Patient biba ,blood drawn ,rsv/covid swab collected and sent to lab ,Patient was change into hospital attire ,and hooked up to teletypesetter monitor ,vitals taken ,call dahl within Pt reach .
[2024-07-06 05:54] LABS: Basophils Absolute Auto 0.1 X10*3/uL (0.0-0.2); Basophils Percent Auto 0.7 % (0-2); Eosinophils Absolute Auto 0.1 X10*3/uL (0.0-0.4); Eosinophils Percent Auto 0.7 % (0-4); Hematocrit 38.1 % (37.0-47.0); Imm Gran Abs Auto 0.07 X10*3/uL (0.00-0.03); Imm Gran Pct Auto 0.4 % (0.0-0.4); Lymphocytes Percent Auto 17.7 % (20-40); MANUAL DIFF FLAG NO; Mean Corpuscular HGB Conc 34.1 g/dl (31.0-35.0); Mean Corpuscular Hemoglobin 28.3 pg (27.0-33.0); Mean Corpuscular Volume 82.8 fL (80.0-98.0); Monocytes Absolute Auto 1.4 X10*3/uL (0.1-1.2); Monocytes Percent Auto 8.2 % (2-11); Neutrophils Absolute Auto 12.4 x10*3/uL (2.0-8.3); Neutrophils Percent Auto 72.3 % (45-73); Platelet Count 204 X10*3/uL (160-400); Red Cell Distribution Width 12.8 % (11.0-16.0); White Blood Count 17.2 X10*3/uL (4.8-10.8)
[2024-07-06 05:56] VITALS: PULSE 108; O2SAT 98
[2024-07-06 06:12] LABS: Anion Gap 15 (12-20); Blood Urea Nitrogen 7 mg/dL (9-16); Calcium 8.9 mg/dL (8.4-10.2); Carbon Dioxide 21 mmol/L (22-29); Chloride 106 mmol/L (96-108); Creatinine Clr Calc Pharmacy 117.6; Estimated Glomerular Filt Rate > 60; Glucose Random 232 mg/dL (60-115); Potassium 3.4 mmol/L (3.3-5.1); Sodium 139 mmol/L (135-145)
[2024-07-06 06:33] LABS: Influenza A PCR NEGATIVE (Negative); Influenza B PCR NEGATIVE (Negative); Resp Syncy Virus RNA Qual PCR NEGATIVE (Negative); SARS COV2 PCR INHOUSE NEGATIVE (Negative)
--- NOTE | 2024-07-06 06:35 | PC.NURSE ---
Pt has shown some improvement since arrival at the ED and medication administration. Coughing has reduced, but still occasional. Pt verbalizes her needs appropriately.
[2024-07-06 07:17] VITALS: BP 135/74; PULSE 94; RESP 19; TEMP 36.7; O2SAT 98
== END 2024-07-06 07:22 | disposition home or self-care (01) ==
PROVIDERS: Emergency Provider Emergency Medicine
DX: B34.9 Viral infection, unspecified (principal); J06.9 Acute upper respiratory infection, unspecified; R06.02 Shortness of breath; R50.9 Fever, unspecified; R05.9 Cough, unspecified; J45.909 Unspecified asthma, uncomplicated; Z03.818 Encounter for observation for suspected exposure to other biological agents ruled out; Z79.899 Other long term (current) drug therapy
CPT/HCPCS: 0241U; 71045; 80048; 85025; 94640; 96372; 99284; 99285; J2405; J2919

== ENCOUNTER 2024-09-29 14:00 | Outpatient (AMB) | payer MEDICAID, SELFPAY ==
--- NOTE | 2024-09-29 10:21 | MHC.OFFVISWM ---
VS Expanded 09/29/24 10:22 Height 5 ft 7 in Weight 220 lb BMI 34.5 Intake Visit Reasons: (TV) PO LSG 06/25/22 Messaging Architect Required: No Allergies ciprofloxacin [From Cipro] Allergy (Intermediate, Verified 07/06/24 05:21) Hives latex Allergy (Intermediate, Verified 04/30/24 08:20) Hives sulfamethoxazole [From Septra] Allergy (Intermediate, Verified 04/30/24 08:20) Hives trimethoprim [From Septra] Allergy (Intermediate, Verified 04/30/24 08:20) Hives Medication List - Last Reconciled 09/29/24 by HANK Diaz albuterol sulfate 90 mcg/actuation 2 puffs inhalation Q6H PRN albuterol sulfate 0.63 mg (3 mL) inhalation Q6-8H PRN budesonide-formoterol 80-4.5 mcg/actuation (Symbicort) 2 puffs inhalation DAILY PRN bupropion HCl SR 150 mg PO BID cefuroxime axetil 250 mg PO BID 7 days fluoxetine (Prozac) 20 mg PO DAILY hydroxyzine HCl 25 mg PO BID PRN lorazepam 1 mg PO BID PRN ondansetron 4 mg PO Q6H PRN pantoprazole 40 mg PO QAM perphenazine 8 mg PO BEDTIME trazodone 50 mg PO BEDTIME MRX1 PRN zolpidem 10 mg PO BEDTIME HPI Comments Details: This?a?33?yo female who is s/p LSG without hiatal hernia repair on?06/25/22. Presents for 2 year 3 month post op visit. Weight today is 220 pounds, with a BMI of 34.5.? There has been a 47 pound weight loss,(initial weight 267 pounds) since starting the program on 02/15/22 reflecting a 17.6% total body weight loss and a weight loss of 25 pounds since surgery (operative weight 245 pounds) reflecting a 10.2% TBWL since surgery. She has not been communicating regularly since May She states she has had personal issues that she did not want to discuss, Had an episode of colitis and a callus to her foot. She cant walk due to the recent shave of the callus. She states she is having bright red blood per rectum, reports some melena. She is not following any particular meal plan. She has had BRBPR x months . Has not seen GI, , has not seen GI. Has appointment with PCP middle of October, missed hospital f/u in August or July. Not taking MVI Meal plan: 3 meals per day (meat/veg/carbs) 8 protein/8 veg/4 carbs (previously using equate shakes) 64 oz water Exercise plan: walking outside (250-275 carli) 3.2 miles 3-5 x per week [facility] Medical History PTSD (post-traumatic stress disorder) BMI 37.0-37.9, adult Family history of anesthesia complication COVID-19 vaccination declined Seizures BMI 38.0-38.9,adult Obesity (BMI 30-39.9) Bipolar disorder current episode depressed Neuropathy Bipolar 1 disorder Depression Anxiety Insulin dependent type 1 diabetes mellitus Vitamin B12 deficiency Vitamin D deficiency Vitamin B1 deficiency History of ectopic Ovarian cyst Hypertension Hypercholesteremia Asthma Surgical History Hx of tonsillectomy History of oophorectomy, unilateral H/O unilateral salpingectomy History of laparoscopic cholecystectomy History of ovarian cystectomy Family History Mother Hypertension Father Diabetes Hypertension Heart problem Depression Brother No problems noted. Sister Hypertension High cholesterol Mental health disorder Sister Hypertension Bipolar 1 disorder Mental health disorder Social History Household Members: Significant Other Housing: Unknown / Unable to assess Are you a primary resident care technician to a significant other at home: No Do you presently have visiting nurse or other home services: No Unable to assess alcohol history related to: Unknown Alcohol intake: never Patient Tobacco Use Status: Former Tobacco user Tobacco use type: Cigarette e-Cigarette/Vaping Use: Never Used Substance Use Type: Marijuana service: No Current occupational status: employed Sexual orientation: Straight/Heterosexual Gender identity: Female Telehealth Telehealth Telehealth Platform: Telephone Location of provider rendering services: practice address Location of patient: address on file Patient Identification confirmed using: Name, : Yes Telehealth method: voice only Patient verbally consented to treatment: Yes Patient verbally consented to billing insurance company: Yes Patient informed of any privacy concerns related to visit: Yes Minutes spent on Phone/Video with Pt.: 25 Assessment & Plan Assessment & Plan (1) S/P laparoscopic sleeve gastrectomy: Code(s): Z98.84 - Bariatric surgery status Category: Surgical Plan: Discussed with the patient the importance of taking control of her health. She has been unable to slat pickler the cream that was prescribed by her computer engineering technician regarding the callus on her foot. I suggested she call her computer engineering technician to alert them that she can not get the cream as it is back ordered. With regard to her GI bleed this will be discussed below. With regard to her sleeve gastrectomy and obesity, discussed the importance of following a meal plan. Previously she was using equate powder Meal plan: Equate powder 1 scoop in 8 oz of unsweetened almond milk, x2, 1 meal with 6 forks of protein and 6 forks of vegetables Encouraged to exercise using stationary bike, recumbent, to avoid excess pressure on her foot which has a callus that has recently been shaved. With a goal of burning approximately 300 calories per day. Return to the clinic in 3 months, encouraged to text weekly with any questions or concerns (2) GI (gastrointestinal bleed): Code(s): K92.2 - Gastrointestinal hemorrhage, unspecified Category: Medical Plan: Patient reports GI bleed times months. She states that she was diagnosed with colitis in April. She has not seen GI and has not followed up with her primary care physician. She missed an appointment in July or August she does not recall which. She states that she has an appointment in October, continues to have bright red blood per rectum, painless. I recommend that she call her primary care physician today to alert them that she is still having bleeding so that she may get an appointment sooner. She states that she will. She certainly may go to the emergency room at any time should symptoms worsen.
[2024-09-29 10:22] VITALS: BMI 34.5
== END 2024-09-29 14:08 | disposition home or self-care (01) ==
LOC: HO.HBS 14:05
PROVIDERS: Visit Provider Physician Assistant Surgical
DX: K92.2 Gastrointestinal hemorrhage, unspecified (principal); Z98.84 Bariatric surgery status
CPT/HCPCS: 99213

== ENCOUNTER → 2024-09-29 14:00 | Outpatient (BNVA) | payer MEDICAID, SELFPAY | PROVIDERS: Visit Provider Physician Assistant Surgical ==

== ENCOUNTER 2024-11-03 16:10 | Outpatient (REF) | payer MEDICAID, SELFPAY ==
--- NOTE | ~2024-11-03 | XR_ITS ---
EXAMINATION: XR LUMBOSACRAL SPINE CLINICAL INFORMATION: pain COMPARISON: None available. TECHNIQUE: Three views of the lumbosacral spine. FINDINGS: No acute cortical disruption or malalignment. Castellvi type II sacralization. No lytic or blastic lesions. Multiple vascular clips in the epigastric region and the right upper quadrant abdomen. XR/XR lumbar spine 2-3V IMPRESSION: No acute fracture or listhesis. 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 Electronically signed by: Atilio Boo MD 11/04/2024 08:03 AM [facility]
== END 2024-11-03 16:11 | disposition home or self-care (01) ==
LOC: HO.HHCX 16:10
PROVIDERS: Visit Provider Internal Medicine
DX: M54.31 Sciatica, right side (principal)
CPT/HCPCS: 72100

== ENCOUNTER → 2024-11-03 16:10 | Outpatient (BNV) | payer MEDICAID, SELFPAY | PROVIDERS: Visit Provider Radiology Diagnostic Radiology | DX: Q76.42 Congenital lordosis (principal) | CPT/HCPCS: 72100 ==

== ENCOUNTER 2025-01-17 11:03 | Outpatient (REF) | payer MEDICAID, SELFPAY ==
--- OUTSIDE RECORDS SUMMARY | 2025-01-17 12:38 | XMS_ITS | Clinical Summary ---
Author Organization [employer] Address [address] [place] [address] Care Team Providers Care Proofer Name Role Phone Stephanie Layton [facility] Primary Care Provider [phone] Allergies Active Allergy Reactions Criticality Noted Date Comments Levetiracetam Hives 06/20/2020 Levothyroxine 06/20/2020 Other reaction(s): throat swelling resulting in changes in voice reported w/ generic levothyroxine only Pseudoephedrine 02/04/2023 Medications * This document contains information received from the source organization and may not represent a complete record from that organization. FLUoxetine (PROzac) 20 MG capsule Take 20 mg by mouth in the morning. 023 Active zolpidem (Ambien) 10 MG tablet Take 10 mg by mouth if needed at bedtime. 023 Active perphenazine 4 MG tablet Take 8 mg by mouth at bedtime. 023 Active montelukast (Singulair) 5 MG chewable tablet CHEW 2 TABLETS BY MOUTH EVERY EVENING 022 Active LORazepam (Ativan) 1 MG tablet Take 1 mg by mouth if needed in the morning and at bedtime. 023 Active buPROPion SR (Wellbutrin SR) 150 MG 12 hr tablet TAKE 1 TABLET BY MOUTH TWICE DAILY, INCREASE TO 1 TABLET THREE TIMES DAILY FOR 2 WEEKS BEFORE AND DURING MENSES 023 Active albuterol (2.5 MG/3ML) 0.083% nebulizer solution Take 3 mL (2.5 mg) by nebulization every 6 (six) hours if needed for wheezing. 75 mL 11 023 Active Spacer/Aero-Hold ing Chambers (Pro Comfort Spacer Adult) misc Use with albuterol 1 each Active albuterol 108 (90 Base) MCG/ACT inhaler Inhale 2 puffs every 6 (six) hours if needed for wheezing. 18 g 1 Active Alcohol Swabs (Alcohol Prep) 70 % pads USE TO TEST BLOOD SUGAR THREE TIMES DAILY TO FOUR TIMES DAILY Active cetirizine (ZyrTEC) 10 MG tablet TAKE 1 TABLET BY MOUTH EVERY DAY NEEDED FOR CONGESTION Active cholecalciferol (Vitamin D-3) 50 MCG (2000 UT) tablet TAKE 1 TABLET BY MOUTH EVERY DAY Active Cyanocobalamin (Vitamin B-12) 1000 MCG sublingual tablet DISSOLVE 1 TABLET UNDER THE TONGUE EVERY DAY Active insulin glargine (Lantus SoloStar) 100 UNIT/ML pen inject 10 units by subcutaneous route every evening as per insulin protocol Active Pentips 32G X 4 MM misc USE FOUR TIMES DAILY Active insulin lispro (HumaLOG KWIKPEN) 100 UNIT/ML injection inject by subcutaneous route 4 units before bkft, 6 units before lunch 8 units before supper Active melatonin 3 MG tablet Take 3 mg by mouth if needed at bedtime. Active norethindrone (Micronor) 0.35 MG tablet Take 1 tablet by mouth in the morning. Active thiamine (Vitamin B-1) 100 MG tablet Take 100 mg by mouth in the morning. Active SUMAtriptan (Imitrex) 25 MG tabletIndication s:Migraine with aura and without status migrainosus, not intractable Take 1 tablet (25 mg) by mouth 1 (one) time if needed for migraine. May repeat dose once in 2 hours if no relief. Do not exceed 2 doses in 24 hours. 30 tablet Active Magnesium 400 MG capsuleIndicatio ns:Migraine with aura and without status migrainosus, not intractable Take 1 capsule by oral route daily 30 capsule Active riboflavin (vitamin B2) 100 mg tablet tabletIndication s:Migraine with aura and without status migrainosus, not intractable TAKE 4 TABLETS BY MOUTH EVERY DAY 360 tablet Active omeprazole (PriLOSEC) [address] capsuleIndicatio ns:Dyspepsia TAKE 1 CAPSULE BY MOUTH TWICE DAILY 180 capsule 1 Active Blood Glucose Monitoring Suppl (GNP Easy Touch Glucose Meter) deviceIndication s:Uncontrolled type 2 diabetes mellitus with hyperglycemia ([facility]) Use as directed to check blood sugar four times daily 1 each Active TRUEplus Lancets 33G misc USE TO TEST BLOOD SUGAR THREE TIMES DAILY TO FOUR TIMES DAILY 100 each 11 Active FREESTYLE LITE test strip USE TO TEST BLOOD SUGAR THREE TIMES DAILY TO FOUR TIMES DAILY 100 strip 11 Active butalbital-aceta minophen-caffein e 50-325-40 MG tablet TAKE 1 TO 2 TABLETS BY MOUTH EVERY 4 HOURS NEEDED. DO NOT EXCEED 6 TABLETS PER 24 HOURS. 16 tablet 1 Active Acetaminophen Extra Strength 500 MG tabletIndication s:Right sciatic nerve pain TAKE 2 TABLETS BY MOUTH EVERY 8 HOURS NEEDED FOR MILD PAIN 40 tablet 025 Active cyclobenzaprine (Flexeril) 10 MG tabletIndication s:Right sciatic nerve pain TAKE 1 TABLET BY MOUTH THREE TIMES DAILY FOR 10 DAYS 30 tablet 025 Active cyclobenzaprine (Flexeril) 10 MG tabletIndication s:Right sciatic nerve pain Take 1 tablet (10 mg) by mouth 3 times daily for 10 days. 30 tablet 025 2024 Discontinued acetaminophen (Tylenol Extra Strength) 500 MG tabletIndication s:Right sciatic nerve pain Take 2 tablets (1,000 mg) by mouth every 8 (eight) hours if needed for mild pain for up to 10 days. 40 tablet 025 2024 Discontinued Active Problems Patient Care Coordination No te Formatting of this note migh t be different from the original. C3/CM Selena Martinez RN Problem Noted Date Diagnosed Date Right sciatic nerve pain 11/03/2024 Assessment & Plan (11/03/2024 4:14 PM EST): Apply heat on affected area Acetaminophen+ flexeril XRAY and PT referral H/O bariatric surgery 05/21/2023 Abnormal uterine bleeding 05/21/2023 Overview (06/30/2023): ?? Menarche age 8 ?? Hx of irregular menses-up to 6 month interval between ?? Hx of ectopic . S/p removal of fallopian tube ?? Ultrasound ordered 05/2023 Assessment & Plan (05/27/2023 2:42 PM EDT): ?? test negative in office ?? Will order pelvic ultrasound for further evaluation Ectopic 05/21/2023 Healthcare maintenance 05/21/2023 Overview (05/27/2023): Mammo: Routine Pap: Followed by [facility] [facility] at [facility] 03/2022 NIL HPV neg C-scope: ROutine Immunizations: Hypothyroidism 02/04/2023 Overview (05/21/2023): ?? Previously rx'd levothyroxine ?? Hypothyroidism then resolved Migraine without aura, not refractory 02/04/2023 Overview (06/30/2023): Magnesium 400 MG capsule ??Riboflavin 400 MG capsule ??SUMAtriptan (Imitrex) 25 MG tablet 1. long hx of recurrent headache. + aura. Previously managed with fioricet. Reports episodes occurring 8-10x/month. A/w light/sound sensitivity. Denies n/v. Mixed anxiety and depressive disorder 02/04/2023 Overview (05/21/2023): ?? Established with therapist and psychiatrist ?? Lorazezpam, hydroxyzine, wellbutrin, prozac, trazodone Assessment & Plan (05/27/2023 2:43 PM EDT): Continue current regimen Declines in office BE Continue to follow up with therapist and psychiatrist Contact HC if sx worsen or experiencing thoughts of SI or self harm. Pt has N crisis contact information Uncontrolled type 2 diabetes mellitus with hyper glycemia 02/04/2023 Overview (06/30/2023): ?? Prior to bariatric surgery on lantus, metformin, and trulicity ?? Difficulty tolerating medications due to significant GI s/e ?? Eye Exam: ?? Foot exam: Assessment & Plan (05/27/2023 2:40 PM EDT): Lab Results Component Value Date HGBA1C 6.1 (A) 05/20/2023 ?? Well controlled with diet alone post bariatric surgery ?? Continue recommended diet and exercise plan Resolved Problems Problem Noted Date Diagnosed Date Resolved Date Left sciatic nerve pain 11/03/202410/20 Mild persistent asthma 01/27/202206/28 Overview (05/21/2023): ?? PRN albuterol Encounters Date Type Department Care Team Description 01/04/2025 Refill [facility] [address] [place] [address] Vijaya Khan MD Right sciatic nerve pain 12/31/2024 Population Health Risk Score Community [facility] ([facility]) Department [address] [phone] Provider, Population Health Generic 11/12/2024 Telephone [facility] [address] [place] [address] Stephanie Layton FNP No Show 11/04/2024 Telephone [facility] [address] [place] [address] Mirela Avilez, RN Results 11/04/2024 Telephone [facility] [address] [place] [address] Stephanie Layton FNP 11/03/2024 3:15 PM EST Office Visit [facility] [address] [place] [address] Vijaya Khan MD Right sciatic nerve pain (Primary Dx) 11/03/2024 Patient Outreach [facility] [address] [place] [address] Stephanie Layton FNP Pre-visit Planning ([facility] unable to reach [facility]) 11/03/2024 Travel 11/02/2024 Telephone [facility] [address] [place] [address] [facility] Nurse Triage from Last 3 Months Immunizations Name Administration Dates Next Due Pfizer Covid-19 Vaccine 12+ 12/20/2022 Pfizer Covid-19 Vaccine 12+ edilberto-sucrose (Matt trivedi) 01/15/2023 Family History Medical History Relation Name Comments Breast cancer Mother Relation Name Status Comments Mother Social History Tobacco Use Types Packs/Day Years Used Date Smoking Tobacco: Every Day Cigarettes Passive Smoke Exposure: Current Smokeless Tobacco: Never Tobacco Cessation:Ready to Q uit: Not Asked; Counseling Given: Not Answered Alcohol Use Standard Drinks/Week Comments Never 0 (1 standard drink = 0.6 oz pur e alcohol) Depression Answer Date Recorded Patient Health Questionnaire-9 Score 8 05/20/2023 Housing Stability Answer Date Recorded What is your housing situation today? I have lalit arzate 08/11/[address] you li ve. Do you have problems with any of the following? None of the above 08/11/2023 Food Insecurity Answer Date Recorded Within the past 12 months, y ou worried that your food would run out before you got money to buy more: Never True 08/11/2023 Within the past 12 months,th e food you bought just didn't last and you didn't have enough money to get more: Never True Transportation Answer Date Recorded In the past 12 months, has l ack of transportation kept you from medical appts, meetings, work or from getting things needed for daily living? No 08/11/2023 Utilities Answer Date Recorded In the past 12 months, has t he electric, gas, oil or water company threatened to shut off services in your home? No 08/11/2023 Depression Answer Date Recorded Patient Health Questionnaire-2 Score 5 05/20/2023 Comments No Sex and Gender Information Value Date Recorded Sex Assigned at Female 08/19/2022 10:37 AM EDT Legal Sex Female 10:37 AM EDT Gender Identity Female 08/19/2022 10:37 AM EDT Sexual Orientation Don't know 08/19/2022 10 :37 AM EDT Last Filed Vital Signs Vital Sign Reading Time Taken Comments Blood Pressure 137/88 11/03/2024 3:16 PM EST Pulse 87 11/03/2024 3:16 PM EST Temperature 36.1 ??C (97 ??F) 11/03/2024 3:16 PM EST Respiratory Rate 18 11/03/2024 3:16 PM EST Oxygen Saturation 97% 11/03/2024 3:16 PM EST Inhaled Oxygen Concentration - - Weight 103 kg (226 lb 6.4 oz) 11/03/2024 3:16 PM EST Height 171.5 cm (5' 7.5 ) 11/03/2024 3:16 PM EST Body Mass Index 34.94 11/03/2024 3:16 PM EST Plan of Treatment Upcoming Encounters Date Type Department Care Team (Late st Contact Info) Description 01/17/2025 1:00 PM EDT Office Visit [facility] [address] [place] [phone] Health Maintenance Due Date Last Done Comments Diabetes: Foot Exam 1999 Eye Exam 1999 Alcohol/Substance Use Screening 2001 Family Planning (PISQ) 2004 DTaP/Tdap/Td Vaccines (1 - Tdap) 2008 Hepatitis B Vaccines (1 of 3 - 19+ 3-dose series) 2008 Pneumococcal Vaccine: Pediatrics (0 to 5 Years) and At-Risk Patients (6 to 49) Years) (1 of 2 - PCV) 2008 Diabetes: Urine Protein Screening 01/11/2023 01/11/2022, 04/03/2020 Lipid Panel 01/31/2023 01/31/2022, 12/19, 04/03/2020 Diabetes: Hemoglobin A1C 11/20/2023 023, 03/29/2022, 03/01/2022, Additional history exists Depression Screening 05/20/2024 05/20/2023, 05/20/20 23 SDOH Screening 05/20/2024 05/20/2023 COVID-19 Vaccine ( season) 2024 01/15/2023, 12/20/2022 Influenza Vaccine (#1) 2024 Pap Smear 04/12/2025 04/12/2022 Tobacco Screening 11/03/2025 11/03/2024 Cervical Cancer Screening 04/12/2027 HPV/Cotest 04/12/2027 04/12/2022 Zoster Vaccines (1 of 2) 2039 RSV Patients and Patients Aged 60 years or older (1 - 1-dose 75+ series) 2064 HIV Screening Completed 04/12/2022, 0 10/2019, 04/03/2020 Hepatitis C Screening Completed 04/12/2022 , 01/31/2022, 06/20/2020, Additional history exists HIB Vaccines Aged Out No longer eligi ble based on patient's age to complete this topic HPV Vaccines Aged Out No longer eligi ble based on patient's age to complete this topic Hepatitis A Vaccines Aged Out No long er eligible based on patient's age to complete this topic IPV Vaccines Aged Out No longer eligi ble based on patient's age to complete this topic Meningococcal Vaccine Aged Out No abimael tushar eligible based on patient's age to complete this topic RSV under 20 months Aged Out No longe r eligible based on patient's age to complete this topic Rotavirus Vaccines Aged Out No longer eligible based on patient's age to complete this topic Procedures Procedure Name Priority Date/Time Associated Diagnosis Comments XR LUMBAR SPINE 2-3 VIEWS Routine 11/03/2024 4:10 PM EST Right sciatic nerve pain POCT GLYCATED HEMOGLOBIN, TOTAL Routine 05/20/2023 9:35 AM EDT Type 2 diabetes mellitus with hyperglycemia, without long-term current use of insulin ([facility]) ZZZ HISTORICAL HEPATITIS C AB W/REFL TO HCV RNA, QN, PCR Routine 04/12/2022 2:51 PM EDT HIV 1/2 ANTIGEN/ANTIBODY, FOURTH GENERATION W/RFL Routine 04/12/2022 2:51 PM EDT THINPREP IMAGING PAP AND HPV MRNA E6/E7, WITH CT/NG, TRICHOMONAS Routine 04/12/2022 1:31 PM EDT LIPID PANEL, STANDARD Routine 01/31/2022 10:32 AM EDT ALBUMIN, RANDOM URINE W/CREATININE Routine 01/11/2022 4:27 PM EDT from Last 3 Months or Most Recently Relevant to Health Maintenance Results * XR Lumbar Spine 2-3 Views (11/03/2024 4:10 PM EST) Anatomical Region Laterality Modality Spine, L-spine Radiographic Norma ging 11/03/2024 4:10 PM EST Narrative 11/04/2024 8:05 AM EST ?[facility] ?[address] ?[place] [address] ?XRay Report ? Signed ? Patient: Son Garcia ?MR#: ?? [id number] ? : 1990 ?Acct:[id number] ? Age/Sex: 34 / F ?ADM Date: 11/03/24 ? Loc: HO.HHCX ? Attending Dr: Vijaya Zaragoza MD ? Ordering Physician: Vijaya Khan MD ?? Date of Service: 11/03/24 ?? Procedure(s): XR lumbar spine 2-3V ?? Accession Number(s): [id number] ? cc: Vijaya Khan MD ? EXAMINATION: ?? XR LUMBOSACRAL SPINE ? CLINICAL INFORMATION: ?? pain ? COMPARISON: ?? None available. ? TECHNIQUE: ?? Three views of the lumbosacral spine. ? FINDINGS: ?? No acute cortical disruption or malalignment. ?? Castellvi type II sacralization. ?? No lytic or blastic lesions. ?? Multiple vascular clips in the epigastric region and the right upper ?? quadrant abdomen. ? XR/XR lumbar spine 2-3V ?? IMPRESSION: ?? No acute fracture or listhesis. ?? 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 ? Electronically signed by: ??Atilio Boo MD ??11/04/2024 08:03 AM ?? EST RP ? Dictated By: ?Atilio Santillan MD ? Signed By: ?<Electronically signed by Atilio Nettles MD in OV> ? 11/04/24 0803 ? DD/ 1610 ? TD/TT: 11/03/24 1627 ? [place] Inspector: ? Procedure Note Therese, Image - 11/04/[address] [address] XRay Report Signed Patient: Sanjeev Garcia#: [id number] : 1990Acct:[id number] Age/Sex: 34 / FADM Date: 11/03/24 Loc: HO.HHCX Attending Dr: Vijaya Zaragoza MD Ordering Physician: Vijaya Khan MD Date of Service: 11/03/24 Procedure(s): XR lumbar spine 2-3V Accession Number(s): [id number] cc: Vijaya Khan MD EXAMINATION: XR LUMBOSACRAL SPINE CLINICAL INFORMATION: pain COMPARISON: None available. TECHNIQUE: Three views of the lumbosacral spine. FINDINGS: No acute cortical disruption or malalignment. Castellvi type II sacralization. No lytic or blastic lesions. Multiple vascular clips in the epigastric region and the right upper quadrant abdomen. XR/XR lumbar spine 2-3V IMPRESSION: No acute fracture or listhesis. 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 Electronically signed by: Atilio Boo MD 11/04/2024 08:03 AM [facility] Dictated By: Atilio Santillan MD Signed By: <Electronically signed by Atilio Nettles MDin OV> 11/04/24 0803 DD/ 1610 TD/TT: 11/03/24 1627 [place] Inspector: Vijaya Zaragoza MD IMG XR PROCEDURES Lenny leyla Result - Final * (ABNORMAL) POCT A1C (05/20/2023 9:35 AM EDT) Hemoglobin A1C 6.1(A) 4.0 - 6.0 % Blood 05/20/2023 9:35 AM EDT [facility] POINT OF CARE TEST ENTER/EDIT ORDERABLES Final Result * HEPATITIS C AB W/REFL TO HCV RNA, QN, PCR (04/12/2022 2:51 PM EDT) HEPATITIS C ANTIBODY NON-REACT NAYE NON-REACT NAYE [facility] INDEX 0.05 <1.00 [facility] Comment: ?? HCV antibody was non-reactive. There is no laboratory ?? evidence of HCV infection. ?? In most cases, no further action is required. However, if recent HCV exposure is suspected, a test for HCV RNA (test code 90890) is suggested. ?? For additional information please refer to http://eLong.com.[employer]/faq/MGL93t6 (This link is being provided for informational/ educational purposes only.) ?? 04/12/2022 2:51 PM EDT Stefani Horton [facility] HISTORICAL/NON ORDERABLE LABS Final Result [facility] [address] * HIV 1/2 ANTIGEN/ANTIBODY,FOURTH GENERATION W/RFL (04/12/2022 2:51 PM EDT) HIV-1/2 ANTIGEN AND ANTIBODIES, 4TH GENERATION W/ REFLEX NON-REACT NAYE NON-REACT NAYE [facility] Comment: HIV-1 antigen and HIV-1/HIV-2 antibodies were not detected. There is no laboratory evidence of HIV infection. ?? PLEASE NOTE: This information has been disclosed to you from records whose confidentiality may be protected by state law. ??If your state requires such protection, then the state law prohibits you from making any further disclosure of the information without the specific written consent of the person to whom it pertains, or as otherwise permitted by law. A general authorization for the release of medical or other information is NOT sufficient for this purpose. ? For additional information please refer to http://eLong.com.[employer]/faq/KXR730 (This link is being provided for informational/ educational purposes only.) ? The performance of this assay has not been clinically validated in patients less than 2 years old. ?? 04/12/2022 2:51 PM EDT us Stefani Horton [facility] LAB BLOOD ORDERABLES Final Res ult [facility] [address] [place] [address], * THINPREP TIS PAP AND HPV mRNA E6/E7, CT/NG, TRICH (04/12/2022 1:31 PM EDT) Chlamydia trachomatis RNA, TMA, Urogenital NOT DETECTED NOT DETECTED [facility] Clinical Information: None given [facility] COMMENT SEE COMMENT [facility] Comment: The analytical performance characteristics of this assay, when used to test SurePath(TM) specimens have been determined by [employer]. The modifications have not been cleared or approved by the FDA. This assay has been validated pursuant to the CLIA regulations and is used for clinical purposes. ?? For additional information, please refer to https://education.[employer]/faq/OVQ927 (This link is being provided for information/ educational purposes only.) ?? COMMENT SEE COMMENT [facility] Comment: EXPLANATORY NOTE: ? The Pap is a screening test for cervical cancer. It is ?? not a diagnostic test and is subject to false negative ?? and false positive results. It is most reliable when a ?? satisfactory sample, regularly obtained, is submitted ?? with relevant clinical findings and history, and when ?? the Pap result is evaluated along with historic and ?? current clinical information. ?? COMMENT: This Pap test has been evaluated with computer assisted technology. [facility] Mds Manager: SEE COMMENT [facility] Comment: MSM, CT(ASCP) CT screening location: [address] ??[address] HPV nRNA E6/E7 Not Detected Not Detected [facility] Comment: Methodology: Heating And Cooling Technician-Mediated Amplification This assay detects E6/E7 viral messenger RNA (mRNA) from 14 high-risk HPV types (16,18,31,33,35,39,45,51,52,56,58,59,66,68). ? Cervical sources are required for HPV testing. If a vaginal source from a patient who has had a total hysterectomy with removal of cervix was ?? submitted, please contact the testing laboratory for alternative testing options. ?? For additional information, please refer to http://eLong.com.[employer]/faq/MKE748j0 (This link if provided for information/ educational purposes only.) Interpretation/Re sult: Negative for intraepithelial lesion or malignancy. [facility] LMP: NONE GIVEN [facility] Neisseria gonorrhoeae RNA, TMA, Urogenital NOT DETECTED NOT DETECTED [facility] Prev. BX: NONE GIVEN [facility] Prev. PAP: NONE GIVEN [facility] SOURCE: None given [facility] Statement Of Adequacy: SEE COMMENT [facility] Comment: Satisfactory for evaluation. Endocervical/transformation zone component absent. Age and/or menstrual status not provided Trichomonas vaginalis, QL, TMA, PAP Vial NOT DETECTED NOT DETECTED [facility] Comment: The analytical performance characteristics of this assay have been determined by [employer]. The modifications have not been cleared or approved by the FDA. This assay has been validated pursuant to the CLIA regulations and is used for clinical purposes. ?? For additional information, please refer to http://eLong.com.[employer]/ faq/Trichomonastma (This link is being provided for information/ educational purposes only.) ?? 04/12/2022 1:31 PM EDT Stefani Horton [facility] LAB PATHOLOGY ORDERABLES Final Result [facility] [address] * (ABNORMAL) LIPID PANEL, STANDARD (01/31/2022 10:32 AM EDT) Chol/HDLC Ratio 4.0 <5.0 (calc) [facility] Cholesterol, Total 108 <200 mg/dL [facility] HDL Cholesterol 27(L) > OR = 50 mg/dL [facility] LDL Cholesterol 57 mg/dL (calc) [facility] Comment: Reference range: <100 ?? Desirable range <100 mg/dL for primary prevention; ?? <70 mg/dL for patients with CHD or diabetic patients ?? with > or = 2 CHD risk factors. ?? LDL-C is now calculated using the Onofre-Maher ?? calculation, which is a validated novel method providing ?? better accuracy than the Friedewald equation in the ?? estimation of LDL-C. ?? Onofre SS et al. KIERSTEN. 2013;310(19): 9433-9068 ?? (http://eLong.com.[facility]/faq/VEC830) Non-HDL Cholesterol 81 <130 mg/dL (calc) [facility] Comment: For patients with diabetes plus 1 major ASCVD risk ?? factor, treating to a non-HDL-C goal of <100 mg/dL ?? (LDL-C of <70 mg/dL) is considered a therapeutic ?? option. Triglycerides 153(H) <150 mg/dL [facility] 01/31/2022 10:3 2 AM EDT [facility] LAB BLOOD ORDERABLES Final Re sult [facility] [address] * ALBUMIN, RANDOM URINE W/CREATININE (01/11/2022 4:27 PM EDT) Microalbumin Urine 0.6 See Note: mg/dL [facility] Comment: Reference Range: ?? Reference Range Not established Microalb/Creat Ratio 7 <30 mcg/mg creat [facility] Comment: ?? The ADA defines abnormalities in albumin excretion as follows: ?? Albuminuria Category ?Result (mcg/mg creatinine) ?? Normal to Mildly increased ?? <30 Moderately increased ? 30-299 ?? Severely increased ? > OR = 300 ?? The ADA recommends that at least two of three specimens collected within a 3-6 month period be abnormal before considering a patient to be within a diagnostic category. Creatinine, Urine 82 20 - 275 mg/dL [facility] Microalbumin Urine 0.6 See Note: mg/dL [facility] Comment: Reference Range: ?? Reference Range Not established Microalb/Creat Ratio 7 <30 mcg/mg creat [facility] Comment: ?? The ADA defines abnormalities in albumin excretion as follows: ?? Albuminuria Category ?Result (mcg/mg creatinine) ?? Normal to Mildly increased ?? <30 Moderately increased ? 30-299 ?? Severely increased ? > OR = 300 ?? The ADA recommends that at least two of three specimens collected within a 3-6 month period be abnormal before considering a patient to be within a diagnostic category. Creatinine, Urine 82 20 - 275 mg/dL [facility] Microalbumin Urine 0.6 See Note: mg/dL [facility] Comment: Reference Range: ?? Reference Range Not established Microalb/Creat Ratio 7 <30 mcg/mg creat [facility] Comment: ?? The ADA defines abnormalities in albumin excretion as follows: ?? Albuminuria Category ?Result (mcg/mg creatinine) ?? Normal to Mildly increased ?? <30 Moderately increased ? 30-299 ?? Severely increased ? > OR = 300 ?? The ADA recommends that at least two of three specimens collected within a 3-6 month period be abnormal before considering a patient to be within a diagnostic category. Creatinine, Urine 82 20 - 275 mg/dL [facility] 01/11/2022 4:27 PM EDT [facility] LAB URINE ORDERABLES Final Re sult [facility] [address] from Last 3 Months or Most Recently Relevant to Health Maintenance Insurance [facility] C3 HSN FULL Care Teams Proofer Relationship Specialty Start Date End Date Stephanie Layton FNP [address] [place] [phone] PCP - General Family Medicine 07/18/21
--- OUTSIDE RECORDS SUMMARY | 2025-01-17 12:39 | XMS_ITS | Encounter Summary ---
Author Organization [employer] Address [address] [facility] 7t [place] [address] Care Team Providers Care Overlocker Name Role Phone [place] [facility] Primary Care Provider [phone] Reason for Visit * Reason Onset Date Comments Nurse Triage 07/23/2024 Encounter Details Date Type Department Care Team ([facility] st Contact Info) Description 07/23/2024 Telephone [facility] [address] [place], [place] [phone] [facility], [facility] [address] [place], [place] [phone] Nurse Triage Social History Tobacco Use Types Packs/Day Years Used Date Smoking Tobacco: Every Day Cigarettes Smokeless Tobacco: Never Depression Answer Date Recorded Patient Health Questionnaire-9 Score 8 05/20/2023 Housing Stability Answer Date Recorded What is your housing situation today? I have lalitfranky arzate 08/11/[address] you [...] Don't know 08/19/2022 10 :37 AM EDT documented as of this encounter Miscellaneous Notes * Telephone Encounter - Yisel Dai - 07/23/2024 1:45 PM EDT Tc from pt returning call. * Telephone Encounter - Fadia Downs - 07/23/2024 11:18 AM EDT Patient calling to report foot sore. Patient speaks tajik . Advised triage nurse will call patient back. documented in this encounter Plan of Treatment Upcoming Encounters Date Type Department Care Team (Late st Contact Info) Description 01/17/2025 1:00 PM EDT Office Visit [facility] [address] [place] [address] documented as of this encounter Visit Diagnoses Not on filedocumented in this encounter Additional Health Concerns Assessment Noted Time PHQ-9 Depression Total Score: 8 05/20/20 23 9:34 AM EDT documented as of this encounter Care Teams Overlocker Relationship Specialty Start Date End Date Stephanie Layton FNP [address] [place] [address] PCP - General Family Medicine 07/18/21 documented as of this encounter
--- OUTSIDE RECORDS SUMMARY | 2025-01-17 12:39 | XMS_ITS | Encounter Summary ---
Author Organization [employer] Address 75 [facility] 7t [place] [address] Care Team Providers Care Asphalt Distributor Tender Name Role Phone [place] [facility] Primary Care Provider [phone] Reason for Visit * Reason Onset Date Comments PT-1 09/29/2024 Encounter Details Date Type Department Care Team ([facility] st Contact Info) Description 09/29/2024 Telephone [facility] [address] [place], [place] [phone] [facility], [facility] [address] [place], [place] [phone] PT-1 Social History Tobacco Use Types Packs/Day Years [...] encounter Miscellaneous Notes * Telephone Encounter - Chato Abdalla - 09/29/2024 3:39 PM EST Patient calling requesting PT1 Home Address verified: Y/N: Yes Provider name or facility name: Erasmo alicea [address] [place] [id number] Escort needed: Y/N: No Do you have a wheelchair: Y/N: No If yes- Manual or electric: Visits: (3 x Month) documented in this encounter Plan of Treatment Upcoming Encounters Date Type Department Care Team (Late st Contact Info) Description 01/17/2025 1:00 PM EDT Office Visit [facility] [address] [place] [address] documented as of this encounter Visit Diagnoses Not on filedocumented in this encounter Additional Health Concerns Assessment Noted Time PHQ-9 Depression Total Score: 8 05/20/20 23 9:34 AM EDT documented as of this encounter Care Teams Asphalt Distributor Tender Relationship Specialty Start Date End Date Stephanie Layton FNP [address] [place] [address] PCP - General Family Medicine 07/18/21 documented as of this encounter
--- OUTSIDE RECORDS SUMMARY | 2025-01-17 12:39 | XMS_ITS | Clinical Summary ---
Author Organization [address] [facility] Address [address] [place] [address] Phone Care Team Providers Care Dermatologist Managing Partner Name Role Phone [facility] Primary Care Provider [phone] Allergies Active Allergy Reactions Criticality Noted Date Comments Ciprofloxacin Hives 09/15/2024 Latex Hives 09/15/2024 Sulfamethoxazole Hives 09/15/2024 Trimethoprim Hives 09/15/2024 Medications No known medications Active Problems Problem Noted Date Diagnosed Date Pain, foot, chronic 09/15/2024 PTSD (post-traumatic stress disorder) 09/15/2024 Seizures 09/15/2024 Family history of anesthesia complication 2023 Obesity (BMI 30-39.9) 09/15/2024 Bipolar disorder current episode depressed 09/15 Neuropathy 09/15/2024 Hypercholesteremia 09/15/2024 Hypertension 09/15/2024 Ovarian cyst 09/15/2024 History of ectopic 09/15/2024 Vitamin B1 deficiency 09/15/2024 Vitamin D deficiency 09/15/2024 Vitamin B12 deficiency 09/15/2024 Insulin dependent type 2 diabetes mellitus 09/15 Anxiety 09/15/2024 Depression 09/15/2024 Bipolar 1 disorder 09/15/2024 Social History Tobacco Use Types Packs/Day Years Used Date Smoking Tobacco: Never Assessed Comments Unknown Sex and Gender Information Value Date Recorded Sex Assigned at Not on file Legal Sex Female 11:40 AM EDT Gender Identity Not on file Sexual Orientation Not on file Last Filed Vital Signs Vital Sign Reading Time Taken Comments Blood Pressure - - Pulse - - Temperature - - Respiratory Rate - - Oxygen Saturation - - Inhaled Oxygen Concentration - - Weight 102 kg (225 lb 6.4 oz) 09/22/2024 1:07 PM EST Height 171.5 cm (5' 7.5 ) 09/22/2024 1:07 PM EST Body Mass Index 34.78 09/22/2024 1:07 PM EST Plan of Treatment Health Maintenance Due Date Last Done Comments Diabetes: Annual GFR (Glomerular Filtration Rate) 1989 Diabetes: Annual Foot Exam 1999 Diabetes: Annual Retina Eye Exam 1999 DTaP,Tdap,and Td Vaccines (1 - Tdap) 2008 Hepatitis B Vaccines (1 of 3 - 19+ 3-dose series) 2008 Pneumococcal Vaccine: Pediatrics (0 to 5 Years) and At-Risk Patients (6 to 64 Years) (1 of 2 - PCV) 2008 Cervical Cancer Screening: P ap Smear 2010 COVID-19 Vaccine (2023-2 5 season) 2024 01/15/2023, 12/20/2022 Influenza Vaccine (#1) 2024 Depression Screening 08/03/2024 05/20/2023 Hepatitis C Screening 08/03/2024 Social Influencers of Health Screening 08/03/2024 Diabetes: Annual Urine Albumin-Creatinine Ratio (uACR) 09/15/2024 Diabetes: Blood Sugar Contro l Test (HGBA1C) 09/15/2024 05/20/2023 Hypertension/CHF/CAD Annual BMP Blood Test 09/15/2024 Cholesterol Screening (Lipid Panel) 01/31/2027 01/31/2022 HIV Screening Completed 04/12/2022 HIB Vaccines Aged Out No longer eligi [...] on patient's age to complete this topic MMR Vaccines Aged Out No longer eligi ble based on patient's age to complete this topic Meningococcal ACWY Vaccine Aged Out N o longer eligible based on patient's age to complete this topic Meningococcal B Vacine Aged Out No lo nger eligible based on patient's age to complete this topic RSV Immunization Patients Under 20 months Aged Out No longer eligible b ased on patient's age to complete this topic Varicella Vaccines Aged Out No longer eligible based on patient's age to complete this topic Insurance MEDICAID - [place] Care Teams Dermatologist Managing Partner Relationship Specialty Start Date End Date Mulga Megargel [address] [place] [phone] PCP - General 06/18/24
--- OUTSIDE RECORDS SUMMARY | 2025-01-17 12:39 | XMS_ITS | Encounter Summary ---
Author Organization [employer] Address [address] [facility] 7t [place] [address] Care Team Providers Care Cattyman Name Role Phone [place] [facility] Primary Care Provider [phone] Reason for Visit * Reason Onset Date Comments PT-1 09/29/2024 Encounter Details Date Type Department Care Team ([facility] st Contact Info) Description 09/29/2024 Telephone [facility] [address] [place], [place] [phone] [facility], [facility] 230 [place], [place] [phone] PT-1 Social History Tobacco Use Types Packs/Day [...] Telephone Encounter - Chato Abdalla - 09/29/2024 3:42 PM EST Patient calling requesting PT1 Home Address verified: Y/N: Yes Provider name or facility name: [address] [place] [address] Escort needed: Y/N: No Do you have a wheelchair: Y/N: No If yes- Manual or electric: Visits: (3 x Month) documented in this encounter Plan of Treatment Upcoming Encounters Date Type Department Care Team (Late st Contact Info) Description 01/17/2025 1:00 PM EDT Office Visit [facility] [address] [place] [address] documented as of this encounter Visit Diagnoses Not on filedocumented in this encounter Additional Health Concerns Assessment Noted Time PHQ-9 Depression Total Score: 8 05/20/20 23 9:34 AM EDT documented as of this encounter Care Teams Cattyman Relationship Specialty Start Date End Date Stephanie Layton FNP [address] [place] [phone] PCP - General Family Medicine 07/18/21 documented as of this encounter
[2025-01-17 13:04] LABS: Cholesterol 218 mg/dL (<200); HDL Cholesterol 35 mg/dL (>40); LDL Cholesterol Calculated 142 mg/dL (<100); Triglycerides 209 mg/dL (<150)
[2025-01-17 13:07] LABS: Estimated Average Glucose 160 mg/dL; Hemoglobin A1c % 7.2 % (<6.0)
== END 2025-01-17 11:04 | disposition home or self-care (01) ==
LOC: HO.HHCL 11:03
PROVIDERS: Visit Provider Registered Nurse
DX: E11.9 Type 2 diabetes mellitus without complications (principal)
CPT/HCPCS: 36415; 80061; 82043; 82570; 83036

== ENCOUNTER 2025-01-17 11:56 | Outpatient (REF) | payer MEDICAID, SELFPAY ==
[2025-01-17 13:39] LABS: Creatinine Urine 234.58 mg/dL; Microalbum/Creatinine Ratio Ur 5.1 ug/mg cr (<30)
--- OUTSIDE RECORDS SUMMARY | 2025-01-17 13:41 | XMS_ITS | Encounter Summary ---
Author Organization [employer] Address 75 [facility] 7t [place] [address] Care Team Providers Care Supervisor Lace Tearing Name Role Phone [place] [facility] Primary Care Provider [phone] Reason for Visit * Reason Onset Date Comments PT-1 09/29/2024 Encounter Details Date Type Department Care Team ([facility] st Contact Info) Description 09/29/2024 Telephone [facility] [address] [place], [place] [phone] [facility], [facility] [address] [place], [place] [phone] PT-1 Social History Tobacco Use Types Packs/Day [...] Y/N: Yes Provider name or facility name: [address] [place] [address] Escort needed: Y/N: No Do you have a wheelchair: Y/N: No If yes- Manual or electric: Visits: (3 x Month) documented in this encounter Plan of Treatment Not on file documented as of this encounter Visit Diagnoses Not on filedocumented in this encounter Additional Health Concerns Assessment Noted Time PHQ-9 Depression Total Score: 8 05/20/20 23 9:34 AM EDT documented as of this encounter Care Teams Supervisor Lace Tearing Relationship Specialty Start Date End Date Stephanie Layton FNP [address] [place] [id number] PCP - General Family Medicine 07/18/21 documented as of this encounter
--- OUTSIDE RECORDS SUMMARY | 2025-01-17 13:41 | XMS_ITS | Encounter Summary ---
Author Organization [employer] Address 75 [facility] 7t [place] [address] Care Team Providers Care Hand Cloth Folder Name Role Phone [place] [facility] Primary Care Provider [phone] Reason for Visit * Reason Onset Date Comments Nurse Triage 07/23/2024 Encounter Details Date Type Department Care Team ([facility] st Contact Info) Description 07/23/2024 Telephone [facility] [address] [place], [place] [phone] [facility], [facility] [address] [place], [place] [phone] Nurse Triage Social History Tobacco Use Types [...] calling to report foot sore. Patient speaks zambian . Advised triage nurse will call patient back. documented in this encounter Plan of Treatment Not on file documented as of this encounter Visit Diagnoses Not on filedocumented in this encounter Additional Health Concerns Assessment Noted Time PHQ-9 Depression Total Score: 8 05/20/20 23 9:34 AM EDT documented as of this encounter Care Teams Hand Cloth Folder Relationship Specialty Start Date End Date Stephanie Layton FNP [address] [place] [id number] PCP - General Family Medicine 07/18/21 documented as of this encounter
--- OUTSIDE RECORDS SUMMARY | 2025-01-17 13:41 | XMS_ITS | Clinical Summary ---
Author Organization [address] [facility] Address [address] [place] [address] Phone Care Team Providers Care Oil Field Pipeline Supervisor Name Role Phone [facility] Primary Care Provider [phone] Allergies Active Allergy Reactions Criticality Noted Date [...] topic Insurance MEDICAID - [place] Care Teams Oil Field Pipeline Supervisor Relationship Specialty Start Date End Date [place] Evans [address] [place] [phone] PCP - General 06/18/24
--- OUTSIDE RECORDS SUMMARY | 2025-01-17 13:41 | XMS_ITS | Clinical Summary ---
Author Organization [employer] Address [address] [facility] 7t [place] [address] Care Team Providers Care Shaker Operator Name Role Phone Stephanie Layton [facility] Primary Care Provider [phone] Allergies Active Allergy Reactions Criticality Noted Date [...] s:Uncontrolled type 2 diabetes mellitus with hyperglycemia ([facility]) Use as directed to check blood sugar [...] Overview (05/27/2023): Mammo: Routine Pap: Followed by COMPLETIONS ENGINEER at [facility] 03/2022 NIL HPV neg C-scope: ROutine Immunizations: [...] Type Department Care Team Description 01/04/2025 Refill [facility] [address] [place] [address] Vijaya Khan MD Right sciatic nerve pain 12/31/2024 Population Health Risk Score [facility] (C3) Department [address] [phone] Provider, Population Health Generic 11/12/2024 Telephone [facility] [address] [place] [address] Stephanie Layton FNP No Show 11/04/2024 Telephone [facility] [address] [place] [address] Mirela Avilez, RN Results 11/04/2024 Telephone [facility] [address] [place] [address] Stephanie Layton FNP 11/03/2024 3:15 PM EST Office Visit [facility] [address] [place] [address] Vijaya Khan MD Right sciatic nerve pain (Primary Dx) 11/03/2024 Patient Outreach [facility] [address] [place] [address] Stephanie Layton FNP Pre-visit Planning (SDOH unable to reach [facility]) 11/03/2024 Travel 11/02/2024 Telephone [facility] [address] [place] [address] [facility] Nurse Triage from Last 3 Months Immunizations [...] 11/03/2024 3:16 PM EST Plan of Treatment Health Maintenance [...] PCV) 2008 Diabetes: Urine Protein Screening 01/11/2023 01/17/2025, 01/11/2022, 04/03/2020 Diabetes: Hemoglobin A1C 11/20/2023 025, 05/20/2023, 03/29/2022, Additional history exists Depression Screening 05/20/2024 05/20/2023, 05/20/20 23 SDOH Screening 05/20/2024 05/20/2023 COVID-19 Vaccine ( season) 2024 01/15/2023, 12/20/2022 Influenza Vaccine (#1) 2024 Pap Smear 04/12/2025 04/12/2022 Tobacco Screening 11/03/2025 11/03/2024 Lipid Panel 01/17/2026 01/17/2025, 01/18, 01/11/2022, Additional history exists Cervical Cancer Screening 04/12/2027 HPV/Cotest 04/12/2027 04/12/2022 Zoster Vaccines (1 of 2) 2039 RSV Patients and Patients Aged 60 years or older (1 - 1-dose 75+ series) 2064 HIV Screening Completed 04/12/2022, 10/2019, 04/03/2020 Hepatitis C Screening Completed 04/12/2022 [...] Procedure Name Priority Date/Time Associated Diagnosis Comments ALBUMIN, RANDOM URINE W/CREATININE Routine 01/17/2025 11:58 AM EDT Type 2 diabetes mellitus without complication, without long-term current use of insulin (CMS/HCC) HEMOGLOBIN A1C Routine 01/17/2025 11:06 AM EDT Type 2 diabetes mellitus without complication, without long-term current use of insulin (CMS/HCC) LIPID PANEL, STANDARD Routine 01/17/2025 11:06 AM EDT Type 2 diabetes mellitus without complication, without long-term current use of insulin (CMS/HCC) XR LUMBAR SPINE 2-3 VIEWS Routine 11/03/2024 4:10 PM EST Right sciatic nerve pain [facility] HISTORICAL HEPATITIS C AB W/REFL TO HCV RNA, QN, PCR Routine 04/12/2022 2:51 PM EDT HIV 1/2 ANTIGEN/ANTIBODY, FOURTH GENERATION W/RFL Routine 04/12/2022 2:51 PM EDT THINPREP IMAGING PAP AND HPV MRNA E6/E7, WITH CT/NG, TRICHOMONAS Routine 04/12/2022 1:31 PM EDT from Last 3 Months or Most Recently Relevant to Health Maintenance Results * Albumin, Random Urine W/Creatinine (01/17/2025 11:58 AM EDT) Creatinine, Urine 234.58 mg/dL [facility] Microalbumin Urine 12.0 mg/L [facility] Microalbum Creatinine Ratio Ur 5.1 <30 ug/mg cr [facility] Comment:Albumin/Creatinine R atio Reference Ranges: Normal: < 30 ug/mg creatinine Microalbuminuria: 30 - 300 ug/mg creatinineClinical Albuminuria: > 300 ug/mg creatinine Urine 01/17/2025 11:5 8 AM EDT 01/17/2025 12:25 PM EDT [facility] URINE ORDERABLES Final Re sult Performing Organization Address [facility] de Phone Number [facility] [address] [place] [phone] * (ABNORMAL) Hemoglobin A1c (01/17/2025 11:06 AM EDT) Hemoglobin A1c 7.2(H) <6.0 % [facility] Comment:Hemoglobin A1C Refer ence Range Adults: 4.8 - 6.0 % Non diabetic: < 6.0 % Goal: < 7.0 %Additional Action Suggested: > 8.0 %Note: Hemoglobin A1c results are invalid for patients with abnormal amounts of HbF. Blood transfusions may impact the HbA1c concentration in the patient sample. Estimated Average Glucose 160 mg/dL [facility] Comment:eAG = Estimated ave rage glucose which is %A1C expressed asaverage glucose, using the formula of the [id number]-IxguqtuGfzqmok Glucose study (ADAG), Diabetes Care, Vol.31,#8,May. 2007 Blood Venous blood specimen / Unknown 01/17/2025 11:06 AM EDT 01/17/2025 12:30 PM EDT [facility] BLOOD ORDERABLES Final Re sult [facility] [address] [place] [address] [phone] * (ABNORMAL) Lipid Panel, Standard (01/17/2025 11:06 AM EDT) Triglycerides 209(H) <150 mg/dL [facility] Comment:Desirable Triglyceri de: less than 150 mg/dLBorderline High Triglyceride 150-199 mg/dLHigh Triglyceride: 200-499 mg/dLVery High Triglyceride: greater than or equal to 5OO mg/dL Cholesterol 218(H) <200 mg/dL [facility] Comment:Desirable Cholestero l: less than 200 mg/dLBorderline High Cholesterol: 200-239 mg/dLHigh Cholesterol: greater than 239 mg/dL LDL Cholesterol Calculated 142(H) <100 mg/dL [facility] Comment:Desirable LDL: less than 100 mg/dLNear Optimal/Above Optimal LDL: 110- 129 mg/dLBorderline High LDL: 130-159 mg/dLHigh LDL: 160-189 mg/dLVery High LDL: greater than or equal to 190 mg/dL HDL Cholesterol 35(L) >40 mg/dL [facility] Comment:Desirable HDL: great er than 40 mg/dL Note: This HDL assay may give artificially low results in patients with liver disease. Blood Venous blood specimen / Unknown 01/17/2025 11:06 AM EDT 01/17/2025 12:30 PM EDT [facility] PSYCHIATRIC NURSE PRACTITIONER LAB BLOOD ORDERABLES Final Re sult [facility] [address] [place] [address] [phone] * XR Lumbar Spine 2-3 Views (11/03/2024 4:10 PM EST) Anatomical Region Laterality Modality Spine, L-spine Radiographic Norma ging 11/03/2024 4:10 PM EST Narrative 11/04/2024 8:05 AM EST ?[facility] ?[address] ?[place] [address] ?XRay Report ? Signed ? Patient: Chao Santoni,Anamaris ?MR#: ?? [id number] ? : 1990 ?Acct:[id number] ? Age/Sex: 34 / F ?ADM Date: 11/03/24 ? Loc: HO.HHCX ? Attending Dr: Vijaya Zaragoza MD ? Ordering Physician: Vijaya Khan MD ?? Date of Service: 11/03/24 ?? Procedure(s): XR lumbar spine 2-3V ?? Accession Number(s): [id number] ? cc: Vijaya Khan MD ? EXAMINATION: [...] DD/ 1610 ? TD/TT: 11/03/24 1627 ? Clamshell Operator: ? Procedure Note Therese, Image - 11/04/2024 [facility] [address] [place] [address] XRay Report Signed Patient: James GarciaRishabh#: [id number] : 1990Acct:[id number] Age/Sex: 34 / FADM Date: 11/03/24 Loc: HO.HHCX Attending Dr: Vijaya Zaragoza MD Ordering Physician: Vijaya Khan MD Date of Service: 11/03/24 Procedure(s): XR lumbar spine 2-3V Accession Number(s): [id number] cc: Vijaya Khan MD EXAMINATION: XR LUMBOSACRAL [...] by: Atilio Boo MD 11/04/2024 08:03 AM EST Dictated By: Atilio Santillan MD Signed By: <Electronically signed by Atilio Nettles MDin OV> 11/04/24 0803 DD/ 1610 TD/TT: 11/03/24 1627 Clamshell Operator: us Vijaya Zaragoza MD IMG XR PROCEDURES Lenny leyla Result - Final * HEPATITIS C AB W/REFL TO HCV RNA, QN, PCR (04/12/2022 2:51 PM EDT) HEPATITIS C ANTIBODY NON-REACT NAYE NON-REACT [facility] INDEX 0.05 <1.00 [facility] Comment: ?? HCV antibody was non-reactive. There is no laboratory ?? evidence of HCV infection. ?? In most cases, no further action is required. However, if recent HCV exposure is suspected, a test for HCV RNA (test code 75402) is suggested. ?? For additional information please refer to http://education.Blue Source.Cinnafilm/faq/XOX89w7 (This link is being provided for informational/ educational purposes only.) ?? 04/12/2022 2:51 PM EDT us Stefani ARRIAGAP HISTORICAL/NON ORDERABLE LABS Final Result [facility] [address] [place] [address], * HIV 1/2 ANTIGEN/ANTIBODY,FOURTH GENERATION W/RFL (04/12/2022 2:51 PM EDT) HIV-1/2 ANTIGEN AND ANTIBODIES, 4TH GENERATION W/ REFLEX NON-REACT NAYE NON-REACT NAYE [facility] Comment: HIV-1 antigen and HIV-1/HIV-2 [...] ? For additional information please refer to http://Eagle [employer] Networks.Pulpo Media/faq/DKL959 (This link is being provided for informational/ educational purposes only.) ? The performance of this assay has not been clinically validated in patients less than 2 years old. ?? 04/12/2022 2:51 PM EDT Stefani Horton [facility] BLOOD ORDERABLES Final Res ult Performing Organization Address [facility] Co de Phone Number [facility] [address] [place] [address], * THINPREP TIS PAP AND HPV mRNA E6/E7, CT/NG, TRICH (04/12/2022 1:31 PM EDT) Chlamydia trachomatis RNA, TMA, Urogenital NOT DETECTED NOT DETECTED [facility] Clinical Information: None given [facility] COMMENT SEE COMMENT [facility] Comment: The analytical performance characteristics of this assay, when used to test SurePath(TM) specimens have been determined by [facility]. The modifications have not been cleared or approved by the FDA. This assay has been validated pursuant to the CLIA regulations and is used for clinical purposes. ?? For additional information, please refer to https://education.Pulpo Media/faq/BRP546 (This link is being provided for information/ [...] has been evaluated with computer assisted technology. [facility] Final Inspection Supervisor: SEE COMMENT [facility] Comment: MSM, CT(ASCP) CT screening location: [address] ??[phone] HPV nRNA E6/E7 Not Detected Not Detected [facility] Comment: Methodology: Parts Analyst-Mediated Amplification This assay detects E6/E7 viral messenger RNA (mRNA) from 14 high-risk HPV types (16,18,31,33,35,39,45,51,52,56,58,59,66,68). ? Cervical sources are required for HPV testing. If a vaginal source from a patient who has had a total hysterectomy with removal of cervix was ?? submitted, please contact the testing laboratory for alternative testing options. ?? For additional information, please refer to http://education.Pulpo Media/faq/TPJ362j2 (This link if provided for information/ educational purposes only.) Interpretation/Re sult: Negative for intraepithelial lesion or malignancy. [facility] LMP: NONE GIVEN [facility] Neisseria gonorrhoeae RNA, TMA, Urogenital NOT DETECTED NOT DETECTED [facility] Prev. BX: NONE GIVEN [facility] Prev. PAP: NONE GIVEN [facility] SOURCE: None given [facility] Statement Of Adequacy: SEE COMMENT [facility] Comment: Satisfactory for evaluation. Endocervical/transformation zone component absent. Age and/or menstrual status not provided Trichomonas vaginalis, QL, TMA, PAP Vial NOT DETECTED NOT DETECTED [facility] Comment: The analytical performance characteristics of this assay have been determined by [facility]. The modifications have not been cleared or approved by the FDA. This assay has been validated pursuant to the CLIA regulations and is used for clinical purposes. ?? For additional information, please refer to http://education.Blue Source.Cinnafilm/ faq/Trichomonastma (This link is being provided for information/ educational purposes only.) ?? 04/12/2022 1:31 PM EDT us Stefani Horton PSYCHIATRIC NURSE PRACTITIONER LAB PATHOLOGY ORDERABLES Final Result [facility] [address] from Last 3 Months or Most Recently Relevant to Health Maintenance [place] [address] [place] [address] [facility] FULL Care Teams Shaker Operator Relationship Specialty Start Date End Date Stephanie Layton FNP [address] [place] [phone] PCP - General Family Medicine 07/18/21
--- OUTSIDE RECORDS SUMMARY | 2025-01-17 13:41 | XMS_ITS | Encounter Summary ---
Author Organization [employer] Address [address] [facility] 7t [place] [address] Care Team Providers Care Actuarial Assistant Name Role Phone [place] [facility] Primary Care Provider [phone] Reason for Visit * Reason Onset Date Comments PT-1 09/29/2024 Encounter Details Date Type Department Care Team ([facility] st Contact Info) Description 09/29/2024 Telephone [facility] [address] [place], [place] [phone] [facility], [facility] [address] [place], [place] [phone] PT-1 Social History Tobacco Use Types Packs/Day [...] Yes Provider name or facility name: Erasmo alicea, [address] [place] [phone] Escort needed: Y/N: No Do you have [...] documented as of this encounter Care Teams Actuarial Assistant Relationship Specialty Start Date End Date Stephanie Layton FNP [address] [place] [phone] PCP - General Family Medicine 07/18/21 documented as of this encounter
== END 2025-01-17 11:57 | disposition home or self-care (01) ==
LOC: HO.HHCL 11:56
PROVIDERS: Visit Provider Registered Nurse
DX: E11.9 Type 2 diabetes mellitus without complications (principal)
CPT/HCPCS: 82043; 82570

== ENCOUNTER 2025-02-25 14:30 | Outpatient (AMB) | payer MEDICAID, SELFPAY ==
[2025-02-25 13:03] VITALS: BMI 33.9
--- NOTE | 2025-02-25 13:03 | MHC.OFFVISWM ---
VS Expanded 02/25/25 13:03 Height 5 ft 7 in Weight 216 lb 4 oz BMI 33.9 Body Fat % 42.2 Fat Free Mass 125 Visceral Fat Rating 16 Body Water % 39.6 Muscle Mass/Score 117.6 Basal Metabolic Rate/Score 1,595 Intake Visit Reasons: (TV) PO LSG 06/25/22 Laundry Superintendent Required: No Allergies ciprofloxacin [From Cipro] Allergy (Intermediate, Verified 07/06/24 05:21) Hives latex Allergy (Intermediate, Verified 04/30/24 08:20) Hives sulfamethoxazole [From Septra] Allergy (Intermediate, Verified 04/30/24 08:20) Hives trimethoprim [From Septra] Allergy (Intermediate, Verified 04/30/24 08:20) Hives Medication List - Last Reconciled 02/25/25 by HANK Diaz albuterol sulfate 90 mcg/actuation 2 puffs inhalation Q6H PRN albuterol sulfate 0.63 mg (3 mL) inhalation Q6-8H PRN budesonide-formoterol 80-4.5 mcg/actuation (Symbicort) 2 puffs inhalation DAILY PRN bupropion HCl SR 150 mg PO BID cefuroxime axetil 250 mg PO BID 7 days fluoxetine (Prozac) 20 mg PO DAILY hydroxyzine HCl 25 mg PO BID PRN lorazepam 1 mg PO BID PRN ondansetron 4 mg PO Q6H PRN pantoprazole 40 mg PO QAM perphenazine 8 mg PO BEDTIME trazodone 50 mg PO BEDTIME MRX1 PRN zolpidem 10 mg PO BEDTIME HPI Comments Details: This?a?34?yo female who is s/p LSG without hiatal hernia repair on?06/25/22. Presents for 2 year 8 month post op visit. Weight today is 216.4 pounds, with a BMI of 33.9.? There has been a 50.6 pound weight loss,(initial weight 267 pounds) since starting the program on 02/15/22 reflecting a 18.9% total body weight loss and a weight loss of 28.6 pounds since surgery (operative weight 245 pounds) reflecting a 11.6% TBWL since surgery. She has not been communicating regularly since May She states she not been following the meal plan. She has not been following the plan for the last three months and did not communicate this. Meal plan: Equate powder 1 scoop in 8 oz of unsweetened almond milk, x 2, 1 meal with 6 forks of protein and 6 forks of vegetables 64 oz water Exercise plan: walking outside 3 mi 3 x week [facility] Medical History PTSD (post-traumatic stress disorder) BMI 37.0-37.9, adult Family history of anesthesia complication COVID-19 vaccination declined Seizures BMI 38.0-38.9,adult Obesity (BMI 30-39.9) Bipolar disorder current episode depressed Neuropathy Bipolar 1 disorder Depression Anxiety Insulin dependent type 1 diabetes mellitus Vitamin B12 deficiency Vitamin D deficiency Vitamin B1 deficiency History of ectopic Ovarian cyst Hypertension Hypercholesteremia Asthma Surgical History Hx of tonsillectomy History of oophorectomy, unilateral H/O unilateral salpingectomy History of laparoscopic cholecystectomy History of ovarian cystectomy Family History Mother Hypertension Father Diabetes Hypertension Heart problem Depression Brother No problems noted. Sister Hypertension High cholesterol Mental health disorder Sister Hypertension Bipolar 1 disorder Mental health disorder Social History Household Members: Significant Other Housing: Unknown / Unable to assess Are you a primary complex care nurse to a significant other at home: No Do you presently have visiting nurse or other home services: No Unable to assess alcohol history related to: Unknown Alcohol intake: never Patient Tobacco Use Status: Former Tobacco user Tobacco use type: Cigarette e-Cigarette/Vaping Use: Never Used Substance Use Type: Marijuana service: No Current occupational status: employed Sexual orientation: Straight/Heterosexual Gender identity: Female Telehealth Telehealth Telehealth Platform: Telephone Location of provider rendering services: practice address Location of patient: address on file Patient Identification confirmed using: Name, : Yes Telehealth method: voice only Patient verbally consented to treatment: Yes Patient verbally consented to billing insurance company: Yes Patient informed of any privacy concerns related to visit: Yes Minutes spent on Phone/Video with Pt.: 15 Assessment & Plan Assessment & Plan (1) S/P laparoscopic sleeve gastrectomy: Code(s): Z98.84 - Bariatric surgery status Category: Surgical Plan: Patient was given information regarding right BMI. She will create a meal plan. Discussed the importance of increasing exercise. Discussed the importance of communicating as she had not been doing this over the last several months. We will arrange for follow-up in 4 weeks
--- OUTSIDE RECORDS SUMMARY | 2025-02-25 14:46 | XMS_ITS | Encounter Summary ---
Author Organization [employer] Address [address] [facility] 7t [place] [address] Care Team Providers Care Automobile Club Membership Sales Agent Name Role Phone [place] [facility] Primary Care Provider [phone] Reason for Visit * Reason Onset Date Comments PT-1 09/29/2024 Encounter Details Date Type Department Care Team ([facility] st Contact Info) Description 09/29/2024 Telephone [facility] [address] [place], [place] [phone] [facility], [facility] [address] [place] [address] PT-1 Social History Tobacco Use Types Packs/Day [...] Provider name or facility name: Erasmo alicea, [address] [address] Escort needed: Y/N: No Do you have a wheelchair: Y/N: No If yes- Manual or electric: Visits: (3 x Month) documented in this encounter Plan of Treatment Upcoming Encounters Date Type Department Care Team (Late st Contact Info) Description 04/20/2025 9:00 AM EDT Office Visit [facility] [address] [place] [address] Stephanie Layton FNP [address] [place] [address] documented as of this encounter Visit Diagnoses Not on filedocumented in this encounter Additional Health Concerns Assessment Noted Time PHQ-9 Depression Total Score: 8 05/20/20 23 9:34 AM EDT documented as of this encounter Care Teams Automobile Club Membership Sales Agent Relationship Specialty Start Date End Date Stephanie Layton FNP [address] [place] [address] PCP - General Family Medicine 07/18/21 documented as of this encounter
--- OUTSIDE RECORDS SUMMARY | 2025-02-25 14:46 | XMS_ITS | Encounter Summary ---
Author Organization [employer] Address 75 [facility] 7t [place] [address] Care Team Providers Care Blackjack Dealer Name Role Phone [place] [facility] Primary Care Provider [phone] Reason for Visit * Reason Onset Date Comments PT-1 09/29/2024 Encounter Details Date Type Department Care Team ([facility] st Contact Info) Description 09/29/2024 Telephone [facility] [address] [place], [place] [phone] [facility], [facility] [address] [place] [address] PT-1 Social History Tobacco Use Types Packs/Day [...] Y/N: Yes Provider name or facility name: [address] [place] [address] Escort needed: Y/N: No Do you have a wheelchair: Y/N: No If yes- Manual or electric: Visits: (3 x Month) documented in this encounter Plan of Treatment Upcoming Encounters Date Type Department Care Team (Late st Contact Info) Description 04/20/2025 9:00 AM EDT Office Visit [facility] [address] [place] [address] Stephanie Layton FNP [address] [place] [address] documented as of this encounter Visit Diagnoses Not on filedocumented in this encounter Additional Health Concerns Assessment Noted Time PHQ-9 Depression Total Score: 8 05/20/20 23 9:34 AM EDT documented as of this encounter Care Teams Blackjack Dealer Relationship Specialty Start Date End Date Stephanie Layton FNP [address] [place] [address] PCP - General Family Medicine 07/18/21 documented as of this encounter
--- OUTSIDE RECORDS SUMMARY | 2025-02-25 14:46 | XMS_ITS | Clinical Summary ---
Author Organization [employer] Address [address] [facility] [address] [place] [address] Care Team Providers Care Extracting Machine Operator Name Role Phone Stephanie Layton [facility] Primary Care Provider [phone] Allergies Active Allergy Reactions Criticality Noted Date [...] TABLETS BY MOUTH EVERY DAY 360 tablet 024 Active omeprazole (PriLOSEC) [address] capsuleIndicatio ns:Dyspepsia TAKE 1 CAPSULE BY MOUTH TWICE DAILY 180 capsule 1 024 Active Blood Glucose Monitoring Suppl (GNP Easy Touch Glucose Meter) deviceIndication s:Uncontrolled type 2 diabetes mellitus with hyperglycemia ([facility]) Use as directed to check [...] PER 24 HOURS. 16 tablet 1 Active cyclobenzaprine (Flexeril) 10 MG tabletIndication s:Right sciatic nerve pain TAKE 1 TABLET BY MOUTH THREE TIMES DAILY FOR 10 DAYS 30 tablet 025 Active Dulaglutide (Trulicity) 0.75 MG/0.5ML solution auto-injector Inject 0.75 mg under the skin 1 (one) time per week. 2 mL 025 Active Acetaminophen Extra Strength 500 MG tabletIndication s:Right sciatic nerve pain TAKE 2 TABLETS BY MOUTH EVERY 8 HOURS NEEDED FOR MILD PAIN 40 tablet 025 Active Acetaminophen Extra Strength 500 MG tabletIndication s:Right sciatic nerve pain TAKE 2 TABLETS BY MOUTH EVERY 8 HOURS NEEDED FOR MILD PAIN 40 tablet 025 2024 Discontinued Active Problems [...] Overview (05/27/2023): Mammo: Routine Pap: Followed by [facility] [place] [facility] [place] NIL HPV neg C-scope: ROutine Immunizations: [...] Encounters Date Type Department Care Team Description 02/10/2025 Refill [facility] [address] [place] [address] TylerStephanie MINK FARMER Right sciatic nerve pain 02/04/2025 Telephone [facility] [address] [place] [address] TylerStephanie MINK FARMER Appointment Confirmation 01/19/2025 Telephone [facility] [address] [place] [address] TylerStephanie MINK FARMER Results 01/04/2025 Refill [facility] [address] [place] [address] Vijaya Khan MD Right sciatic nerve pain 12/31/2024 Population Health Risk Score [facility] ([facility]) Department [address] [place] [id number] Provider, Population Health Generic from Last 3 Months Immunizations Name Administration Dates Next Due Pfizer Covid-19 Vaccine 12+ 12/20/2022 Pfizer Covid-19 Vaccine 12+ edilberto-sucrose (Gutierrez C ap) 01/15/2023 Family History Medical History Relation Name [...] Description 04/20/2025 9:00 AM EDT Office Visit [facility] [address] [place] [address] Tyler, [place], [facility] [address] [place] [address] Health Maintenance Due Date Last Done Comments Diabetes: Foot Exam 1999 Eye Exam 1999 Alcohol/Substance Use Screening 2001 Family Planning (PISQ) 2004 DTaP/Tdap/Td Vaccines (1 - Tdap) 2008 Hepatitis B Vaccines (1 of 3 - 19+ 3-dose series) 2008 Pneumococcal Vaccine: Pediatrics (0 to 5 Years) and At-Risk Patients (6 to 49) Years) (1 of 2 - PCV) 2008 Depression Screening 05/20/2024 05/20/2023, 05/20/20 23 SDOH Screening 05/20/2024 05/20/2023 COVID-19 Vaccine ( - season) 2024 01/15/2023, 12/20/2022 Influenza Vaccine (#1) 2024 Pap Smear 04/12/2025 04/12/2022 Diabetes: Hemoglobin A1C 04/18/2025 025, 05/20/2023, 03/29/2022, Additional history exists Tobacco Screening 11/03/2025 11/03/2024 Diabetes: Urine Protein Screening 01/17/2026 01/17/2025, 01/11/2022, 04/03/2020 Lipid Panel 01/17/2026 01/17/2025, 01/18, 01/11/2022, Additional history exists Cervical Cancer Screening 04/12/2027 HPV/Cotest 04/12/2027 04/12/2022 Zoster Vaccines (1 of 2) 2039 RSV Patients and Patients Aged 60 years or older (1 - 1-dose 75+ series) 2064 HIV Screening Completed 04/12/2022, 090 10/2019, 04/03/2020 Hepatitis C Screening Completed 04/12/2022 [...] without long-term current use of insulin (CMS/HCC) ZZZ HISTORICAL HEPATITIS C AB W/REFL TO [...] 11:58 AM EDT) Creatinine, Urine 234.58 mg/dL [facility] Microalbumin Urine 12.0 mg/L [facility] Microalbum Creatinine Ratio Ur 5.1 <30 ug/mg cr [facility] Comment:Albumin/Creatinine R atio Reference Ranges: Normal: < 30 ug/mg creatinine Microalbuminuria: 30 - 300 ug/mg creatinineClinical Albuminuria: > 300 ug/mg creatinine Urine 01/17/2025 11:5 8 AM EDT 01/17/2025 12:25 PM EDT [facility] URINE ORDERABLES Final Re sult Performing Organization Address [facility]/ZIP Co de Phone Number [facility] [address] [place] [phone] * (ABNORMAL) Hemoglobin A1c (01/17/2025 11:06 AM EDT) Hemoglobin A1c 7.2(H) <6.0 % [facility] Comment:Hemoglobin A1C Refer ence Range Adults: 4.8 - 6.0 % Non diabetic: < 6.0 % Goal: < 7.0 %Additional Action Suggested: > 8.0 %Note: Hemoglobin A1c results are invalid for patients with abnormal amounts of HbF. Blood transfusions may impact the HbA1c concentration in the patient sample. Estimated Average Glucose 160 mg/dL [facility] Comment:eAG = Estimated ave rage glucose which is %A1C expressed asaverage glucose, using the formula of the C4X-[id number] Glucose study (ADAG), Diabetes Care, Vol.31,#8,May. 2007 Blood Venous blood specimen / Unknown 01/17/2025 11:06 AM EDT 01/17/2025 12:30 PM EDT [facility] BLOOD ORDERABLES Final Re sult Performing Organization Address City/[facility]/ZIP Co de Phone Number [facility] [address] [place] [address] [phone] * (ABNORMAL) Lipid Panel, Standard (01/17/2025 11:06 AM EDT) Triglycerides 209(H) <150 mg/dL [facility] Comment:Desirable Triglyceri de: less than 150 mg/dLBorderline High Triglyceride 150-199 mg/dLHigh Triglyceride: 200-499 mg/dLVery High Triglyceride: greater than or equal to 5OO mg/dL Cholesterol 218(H) <200 mg/dL [facility] Comment:Desirable Cholestero l: less than 200 mg/dLBorderline High Cholesterol: 200-239 mg/dLHigh Cholesterol: greater than 239 mg/dL LDL Cholesterol Calculated 142(H) <100 mg/dL [facility] Comment:Desirable LDL: less than 100 mg/dLNear Optimal/Above Optimal LDL: 110- 129 mg/dLBorderline High LDL: 130-159 mg/dLHigh LDL: 160-189 mg/dLVery High LDL: greater than or equal to 190 mg/dL HDL Cholesterol 35(L) >40 mg/dL [facility] Comment:Desirable HDL: great er than 40 mg/dL Note: This HDL assay may give artificially low results in patients with liver disease. Blood Venous blood specimen / Unknown 01/17/2025 11:06 AM EDT 01/17/2025 12:30 PM EDT [facility] BLOOD ORDERABLES Final Re sult [facility] [address] [place] [address] [phone] * HEPATITIS C AB W/REFL TO HCV RNA, QN, PCR (04/12/2022 2:51 PM EDT) HEPATITIS C ANTIBODY NON-REACT NAYE NON-REACT NAYE [facility] INDEX 0.05 <1.00 [facility] Comment: ?? HCV antibody was non-reactive. There is no laboratory ?? evidence of HCV infection. ?? In most cases, no further action is required. However, if recent HCV exposure is suspected, a test for HCV RNA (test code 27769) is suggested. ?? For additional information please refer to http://education.Zenprise/faq/BEE60h9 (This link is being provided for informational/ educational purposes only.) ?? 04/12/2022 2:51 PM EDT [facility] HISTORICAL/NON ORDERABLE LABS Final Result Performing Organization Address [facility] Co de Phone Number [facility] [address] [place] [address], * HIV 1/2 ANTIGEN/ANTIBODY,FOURTH GENERATION W/RFL (04/12/2022 2:51 PM EDT) HIV-1/2 ANTIGEN AND ANTIBODIES, 4TH GENERATION W/ REFLEX NON-REACT NAYE NON-REACT NAYE [facility] Comment: HIV-1 antigen and HIV-1/HIV-2 [...] ? For additional information please refer to http://education.Zenprise/faq/AUU128 (This link is being provided for informational/ educational purposes only.) ? The performance of this assay has not been clinically validated in patients less than 2 years old. ?? 04/12/2022 2:51 PM EDT [facility] LAB BLOOD ORDERABLES Final Res ult Performing Organization Address [facility] Co de Phone Number [facility] [address] [place] [address], * THINPREP TIS PAP AND HPV mRNA E6/E7, CT/NG, TRICH (04/12/2022 1:31 PM EDT) Chlamydia trachomatis RNA, TMA, Urogenital NOT DETECTED NOT DETECTED [facility] Clinical Information: None given [facility] COMMENT SEE COMMENT [facility] Comment: The analytical performance characteristics of this assay, when used to test SurePath(TM) specimens have been determined by [facility]. The modifications have not been cleared or approved by the FDA. This assay has been validated pursuant to the CLIA regulations and is used for clinical purposes. ?? For additional information, please refer to https://education.Zenprise/faq/JHA190 (This link is being provided for information/ [...] has been evaluated with computer assisted technology. [facility] Paint Dipper: SEE COMMENT [facility] Comment: MSM, CT(ASCP) CT screening location: [address] ??[phone] HPV nRNA E6/E7 Not Detected Not Detected [facility] Comment: Methodology: C Web Developer-Mediated Amplification This assay detects E6/E7 viral messenger RNA (mRNA) from 14 high-risk HPV types (16,18,31,33,35,39,45,51,52,56,58,59,66,68). ? Cervical sources are required for HPV testing. If a vaginal source from a patient who has had a total hysterectomy with removal of cervix was ?? submitted, please contact the testing laboratory for alternative testing options. ?? For additional information, please refer to http://[employer].Zenprise/faq/YJC895o8 (This link if provided for information/ educational purposes only.) Interpretation/Re sult: Negative for intraepithelial lesion or malignancy. [facility] LMP: NONE GIVEN [facility] Neisseria gonorrhoeae RNA, TMA, Urogenital NOT DETECTED NOT DETECTED [facility] Prev. BX: NONE [facility]IVEN [facility] Prev. PAP: NONE [facility]IVEN [facility] SOURCE: None given [facility] Statement Of Adequacy: SEE COMMENT [facility] Comment: Satisfactory for evaluation. Endocervical/transformation zone component absent. Age and/or menstrual status not provided Trichomonas vaginalis, QL, TMA, PAP Vial NOT DETECTED NOT DETECTED [facility] Comment: The analytical performance characteristics of this assay have been determined by [facility]. The modifications have not been cleared or approved by the FDA. This assay has been validated pursuant to the CLIA regulations and is used for clinical purposes. ?? For additional information, please refer to http://education.[employer]Outside.in/ faq/Trichomonastma (This link is being provided for information/ educational purposes only.) ?? 04/12/2022 1:31 PM EDT Stefani Horton [facility] PATHOLOGY ORDERABLES Final Result [facility] [address] from Last 3 Months or Most Recently Relevant to Health Maintenance Insurance C3 HSN FULL Care Teams Extracting Machine Operator Relationship Specialty Start Date End Date Stephanie Layton FNP [address] [place] [phone] PCP - General Family Medicine 07/18/21
--- OUTSIDE RECORDS SUMMARY | 2025-02-25 14:46 | XMS_ITS | Clinical Summary ---
Author Organization [address] [facility] Address [address] [place] [address] Phone Care Team Providers Care Garment Parts Cutter Hand Name Role Phone [facility] Primary Care Provider [phone] Allergies Active Allergy Reactions Criticality Noted Date Comments Ciprofloxacin Hives 09/15/2024 Latex Hives 09/15/2024 Sulfamethoxazole Hives 09/15/2024 Trimethoprim Hives 09/15/2024 Medications No known medications Active Problems Problem Noted Date Diagnosed Date Pain, foot, chronic 09/15/2024 PTSD (post-traumatic stress disorder) 09/15/2024 Seizures ([facility] V24, [facility] V28) 09/15/2024 Family history of anesthesia complication 2023 Obesity (BMI 30-39.9) 09/15/2024 Bipolar disorder current epi sode depressed ([facility] V24, [facility] V28) 09/15/2024 Neuropathy 09/15/2024 Hypercholesteremia 09/15/2024 Hypertension 09/15/2024 Ovarian cyst 09/15/2024 History of ectopic 09/15/2024 Vitamin B1 deficiency 09/15/2024 Vitamin D deficiency 09/15/2024 Vitamin B12 deficiency 09/15/2024 Insulin dependent type 2 sherry betes mellitus ([facility] V24, [facility] V28) 09/15/2024 Anxiety 09/15/2024 Depression 09/15/2024 Bipolar 1 disorder ([facility] V24, [facility] V28) Social History Tobacco Use Types Packs/Day Years [...] Vaccine (2023-2 5 season) 2024 01/15/2023, 12/20/2022 Depression Screening 08/03/2024 05/20/2023 Hepatitis C Screening 08/03/2024 Social Influencers of Health Screening 08/03/2024 Diabetes: Annual Urine Albumin-Creatinine Ratio (uACR) 09/15/2024 Diabetes: Blood Sugar Contro l Test (HGBA1C) 09/15/2024 05/20/2023 Hypertension/CHF/CAD Annual BMP Blood Test 09/15/2024 Influenza Vaccine (Season Ended) 2025 Cholesterol Screening (Lipid Panel) 01/31/2027 01/31/2022 HIV [...] age to complete this topic Meningococcal B Vaccine Aged Out No l onger eligible based on patient's age to complete this topic RSV Immunization Patients Under 20 months Aged Out No longer eligible b ased on patient's age to complete this topic Varicella Vaccines Aged Out No longer eligible based on patient's age to complete this topic Insurance MEDICAID - [place] Care Teams Garment Parts Cutter Hand Relationship Specialty Start Date End Date [facility] [address] [place] [phone] PCP - General 06/18/24
--- OUTSIDE RECORDS SUMMARY | 2025-02-25 14:46 | XMS_ITS | Encounter Summary ---
Author Organization [employer] Address [address] [facility] [address] [place] [address] Care Team Providers Care Sports Development Officer Name Role Phone [facility] Primary Care Provider [phone] Reason for Visit * Reason Onset Date Comments Nurse Triage 07/23/2024 Encounter Details Date Type Department Care Team ([facility] st Contact Info) Description 07/23/2024 Telephone [facility] [address] [place], [place] [phone] [facility] [address] [place] [address] Nurse Triage Social History Tobacco Use Types Packs/Day Years Used Date Smoking Tobacco: Every Day Cigarettes Smokeless Tobacco: Never Depression Answer Date Recorded Patient Health Questionnaire-9 Score 8 05/20/2023 Housing Stability Answer Date Recorded What is your housing situation today? I have lalitfranky azrate 08/11/[address] you li [...] calling to report foot sore. Patient speaks upper sorbian . Advised triage nurse will call patient back. documented in this encounter Plan of Treatment Upcoming Encounters Date Type Department Care Team (Late st Contact Info) Description 04/20/2025 9:00 AM EDT Office Visit [facility] [address] [place] [address] Stephanie Layton FNP [address] [place] [address] documented as of this encounter Visit Diagnoses Not on filedocumented in this encounter Additional Health Concerns Assessment Noted Time PHQ-9 Depression Total Score: 8 05/20/20 23 9:34 AM EDT documented as of this encounter Care Teams Sports Development Officer Relationship Specialty Start Date End Date Stephanie Layton FNP [address] [place] [address] PCP - General Family Medicine 07/18/21 documented as of this encounter
== END 2025-02-25 15:03 | disposition home or self-care (01) ==
LOC: HO.HBS 14:42
PROVIDERS: PCP Registered Nurse; Visit Provider Physician Assistant Surgical
DX: Z98.84 Bariatric surgery status (principal)
CPT/HCPCS: 99213

== ENCOUNTER 2025-03-31 14:00 | Outpatient (AMB) | payer MEDICAID, SELFPAY ==
--- NOTE | 2025-03-31 13:08 | A.OFFVIS_ITS ---
VS Expanded 03/31/25 13:11 Height 5 ft 7 in Weight 213 lb 8 oz BMI 33.4 Body Fat % 41.6 Fat Free Mass 125 Visceral Fat Rating 15 Body Water % 40.1 Muscle Mass/Score 117.2 Basal Metabolic Rate/Score 1,593 Intake Visit Reasons: (TV) PO LSG 06/25/22 Allergies ciprofloxacin [From Cipro] Allergy (Intermediate, Verified 07/06/24 05:21) Hives latex Allergy (Intermediate, Verified 04/30/24 08:20) Hives sulfamethoxazole [From Septra] Allergy (Intermediate, Verified 04/30/24 08:20) Hives trimethoprim [From Septra] Allergy (Intermediate, Verified 04/30/24 08:20) Hives HPI Comments Details: This?a?34?yo female who is s/p LSG without hiatal hernia repair on?06/25/22. Presents for 2 year 9 month post op visit. Weight today is 213.8 pounds, with a BMI of 33.6.? There has been a 53.2 pound weight loss,(initial weight 267 pounds) since starting the program on 02/15/22 reflecting a 19.9% total body weight loss and a weight loss of 31.2 pounds since surgery (operative weight 245 pounds) reflecting a 12.7% TBWL since surgery. She has not been communicating regularly since May She states she not been following the meal plan. She has not been following the plan for the last three months and did not communicate this. She has not been doing the full 3 protein shakes. She is on a new medication Trulicity with vomiting daily. She was given this by [facility], she has not called her CAMERA MECHANIC, She states she has been on this med before and had the same reaction. She has not been able to exercise and has had fatigue. She is having URI symptoms for the last 7-10 days. She is able to keep down fluids with the use of odansetron. Pt stated I had permission to call her PCP [employer] MECH[employer] [facility] Meal plan: Equate powder 1 scoop in 8 oz of unsweetened almond milk, x 2, 1 meal with 6 forks of protein and 6 forks of vegetables 64 oz water Exercise plan: walking outside 3 mi 3 x week [facility] Medical History PTSD (post-traumatic stress disorder) BMI 37.0-37.9, adult Family history of anesthesia complication COVID-19 vaccination declined Seizures BMI 38.0-38.9,adult Obesity (BMI 30-39.9) Bipolar disorder current episode depressed Neuropathy Bipolar 1 disorder Depression Anxiety Insulin dependent type 1 diabetes mellitus Vitamin B12 deficiency Vitamin D deficiency Vitamin B1 deficiency History of ectopic Ovarian cyst Hypertension Hypercholesteremia Asthma Surgical History Hx of tonsillectomy History of oophorectomy, unilateral H/O unilateral salpingectomy History of laparoscopic cholecystectomy History of ovarian cystectomy Family History Mother Hypertension Father Diabetes Hypertension Heart problem Depression Brother No problems noted. Sister Hypertension High cholesterol Mental health disorder Sister Hypertension Bipolar 1 disorder Mental health disorder Social History Household Members: Significant Other Housing: Unknown / Unable to assess Are you a primary lpn care manager to a significant other at home: No Do you presently have visiting nurse or other home services: No Unable to assess alcohol history related to: Unknown Alcohol intake: never Patient Tobacco Use Status: Former Tobacco user Tobacco use type: Cigarette e-Cigarette/Vaping Use: Never Used Substance Use Type: Marijuana service: No Current occupational status: employed Sexual orientation: Straight/Heterosexual Gender identity: Female Telehealth Telehealth Telehealth Platform: Telephone Location of provider rendering services: practice address Location of patient: address on file Patient Identification confirmed using: Name, : Yes Telehealth method: voice only Patient verbally consented to treatment: Yes Patient verbally consented to billing insurance company: Yes Patient informed of any privacy concerns related to visit: Yes Minutes spent on Phone/Video with Pt.: 12 Assessment & Plan Assessment & Plan (1) S/P laparoscopic sleeve gastrectomy: Code(s): Z98.84 - Bariatric surgery status Category: Surgical Plan: Patient not following meal plan given nausea and vomiting secondary to initiation of Trulicity by her primary care physician. She additionally states she has had URI symptoms for the last 7-10 days. She has been experiencing fatigue and feeling unwell. She has not called her primary care physician to discuss these issues. She states she is able to keep fluids down with the use of ondansetron that was prescribed by her primary care physician. I urged her to immediately call her primary care physician to alert them to the symptoms she is having. She states that she will call. I also attempted to call the primary care physician however after being on hold for an extended period of time and no one answering the phone, I was unable to be connected to her PCP
[2025-03-31 13:11] VITALS: BMI 33.4
--- OUTSIDE RECORDS SUMMARY | 2025-03-31 16:31 | XMS_ITS | Clinical Summary ---
Author Organization 175 [facility] Address [address] [place] [address] Phone Care Team Providers Care Trash Man Name Role Phone [facility] Primary Care Provider [phone] Allergies Active Allergy Reactions Criticality Noted Date Comments Ciprofloxacin Hives 09/15/2024 Latex Hives 09/15/2024 Sulfamethoxazole Hives 09/15/2024 Trimethoprim Hives 09/15/2024 Medications No known medications Active Problems Problem Noted Date Diagnosed Date Pain, foot, chronic 09/15/2024 PTSD (post-traumatic stress disorder) 09/15/2024 Seizures ([facility] V24, [facility] V28) 09/15/2024 Family history of anesthesia complication 2023 Obesity (BMI 30-39.9) 09/15/2024 Bipolar disorder current epi sode depressed ([facility] V24, [facility] V28) 09/15/2024 Neuropathy 09/15/2024 Hypercholesteremia 09/15/2024 Hypertension 09/15/2024 Ovarian cyst 09/15/2024 History of ectopic 09/15/2024 Vitamin B1 deficiency 09/15/2024 Vitamin D deficiency 09/15/2024 Vitamin B12 deficiency 09/15/2024 Insulin dependent type 2 sherry betes mellitus ([facility] V24, [facility] V28) 09/15/2024 Anxiety 09/15/2024 Depression 09/15/2024 Bipolar 1 disorder ([facility] V24, [facility] V28) Social History Tobacco Use Types Packs/Day [...] topic Insurance MEDICAID - [place] Care Teams Trash Man Relationship Specialty Start Date End Date [facility] [address] [place] [phone] PCP - General 06/18/24
== END 2025-03-31 14:10 | disposition home or self-care (01) ==
LOC: HO.HBS 14:00
PROVIDERS: PCP Registered Nurse; Visit Provider Physician Assistant Surgical
DX: Z98.84 Bariatric surgery status (principal)
CPT/HCPCS: 99213

== ENCOUNTER → 2025-03-31 14:00 | Outpatient (BNVA) | payer MEDICAID, SELFPAY | PROVIDERS: PCP Registered Nurse; Visit Provider Physician Assistant Surgical ==